=== PATIENT | male | born 1930 ===

== ENCOUNTER 2017-11-25 13:00 | Inpatient (IN) | payer MEDICARE, MEDICAID ==
[2017-11-25] MEDS ORDERED: cefTRIAXone 1 gm 1 GM/100 ML BAG IVPB STA (13:34)
[2017-11-25 13:35] VITALS: BMI 23.7
[2017-11-25] MEDS ORDERED: Azithromycin 500MG/NS 250ml 500 MG/250 ML BAG IVPB STA (13:35)
--- NOTE | 2017-11-25 13:37 | ED PDOC ---
Arrival/HPI - General Chief Complaint: Shortness Of Breath Time Seen by Provider: 11/25/17 13:14 Historian: Patient, Long-Term, EMS - Critical Care Narrative Critical Care (Text): 11/25/17 16:36 11/25/17 16:36 - History of Present Illness Narrative History of Present Illness (Text): 11/25/17 13:36 pt p/w ~ 4 DAYS onset of gradually worsening sob/coughing, + intermittent productive sputumn (non-bloody); + chills/? sweats, no fever, + chest tightness , no palpitations, no abd pain, no n/v, no appetite, no numbness/tingling, no urinary/bowel changes, no fall/trauma/travel; ? sick contact; pt was noted by nursing staff to have decr oxygenation sating as low as ~ 82%, requiring oxygen supplementations; pt also has been provided more frequent nebs, started on abx without improvement; [facility] had wanted to transfer pt to ED for further eval/admission ~ 4 days ago but pt had refused; currently pt is in agreement for admission; pt denied other complaints; pt is here for further eval. 11/25/17 15:16 11/25/17 16:04 Time/Duration: < week Symptom Onset: Gradual Symptom Course: Worsening Quality: Tightness Severity Level: 6 Activities at Onset: Rest Context: Home Past Medical History - Provider Review Nursing Documentation Reviewed: Yes - Travel History Have you recently traveled outside [place] w/in the past 3 mons?: No - Past History Past History: No Previous - Cardiac Hx Cardiac Disorders: Yes (CAD) Hx Hypertension: Yes Hx Peripheral Vascular Disease: Yes - Pulmonary Hx Respiratory Disorders: Yes Hx Asthma: Yes Hx Chronic Obstructive Pulmonary Disease (COPD): Yes - Neurological Hx Neurological Disorder: Yes Hx Dementia: Yes - HEENT Hx HEENT Disorder: Yes Hx Cataracts: Yes - Renal Hx Renal Disorder: Yes Hx Renal Failure: Yes - Endocrine/Metabolic Hx Endocrine Disorders: Yes Hx Diabetes Mellitus Type 2: Yes - Hematological/Oncological Hx Blood Disorders: No - Integumentary Hx Dermatological Disorder: No - Musculoskeletal/Rheumatological Hx Falls: Yes - Gastrointestinal Hx Gastrointestinal Disorders: No - Genitourinary/Gynecological Hx Genitourinary Disorders: Yes Hx Prostate Problems: Yes - Psychiatric Hx Psychophysiologic Disorder: No Hx Substance Use: No - Surgical History Hx Cataract Extraction: Yes (Bilateral IOL) Hx Orthopedic Surgery: Yes (Left AKA) Other/Comment: CYSTOSCOPY/ STENT INSERTION - Anesthesia Hx Anesthesia: Yes Hx Anesthesia Reactions: No Hx Malignant Hyperthermia: No Family/Social History - Physician Review Nursing Documentation Reviewed: Yes Family/Social History: Unknown Family HX Smoking Status: Former Smoker Hx Alcohol Use: No Hx Substance Use: No Allergies/Home Meds Allergies/Adverse Reactions: Allergies No Known Allergies Allergy (Verified 11/25/17 16:48) Home Medications: Home Meds Medication Instructions Recorded Confirmed Acetaminophen 650 mg PO Q4 PRN 07/01/17 11/25/17 Aspirin [Resaca Aspirin] 81 mg PO DAILY 07/01/17 11/25/17 Cetirizine HCl [Zyrtec Allergy] 10 mg PO QPM 07/01/17 11/25/17 Cholecalciferol (Vitamin D3) 50,000 unit PO QWK 07/01/17 11/25/17 [Vitamin D3] Enalapril Maleate [Vasotec] 10 mg PO BID 07/01/17 11/25/17 Furosemide 40 mg PO DAILY 07/01/17 11/25/17 Insulin Human NPH [Humalin N] 10 units SC ACD 07/01/17 11/25/17 Insulin Human NPH [Humalin N] 20 units SC ACB 07/01/17 11/25/17 Insulin Human Regular [Novolin R] 0 unit SC ACHS PRN 07/01/17 11/25/17 Lactulose 10 gm PO HS PRN 07/01/17 11/25/17 Lamotrigine 25 mg PO BID 07/01/17 11/25/17 Memantine [Namenda] 5 mg PO BID 07/01/17 11/25/17 Montelukast [Singulair] 10 mg PO QPM 07/01/17 11/25/17 Fluticasone Nasal [Flonase] 1 spr NS DAILY 08/12/17 11/25/17 Fluticasone/Salmeterol 500/50 1 puff IH BID 08/12/17 11/25/17 [Advair Diskus 500/50] Ipratropium 0.02% [Atrovent] 1 appl IH Q4 08/12/17 11/25/17 Tamsulosin [Flomax] 0.4 mg PO DAILY 08/12/17 11/25/17 Eyelid Cleanser Comb No.7 [Ocusoft 1 each TP ONCE 11/25/17 11/25/17 Lid Scrub] amLODIPine [Norvasc] 10 mg PO DAILY 11/25/17 11/25/17 Review of Systems - Review of Systems Constitutional: Fatigue, Other (chills/weakness) Eyes: Normal ENT: Normal Respiratory: SOB, Cough, Sputum, Wheezing Cardiovascular: Chest Pain. absent: Palpitations, Edema Gastrointestinal: Appetite Changes. absent: Abdominal Pain Genitourinary Male: Normal Skin: Normal Neurological: Normal Endocrine: Normal Hemo/Lymphatic: Normal Psychiatric: Normal Physical Exam Vital Signs Reviewed: Yes Vital Signs Temp Pulse Resp BP Pulse Ox 11/25/17 16:35 77 17 115/69 97 11/25/17 15:32 84 16 127/51 L 96 11/25/17 15:30 127/51 L 11/25/17 13:55 17 97 11/25/17 13:17 97.9 F 81 17 135/53 L 95 Temperature: Afebrile Blood Pressure: Normal Pulse: Regular Respiratory Rate: Normal Appearance: Positive for: Well-Appearing, Non-Toxic, Other (uncomfortable, mild distress due to resp; alert/awake, GCS = 15, oriented x 2 (not to date/time), cooperative) Pain Distress: None - Systems Exam Head: Present: Atraumatic, Normocephalic, Other (mild bitemporal wasting) Pupils: Present: PERRL, Other (visual field intact b/l, no photophobia, sclera anicteric) Extroacular Muscles: Present: EOMI Conjunctiva: Present: Normal Ears: Present: Normal Mouth: Present: Dry, Other (mild dry oral mucosa, no drooling/stridor, no exudate/lesions, uvula/tongue are midline) Pharnyx: Present: Normal, Other (uvula/tongue are midline) Nose (External): Present: Atraumatic Neck: Present: Normal Range of Motion, Trachea Midline. No: MIDLINE TENDERNESS Respiratory/Chest: Present: Other (coarse breath sounds noted with right lower base rhonchi, + crackles; faint wheezing bibasiliar, mild tachypenia, no accessory muscle use noted). No: Respiratory Distress, Accessory Muscle Use Cardiovascular: Present: Regular Rate and Rhythm, Normal S1, S2. No: Murmurs Abdomen: Present: Normal Bowel Sounds, Other (well nourished male, no focal tenderness, no dill's sign, no mcburney's point tenderness, no masses/rebound/ guarding/rigidity). No: Tenderness, Distention, Peritoneal Signs Back: Present: Normal Inspection Upper Extremity: Present: Normal Inspection, NORMAL PULSES, Neurovascularly Intact, Capillary Refill < 2s. No: Cyanosis, Edema Lower Extremity: Present: Other (+ left BKA; no pitting edema/swelling noted right lower ext; neurovasc intact b/l, strength 5-/5 b/l). No: Edema Neurological: Present: GCS=15, CN II-XII Intact, Speech Normal Skin: Present: Warm, Dry, Normal Color, Other (slightly pale, cap refill < 1sec) . No: Rashes Psychiatric: Present: Alert, Normal Insight, Normal Concentration Medical Decision Making ED Course and Treatment: 11/25/17 15:02 Impression: weakness, sob/decr pulse ox, decr appetite i have consider all the differential diagnosis regarding pt's chief medical complaints/clinical findings, including but are not limited to: r/o pna, r/o CHF , r/o acs, r/o electrolyte changes/abnormalities; anemia A/P: sob/weakness, coughing, decr pulse ox - labs - iv - xray - abx? - acs eval - observe - supportive care 11/25/17 15:10 pt is doing well/comfortable currently pt is made aware of his medical results agrees with admission Dr Thomas, pt's pcp, contacted and made aware, agrees with admission/ED mgt/txt ; would like consultation placed for Dr MO and Dr Gibson to see/evaluate patient in the morning 11/25/17 16:30 11/25/17 16:39 pt's vital signs are stable pt is currently comfortable Re-evaluation Time: 15:55 Reassessment Condition: Improved - Critical Care Critical Care Minutes: 45 minutes Critical Care Time: Excluding Proc Time Narrative Critical Care (Text): 11/25/17 15:12 critical care time: 45min, excluding procedure time, excluding time teaching residents/students/mid-level providers; including initial eval/diagnosis, diagnostic interpretation, re-eval, consultations, final disposition - Lab Interpretations Lab Results: 11/25/17 13:40 11/25/17 13:40 Lab Results 11/25/17 13:40: Sodium 144, Chloride 106, Potassium 4.4, Carbon Dioxide 28, Anion Gap 15, BUN 58 H, Creatinine 5.0 H, Est GFR ( Amer) 13, Est GFR ( Non-Af Amer) 11, Random Glucose 98, Calcium 9.1, Total Bilirubin 0.4, AST 30, ALT 36, Alkaline Phosphatase 147 H, Lactate Dehydrogenase 408, Total Creatine Kinase 99, Troponin I 0.02, NT-Pro-B Natriuret Pep 4890 H, Total Protein 7.0, Albumin 3.7, Globulin 3.3, Albumin/Globulin Ratio 1.1 11/25/17 13:40: pO2 26 L, VBG pH 7.33, VBG pCO2 55.0, VBG HCO3 29.0 H, VBG Total CO2 30.7 H, VBG O2 Sat (Calc) 53.5, VBG Base Excess 1.9, VBG Potassium 4.3 , Sodium 142.0, Chloride 108.0 H, Glucose 98, Lactate 0.9, FiO2 21.0, Venous Blood Potassium 4.3 11/25/17 13:40: WBC 6.7, RBC 3.15 L, Hgb 8.2 L, Hct 27.7 L, MCV 87.9, MCH 26.0, MCHC 29.6 L, RDW 15.8 H, Plt Count 163, MPV 10.4, Gran % 74.9 H, Lymph % (Auto) 18.4 L, Izard % (Auto) 4.2, Eos % (Auto) 2.4, Baso % (Auto) 0.1, Gran # 5.05, Lymph # 1.2, Izard # 0.3, Eos # 0.2, Baso # 0.01 low H/H, elevated BUN/creat; elevated BNP I have reviewed the lab results: Yes (low h/h; elevated CREAT; BNP) Interpretation: Abnormal lab values - RAD Interpretation Radiology Orders: 11/25/17 13:32 CHEST PORTABLE [RAD] Stat FINDINGS: LUNGS: Pulmonary vascular congestion, pulmonary edema. PLEURA: No significant pleural effusion identified, no pneumothorax apparent. CARDIOVASCULAR: Cardiomegaly, CHF. OSSEOUS STRUCTURES: No significant abnormalities. VISUALIZED UPPER ABDOMEN: Normal. OTHER FINDINGS: None. IMPRESSION: Congestive heart failure/ cardiogenic pulmonary edema. Freight Flagman: ED Physician, Radiologist - EKG Interpretation EKG Interpretation (Text): 11/25/17 15:12 NSR at 75 bpm, LAD, no ectopy, non-specific st-t changes, diffuse low voltage, ABNL EKG; no old ekg to compare with 11/25/17 16:37 Interpreted by ED Physician: Yes Type: 12 lead EKG Comparison: No previous EKG avail. - Medication Orders Current Medication Orders: Discontinued Medications Albuterol/Ipratropium (Duoneb 3 Mg/0.5 Mg (3 Ml) Ud) 3 ml IH Q15M FANNY Stop: 11/25/17 14:16 Last Admin: 11/25/17 14:52 Dose: 3 ml Furosemide (Lasix) 40 mg IVP STAT STA Stop: 11/25/17 14:55 Last Admin: 11/25/17 15:30 Dose: 40 mg MAR Blood Pressure Document 11/25/17 15:30 [facility] (Rec: 11/25/17 15:31 [facility] [id number]) Blood Pressure Blood Pressure (100/60-150/90) 127/51 IVP Administration Document 11/25/17 15:30 [facility] (Rec: 11/25/17 15:31 [facility] [id number]) Charges for Administration # of IVP Administrations 1 Ceftriaxone Sodium (Rocephin 1 Gram Ivpb) 1 gm in 100 mls @ 200 mls/hr IVPB STAT STA PRN Reason: Protocol Stop: 11/25/17 14:03 Last Admin: 11/25/17 14:25 Dose: 200 mls/hr eMAR Start Stop Document 11/25/17 14:25 [facility] (Rec: 11/25/17 14:25 [facility] [id number]) Intravenous Solution Start Date 11/25/17 Start Time 14:25 End Date 11/25/17 End time 15:00 Total Infusion Time 35 Azithromycin (Zithromax 500mg In Ns) 500 mg in 250 mls @ 167 mls/hr IVPB STAT STA PRN Reason: Protocol Stop: 11/25/17 15:04 Last Admin: 11/25/17 15:08 Dose: 167 mls/hr eMAR Start Stop Document 11/25/17 15:08 [facility] (Rec: 11/25/17 15:08 [facility] [id number]) Intravenous Solution Start Date 11/25/17 Start Time 15:08 End Date 11/25/17 End time 16:40 Total Infusion Time 92 Disposition/Present on Arrival - Present on Arrival Any Indicators Present on Arrival: No History of DVT/PE: No History of Uncontrolled Diabetes: Yes Urinary Catheter: Yes History of Decub. Ulcer: No History Surgical Site Infection Following: None - Disposition Have Diagnosis and Disposition been Completed?: Yes Diagnosis: Dyspnea, unspecified, Acute on chronic diastolic CHF (congestive heart failure) , Pneumonia, Acute on chronic renal failure, Anemia Disposition: HOSPITALIZED Disposition Time: 15:30 Patient Plan: Admission, Telemetry Patient Problems: Current Active Problems Problem Status Onset Acute on chronic diastolic CHF (congestive heart failure) Acute Acute on chronic renal failure Acute Anemia Acute Dyspnea, unspecified Acute Pneumonia Acute Condition: FAIR
[2017-11-25] MEDS: Albuterol-Ipratrop 3 mg / 0.5 (3 ml) UD IH SCH ×3 (14:02→14:52)
[2017-11-25 14:11] LABS: VENOUS BLOOD GAS BASE EXCESS 1.9 mmol/L (0.0-2.0); VENOUS BLOOD GAS PO2 26 mm/Hg (30-55); VENOUS BLOOD PH 7.33 (7.32-7.43)
[2017-11-25 14:13] LABS: BASO # 0.01 K/mm3 (0.0-2.0); BASO % 0.1 % (0.0-3.0); EOS # 0.2 (0.0-0.7); EOS % 2.4 % (1.5-5.0); GRAN # 5.05 (1.4-6.5); GRAN % 74.9 % (50.0-68.0); HEMOGLOBIN 8.2 g/dL (14.0-18.0); LYMPH # 1.2 (1.2-3.4); LYMPH % 18.4 % (22.0-35.0); MEAN CELL VOLUME 87.9 fl (80.0-105.0); MEAN CORPUSCULAR HGB CONC 29.6 g/dl (31.0-37.0); MEAN PLATELET VOLUME 10.4 fl (7.0-11.0); MONO # 0.3 (0.1-0.6); MONO % 4.2 % (1.0-6.0); RBC 3.15 10^6/uL (3.5-6.1); RED CELL DISTRIBUTION WIDTH 15.8 % (11.5-14.5); WHITE BLOOD COUNT 6.7 10^3/ul (4.5-11.0)
[2017-11-25 14:22] LABS: ALB/GLOB RATIO 1.1 (1.1-1.8); ALBUMIN 3.7 g/dL (3.0-4.8); CALCIUM 9.1 mg/dL (8.4-10.5)
[2017-11-25 14:31] LABS: TROPONIN I 0.02 ng/mL
--- NOTE | 2017-11-25 15:58 | RAD ---
HISTORY: Shortness of breath. Portable study 14:19. COMPARISON: No prior. FINDINGS: LUNGS: Pulmonary vascular congestion, pulmonary edema. PLEURA: No significant pleural effusion identified, no pneumothorax apparent. CARDIOVASCULAR: Cardiomegaly, CHF. OSSEOUS STRUCTURES: No significant abnormalities. VISUALIZED UPPER ABDOMEN: Normal. OTHER FINDINGS: None. IMPRESSION: Congestive heart failure/ cardiogenic pulmonary edema.
--- NOTE | 2017-11-25 16:57 | CP.PCM.CON ---
History of Present Illness - History of Present Illness History of Present Illness: Infectious Disease Consultation: November 25, 2017 87 yo male with heavy sputum production in [facility] facility. The patient had desaturations at the facility. Reported as low as 82%. He recently completed course of Levaquin for antibiotic therapy. The patient is unable to give much history on his own. As per snf records, desaturation to 86%. Heavy thick brown secretions for the last 3 days or so. No reported fevers. No leukocytosis. PMHx: HTN, CAD, COPD, Dementia, Asthma, PVD, Cataracts, DM, Renal Failure, CHF PSHx: Left AKA Allergies: NKDA Social Hx: retirement resident No tobacco, EtOH, or illicit drug use to my knowledge Active Medications Ceftaroline Fosamil 300 mg/ (Sodium Chloride) 50 mls @ 50 mls/hr IVPB Q12H FANNY PRN Reason: Protocol Family Hx: Unable to Obtain ROS: Unable to Obtain Past Patient History - Past Medical History & Family History Past Medical History?: Yes - Past Social History Smoking Status: Former Smoker - CARDIAC Hx Cardiac Disorders: Yes (CAD) Hx Hypertension: Yes Hx Peripheral Vascular Disease: Yes - PULMONARY Hx Respiratory Disorders: Yes Hx Asthma: Yes Hx Chronic Obstructive Pulmonary Disease (COPD): Yes - NEUROLOGICAL Hx Neurological Disorder: Yes Hx Dementia: Yes - HEENT Hx HEENT Problems: Yes Hx Cataracts: Yes - RENAL Hx Chronic Kidney Disease: Yes Hx Renal Failure: Yes - ENDOCRINE/METABOLIC Hx Endocrine Disorders: Yes Hx Diabetes Mellitus Type 2: Yes - HEMATOLOGICAL/ONCOLOGICAL Hx Blood Disorders: No - INTEGUMENTARY Hx Dermatological Problems: No - MUSCULOSKELETAL/RHEUMATOLOGICAL Hx Falls: Yes - GASTROINTESTINAL Hx Gastrointestinal Disorders: No - GENITOURINARY/GYNECOLOGICAL Hx Genitourinary Disorders: Yes Hx Prostate Problems: Yes - PSYCHIATRIC Hx Psychophysiologic Disorder: No Hx Substance Use: No - SURGICAL HISTORY Hx Cataract Extraction: Yes (Bilateral IOL) Hx Orthopedic Surgery: Yes (Left AKA) Other/Comment: CYSTOSCOPY/ STENT INSERTION - ANESTHESIA Hx Anesthesia: Yes Hx Anesthesia Reactions: No Hx Malignant Hyperthermia: No Meds Allergies/Adverse Reactions: Allergies Allergy/AdvReac Type Severity Reaction Status Date / Time No Known Allergies Allergy Verified 11/25/17 16:48 Physical Exam - Constitutional Appears: Non-toxic, No Acute Distress, Chronically Ill - Head Exam Head Exam: ATRAUMATIC, NORMOCEPHALIC - Eye Exam Eye Exam: EOMI, PERRL Pupil Exam: NORMAL ACCOMODATION, PERRL - ENT Exam ENT Exam: Mucous Membranes Moist, Normal External Ear Exam, TM's Normal Bilaterally - Neck Exam Neck exam: Positive for: Full Rom, Normal Inspection - Respiratory Exam Respiratory Exam: Decreased Breath Sounds, NORMAL BREATHING PATTERN. absent: Rales, Rhonchi, Wheezes Additional comments: crackles at bases bilaterally. - Cardiovascular Exam Cardiovascular Exam: REGULAR RHYTHM, RRR, +S1, +S2 - GI/Abdominal Exam GI & Abdominal Exam: Normal Bowel Sounds, Soft. absent: Distended, Tenderness - Extremities Exam Extremities exam: Positive for: full ROM, normal inspection - Neurological Exam Neurological exam: Alert, CN II-XII Intact Additional comments: AAO x 2. Not orientated to time. - Psychiatric Exam Psychiatric exam: Normal Affect, Normal Mood - Skin Skin Exam: Intact, Normal Color Results - Vital Signs Recent Vital Signs: Last Vital Signs Temp 97.9 F 11/25/17 13:17 Pulse 77 11/25/17 16:35 Resp 17 11/25/17 16:35 BP 115/69 11/25/17 16:35 Pulse Ox 97 11/25/17 16:35 - Labs Result Diagrams: 11/25/17 13:40 11/25/17 13:40 Assessment & Plan - Assessment and Plan (Free Text) Assessment: 87 yo male with SOB and oxygen desaturation to 86% at [facility] [place]. The patient had excess sputum production that was thicker than normal. Started Teflaro for antibiotic treatment. The patient completed Levaquin less than a week ago. The patient does not have fevers or leukocytosis. Sputum culture. Supportive care. Patient with renal insufficiency if not renal failure. Creatinine has been above 3 for several months now. I do not see any type of HD access on the patient. No decubiti of the sacrum on examination. Thank you for allowing me to participate in the care of the patient, we will follow with you.
[2017-11-25] MEDS ORDERED: Pneumococcal 23-Valent Vaccine IM ONE (18:37)
[2017-11-25] MEDS ORDERED: Influenza Vaccine 60 mcg/0.5 mL SYR (4YR UP) IM ONE (18:37)
[2017-11-25] MEDS ORDERED: Fluticasone-Salmeterol 500-50mcg Diskus IH SCH (19:00)
[2017-11-25] MEDS: Ipratropium 0.02% Inhal Soln (0.5 mg/2.5 ml) UD IH SCH (20:04)
[2017-11-25] MEDS: Arformoterol 15 mcg/2 ml Inh Sol IH SCH (20:05)
[2017-11-25] MEDS: Budesonide 0.5 mg/2 ml Inhal Susp UD IH SCH (20:06)
[2017-11-25] MEDS: MethylPREDNISolone 40 mg Vial IVP SCH (22:37)
--- NOTE | 2017-11-25 23:14 | CON ---
DATE: 11/25/2017 REFERRING PHYSICIAN: Dr. Thomas REASON FOR CONSULT: Cough, shortness of breath, hypoxemia. HISTORY OF PRESENT ILLNESS: This is an 87-year-old gentleman with past medical history significant for chronic obstructive lung disease, hypertension, coronary artery disease, peripheral vascular disease, history of left AKA, diabetes, who is a halfway resident. From the last few days, been having cough and shortness of breath. He was treated with Levaquin which failed, brought into Emergency Room, admitted for further workup, seen by Infectious Disease, antibiotics have been started. He does not offer much history himself. ALLERGIES: NONE KNOWN. PAST MEDICAL HISTORY: As per history of present illness. SOCIAL HISTORY: There is no active smoking or alcohol abuse reported at present time. MEDICATIONS: Ceftaroline 300 mg daily. Home medications are Flomax 0.4 mg daily, Namenda 5 mg twice a day, vitamin D3 50,000 units weekly. Singulair 10 mg daily, albuterol and Atrovent nebulizer, insulin coverage, Flonase one spray each nostril daily, Tylenol p.r.n., lamotrigine 25 mg twice a day, Lasix 20 mg daily, enalapril 10 mg twice a day, cetirizine 10 mg daily, amlodipine 10 mg daily, getting Advair 500/50 one puff twice a day. REVIEW OF SYSTEMS: He does not offer much complaints but according to record been having rhinitis, cough, shortness of breath, hypoxemia, pulse ox drop down to mid 80s. No hemoptysis. No hematemesis. No hematuria. No diarrhea. No leg swelling reported. PHYSICAL EXAMINATION GENERAL: Lying in the bed with mild cough and shortness of breath. VITAL SIGNS: Temperature is 98, heart rate is 81, respiratory rate is 20, blood pressure is 115/69, pulse ox is 97% on nasal cannula. HEENT: Moist mucous membranes. Crowded airway. Mallampati score is 4. NECK: Supple. No JVD. LUNGS: Have scattered rhonchi and wheezing. HEART: S1 and S2. ABDOMEN: Soft and nontender. No organomegaly. EXTREMITIES: Right leg, no edema. Left AKA stump is healed well. NEUROLOGIC: Awake, alert. Does not follow much commands. LABORATORY DATA: Shows hemoglobin 8.2, hematocrit 27.7, WBC 6.7, platelets 163. ABG done which shows pH 7.33, pCO2 of 55, pO2 of 26. Sodium 144, potassium 4.4, chloride 106, bicarbonate 28, BUN 58, creatinine 5.0, glucose 98, calcium 9.1, total bilirubin 0.4, AST 30, ALT 36, alkaline phosphatase 147, LDH 408, proBNP is 4890, albumin 3.7. Chest x-ray done today shows congestive heart failure, cardiogenic pulmonary edema. IMPRESSION AND PLAN: Chronic obstructive lung disease with renal failure, rule out viral syndrome, history of coronary artery disease, hypertension, peripheral vascular disease, history of left above knee amputation. We will add IV and inhaled bronchodilator. Keep head at 45 degrees. Sleep apnea precaution. We will get echocardiogram to assess RV and LV function. Antibiotics as per Infectious Disease. Sleep apnea precaution. May place on BiPAP 09/06 with 30% oxygen while sleeping for now. Followup labs in the morning. We will follow with you. Nathalie Gibson MD
[2017-11-26 01:59] LABS: URINE BILIRUBIN NEGATIVE (NEGATIVE); URINE BLOOD NEGATIVE (NEGATIVE); URINE GLUCOSE (UA) NEGATIVE (NEGATIVE); URINE LEUKOCYTE ESTERASE NEGATIVE Leu/uL (NEGATIVE); URINE NITRATE NEGATIVE (NEGATIVE); URINE PROTEIN TRACE mg/dL (<30 mg/dL); URINE UROBILINOGEN 0.2 E.U./dL (<1 E.U./dL)
--- NOTE | 2017-11-26 02:06 | HP ---
CHIEF COMPLAINT: Shortness of breath. HISTORY OF PRESENT ILLNESS: Mr. Sukhdev Grey is an 87-year-old male with past medical history of multiple medical problems, resident of [facility], was having four days ago shortness of breath, coughing intermittent periodic sputum production and nonbloody, plus chills and sweats. The patient was treated by nurse practitioner Veena with Mucinex, antibiotics inhaler treatment. The patient was offered hospitalization, but he refused. Now today, I received a call from the [facility], but because the patient started chest pain also, then we transferred the patient to [facility] Emergency Room. According to the patient, he is having chest pain and shortness of breath, but no palpitation. No abdominal pain. No nausea or vomiting. No appetite change. No numbness or tingling sensation. In the [facility], oxygenation was as low as 82% requiring oxygen supplementation and more frequent nebulizers were provided in the [facility] without improvement. We admitted the patient. Discussion done with PAST MEDICAL HISTORY: Coronary artery disease, hypertension, asthma, chronic obstructive pulmonary disease, dementia, renal failure, diabetes mellitus, history of fall, amputation of the leg, benign prostatic hypertrophy, history of nephrolithiasis, hydronephrosis, got a ureteral stent by Dr. Rubén King, got surgery bilaterally, left above the knee amputation, cystoscopy by Dr. King. FAMILY HISTORY: Father and mother noncontributory. HABITS: No smoking, no drugs, no ethanol. Former smoker. ALLERGIES: THE PATIENT IS NOT ALLERGIC TO ANY MEDICATIONS. HOME MEDICATIONS: Acetaminophen, aspirin, Zyrtec, vitamin D, enalapril, furosemide, insulin, lactulose, Namenda, Singulair, Flomax, atorvastatin. REVIEW OF SYSTEMS: The patient was seen and examined and looking sick having shortness of breath, coughing sputum and wheezing. Chest tightness. No fever, no chills. No hematuria or hematochezia. PHYSICAL EXAMINATION: VITAL SIGNS: Temperature 97.9, pulse 81, respiratory rate 17, blood pressure 130/63, and pulse oximetry of 95%. HEENT: Head is normocephalic and atraumatic. Eyes: PERRLA. Extraocular muscles are intact. Conjunctivae clear. Nose patent. Mucous membranes moist. NECK: Supple. No carotid bruit, JVD or thyromegaly. CHEST: Bilaterally symmetrical. HEART: S1 and S2 positive. LUNGS: Coarse breathing sounds noted with right lower basilar rhonchi plus crackles are faint, wheezing bilaterally. Mild tachypneic. ABDOMEN: Soft. Bowel sounds present. No organomegaly. EXTREMITIES: No edema. No cyanosis. NEUROLOGIC: The patient is awake and alert. Moving all four extremities. No focal deficits. LABORATORY DATA: White blood cells 6.7, hemoglobin 8.2, hematocrit 27.7, platelets 153,000, sodium 144, potassium 4.4, BUN 15, creatinine 5.0. ASSESSMENT AND PLAN: Mr. Sukhdev Grey is an 87-year-old male, my private patient, resident of [facility] has anemia, renal insufficiency, pulmonary edema, pulmonary vascular congestion, congestive heart failure, cardiogenic pulmonary edema, dyspnea, pneumonia, history of peripheral vascular disease, noncompliant, coronary artery disease, dementia, history of nephrolithiasis, benign prostatic hypertrophy. We will consult with Heel Sorter, Infectious Disease. Gastrointestinal and deep venous thrombosis prophylaxis. Repeat labs. We will follow up. Senia Thomas MD [place]
[2017-11-26 02:15] LABS: URINE APPEARANCE CLEAR (CLEAR); URINE COLOR YELLOW (YELLOW); URINE EPITHELIAL CELLS 0 - 2 /hpf (0-5); URINE RBC 0 - 2 /hpf (0-2); URINE WBC 0 - 2 /hpf (0-6)
[2017-11-26] MEDS: Budesonide 0.5 mg/2 ml Inhal Susp UD IH SCH ×3 (08:55→19:37)
[2017-11-26] MEDS: Ipratropium 0.02% Inhal Soln (0.5 mg/2.5 ml) UD IH SCH ×6 (08:55→23:55)
[2017-11-26] MEDS: Arformoterol 15 mcg/2 ml Inh Sol IH SCH ×3 (08:55→19:36)
[2017-11-26] MEDS: Insulin Human NPH 1 UNITS/0.01 ML SC SCH ×2 (09:08→18:04)
[2017-11-26] MEDS: MethylPREDNISolone 40 mg Vial IVP SCH ×2 (10:25→22:28)
[2017-11-26] MEDS: Fluticasone Nasal 50 mcg/Spray NS SCH (10:26)
--- NOTE | 2017-11-26 10:53 | CP.PCM.PN ---
Subjective - Date & Time of Evaluation Date of Evaluation: 11/26/17 Time of Evaluation: 10:30 - Subjective Subjective: Infectious Disease Follow Up: November 26, 2017 87 yo male with heavy sputum production in [facility] at [facility] facility. The patient had desaturations at the facility. Reported as low as 82%. He recently completed course of Levaquin for antibiotic therapy. The patient is unable to give much history on his own. As per [facility] records, desaturation to 86%. Heavy thick brown secretions for the last 3 days or so. No reported fevers. No leukocytosis. Patient incontinent of urine. On BiPAP. Remains afebrile here. Objective - Vital Signs/Intake and Output Vital Signs (last 24 hours): Temp Pulse Resp BP Pulse Ox 97.9 F 90 18 146/55 L 93 L 11/26/17 06:00 11/26/17 10:24 11/26/17 06:00 11/26/17 10:25 11/26/17 06:00 Intake and Output: 11/26/17 11/26/17 06:59 18:59 Intake Total 200 Balance 200 - Medications Medications: Current Medications Acetaminophen (Tylenol 325mg Tab) 650 mg PO Q4 PRN PRN Reason: Pain Amlodipine Besylate (Norvasc) 10 mg PO DAILY [facility] Last Admin: 11/26/17 10:25 Dose: 10 mg Arformoterol Tartrate (Brovana) 15 mcg IH [id number] [facility] Last Admin: 11/26/17 08:59 Dose: 15 mcg Aspirin (Ecotrin) 81 mg PO DAILY [facility] Last Admin: 11/26/17 10:24 Dose: 81 mg Budesonide (Pulmicort Respules) 1 mg IH [id number] [facility] Last Admin: 11/26/17 09:02 Dose: 1 mg Ergocalciferol (Drisdol 50,000 Intl Units Cap) 1 cap PO Mo@1000 [facility] Fluticasone Propionate (Flonase) 1 actuation NS DAILY [facility] Last Admin: 11/26/17 10:26 Dose: 1 spray Furosemide (Lasix) 40 mg PO DAILY [facility] Last Admin: 11/26/17 10:25 Dose: 40 mg Ceftaroline Fosamil 300 mg/ (Sodium Chloride) 50 mls @ 50 mls/hr IVPB Q12H [facility] PRN Reason: Protocol Last Admin: 11/26/17 05:39 Dose: 50 mls/hr Insulin Human NPH (Humulin N) 10 units SC ACD [facility] Insulin Human NPH (Humulin N) 20 units SC ACB [facility] Last Admin: 11/26/17 09:08 Dose: 20 units Ipratropium [place] (Atrovent) 2.5 mg IH [id number] [facility] Last Admin: 11/26/17 09:01 Dose: 2.5 mg Lamotrigine (Lamictal) 25 mg PO BID [facility] PRN Reason: Protocol Last Admin: 11/26/17 10:25 Dose: 25 mg Lisinopril (Zestril) 10 mg PO BID [facility] Last Admin: 11/26/17 10:24 Dose: 10 mg Loratadine (Claritin) 10 mg PO QPM [facility] Memantine (Namenda) 5 mg PO BID [facility] Last Admin: 11/26/17 10:25 Dose: 5 mg Methylprednisolone (Solu-Medrol) 40 mg IVP Q12 [facility] Last Admin: 11/26/17 10:25 Dose: 40 mg Montelukast Sodium (Singulair) 10 mg PO QPM [facility] Tamsulosin HCl (Flomax) 0.4 mg PO DAILY [facility] Last Admin: 11/26/17 10:24 Dose: 0.4 mg - Constitutional Appears: Non-toxic, No Acute Distress, Chronically Ill - Head Exam Head Exam: ATRAUMATIC, NORMOCEPHALIC - Eye Exam Eye Exam: EOMI, PERRL Pupil Exam: NORMAL ACCOMODATION, PERRL - ENT Exam ENT Exam: Mucous Membranes Moist, Normal External Ear Exam, TM's Normal Bilaterally - Neck Exam Neck Exam: Full ROM, Normal Inspection - Respiratory Exam Respiratory Exam: Decreased Breath Sounds, NORMAL BREATHING PATTERN. absent: Rales, Rhonchi, Wheezes Additional comments: crackles at bases bilaterally - Cardiovascular Exam Cardiovascular Exam: REGULAR RHYTHM, RRR, +S1, +S2 - GI/Abdominal Exam GI & Abdominal Exam: Soft, Normal Bowel Sounds. absent: Distended, Tenderness - Extremities Exam Extremities Exam: Full ROM, Normal Inspection - Neurological Exam Neurological Exam: Alert, Awake, CN II-XII Intact Additional comments: AAO x 2. Not orientated to time - Psychiatric Exam Psychiatric exam: Normal Affect, Normal Mood - Skin Skin Exam: Intact, Normal Color Assessment and Plan - Assessment and Plan (Free Text) Assessment: 87 yo male with SOB and oxygen desaturation to 86% at [facility]. The patient had excess sputum production that was thicker than normal. Started Teflaro for antibiotic treatment. The patient completed Levaquin less than a week ago. The patient does not have fevers or leukocytosis. Sputum culture. Supportive care. Patient with renal insufficiency if not renal failure. Creatinine has been above 3 for several months now. I do not see any type of HD access on the patient. The patient has no signs of being of hemodialysis and he is incontinent. Unclear volume of urine produced. No decubiti of the sacrum on examination. Cultures pending. Thank you for allowing me to participate in the care of the patient, we will follow with you.
[2017-11-26] MEDS: Insulin Lispro (humaLOG) MEDIUM Coverage SC SCH ×3 (11:29→22:22)
--- NOTE | 2017-11-26 17:20 | CARD ---
APPROVED REPORT EXAM: Two-dimensional and M-mode echocardiogram with Doppler and color Doppler. INDICATION Congestive Heart Failure 2D DIMENSIONS Left Atrium (2D)3.4 (1.6-4.0cm)IVSd1.2 (0.7-1.1cm) LVDd4.5 (3.9-5.9cm)PWd1.2 (0.7-1.1cm) LVDs3.0 (2.5-4.0cm)FS (%) 32.3 % LVEF (%)60.7 (>50%) M-Mode DIMENSIONS Aortic Root2.40 (2.2-3.7cm)Aortic Cusp Exc.1.20 (1.5-2.0cm) Aortic Valve AoV Peak Mqnajvuj655.0cm/Halie Peak GR.6mmHg Mitral Valve MV E Kmfgxnhh894.0cm/sMV A Uehdwtcr356.0cm/sE/A ratio0.9 TDI E/Lateral E'0.0E/Medial E'0.0 Tricuspid Valve TR Peak Ikktolom193nd/sRAP [id number] Peak Gr.34mmHg [id number] LEFT VENTRICLE The left ventricle is normal size. There is borderline concentric left ventricular hypertrophy. The left ventricular function is normal. The left ventricular ejection fraction is within the normal range. There is normal LV segmental wall motion. Transmitral Doppler flow pattern is Grade I-abnormal relaxation pattern. RIGHT VENTRICLE The right ventricle is normal size. There is normal right ventricular wall thickness. The right ventricular systolic function is normal. ATRIA The left atrium size is normal. The right atrium is borderline dilated. AORTIC VALVE The aortic valve is not well visualized. No aortic regurgitation is present. There is no aortic valvular stenosis. MITRAL VALVE The mitral valve is mildly thickened. There is no mitral valve regurgitation noted. There is no mitral valve stenosis. TRICUSPID VALVE There is trace tricuspid regurgitation. There is mild pulmonary hypertension. GREAT VESSELS The aortic root is normal in size. The IVC is normal in size and collapses >50% with inspiration. PERICARDIAL EFFUSION There is a trace loculated anterior pericardial effusion. <Conclusion> The left ventricle is normal size. There is borderline concentric left ventricular hypertrophy. The left ventricular function is normal. The left ventricular ejection fraction is within the normal range. There is normal LV segmental wall motion. Transmitral Doppler flow pattern is Grade I-abnormal relaxation pattern. There is mild pulmonary hypertension.
--- NOTE | 2017-11-26 17:29 | CARD ---
APPROVED REPORT EKG Measurement Heart [id number] <Conclusion> Normal sinus rhythm Left axis deviation Abnormal ECG
--- NOTE | 2017-11-26 21:43 | CP.PCM.PN ---
Subjective - Date & Time of Evaluation Date of Evaluation: 11/26/17 Time of Evaluation: 09:55 - Subjective Subjective: 87yr male w/ history of CAD, HTN, Asthma, COPD, Dementia, Renal failure , CHF, DM II, history of fall, L AKA, BPH, Nephrolithiasis w/ stents by Dr. King, hydronephrosis, peripheral vascular disease, & pulmonary edema. He is seen w/ his nasal cannula O2 applied to face. He states that he feels very scared in the hospital and was relaxed to see a familiar face. Denies any headaches, SOB, N/V, fevers, constipation, diarrhea, urinary changes or distress. Objective - Vital Signs/Intake and Output Vital Signs (last 24 hours): Temp Pulse Resp BP Pulse Ox 97.5 F L 81 20 135/53 L 93 L 11/26/17 18:00 11/26/17 18:00 11/26/17 18:00 11/26/17 18:00 11/26/17 06:00 - Medications Medications: Current Medications Acetaminophen (Tylenol 325mg Tab) 650 mg PO Q4 PRN PRN Reason: Pain Amlodipine Besylate (Norvasc) 10 mg PO DAILY [facility] Last Admin: 11/26/17 10:25 Dose: 10 mg Arformoterol Tartrate (Brovana) 15 mcg IH [id number] [facility] Last Admin: 11/26/17 19:36 Dose: 15 mcg Aspirin (Ecotrin) 81 mg PO DAILY [facility] Last Admin: 11/26/17 10:24 Dose: 81 mg Budesonide (Pulmicort Respules) 1 mg IH [id number] [facility] Last Admin: 11/26/17 19:37 Dose: 1 mg Ergocalciferol (Drisdol 50,000 Intl Units Cap) 1 cap PO Mo@1000 [facility] Fluticasone Propionate (Flonase) 1 actuation NS DAILY [facility] Last Admin: 11/26/17 10:26 Dose: 1 spray Furosemide (Lasix) 40 mg PO DAILY [facility] Last Admin: 11/26/17 10:25 Dose: 40 mg Ceftaroline Fosamil 300 mg/ (Sodium Chloride) 50 mls @ 50 mls/hr IVPB Q12H [facility] PRN Reason: Protocol Last Admin: 11/26/17 18:00 Dose: 50 mls/hr Insulin Human Lispro (Humalog Med) 0 units SC ACHS [facility] PRN Reason: Protocol Last Admin: 11/26/17 18:04 Dose: 10 units Insulin Human NPH (Humulin N) 10 units SC ACD [facility] Last Admin: 11/26/17 18:04 Dose: 10 units Insulin Human NPH (Humulin N) 20 units SC ACB [facility] Last Admin: 11/26/17 09:08 Dose: 20 units Ipratropium [place] (Atrovent) 2.5 mg IH [id number] [facility] Last Admin: 11/26/17 19:38 Dose: 2.5 mg Lamotrigine (Lamictal) 25 mg PO BID [facility] PRN Reason: Protocol Last Admin: 11/26/17 17:53 Dose: 25 mg Lisinopril (Zestril) 10 mg PO BID [facility] Last Admin: 11/26/17 17:54 Dose: 10 mg Loratadine (Claritin) 10 mg PO QPM [facility] Last Admin: 11/26/17 17:54 Dose: 10 mg Memantine (Namenda) 5 mg PO BID [facility] Last Admin: 11/26/17 17:55 Dose: 5 mg Methylprednisolone (Solu-Medrol) 20 mg IVP Q12 [facility] Montelukast Sodium (Singulair) 10 mg PO QPM [facility] Last Admin: 11/26/17 17:57 Dose: 10 mg Tamsulosin HCl (Flomax) 0.4 mg PO DAILY [facility] Last Admin: 11/26/17 10:24 Dose: 0.4 mg - Labs Labs: 11/26/17 17:55 - Constitutional Appears: No Acute Distress - Head Exam Head Exam: ATRAUMATIC, NORMAL INSPECTION, NORMOCEPHALIC - Eye Exam Eye Exam: EOMI, Normal appearance, PERRL - ENT Exam ENT Exam: Mucous Membranes Moist, Normal Exam - Neck Exam Neck Exam: Full ROM, Normal Inspection. absent: Lymphadenopathy - Respiratory Exam Respiratory Exam: Decreased Breath Sounds, Clear to Ausculation Bilateral, NORMAL BREATHING PATTERN - Cardiovascular Exam Cardiovascular Exam: REGULAR RHYTHM, +S1, +S2. absent: Murmur - GI/Abdominal Exam GI & Abdominal Exam: Soft, Normal Bowel Sounds. absent: Tenderness - Extremities Exam Additional comments: L AKA - Back Exam Back Exam: NORMAL INSPECTION - Neurological Exam Neurological Exam: Alert, Awake, CN II-XII Intact, Normal Gait, Oriented x3 - Psychiatric Exam Psychiatric exam: Normal Affect, Normal Mood - Skin Skin Exam: Dry, Intact, Normal Color, Warm Assessment and Plan (1) Pneumonia Status: Acute (2) Dyspnea, unspecified Status: Acute (3) Acute on chronic diastolic CHF (congestive heart failure) Status: Acute (4) Hypoxemia Status: Acute (5) Pulmonary edema Status: Acute (6) Anemia Status: Chronic (7) Chronic renal insufficiency Status: Chronic - Assessment and Plan (Free Text) Plan: IV ABX per ID after failing Levaquin. PT/OT on board. Bipap. Consults: Pulmonary - = IV broncho dilator, HOB 45 degrees, Sleep apnea precautions, ECHO ordered, ordered BiPAP, IVABX per ID I.D. - Dr. Zaldivar = Prescribed Teflaro, Cultures pending Reviewed: CXR = CHF/cardiogenic pulmonary edema ECHO = LVEF 60.7%, mild pulmonary HTN ECG = ABNORMAL NSR, L axis deviation
--- NOTE | 2017-11-26 22:27 | PN ---
DATE: 11/26/2017 REFERRING PHYSICIAN: SUBJECTIVE: He is lying in the bed, head at 45 degrees, feels much better than yesterday. Not much cough. No sputum protection. No hemoptysis, no emesis. No hematuria. No diarrhea reported. OBJECTIVE: GENERAL: In no acute distress. VITAL SIGNS: Temperature is 98, heart rate is 87, respiratory rate is 20, blood pressure is 135/53, and pulse oximetry 95% on nasal cannula. HEENT: Moist mucous membranes. Crowded airway. Mallampati score is IV. NECK: Supple. No JVD. LUNGS: Has a fair airflow with few rhonchi. HEART: S1 and S2. ABDOMEN: Soft and nontender. No organomegaly. EXTREMITIES: There is no edema of the right leg, but there is healed left AKA. NEUROLOGICALLY: Awake and alert. Does follows simple command. MEDICATIONS: He is on Atrovent inhaler q.4 hours, Brovana inhaler q.12 hours, Ceftaroline 50 mg q.12 hours, Dilantin 10 mg daily, vitamin D 50,000 units weekly, Ecotrin 81 mg daily, Flomax 0.4 mg daily, Flonase one spray each nostril daily, insulin coverage, Lamictal 25 mg twice a day, Lasix 20 mg daily, Namenda 5 mg twice a day, Norvasc 10 mg daily, Pulmicort inhaler twice a day, Singulair 10 mg daily, Solu-Medrol 40 mg p.o. q.12 hours, Tylenol p.r.n., Zestril 10 mg twice a day, LABORATORY DATA: Shows blood sugar at 384. Had echocardiogram done today which shows right ventricular systolic pressure is 44, left ventricle is normal size, borderline concentric left ventricular hypertrophy, mild pulmonary hypertension. IMPRESSION: Chronic obstructive lung disease, renal failure, rule out viral syndrome, coronary artery disease, history of peripheral vascular disease, hypertension, history of left knee amputation. Pulmonary point of view, he is doing better. We will decrease Solu-Medrol. Continue bronchodilator, antibiotic. Followup electrolyte. Thank you and we will follow with you. Nathalie Gibson MD
[2017-11-27 00:27] LABS: MEAN CELL VOLUME 87.9 fl (80.0-105.0); MEAN CORPUSCULAR HEMOGLOBIN 26.2 pg (25.0-35.0); MEAN CORPUSCULAR HGB CONC 29.9 g/dl (31.0-37.0); MEAN PLATELET VOLUME 9.7 fl (7.0-11.0); RBC 3.05 10^6/uL (3.5-6.1); RED CELL DISTRIBUTION WIDTH 15.6 % (11.5-14.5); WHITE BLOOD COUNT 7.2 10^3/ul (4.5-11.0)
[2017-11-27] MEDS: Ipratropium 0.02% Inhal Soln (0.5 mg/2.5 ml) UD IH SCH ×5 (05:10→19:53)
[2017-11-27 06:40] LABS: HEMOGLOBIN 8.1 g/dL (14.0-18.0); MEAN CELL VOLUME 87.5 fl (80.0-105.0); MEAN CORPUSCULAR HGB CONC 29.7 g/dl (31.0-37.0); RBC 3.12 10^6/uL (3.5-6.1); RED CELL DISTRIBUTION WIDTH 15.7 % (11.5-14.5); WHITE BLOOD COUNT 9.1 10^3/ul (4.5-11.0)
[2017-11-27] MEDS: Arformoterol 15 mcg/2 ml Inh Sol IH SCH ×2 (07:42→19:53)
[2017-11-27] MEDS: Budesonide 0.5 mg/2 ml Inhal Susp UD IH SCH ×2 (07:46→19:52)
[2017-11-27 07:53] LABS: ALB/GLOB RATIO 1.1 (1.1-1.8); ALBUMIN 3.6 g/dL (3.0-4.8)
[2017-11-27] MEDS: Fluticasone Nasal 50 mcg/Spray NS SCH (09:49)
[2017-11-27] MEDS: MethylPREDNISolone 40 mg Vial IVP SCH ×2 (09:50→21:52)
[2017-11-27] MEDS: Insulin Lispro (humaLOG) MEDIUM Coverage SC SCH ×4 (09:51→22:03)
[2017-11-27] MEDS: Insulin Human NPH 1 UNITS/0.01 ML SC SCH ×2 (09:52→17:17)
--- NOTE | 2017-11-27 15:07 | CP.PCM.PN ---
Subjective - Date & Time of Evaluation Date of Evaluation: 11/27/17 Time of Evaluation: 14:00 - Subjective Subjective: Infectious Disease Follow Up: November 27, 2017 87 yo male with heavy sputum production in [facility] at [facility] facility. The patient had desaturations at the facility. Reported as low as 82%. He recently completed course of Levaquin for antibiotic therapy. The patient is unable to give much history on his own. As per senior care records, desaturation to 86%. Heavy thick brown secretions for the last 3 days or so. No reported fevers. No leukocytosis. Patient incontinent of urine. On BiPAP. Remains afebrile here. Breathing has improved. No leukocytosis during hospitalization so far. Objective - Vital Signs/Intake and Output Vital Signs (last 24 hours): Temp Pulse Resp BP Pulse Ox 97.2 F L 76 19 138/86 93 L 11/27/17 12:00 11/27/17 12:00 11/27/17 12:00 11/27/17 12:00 11/26/17 06:00 Intake and Output: 11/27/17 11/27/17 06:59 18:59 Intake Total 100 240 Balance 100 240 - Medications Medications: Current Medications Acetaminophen (Tylenol 325mg Tab) 650 mg PO Q4 PRN PRN Reason: Pain Acetylcysteine (Acetylcysteine 20%) 4 ml IH [id number] [facility] Amlodipine Besylate (Norvasc) 10 mg PO DAILY [facility] Last Admin: 11/27/17 09:50 Dose: 10 mg Arformoterol Tartrate (Brovana) 15 mcg IH [id number] [facility] Last Admin: 11/27/17 07:42 Dose: 15 mcg Aspirin (Ecotrin) 81 mg PO DAILY [facility] Last Admin: 11/27/17 09:51 Dose: 81 mg Budesonide (Pulmicort Respules) 1 mg IH [id number] [facility] Last Admin: 11/27/17 07:46 Dose: 1 mg Ergocalciferol (Drisdol 50,000 Intl Units Cap) 1 cap PO Mo@1000 [facility] Fluticasone Propionate (Flonase) 1 actuation NS DAILY [facility] Last Admin: 11/27/17 09:49 Dose: 1 spray Furosemide (Lasix) 40 mg PO DAILY [facility] Last Admin: 11/27/17 09:50 Dose: 40 mg Ceftaroline Fosamil 300 mg/ (Sodium Chloride) 50 mls @ 50 mls/hr IVPB Q12H [facility] PRN Reason: Protocol Last Admin: 11/27/17 06:44 Dose: 50 mls/hr Insulin Human Lispro (Humalog Med) 0 units SC ACHS [facility] PRN Reason: Protocol Last Admin: 11/27/17 09:51 Dose: 5 units Insulin Human NPH (Humulin N) 10 units SC ACD [facility] Last Admin: 11/26/17 18:04 Dose: 10 units Insulin Human NPH (Humulin N) 20 units SC ACB [facility] Last Admin: 11/27/17 09:52 Dose: 20 units Ipratropium [place] (Atrovent) 2.5 mg IH [id number] [facility] Last Admin: 11/27/17 14:35 Dose: 2.5 mg Lamotrigine (Lamictal) 25 mg PO BID [facility] PRN Reason: Protocol Last Admin: 11/27/17 09:50 Dose: 25 mg Lisinopril (Zestril) 10 mg PO BID [facility] Last Admin: 11/27/17 09:51 Dose: 10 mg Loratadine (Claritin) 10 mg PO QPM [facility] Last Admin: 11/26/17 17:54 Dose: 10 mg Memantine (Namenda) 5 mg PO BID [facility] Last Admin: 11/27/17 09:50 Dose: 5 mg Methylprednisolone (Solu-Medrol) 20 mg IVP Q12 [facility] Last Admin: 11/27/17 09:50 Dose: 20 mg Montelukast Sodium (Singulair) 10 mg PO QPM [facility] Last Admin: 11/26/17 17:57 Dose: 10 mg Tamsulosin HCl (Flomax) 0.4 mg PO DAILY [facility] Last Admin: 11/27/17 09:50 Dose: 0.4 mg - Labs Labs: 11/27/17 06:00 11/27/17 06:00 - Constitutional Appears: Non-toxic, No Acute Distress, Chronically Ill - Head Exam Head Exam: ATRAUMATIC, NORMOCEPHALIC - Eye Exam Eye Exam: EOMI, PERRL Pupil Exam: NORMAL ACCOMODATION, PERRL - ENT Exam ENT Exam: Mucous Membranes Moist, Normal External Ear Exam, TM's Normal Bilaterally - Neck Exam Neck Exam: Full ROM, Normal Inspection - Respiratory Exam Respiratory Exam: Clear to Ausculation Bilateral, NORMAL BREATHING PATTERN. absent: Rales, Rhonchi, Wheezes - Cardiovascular Exam Cardiovascular Exam: REGULAR RHYTHM, RRR, +S1, +S2 - GI/Abdominal Exam GI & Abdominal Exam: Soft, Normal Bowel Sounds. absent: Distended, Tenderness - Extremities Exam Extremities Exam: Full ROM, Normal Inspection - Neurological Exam Neurological Exam: Alert, Awake, CN II-XII Intact Additional comments: AAO x 2. Not orientated to time. - Psychiatric Exam Psychiatric exam: Normal Affect, Normal Mood - Skin Skin Exam: Intact, Normal Color Assessment and Plan - Assessment and Plan (Free Text) Assessment: 87 yo male with SOB and oxygen desaturation to 86% at [facility]. The patient had excess sputum production that was thicker than normal. Started Teflaro for antibiotic treatment. The patient completed Levaquin less than a week ago. The patient does not have fevers or leukocytosis. Sputum culture. Supportive care. Patient with renal insufficiency if not renal failure. Creatinine has been above 3 for several months now. I do not see any type of HD access on the patient. The patient has no signs of being of hemodialysis and he is incontinent. Unclear volume of urine produced. No decubiti of the sacrum on examination. No cultures available for evaluation. Thank you for allowing me to participate in the care of the patient, we will follow with you.
--- NOTE | 2017-11-27 17:55 | PN ---
DATE: 11/27/2017 PULMONARY PROGRESS NOTE REFERRING PHYSICIAN: Dr. Thomas. SUBJECTIVE: He is lying in the bed. Complaining about cough and thick sputum. No nausea. No vomiting. No abdominal pain. No dysuria. No leg swelling. OBJECTIVE: GENERAL: In no acute distress. VITAL SIGNS: Temperature is 98, heart rate is 76, respiratory rate is 20, blood pressure is 138/86, and pulse ox on BiPAP was 93%. HEENT: Moist mucous membrane. Crowded airway. Mallampati score IV. NECK: Supple. No JVD. LUNGS: Has scattered rhonchi. HEART: S1 and S2. ABDOMEN: Soft and nontender. No organomegaly. EXTREMITIES: There is no edema. Left AKA, but stump site looks okay. NEUROLOGIC: Awake, alert, follows simple commands. MEDICATIONS: He is on Atrovent inhaler q.4 hours, Brovana inhaler q.12 hours, Ceftaroline 300 mg q.12 hours, Claritin 10 mg daily, vitamin D 50,000 units weekly, Ecotrin 81 mg daily, Flomax 0.4 mg daily, Flonase one spray each nostril daily, insulin coverage, Lamictal 25 mg twice a day, Lasix 20 mg daily, Namenda 5 mg twice a day, Norvasc 10 mg daily, Pulmicort inhaler twice a day, Singulair 10 mg daily, Solu-Medrol 20 mg p.o. q.12 hours, Tylenol p.r.n., Zestril 10 mg twice a day. LABORATORY DATA: Shows hemoglobin 8.1, hematocrit 27.3, WBC 9.1, platelets 183. Sodium 140, potassium 4.9, chloride 105, bicarbonate 25, BUN 78, creatinine 5.7, glucose 255, calcium 9.0, AST is 32, ALT is 32, alkaline phosphatase is 131, albumin is 3.6. IMPRESSION AND PLAN: Chronic obstructive lung disease, renal failure, has a viral syndrome, coronary artery disease, peripheral vascular disease, hypertension, history of left above-knee amputation. Pulmonary point of view, doing okay. Continue IV inhaled bronchodilator. Add Mucomyst twice a day. Followup BUN and creatinine. Avoid nephrotoxin drugs. Thank you and we will follow with you. Nathalie Gibson MD
--- NOTE | 2017-11-27 19:32 | PN ---
DATE: SUBJECTIVE: The patient is seen and examined on the bedside, looking comfortable, complaining about cough, but getting better. Sputum is getting thick. No chest pain. No nausea, vomiting, or diarrhea. No hematuria or hematochezia. No swelling of the legs. No dysuria. PHYSICAL EXAMINATION: VITAL SIGNS: Temperature 98, heart rate 76, respiratory rate 20, blood pressure 130/80, and pulse oximetry on BiPAP 93%. HEENT: Head is normocephalic and atraumatic. Eyes: PERRLA. Extraocular muscles intact. Conjunctivae clear. Nose patent. Mucous membranes moist. NECK: Supple. No carotid bruit, JVD or thyromegaly. CHEST: Bilaterally symmetrical. HEART: S1 and S2 positive. LUNGS: Has scattered rhonchi. ABDOMEN: Soft and nontender. No organomegaly. EXTREMITIES: No edema. No cyanosis. Left AKA, but stump looks healthy. NEUROLOGIC: The patient is awake and alert. Moving all four extremities. No focal deficits. MEDICATIONS: Atrovent inhaler, Brovana, ceftaroline, Claritin, vitamin D, Ecotrin, Flomax, Flonase, insulin, Lamictal, Lasix, Namenda, Norvasc, Pulmicort, Singulair, Solu-Medrol, Tylenol, and Zestril. LABORATORY DATA: Hemoglobin 8.1, hematocrit 27.3, white blood cell 9.1, and platelets 183. Sodium 140, potassium 4.9, BUN 17, and creatinine 5.7. AST 32 and ALT 32. ASSESSMENT AND PLAN: Mr. Sukhdev Grey is an 87-year-old male with chronic obstructive lung disease, has exacerbation of chronic obstructive lung disease, renal failure, not getting hemodialysis, viral syndrome, coronary artery disease, peripheral vascular disease, status post amputation of left leg [id number] amputation, hypertension, insulin-dependent diabetes mellitus, history of hydronephrosis, nephrolithiasis, and ureteral stent put by Dr. King. We will continue inhaled bronchodilators. Dr. Gibson added Mucomyst twice a day. Followup BUN and creatinine. Avoid nephrotoxic drugs. Repeat labs. We will followup. Senia Thomas MD
[2017-11-27] MEDS: Acetylcysteine 20% Inhal Soln (4ml) IH SCH (19:53)
[2017-11-28] MEDS: Ipratropium 0.02% Inhal Soln (0.5 mg/2.5 ml) UD IH SCH ×5 (05:42→15:57)
[2017-11-28 06:05] VITALS: O2SAT 94
[2017-11-28] MEDS: Arformoterol 15 mcg/2 ml Inh Sol IH SCH (07:32)
[2017-11-28] MEDS: Acetylcysteine 20% Inhal Soln (4ml) IH SCH ×2 (07:32→13:01)
[2017-11-28] MEDS: Budesonide 0.5 mg/2 ml Inhal Susp UD IH SCH (07:32)
[2017-11-28] MEDS: Insulin Human NPH 1 UNITS/0.01 ML SC SCH (08:29)
[2017-11-28] MEDS: Insulin Lispro (humaLOG) MEDIUM Coverage SC SCH ×2 (08:30→12:23)
[2017-11-28] MEDS: MethylPREDNISolone 40 mg Vial IVP SCH (09:46)
[2017-11-28] MEDS: Fluticasone Nasal 50 mcg/Spray NS SCH (09:47)
[2017-11-28 12:43] VITALS: BP 143/63; RESP 18; TEMP 98.5
--- NOTE | 2017-11-28 12:54 | RAD ---
HISTORY: reeval chf COMPARISON: No prior. FINDINGS: LUNGS: There is significant improvement in the bilateral perihilar infiltrates PLEURA: No significant pleural effusion identified, no pneumothorax apparent. CARDIOVASCULAR: Normal. OSSEOUS STRUCTURES: No significant abnormalities. VISUALIZED UPPER ABDOMEN: Normal. OTHER FINDINGS: None. IMPRESSION: Improved CHF
[2017-11-28 15:52] VITALS: PULSE 77
--- NOTE | 2017-11-28 17:19 | CP.PCM.PN ---
Subjective - Date & Time of Evaluation Date of Evaluation: 11/28/17 Time of Evaluation: 16:00 - Subjective Subjective: Infectious Disease Follow Up: November 28, 2017 87 yo male with heavy sputum production in [facility] at [facility] facility. The patient had desaturations at the facility. Reported as low as 82%. He recently completed course of Levaquin for antibiotic therapy. The patient is unable to give much history on his own. As per snf records, desaturation to 86%. Heavy thick brown secretions for the last 3 days or so. No reported fevers. No leukocytosis. Patient incontinent of urine. On BiPAP. Remains afebrile here. Breathing has improved. No leukocytosis during hospitalization so far. Patient states that he is more comfortable. Objective - Vital Signs/Intake and Output Vital Signs (last 24 hours): Temp Pulse Resp BP Pulse Ox 98.5 F 77 18 143/63 94 L 11/28/17 12:00 11/28/17 14:00 11/28/17 12:00 11/28/17 12:00 11/28/17 06:00 Intake and Output: 11/28/17 11/28/17 06:59 18:59 Intake Total 530 Output Total 100 Balance 430 - Medications Medications: Current Medications Acetaminophen (Tylenol 325mg Tab) 650 mg PO Q4 PRN PRN Reason: Pain Acetylcysteine (Acetylcysteine 20%) 4 ml IH [id number] [facility] Last Admin: 11/28/17 13:01 Dose: Not Given Amlodipine Besylate (Norvasc) 10 mg PO DAILY [facility] Last Admin: 11/28/17 09:43 Dose: 10 mg Arformoterol Tartrate (Brovana) 15 mcg IH [id number] [facility] Last Admin: 11/28/17 07:32 Dose: 15 mcg Aspirin (Ecotrin) 81 mg PO DAILY [facility] Last Admin: 11/28/17 09:43 Dose: 81 mg Budesonide (Pulmicort Respules) 1 mg IH [id number] [facility] Last Admin: 11/28/17 07:32 Dose: 1 mg Cephalexin Monohydrate (Keflex) 250 mg PO DAILY [facility] PRN Reason: Protocol Ergocalciferol (Drisdol 50,000 Intl Units Cap) 1 cap PO Mo@1000 [facility] Fluticasone Propionate (Flonase) 1 actuation NS DAILY [facility] Last Admin: 11/28/17 09:47 Dose: 1 spray Furosemide (Lasix) 40 mg PO DAILY [facility] Last Admin: 11/28/17 09:46 Dose: 40 mg Insulin Human Lispro (Humalog Med) 0 units SC ACHS [facility] PRN Reason: Protocol Last Admin: 11/28/17 12:23 Dose: 7 units Insulin Human NPH (Humulin N) 10 units SC ACD [facility] Last Admin: 11/27/17 17:17 Dose: 10 units Insulin Human NPH (Humulin N) 20 units SC ACB [facility] Last Admin: 11/28/17 08:29 Dose: 20 units Ipratropium [place] (Atrovent) 2.5 mg IH [id number] [facility] Last Admin: 11/28/17 15:57 Dose: 0.5 mg Lamotrigine (Lamictal) 25 mg PO BID [facility] PRN Reason: Protocol Last Admin: 11/28/17 09:45 Dose: 25 mg Lisinopril (Zestril) 10 mg PO BID [facility] Last Admin: 11/28/17 09:44 Dose: 10 mg Loratadine (Claritin) 10 mg PO QPM [facility] Last Admin: 11/27/17 17:17 Dose: 10 mg Memantine (Namenda) 5 mg PO BID [facility] Last Admin: 11/28/17 09:44 Dose: 5 mg Montelukast Sodium (Singulair) 10 mg PO QPM [facility] Last Admin: 11/27/17 17:17 Dose: 10 mg Prednisone (Prednisone Tab) 0 mg PO DAILY [facility] PRN Reason: Taper Stop: 12/07/17 09:59 Tamsulosin HCl (Flomax) 0.4 mg PO DAILY [facility] Last Admin: 11/28/17 09:42 Dose: 0.4 mg - Labs Labs: 11/27/17 06:00 11/27/17 06:00 - Constitutional Appears: Non-toxic, No Acute Distress, Chronically Ill - Head Exam Head Exam: ATRAUMATIC, NORMOCEPHALIC - Eye Exam Eye Exam: EOMI, PERRL Pupil Exam: NORMAL ACCOMODATION, PERRL - ENT Exam ENT Exam: Mucous Membranes Moist, Normal External Ear Exam, TM's Normal Bilaterally - Neck Exam Neck Exam: Full ROM, Normal Inspection - Respiratory Exam Respiratory Exam: Decreased Breath Sounds, NORMAL BREATHING PATTERN. absent: Rales, Rhonchi, Wheezes - Cardiovascular Exam Cardiovascular Exam: REGULAR RHYTHM, RRR, +S1, +S2 - GI/Abdominal Exam GI & Abdominal Exam: Soft, Normal Bowel Sounds. absent: Distended, Tenderness - Extremities Exam Extremities Exam: Full ROM, Normal Inspection - Neurological Exam Neurological Exam: Alert, Awake, CN II-XII Intact, Oriented x3 - Psychiatric Exam Psychiatric exam: Normal Affect, Normal Mood - Skin Skin Exam: Intact, Normal Color Assessment and Plan - Assessment and Plan (Free Text) Assessment: 87 yo male with SOB and oxygen desaturation to 86% at [facility]. The patient had excess sputum production that was thicker than normal. Started Teflaro for antibiotic treatment. The patient completed Levaquin less than a week ago. The patient does not have fevers or leukocytosis. Sputum culture. Supportive care. Patient with renal insufficiency if not renal failure. Creatinine has been above 3 for several months now. I do not see any type of HD access on the patient. The patient has no signs of being on hemodialysis and he is incontinent. Unclear volume of urine produced. No decubiti of the sacrum on examination. No cultures available for evaluation. When cleared for discharge, can consider use of Keflex 500mg BID for 7-10 more days of treatment. Thank you for allowing me to participate in the care of the patient, we will follow with you.
--- NOTE | 2017-11-29 18:39 | DS ---
CHIEF COMPLAINT: Shortness of breath. HISTORY OF PRESENT ILLNESS: Mr. Que Santizo is an 87-year-old male with past medical history of multiple medical problems, and renal insufficiency, on hemodialysis, resident of [facility], has COPD and asthma, had mild upper respiratory tract infection, treatment was given in [facility], but failed as outpatient. Then, we called the patient in [facility]. Chest x-ray done, seen by Dr. Zaldivar, Infectious Disease and Dr. Gibson, childcare center director. The patient improved, changed antibiotics from IV to p.o., sent back to [facility] with Ceftin 500 mg p.o. b.i.d. for 7 to 10 days and Medrol Dosepak. PAST MEDICAL HISTORY: Coronary artery disease, hypertension, asthma, chronic obstructive lung disease, dementia,, renal failure, diabetes mellitus, history of fall, amputation of the leg, BPH, nephrolithiasis, and hydronephrosis. FAMILY HISTORY: Father and mother, noncontributory. HABITS: No smoking. No drug. No ethanol. ALLERGIES: THE PATIENT IS NOT ALLERGIC TO ANY MEDICATION. HOME MEDICATIONS: Reviewed by me. REVIEW OF SYSTEMS: The patient is seen and examined at the bedside, looking comfortable. No nausea, vomiting, or diarrhea. No hematuria or hematochezia. No fever and no chills. No headache and no dizziness. PHYSICAL EXAMINATION: VITAL SIGNS: Temperature 98.5, pulse 77, blood pressure 143/63, respiratory rate 18. HEENT: Head is normocephalic and atraumatic. Eyes: PERRLA. Extraocular movements are intact. Conjunctivae clear. Nose patent. NECK: Supple. No carotid bruit, no JVD or thyromegaly. CHEST: Bilaterally symmetrical. HEART: S1 and S2 positive. LUNGS: Clear to auscultation. ABDOMEN: Soft. Bowel sounds present. No organomegaly. EXTREMITIES: No edema. No cyanosis. NEUROLOGIC: The patient is awake and alert. Moving all 4 extremities. No focal deficits. LABORATORY DATA: White blood cell 9.1, hemoglobin 8.1, hematocrit 27.3, platelets 183,000. Glucose 339 and 300. Sodium 140, potassium 4.9, BUN 78, creatinine 5.7, alkaline phosphatase 131, and protein trace. ASSESSMENT AND PLAN: Mr. Que Santizo is an 87-year-old male with anemia, renal insufficiency, proteinuria, history of upper respiratory tract infection, and failed outpatient treatment. The patient is incontinent of urine, on BiPAP. The patient was given Levaquin in [facility] 1 week ago. The patient had pneumonia, got IV antibiotics in the hospital, now discharged home with Keflex 500 mg p.o. b.i.d. for 7 to 10 days for the completion of treatment and given Medrol Dosepak also. Seen by Infectious Disease and childcare center director. He has chronic obstructive lung disease, viral syndrome, coronary artery disease, severe peripheral vascular disease, and hypertension. Mucomyst was given in the hospital, tried to avoid nephrotoxic medications and we will continue treatment in rehab. Senia Thomas MD
[2017-12-02] MEDS ORDERED: Ergocalciferol 50,000 Intl Units Cap PO SCH (10:00)
== END 2017-11-28 18:18 | DRG 291 ==
LOC: ED 13:00 → ERH 15:05 → 2RSO 16:50
PROVIDERS: ADMIT Internal Medicine; ATTEND Internal Medicine
DX: I13.0 Hypertensive heart and chronic kidney disease with heart failure and stage 1 through stage 4 chronic kidney disease, or unspecified chronic kidney disease (principal); I50.33 Acute on chronic diastolic (congestive) heart failure; J18.9 Pneumonia, unspecified organism; N17.9 Acute kidney failure, unspecified; J44.0 Chronic obstructive pulmonary disease with (acute) lower respiratory infection; J44.1 Chronic obstructive pulmonary disease with (acute) exacerbation; B34.9 Viral infection, unspecified; E11.22 Type 2 diabetes mellitus with diabetic chronic kidney disease; E11.51 Type 2 diabetes mellitus with diabetic peripheral angiopathy without gangrene; D64.9 Anemia, unspecified; F03.90 Unspecified dementia, unspecified severity, without behavioral disturbance, psychotic disturbance, mood disturbance, and anxiety; I25.10 Atherosclerotic heart disease of native coronary artery without angina pectoris; N18.9 Chronic kidney disease, unspecified; N40.0 Benign prostatic hyperplasia without lower urinary tract symptoms; R09.02 Hypoxemia; R32 Unspecified urinary incontinence; Z79.4 Long term (current) use of insulin; Z79.82 Long term (current) use of aspirin; Z79.899 Other long term (current) drug therapy; Z87.442 Personal history of urinary calculi; Z87.891 Personal history of nicotine dependence; Z89.612 Acquired absence of left leg above knee; Z91.19 Patient's noncompliance with other medical treatment and regimen; Z99.2 Dependence on renal dialysis; H26.9 Unspecified cataract; R40.2412 Glasgow coma scale score 13-15, at arrival to emergency department; I27.20 Pulmonary hypertension, unspecified

== ENCOUNTER 2017-12-07 13:46 | Inpatient (IN) | payer MEDICARE, MEDICAID ==
[2017-12-07] MEDS ORDERED: Dextrose 50% SYRINGE Inj (50 ml) ONE (14:09)
[2017-12-07] MEDS ORDERED: Dextrose 50% SYRINGE Inj (50 ml) IVP STA (14:16)
--- NOTE | 2017-12-07 14:18 | ED PDOC ---
Arrival/HPI - General Chief Complaint: Shortness Of Breath Time Seen by Provider: 12/07/17 13:49 Historian: Detention, EMS EM Caveat: Dementia - History of Present Illness Narrative History of Present Illness (Text): 12/07/17 14:18 A 87 year old male, whose past medical history includes cataract, diabetes, dementia, hyperlipidemia, hypertension, CAD, PVD, asthma, and chronic kidney disease, presents to the emergency department via EMS from longterm for intermittent shortness of breath, which began earlier this morning. The patient' s full HPI & ROS is limited due to dementia and mental status. The patient was recently seen and diagnosed with pneumonia and placed on Keflex. Time/Duration: 4-6 hours Symptom Onset: Sudden Symptom Course: Intermittent Severity Level: Mild Activities at Onset: Rest Context: Other (longterm ) Past Medical History - Provider Review Nursing Documentation Reviewed: Yes - Past History Past History: No Previous - Infectious Disease Hx of Infectious Diseases: None - Cardiac Hx Cardiac Disorders: Yes (CAD) Hx Congestive Heart Failure: Yes Hx Hypertension: Yes Hx Peripheral Vascular Disease: Yes - Pulmonary Hx Respiratory Disorders: Yes (H/O SMOKING CIGARETTES) Hx Asthma: Yes Hx Chronic Obstructive Pulmonary Disease (COPD): Yes - Neurological Hx Neurological Disorder: Yes Hx Dementia: Yes - HEENT Hx HEENT Disorder: Yes Hx Cataracts: Yes - Renal Hx Renal Disorder: Yes Hx Renal Failure: Yes - Endocrine/Metabolic Hx Endocrine Disorders: Yes Hx Diabetes Mellitus Type 2: Yes - Hematological/Oncological Hx Blood Disorders: No - Integumentary Hx Dermatological Disorder: Yes Other/Comment: 11-25-17 L BKA - Musculoskeletal/Rheumatological Hx Musculoskeletal Disorders: Yes (L AKA) Hx Falls: Yes - Gastrointestinal Hx Gastrointestinal Disorders: No - Genitourinary/Gynecological Hx Genitourinary Disorders: Yes Hx Incontinence: Yes Hx Prostate Problems: Yes - Psychiatric Hx Psychophysiologic Disorder: No Hx Substance Use: No - Surgical History Hx Orthopedic Surgery: Yes (Left AKA) Other/Comment: CYSTOSCOPY/ STENT INSERTION - Anesthesia Hx Anesthesia: Yes Hx Anesthesia Reactions: No Hx Malignant Hyperthermia: No Family/Social History - Physician Review Nursing Documentation Reviewed: Yes Family/Social History: No Known Family HX Smoking Status: Former Smoker Hx Alcohol Use: No Hx Substance Use: No Allergies/Home Meds Allergies/Adverse Reactions: Allergies No Known Allergies Allergy (Verified 12/07/17 13:59) Home Medications: Home Meds Medication Instructions Recorded Confirmed Acetaminophen 650 mg PO Q4 PRN 07/01/17 12/07/17 Aspirin [[place] Aspirin] 81 mg PO DAILY 07/01/17 12/07/17 Enalapril Maleate [Vasotec] 20 mg PO BID 07/01/17 12/07/17 Furosemide 40 mg PO DAILY 07/01/17 12/07/17 Insulin Human NPH [Humulin N] 10 units SC ACD 07/01/17 12/07/17 Insulin Human NPH [Humulin N] 20 units SC ACB 07/01/17 12/07/17 Insulin Human Regular [Novolin R] 0 unit SC ACHS PRN 07/01/17 12/07/17 Lactulose 10 gm PO HS PRN 07/01/17 12/07/17 Lamotrigine 25 mg PO BID 07/01/17 12/07/17 Memantine [Namenda] 5 mg PO BID 07/01/17 12/07/17 Montelukast [Singulair] 10 mg PO QPM 07/01/17 12/07/17 Fluticasone Nasal [Flonase] 1 spr NS DAILY 08/12/17 12/07/17 Fluticasone/Salmeterol 500/50 1 puff IH BID 08/12/17 12/07/17 [Advair Diskus 500/50] Ipratropium 0.02% [Atrovent] 1 appl IH Q4 08/12/17 12/07/17 Tamsulosin [Flomax] 0.4 mg PO DAILY 08/12/17 12/07/17 Eyelid Cleanser Comb No.7 [Ocusoft 1 each TP ONCE 11/25/17 12/07/17 Lid Scrub] amLODIPine [Norvasc] 10 mg PO DAILY 11/25/17 12/07/17 Review of Systems - Review of Systems Systems not reviewed;Unavailable: Dementia Physical Exam - Physical Exam Narrative Physical Exam (Text): 12/07/17 14:20 Constitutional: No acute distress. Head: Normocephalic. Atraumatic. Eyes: PERRL. ENT: Moist mucous membranes. Neck: Supple. Cardiovascular: Regular rate. Chest: No tenderness. Respiratory: shortness of breath is improved by breathing mask. Actively coughing. Diffuse rhonchi. GI: Soft. Nontender. Nondistended. Back: No CVA tenderness. Musculoskeletal: Left AKA. No tenderness or swelling of extremities. Skin: No rash. Neurologic: Alert & Oriented x 2, no focal deficit. Vital Signs Temp Pulse Resp BP Pulse Ox 12/07/17 16:04 142/57 L 12/07/17 15:45 90 18 146/48 L 100 12/07/17 13:53 94 L 12/07/17 13:51 98 F 94 H 19 135/70 88 L Finger Stick Blood Glucose: 37 Medical Decision Making ED Course and Treatment: 12/07/17 14:23 Impression: A 87 year old male with shortness of breath. Differential Diagnosis included but are not limited to: Plan: -- EKG -- Chest X-ray -- Labs -- Dextrose 50% -- Urinalysis -- Reassess and disposition Progress Notes: EKG NSR 90 bpm, no ST elevations. Troponin positive, likely NSTEMI, will trend, ASA administered. CXR shows vascular congestion. Elevated proBNP. - Lab Interpretations Lab Results: 12/07/17 14:00 12/07/17 14:00 Lab Results 12/07/17 15:10: POC Glucose (mg/dL) 100 12/07/17 14:35: Urine Color Yellow, Urine Appearance Sl cloudy, Urine pH 6.0, Ur Specific Patterson 1.015, Urine Protein 30 H, Urine Glucose (UA) Negative, Urine Ketones Negative, Urine Blood Small H, Urine Nitrate Negative, Urine Bilirubin Negative, Urine Urobilinogen 0.2, Ur Leukocyte Esterase Negative, Urine RBC 0 - 2, Urine WBC 0 - 2, Ur Epithelial Cells 0 - 2, Urine Bacteria Small, Hyaline Casts 0 - 2 12/07/17 14:25: Influenza Typ A,B (EIA) Negative for flu a/b 12/07/17 14:07: POC Glucose (mg/dL) 37 L* 12/07/17 14:00: Sodium 144, Potassium 5.4 H, Chloride 106, Carbon Dioxide 27, Anion Gap 18, BUN 76 H, Creatinine 5.1 H, Est GFR ( Amer) 13, Est GFR ( Non-Af Amer) 11, Random Glucose 36 L* D, Calcium 8.9, Total Bilirubin 0.4, AST 32, ALT 42, Alkaline Phosphatase 99, Troponin I 0.13 H* D, NT-Pro-B Natriuret Pep 6650 H, Total Protein 6.7, Albumin 3.5, Globulin 3.2, Albumin/Globulin Ratio 1.1 12/07/17 14:00: PT 11.8, INR 1.03, APTT 31.4 12/07/17 14:00: WBC 8.0, RBC 3.22 L, Hgb 8.5 L, Hct 28.6 L, MCV 88.8, MCH 26.4, MCHC 29.7 L, RDW 16.7 H, Plt Count 130, MPV 10.6, Gran % 76.9 H, Lymph % (Auto) 15.6 L, Hubbard % (Auto) 6.4 H, Eos % (Auto) 1.1 L, Baso % (Auto) 0.0, Gran # 6.15 , Lymph # 1.3, Hubbard # 0.5, Eos # 0.1, Baso # 0.00 - RAD Interpretation Radiology Orders: 12/07/17 14:14 CHEST PORTABLE [RAD] Stat - Medication Orders Current Medication Orders: Discontinued Medications Aspirin (Aspirin) 325 mg PO STAT STA Stop: 12/07/17 15:18 Last Admin: 12/07/17 16:04 Dose: 325 mg Dextrose (Dextrose 50% Inj) 50 ml IVP STAT STA Stop: 12/07/17 14:17 Last Admin: 12/07/17 14:22 Dose: Furosemide (Lasix) 40 mg IVP STAT STA Stop: 12/07/17 15:17 Last Admin: 12/07/17 16:04 Dose: 40 mg MAR Blood Pressure Document 12/07/17 16:04 SF (Rec: 12/07/17 16:05 [id number]) Blood Pressure Blood Pressure (100/60-150/90) 142/57 IVP Administration Document 12/07/17 16:04 SF (Rec: 12/07/17 16:05 [id number]) Charges for Administration # of IVP Administrations 1 - Scribe Statement The provider has reviewed the documentation as recorded by the Jhonatan Abraham Provider Scribe Attestation: All medical record entries made by the Scribe were at my direction and personally dictated by me. I have reviewed the chart and agree that the record accurately reflects my personal performance of the history, physical exam, medical decision making, and the department course for this patient. I have also personally directed, reviewed, and agree with the discharge instructions and disposition. Disposition/Present on Arrival - Present on Arrival Any Indicators Present on Arrival: No History of DVT/PE: No History of Uncontrolled Diabetes: No Urinary Catheter: No History of Decub. Ulcer: No History Surgical Site Infection Following: None - Disposition Have Diagnosis and Disposition been Completed?: Yes Diagnosis: CHF exacerbation, NSTEMI (non-ST elevated myocardial infarction) Disposition: HOSPITALIZED Disposition Time: 15:18 Patient Plan: Admission, Telemetry Condition: GUARDED Discharge Instructions (ExitCare): Heart Failure (ED) Referrals: PCP,NO [Primary Care Provider] - Follow up with primary Forms: [employer] (Turkish)
[2017-12-07 14:34] LABS: EOS # 0.1 (0.0-0.7); EOS % 1.1 % (1.5-5.0); GRAN # 6.15 (1.4-6.5); GRAN % 76.9 % (50.0-68.0); HEMOGLOBIN 8.5 g/dL (14.0-18.0); LYMPH # 1.3 (1.2-3.4); LYMPH % 15.6 % (22.0-35.0); MEAN CELL VOLUME 88.8 fl (80.0-105.0); MEAN CORPUSCULAR HEMOGLOBIN 26.4 pg (25.0-35.0); MEAN CORPUSCULAR HGB CONC 29.7 g/dl (31.0-37.0); MEAN PLATELET VOLUME 10.6 fl (7.0-11.0); MONO # 0.5 (0.1-0.6); MONO % 6.4 % (1.0-6.0); RBC 3.22 10^6/uL (3.5-6.1); RED CELL DISTRIBUTION WIDTH 16.7 % (11.5-14.5)
[2017-12-07 14:59] LABS: URINE APPEARANCE SL CLOUDY (CLEAR); URINE BILIRUBIN NEGATIVE (NEGATIVE); URINE BLOOD SMALL (NEGATIVE); URINE GLUCOSE (UA) NEGATIVE (NEGATIVE); URINE LEUKOCYTE ESTERASE NEGATIVE Leu/uL (NEGATIVE); URINE NITRATE NEGATIVE (NEGATIVE); URINE PROTEIN 30 mg/dL (<30 mg/dL); URINE UROBILINOGEN 0.2 E.U./dL (<1 E.U./dL)
[2017-12-07 14:59] LABS: INR 1.03 (0.93-1.08); PARTIAL THROMBOPLASTIN TIME 31.4 Seconds (25.1-36.5); PROTHROMBIN TIME 11.8 SECONDS (9.4-12.5)
[2017-12-07 15:00] LABS: URINE COLOR YELLOW (YELLOW)
[2017-12-07 15:11] LABS: URINE BACTERIA SMALL (NEG); URINE EPITHELIAL CELLS 0 - 2 /hpf (0-5); URINE HYALINE CAST 0 - 2 /hpf; URINE RBC 0 - 2 /hpf (0-2); URINE WBC 0 - 2 /hpf (0-6)
[2017-12-07 15:14] LABS: ALB/GLOB RATIO 1.1 (1.1-1.8); ALBUMIN 3.5 g/dL (3.0-4.8); CALCIUM 8.9 mg/dL (8.4-10.5); TROPONIN I 0.13 ng/mL
[2017-12-07] MEDS ORDERED: Fluticasone-Salmeterol 500-50mcg Diskus IH SCH (18:00)
[2017-12-07] MEDS ORDERED: Non Formulary Medication (Enalapril Maleate [Vasotec] 20 MG) PO SCH (18:00)
[2017-12-07] MEDS ORDERED: [UNRECOGNIZED DRUG - OTHER] TP SCH (18:00)
[2017-12-07] MEDS ORDERED: Sod Polystyrene Sulf 15 gm/60 ml Susp PO ONE (19:28)
[2017-12-07] MEDS: Fluticasone Nasal 50 mcg/Spray NS SCH (19:52)
[2017-12-07] MEDS ORDERED: Albuterol-Ipratrop 3 mg / 0.5 (3 ml) UD IH SCH (20:00)
[2017-12-07] MEDS ORDERED: Budesonide 0.5 mg/2 ml Inhal Susp UD IH SCH (20:00)
[2017-12-07] MEDS ORDERED: Arformoterol 15 mcg/2 ml Inh Sol IH SCH (20:00)
[2017-12-07] MEDS: Ipratropium 0.02% Inhal Soln (0.5 mg/2.5 ml) UD IH SCH (20:49)
[2017-12-07 21:04] VITALS: BMI 27.4
[2017-12-07] MEDS ORDERED: Pneumococcal 23-Valent Vaccine IM ONE (21:04)
[2017-12-07] MEDS ORDERED: Influenza Vaccine 60 mcg/0.5 mL SYR (4YR UP) IM ONE (21:04)
[2017-12-07] MEDS: Insulin Reg-LOW-Coverage SC SCH (21:49)
[2017-12-07] MEDS: MethylPREDNISolone 40 mg Vial IVP SCH (21:50)
[2017-12-07 23:06] LABS: TROPONIN I 0.12 ng/mL
[2017-12-08] MEDS: Ipratropium 0.02% Inhal Soln (0.5 mg/2.5 ml) UD IH SCH ×5 (01:00→16:27)
--- NOTE | 2017-12-08 02:33 | HP ---
CHIEF COMPLAINT: Shortness of breath. HISTORY OF PRESENT ILLNESS: Mr. Sukhdev Grey is an 87-year-old male with past medical history of CAD, diabetes mellitus, dementia, hypercholesterolemia, hypertension, coronary artery disease, PVD, asthma, chronic kidney disease, came to the Emergency Room from [facility] for intermittent shortness of breath, even he was getting oxygen there, he was getting DuoNeb, began earlier this morning, the patient has advanced dementia. He was not able to give complete history and physical and review of system,but I know this patient from [facility]. The patient was recently discharged from [facility] for pneumonia and was taking Keflex, but the patient is very noncompliant. He will take medications only when he want to take. He has history of renal insufficiency also. PAST MEDICAL HISTORY: Coronary artery disease, congestive heart failure, hypertension, peripheral vascular disease, history of amputation of the leg, history of heavy smoking cigarette, asthma, COPD, history of cataract surgery, renal failure, diabetes mellitus type 2, insulin requiring, noncompliant, left AKA, urinary incontinence. FAMILY HISTORY: Father and mother noncontributory. HABITS: History of smoking, but no smoking, no drug and no ethanol now. ALLERGIES: THE PATIENT IS NOT ALLERGIC WITH ANY MEDICATIONS. HOME MEDICATIONS: Aspirin, enalapril, furosemide, insulin, lactulose, Levemir, Namenda, Singulair, Flonase, Advair, Atrovent, Flomax, amlodipine. REVIEW OF SYSTEMS: The patient seen and examined at the bedside, having shortness of breath, coughing. No fever. No chills. No headache. No dizziness. The patient is very poor historian. He is not able to give me complete review of systems. PHYSICAL EXAMINATION VITAL SIGNS: Temperature 98, pulse 94, respiratory rate 19, blood pressure 135/70, pulse oximetry 88. HEENT: Head is normocephalic and atraumatic. Eyes; PERRLA. Extraocular muscles are intact. Conjunctivae clear. Nose patent. Mucous membranes moist. NECK: Supple. No carotid bruit. No JVD or thyromegaly. CHEST: Bilaterally symmetrical. HEART: S1 and S2 positive. LUNGS: Clear to auscultation. ABDOMEN: Soft. Bowel sounds present. No organomegaly. EXTREMITIES: No edema. No cyanosis. NEUROLOGICAL: The patient is awake and alert. Moving all four extremities. No focal deficits. LABORATORY DATA: White blood cells 8.0, hemoglobin 8.5, hematocrit 28.6, and platelets 130. Sodium 145, potassium 5.4, BUN 76, creatinine 5.1, and glucose 36. ASSESSMENT AND PLAN: Mr. Sukhdev Grey is an 87-year-old male with anemia, hyperkalemia, renal insufficiency, hypoglycemia; came with shortness of breath, troponin is elevated. We will do 3 times troponin. Admitted for exacerbation of congestive heart failure, non ST elevation myocardial infarction, exacerbation of chronic obstructive pulmonary disease, insulin-dependent diabetes mellitus and not controlled, hypercholesterolemia, renal insufficiency, coronary artery disease, peripheral vascular disease, history of dementia, cataract surgery, renal failure, left below-knee amputation, history of multiple falls, urinary incontinence, history of nephrolithiasis status post stent in the ureter. The patient was hospitalized recently in [facility] for exacerbation of chronic obstructive pulmonary disease, back to home with Keflex and now came back with shortness of breath and not feeling well. Senia Thomas MD
[2017-12-08 06:31] LABS: HEMOGLOBIN 8.1 g/dL (14.0-18.0); MEAN CELL VOLUME 90.9 fl (80.0-105.0); MEAN CORPUSCULAR HEMOGLOBIN 26.4 pg (25.0-35.0); MEAN PLATELET VOLUME 11.3 fl (7.0-11.0); RBC 3.07 10^6/uL (3.5-6.1); RED CELL DISTRIBUTION WIDTH 16.7 % (11.5-14.5)
[2017-12-08 06:42] LABS: IRON 24 ug/dL (45-180)
[2017-12-08 06:53] LABS: TOTAL IRON BINDING CAPACITY 294 ug/dL (261-462)
[2017-12-08 06:58] LABS: TROPONIN I 0.11 ng/mL
[2017-12-08 07:07] LABS: CALCIUM 8.7 mg/dL (8.4-10.5)
[2017-12-08 07:35] LABS: % IRON SATURATION 8 % (20-55)
--- NOTE | 2017-12-08 07:41 | RAD ---
HISTORY: dyspnea COMPARISON: No prior. FINDINGS: LUNGS: Diffuse bilateral fibrotic changes. PLEURA: No significant pleural effusion identified, no pneumothorax apparent. CARDIOVASCULAR: Normal. OSSEOUS STRUCTURES: No significant abnormalities. VISUALIZED UPPER ABDOMEN: Normal. OTHER FINDINGS: None. IMPRESSION: Diffuse bilateral fibrotic change.
[2017-12-08] MEDS: Insulin Reg-LOW-Coverage SC SCH ×4 (08:11→21:38)
[2017-12-08] MEDS: Fluticasone Nasal 50 mcg/Spray NS SCH (10:00)
[2017-12-08] MEDS ORDERED: Azithromycin 500 MG in Sodium Chloride 0.9% 250 ML IVPB SCH (10:00)
[2017-12-08] MEDS ORDERED: Sod Polystyrene Sulf 15 gm/60 ml Susp PO ONE (10:36)
[2017-12-08] MEDS: Nitroglycerin 2% Ointment Foilpak UD TOP SCH ×3 (11:00→21:47)
[2017-12-08] MEDS: Azithromycin 500MG/NS 250ml 500 MG/250 ML BAG IVPB SCH (11:06)
[2017-12-08] MEDS: MethylPREDNISolone 40 mg Vial IVP SCH ×2 (11:08→21:41)
[2017-12-08 11:57] LABS: FOLATE 12.6 ng/mL
--- NOTE | 2017-12-08 12:14 | CARD ---
APPROVED REPORT EKG Measurement Heart [id number] <Conclusion> Normal sinus rhythm Left axis deviation Inferior infarct, age undetermined Abnormal ECG
[2017-12-08] MEDS: Albuterol-Ipratrop 3 mg / 0.5 (3 ml) UD IH SCH ×2 (16:27→19:52)
[2017-12-08] MEDS ORDERED: Sod Polystyrene Sulf 15 gm/60 ml Susp PO STA (17:44)
--- NOTE | 2017-12-08 19:48 | PN ---
DATE: SUBJECTIVE: The patient is an 87-year-old male. The patient is seen and examined at bedside, looking comfortable, sleepy, arousable, and moving all 4 extremities. No focal deficit. No fever. No chills. No nausea, vomiting, or diarrhea. No hematuria or hematochezia. No headache or dizziness. PHYSICAL EXAMINATION: VITAL SIGNS: Temperature 97.9, pulse 79, blood pressure 120/47, and respiratory rate 16. HEENT: Head; normocephalic and atraumatic. Eyes; PERRLA. Extraocular muscles intact. Conjunctivae clear. Nose patent. Mucous membrane moist. NECK: Supple. No carotid bruit, JVD, or thyromegaly. CHEST: Bilaterally symmetrical. HEART: S1 and S2 positive. LUNGS: wheezing b/l ABDOMEN: Soft. Bowel sounds positive. No organomegaly. EXTREMITIES: No edema. No cyanosis. NEUROLOGIC: The patient is sleepy, moving all 4 extremities. No focal deficit. MEDICATIONS: Hydralazine, albuterol, Ecotrin, Flomax, Flonase, insulin, Lamictal, Lipitor, Lasix, Tylenol, Solu-Medrol, Singulair, and Zithromax. LABORATORY DATA: White blood cell 6.0, hemoglobin 8.1, hematocrit 27.9, and platelets 144. Sodium 142, potassium 5.8, BUN 70, creatinine 5.6, glucose noted , Iron 24. ASSESSMENT AND PLAN: Mr. Sukhdev Grey is an 87-year-old male with anemia, hyperkalemia, renal insufficiency, hyperglycemia, proteinuria, hematuria, has a history of coronary artery disease, congestive heart failure, hypertension, peripheral vascular disease, history of amputation of the leg, history of heavy smoking, chronic obstructive pulmonary disease, asthma, cataract surgery, diabetes mellitus type 2, history of renal failure, noncompliance, left above-knee amputation, history of urinary incontinence, history of hydronephrosis, readmitted the patient, and started antibiotic. Nephrology consult called with Dr. Dee Minor, she is the patient's financial planning assistant in [facility]. Continue hydralazine, aspirin, Flomax, dose of polystyrene sulfonate Kayexalate given, continue Lipitor for hypercholesterolemia, tapering dose of steroid, antibiotics, and we will followup. Senia Thomas MD [facility] # [id number] [place]
--- NOTE | 2017-12-08 22:24 | CON ---
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 BRIEF CLINICAL HISTORY: This is an 87[facility], history of coronary artery disease, diabetes, dementia, hyperlipidemia, hypertension, peripheral vascular disease, asthma, chronic kidney disease, creatinine 5.1, transferred from a [facility] because the patient with complaint of shortness of breath intermittently. Troponin found to be 0.13 with a creatinine of 5.6. The patient denies any chest pain. Denies any palpitation. PAST MEDICAL HISTORY: Significant for coronary artery disease, congestive heart failure, hypertension, peripheral arterial disease, history of amputation of the leg, history of heavy smoking in the past, history of asthma, and history of diabetes. PAST SURGICAL HISTORY: Significant for left AKA and history of cataract surgery. SOCIAL HISTORY: Ex-heavy smoker. No history of substance abuse. ALLERGIES: THE PATIENT IS ALLERGIC TO NO MEDICATION. CURRENT MEDICATIONS: At [facility], the patient is taking aspirin, enalapril, Lasix, insulin, lactulose, , Namenda, Singulair, Flonase, Advair, Atrovent, Flomax, and amlodipine. REVIEW OF SYSTEMS: As per HPI. PHYSICAL EXAMINATION: As follows; VITAL SIGNS: Temperature afebrile, heart rate 73, blood pressure 135/57. HEENT: PERRLA. Extraocular muscles intact. NECK: Supple. No carotid bruit or thyromegaly. CHEST: Clear to auscultation. HEART: S1 and S2 regular. ABDOMEN: Soft. EXTREMITIES: Clubbing and cyanosis negative. Left above-knee amputation. LABORATORY DATA: EKG shows normal sinus, left axis deviation, poor RR progression, cannot rule out previous AZ or inferior wall AZ of undetermined age. Blood workup as follows: WBC is 6.1, hemoglobin 8.9, hematocrit 27.9, and platelet count 144. Chemistry shows sodium 142, potassium 5.8, chloride 104, carbon dioxide of 26, anion gap of 19, BUN of 78, and creatinine of 5.6. TSH 1.05, and troponin 0.13, 0.12, 0.11. IMPRESSION: Positive troponin; increase of creatinine 5.1, creatinine clearance 11 mL, significant unknown, may be the starr of a coronary artery disease, but not sure the patient has a true non-ST elevation myocardial infarction or not; hyperkalemia; end-stage, stage IV chronic kidney disease; altered mental status; dementia advanced; diabetes; hypertension; hyperlipidemia; peripheral arterial disease; coronary artery disease, detail unknown. RECOMMENDATIONS: Given these findings, the patient's mental status asymptomatic, no EKG changes, we will treat the patient medically with Lovenox low dose as 30 mg q. 24, avoid nephrotoxic medication, put on nitrate and beta hannah, and Kayexalate. We will try to avoid GIFTY inhibitors because of the worsening renal insufficiency. We will follow with you and because of the hyperkalemia, we will discontinue hydralazine. We will follow with you. We will also get lipid profile, TSH, and we will do echo to assess left ventricular function. We will discontinue lisinopril because in the phase of hyperkalemia as well as acute kidney injury until the patient start dialysis or hyperkalemia resolve, then we can restart again GIFTY inhibitor. We will put nitrate 1-inch paste, beta-hannah, aspirin, and atorvastatin. We will get lipid profile, further recommendation during the hospital course and finally we will follow with you. We will avoid nephrotoxic medication. As mentioned above, because of the patient giving the fact of the patient's critical condition, asymptomatology, no acute ST-T changes and the patient's mentation, we will treat medically. We will get echo also to assess left ventricular function and will put hydralazine p.r.n. and depending upon the requirement, we will add on more hydralazine if needed. Needs anemia workup also. We will send iron study, TIBC, folate. Thank you Dr. Thomas, for providing me the opportunity in taking care of Mr. Grey. Nathalie Menezes MD
--- NOTE | 2017-12-09 01:24 | CON ---
DATE: 12/08/2017 PULMONARY CONSULTATION REFERRING PHYSICIAN: Senia Thomas MD REASON FOR CONSULTATION: Shortness of breath and cough. HISTORY OF PRESENT ILLNESS: This is an 87-year-old gentleman with past medical history significant coronary artery disease, heart failure, hypertension and peripheral vascular disease, history of left AKA, chronic obstructive lung disease, renal failure, diabetes, brought in with cough and shortness of breath, not very compliant with the medication. No hemoptysis, hematemesis or hematuria. No diarrhea reported. PAST MEDICAL HISTORY: As per history present illness. ALLERGIES: NONE KNOWN. SOCIAL HISTORY: Positive history of smoking. No history of alcohol use. FAMILY HISTORY: No significant cardiopulmonary disease reported. MEDICATIONS: He is on hydralazine 10 mg four times a day p.r.n., DuoNeb q. 6 hours, Ecotrin 81 mg daily, Flomax 0.4 mg daily Flonase one spray each daily, insulin coverage, lamotrigine 25 mg twice a day, Lasix 40 mg IV twice a day, Lipitor 10 mg daily, metoprolol tartrate 25 mg twice a day, Namenda 5 mg twice a day, Nitro-Bid 2% ointment q. 6 hours, Norvasc 10 mg daily, Pepcid 40 mg daily, Pulmicort inhaled twice a day, Singulair 10 mg daily, Solu-Medrol 40 mg q. 12 hours, Tylenol p.r.n., Zithromax 500 mg daily. REVIEW OF SYSTEMS: No headache, no rhinitis. Has cough, shortness of breath. No chest pain. No nausea. No vomiting. No diarrhea. No leg pain or leg swelling. PHYSICAL EXAMINATION GENERAL: Lying in the bed. VITAL SIGNS: Temperature is 98, heart rate 70, respiratory is 18, blood pressure 128/47, pulse of 97% on 4 L nasal cannula. HEENT: Moist mucous membrane. Crowded airway. Mallampati score is IV. NECK: Supple. No JVD. LUNGS: Has few crackles, scattered rhonchi. HEART: S1 and S2. ABDOMEN: Soft, nontender. No organomegaly. EXTREMITIES: There is no edema. Has a left AKA. NEUROLOGICAL: Sleep, arousable. Follow simple commands. LABORATORY DATA: Shows hemoglobin 8.1, hematocrit 27.9, WBC 6.0, platelet is 144. INR 1.03. PTT is 31. Sodium 142, potassium 5.8, chloride 104, for bicarbonate 26, BUN 78, creatinine 5.6, glucose 301, calcium 8.7, iron 24. Troponin 0.11. TSH 1.05. Influenza A and B is negative. Chest x-ray shows diffuse bilateral fibrotic changes and infiltrate. IMPRESSION AND PLAN: Chronic obstructive lung disease, renal failure, coronary artery disease, peripheral vascular disease, hypertension, history of left above-knee amputation. agree with Dr. Thomas with the present management. Continue p.o. and inhaled bronchodilator. Keep head at 45 degrees. This may be component of sleep apnea syndrome. Will try BiPAP 09/07 with 30% oxygen while sleeping. Followup BUN, creatinine. We will order proBNP and procalcitonin for the morning. Thank you and we will follow with you. Nathalie Gibson MD
[2017-12-09] MEDS: Albuterol-Ipratrop 3 mg / 0.5 (3 ml) UD IH SCH ×3 (02:22→13:36)
[2017-12-09] MEDS: Nitroglycerin 2% Ointment Foilpak UD TOP SCH ×4 (05:24→21:49)
[2017-12-09 06:23] LABS: MEAN CELL VOLUME 88.1 fl (80.0-105.0); MEAN CORPUSCULAR HEMOGLOBIN 26.3 pg (25.0-35.0); MEAN CORPUSCULAR HGB CONC 29.8 g/dl (31.0-37.0); MEAN PLATELET VOLUME 11.2 fl (7.0-11.0); RBC 2.93 10^6/uL (3.5-6.1); RED CELL DISTRIBUTION WIDTH 16.2 % (11.5-14.5); WHITE BLOOD COUNT 8.4 10^3/ul (4.5-11.0)
[2017-12-09 06:42] LABS: HEMOGLOBIN 7.7 g/dL (14.0-18.0)
[2017-12-09 07:15] LABS: ALB/GLOB RATIO 1.1 (1.1-1.8); ALBUMIN 3.2 g/dL (3.0-4.8); CALCIUM 7.8 mg/dL (8.4-10.5)
--- NOTE | 2017-12-09 07:46 | CON ---
DATE: 12/08/2017 NEPHROLOGY CONSULTATION HISTORY OF PRESENT ILLNESS: This 87-year-old male was examined at his bedside on the cardiac unit. His case was reviewed with his nurse, Lois Bautista, registered nurse. The patient was admitted to the service of Dr. Senia Thomas. He is a long-term resident at the [facility]. There, he is followed for multiple medical problems including chronic renal failure, stage IV to V; history of atherosclerotic heart disease; insulin-dependent diabetes mellitus; dementia; hyperlipidemia; chronic hypertension; peripheral vascular disease, status post left gbalb-rox-ikry amputation; asthma; chronic obstructive pulmonary disease; anemia of chronic disease and the patient is admitted with shortness of breath in the setting of recently diagnosed pneumonia for which he was receiving oral antibiotics and pulmonary toiletry at the local senior care. Apparently, the patient was again experiencing worsening shortness of breath despite receiving antibiotics, nasal O2 and dual nebulizers and was returned to [facility] for further evaluation of the above. I am asked to evaluate this patient because of laboratories showing potassium of 5.8, BUN of 78, creatinine of 5.6 and an estimated GFR of 10 mL per minute. The patient is lying in his bed. He remains in a normal sinus rhythm on the security monitor. REVIEW OF SYSTEMS: CONSTITUTIONAL: There have been no reports of fever or chills. HEENT: Head review, no reports of stroke or seizure. Eye review, no report of change in visual acuity. Ears: No hearing loss. Throat: No swallowing difficulty. NECK: No stiffness. CARDIAC: He was admitted with elevated troponin in the setting of chronic renal failure and no overt chest pain. PULMONARY: No hemoptysis. Recent history of pneumonia. GASTROINTESTINAL: No hematemesis. No melena. GENITOURINARY: Chronic renal failure. VASCULAR: Peripheral vascular disease and left [id number]-[id number] amputation. ENDOCRINE: Hyperlipidemia and insulin-dependent diabetes mellitus. NEUROLOGIC: No recent stroke or seizure. FAMILY HISTORY: Noncontributory. SOCIAL HISTORY: He is a former smoker, currently no smoking, no drinking, no IV drug misuse or abuse. OUTPATIENT MEDICATIONS: Included Ecotrin, Keflex, Vasotec, Advair Diskus, Flonase, Lasix, insulin, lactulose, Flomax, Singulair, Namenda, Norvasc. PHYSICAL EXAMINATION: GENERAL: Patient is in a normal sinus rhythm on the security monitor. He is alert, but unable to offer much historical data. VITAL SIGNS: Temperature 97.9, respirations 16, pulse 70, blood pressure 128/47. Pulse ox 97% on 2 liters nasal O2. HEENT: Head: Normocephalic, atraumatic. Eyes: No icterus. Ears: Clear. Throat: Noninjected. NECK: Supple. HEART: Regular S1, S2. LUNGS: With rhonchi and wheezing bilaterally. No audible rales. ABDOMEN: Soft, nontender. No palpable organomegaly. No rebound, no guarding. No tenderness. EXTREMITIES: Left isrbh-ejo-pxuj amputation, right leg, no edema. SKIN: Without rash. NEUROLOGICAL: Grossly intact. PSYCHOLOGICAL: Alert, but confused. VASCULAR: Legs warm to touch. LABORATORY DATA: Sodium 142, K 5.8, chloride 104, bicarb 26, BUN 78, creatinine 5.6, random blood sugar 155. Iron 24, TIBC 294, percent saturation 8, CPK normal at 137. Troponin 0.11. TSH normal at 1.05. White count 6000, hemoglobin 8.1, hematocrit 27.9, platelets 144,000. PT/INR 1.03, PTT 31.4. Urinalysis showed small bacteria. Influenza A, B serology is negative. Chest x-ray reviewed, no obvious infiltrate. EKG shows normal sinus rhythm with nonspecific ST-T wave changes. IMPRESSION: An 87-year-old male with chronic renal failure, stage V and comorbidities of iron-deficiency anemia, anemia of chronic disease, atherosclerotic heart disease, chronic hypertension, history of recent bronchial pneumonia, chronic obstructive pulmonary disease, clinical congestive heart failure, history of peptic ulcer disease, gastroesophageal reflux disease, prostate hypertrophy, hyperlipidemia, organic brain syndrome, degenerative arthritis and history of agitation syndrome and noncompliance with medications as an outpatient. PLAN: The plan at present as discussed with nursing will to be maintain this patient on the cardiac unit. He is scheduled to have a dose of Kayexalate. He will have a comprehensive metabolic panel, hemoglobin A1c and CBC repeated in the a.m. as well as a BNP level. Urine culture has been received and is pending. A procalcitonin level has been ordered as well. He continues on hydralazine 10 mg p.o. q.i.d., Ecotrin 81 mg p.o. daily, dual nebulizer therapy q.6 hours, Flomax 0.4 mg p.o. daily, Flonase to his nostrils daily, insulin coverage a.c. meals and at bedtime, Lamictal 25 mg p.o. b.i.d., Lasix 40 mg IV q.12, Lipitor 10 mg p.o. at dinner time, Lopressor 25 mg b.i.d., Namenda 5 mg p.o. b.i.d., nitroglycerin ointment 1 inch to his chest wall q.6 hours, Norvasc 10 mg p.o. daily, Pepcid 40 mg p.o. at bedtime, Pulmicort inhalational therapy q.12 hours, Singulair 10 mg p.o. q. day, Solu-Medrol 40 mg IV q.12 and Zithromax 500 mg IV daily. He is scheduled for BiPAP at bedtime. A repeat 2-D echocardiogram has been ordered. It should be noted that echocardiogram completed on 11/27/2017, was reviewed and showed normal left ventricular ejection fraction and wall motion. He will continue on a heart-healthy renal diabetic diet. He remains scheduled for physical therapy for range of motion and based on his clinical progress and discussion with Cardiology PMD and Pulmonary, patient may be nearing timing for the initiation of hemodialysis. I will order a renal ultrasound for completeness sake to ensure that none of his azotemia is on the basis of obstructive uropathy. All of the above was discussed with his nurse at the bedside. Dee Minor MD C[facility]SEA
[2017-12-09] MEDS: Insulin Reg-LOW-Coverage SC SCH ×4 (08:05→21:51)
[2017-12-09] MEDS: Azithromycin 500MG/NS 250ml 500 MG/250 ML BAG IVPB SCH (09:17)
[2017-12-09] MEDS: MethylPREDNISolone 40 mg Vial IVP SCH ×2 (09:26→21:48)
--- NOTE | 2017-12-09 12:40 | CP.PCM.PN ---
<Veena Castillo - Last Filed: 12/09/17 22:09> Subjective - Date & Time of Evaluation Date of Evaluation: 12/09/17 Time of Evaluation: 12:00 - Subjective Subjective: 87 yr male from [facility] w/ history of CAD, DM, Dementia, hypercholesteromia, GERD, HTN, PVD, asthma, CKD stage V, CHF, aka of L leg, COPD, urinary incontience and nephrolithiasis s/p stent in ureter. Pt was noncomplaint w/ keflex PO for pneumonia treatment and was only taking medications when he wanted to take them. Today, he is complaining that no one is listening to him and he appears irritable. He is a poor historian. Objective - Vital Signs/Intake and Output Vital Signs (last 24 hours): Temp Pulse Resp BP Pulse Ox 98.3 F 72 18 111/51 L 99 12/09/17 12:00 12/09/17 12:00 12/09/17 12:00 12/09/17 12:00 12/09/17 06:00 Intake and Output: 12/09/17 12/09/17 06:59 18:59 Intake Total 240 Output Total 0 Balance 240 - Medications Medications: Current Medications Acetaminophen (Tylenol 325mg Tab) 650 mg PO Q4 PRN PRN Reason: MILD PAIN Last Admin: 12/07/17 19:55 Dose: 650 mg Albuterol/Ipratropium (Duoneb 3 Mg/0.5 Mg (3 Ml) Ud) 3 ml IH [id number] [facility] Last Admin: 12/09/17 08:10 Dose: 3 ml Amlodipine Besylate (Norvasc) 10 mg PO DAILY [facility] Last Admin: 12/09/17 09:29 Dose: 10 mg Aspirin (Ecotrin) 81 mg PO DAILY [facility] Last Admin: 12/09/17 09:29 Dose: 81 mg Atorvastatin Calcium (Lipitor) 10 mg PO DIN [facility] Last Admin: 12/08/17 18:15 Dose: 10 mg Azithromycin (Zithromax) 500 mg PO DAILY [facility] Budesonide (Pulmicort Respules) 1 mg IH [id number] [facility] Famotidine (Pepcid) 40 mg PO HS [facility] Last Admin: 12/08/17 21:40 Dose: 40 mg Fluticasone Propionate (Flonase) 1 actuation NS DAILY [facility] Last Admin: 12/08/17 10:00 Dose: Not Given Furosemide (Lasix) 40 mg IVP Q12 [facility] Last Admin: 12/09/17 09:27 Dose: 40 mg Hydralazine HCl (Apresoline) 10 mg PO QID PRN PRN Reason: for sbp>160 Iron Sucrose 200 mg/ Sodium (Chloride) 110 mls @ 110 mls/hr IVPB DAILY [facility] Stop: 12/13/17 10:01 Insulin Human Regular (Humulin R Low) 0 units SC ACHS [facility] PRN Reason: Protocol Last Admin: 12/09/17 12:02 Dose: 4 units Lamotrigine (Lamictal) 25 mg PO BID [facility] PRN Reason: Protocol Last Admin: 12/09/17 09:28 Dose: 25 mg Memantine (Namenda) 5 mg PO BID [facility] Last Admin: 12/09/17 09:29 Dose: 5 mg Methylprednisolone (Solu-Medrol) 40 mg IVP Q12 [facility] Last Admin: 12/09/17 09:26 Dose: 40 mg Metoprolol Tartrate (Lopressor) 25 mg PO BID [facility] Last Admin: 12/09/17 09:30 Dose: 25 mg Montelukast Sodium (Singulair) 10 mg PO QPM [facility] Last Admin: 12/08/17 18:17 Dose: 10 mg Nitroglycerin (Nitro-Bid 2% Oint) 1 ea TOP Q6H [facility] Last Admin: 12/09/17 11:05 Dose: 1 ea Tamsulosin HCl (Flomax) 0.4 mg PO DAILY [facility] Last Admin: 12/09/17 09:29 Dose: 0.4 mg - Labs Labs: 12/09/17 05:30 12/09/17 05:30 PT 11.8 SECONDS (9.4-12.5) 12/07/17 14:00 INR 1.03 (0.93-1.08) 12/07/17 14:00 APTT 31.4 Seconds (25.1-36.5) 12/07/17 14:00 - Constitutional Appears: Chronically Ill - Head Exam Head Exam: ATRAUMATIC, NORMAL INSPECTION, NORMOCEPHALIC - Eye Exam Eye Exam: EOMI, Normal appearance, PERRL - ENT Exam ENT Exam: Mucous Membranes Moist, Normal Exam - Neck Exam Neck Exam: Full ROM, Normal Inspection. absent: Lymphadenopathy - Respiratory Exam Respiratory Exam: Decreased Breath Sounds, Rhonchi, NORMAL BREATHING PATTERN - Cardiovascular Exam Cardiovascular Exam: REGULAR RHYTHM, +S1, +S2. absent: Murmur - GI/Abdominal Exam GI & Abdominal Exam: Soft, Normal Bowel Sounds. absent: Tenderness - Extremities Exam Additional comments: L leg aka. - Back Exam Back Exam: NORMAL INSPECTION - Neurological Exam Neurological Exam: Alert, Awake, CN II-XII Intact, Normal Gait, Oriented x3 - Psychiatric Exam Psychiatric exam: Normal Affect, Normal Mood - Skin Skin Exam: Dry, Intact, Normal Color, Warm Assessment and Plan (1) Azotemia Status: Acute (2) CHF exacerbation Status: Acute (3) NSTEMI (non-ST elevated myocardial infarction) Status: Acute (4) Dyspnea, unspecified Status: Acute (5) Hematuria Status: Acute (6) Hypoxemia Status: Acute (7) Anemia Status: Chronic (8) Chronic renal insufficiency Status: Chronic - Assessment and Plan (Free Text) Plan: Labs ordered: CMP & CBC. Azithromycin PO, IV lasix, IV solumedryl, IV sucrose. PT on board. Consult: Nephrology - Dr. Minor = pt may need initiation of hemodialysis, renal us ordered [employer] Worker - Dr. Gibson = bronchodilator, HOB 45, sleep apnea will try bipap , labs proBNP and procalcitonin [facility] - Dr. Menezes = labs: lipid, TSH, anemia workup. echo. D/c lisinopril. medical treatment: nitrates, BB, asa, lipitor, prn hydralazine. Reviewed: Renal US = WNL CXR = Diffuse bialteral fibrotic change ECG = ABNORMAL, NSR, L axis deviaion, inferior infarct <Senia Thomas - Last Filed: 12/10/17 14:56> Objective - Vital Signs/Intake and Output Vital Signs (last 24 hours): Temp Pulse Resp BP Pulse Ox 98.8 F 65 18 131/70 96 12/10/17 12:00 12/10/17 12:00 12/10/17 12:00 12/10/17 12:00 12/10/17 05:48 Intake and Output: 12/10/17 12/10/17 06:59 18:59 Intake Total 240 Output Total 0 Balance 240 - Medications Medications: Current Medications Acetaminophen (Tylenol 325mg Tab) 650 mg PO Q4 PRN PRN Reason: MILD PAIN Last Admin: 12/07/17 19:55 Dose: 650 mg Albuterol/Ipratropium (Duoneb 3 Mg/0.5 Mg (3 Ml) Ud) 3 ml IH [id number] [facility] Last Admin: 12/10/17 11:06 Dose: 3 ml Amlodipine Besylate (Norvasc) 10 mg PO DAILY [facility] Last Admin: 12/10/17 10:58 Dose: 10 mg Aspirin (Ecotrin) 81 mg PO DAILY [facility] Last Admin: 12/10/17 10:51 Dose: 81 mg Atorvastatin Calcium (Lipitor) 10 mg PO DIN [facility] Last Admin: 12/09/17 17:21 Dose: 10 mg Azithromycin (Zithromax) 500 mg PO DAILY [facility] Last Admin: 12/10/17 10:51 Dose: 500 mg Budesonide (Pulmicort Respules) 1 mg IH [id number] [facility] Last Admin: 12/10/17 11:06 Dose: 1 mg Famotidine (Pepcid) 40 mg PO HS [facility] Last Admin: 12/09/17 21:48 Dose: 40 mg Fluticasone Propionate (Flonase) 1 actuation NS DAILY [facility] Last Admin: 12/10/17 10:55 Dose: 1 actuation Furosemide (Lasix) 40 mg IV Q8H [facility] Last Admin: 12/10/17 10:59 Dose: 40 mg Hydralazine HCl (Apresoline) 10 mg PO QID PRN PRN Reason: for sbp>160 Iron Sucrose 200 mg/ Sodium (Chloride) 110 mls @ 110 mls/hr IVPB DAILY [facility] Stop: 12/13/17 10:01 Last Admin: 12/10/17 10:59 Dose: 110 mls/hr Insulin Human Regular (Humulin R Low) 0 units SC ACHS [facility] PRN Reason: Protocol Last Admin: 12/10/17 12:26 Dose: 4 units Lamotrigine (Lamictal) 25 mg PO BID [facility] PRN Reason: Protocol Last Admin: 12/10/17 10:51 Dose: 25 mg Memantine (Namenda) 5 mg PO BID [facility] Last Admin: 12/10/17 10:51 Dose: 5 mg Methylprednisolone (Solu-Medrol) 20 mg IVP Q12 [facility] Last Admin: 12/10/17 10:50 Dose: 20 mg Metoprolol Tartrate (Lopressor) 25 mg PO BID [facility] Last Admin: 12/10/17 10:57 Dose: 25 mg Montelukast Sodium (Singulair) 10 mg PO QPM [facility] Last Admin: 12/09/17 17:24 Dose: 10 mg Nitroglycerin (Nitro-Bid 2% Oint) 1 ea TOP Q6H [facility] Last Admin: 12/10/17 11:02 Dose: 1 ea Tamsulosin HCl (Flomax) 0.4 mg PO DAILY [facility] Last Admin: 12/10/17 10:51 Dose: 0.4 mg - Labs Labs: 12/10/17 05:30 12/10/17 05:30 PT 11.8 SECONDS (9.4-12.5) 12/07/17 14:00 INR 1.03 (0.93-1.08) 12/07/17 14:00 APTT 31.4 Seconds (25.1-36.5) 12/07/17 14:00 Assessment and Plan - Assessment and Plan (Free Text) Plan: 87 yr male from [facility] w/ history of CAD, DM, Dementia, hypercholesterolemia, GERD, HTN, PVD, asthma, CKD stage V, CHF, aka of L leg, COPD, urinary incontience and nephrolithiasis s/p stent in ureter. Pt was noncomplaint w/ keflex PO for pneumonia treatment and was only taking medications when he wanted to take them. Today, he is complaining that no one is listening to him and he appears irritable. He is a poor historian. pt is seen and examined at bed side , agreed all above , meds .labs and chart noted . had anemia , getting fe infusion , nephrology is on the case , will .f/ u
[2017-12-09] MEDS: Fluticasone Nasal 50 mcg/Spray NS SCH (12:48)
--- NOTE | 2017-12-09 14:05 | US ---
PROCEDURE: Ultrasound of the Kidneys HISTORY: azotemia COMPARISON: None available. TECHNIQUE: Sonogram of the kidneys. FINDINGS: RIGHT KIDNEY: Measures: 3.8 x 9.2 cm. Normal in size, contour and echogenicity. No stone, solid mass lesion or hydronephrosis visualized. LEFT KIDNEY: Measures: 5.8 x 8.3 cm. Normal in size, contour and echogenicity. No stone, solid mass lesion or hydronephrosis visualized. OTHER FINDINGS: Gallstones identified IMPRESSION: Unremarkable renal sonogram.
--- NOTE | 2017-12-09 21:33 | PN ---
DATE: 12/09/2017 REASON FOR CONSULTATION AND FOLLOWUP: Shortness of breath. SUBJECTIVE: The patient denies any chest pain, shortness of breath, or any palpitation. OBJECTIVE: GENERAL: Not in apparent distress. VITAL SIGNS: As follows; temperature is afebrile, heart rate is 72, and blood pressure is 111/51. HEENT: PERRLA, intact. NECK: Supple. No carotid bruits or thyromegaly. CHEST: Clear to auscultation. HEART: S1 and S2 regular. ABDOMEN: Soft. EXTREMITIES: Clubbing and cyanosis negative. LABORATORY DATA: Blood workup as follows: WBC 8.5, hemoglobin 7.3, hematocrit 25.8, and platelet count of 145. Chemistry shows sodium 139, potassium 4.0, chloride 102, carbon dioxide of 27, anion gap of 17, BUN 85, and creatinine of 4.9. BNP elevated. Troponin 0.13. IMPRESSION: Acute kidney injury, chronic renal insufficiency, creatinine clearance test is 13, stage IV to V chronic kidney disease, positive troponin bump which is most likely secondary to abnormal renal function, also BNP elevated secondary to renal insufficiency, severe anemia. Probably, this positive troponin is secondary to demand-supply mismatch rather than primarily plaque rupture or acute coronary syndrome rather than demand and supply as well as underlying renal insufficiency as a bump of troponin. History of pelvic inflammatory disease, history of hypertension, hyperlipidemia, dementia, and diabetes. RECOMMENDATIONS: Avoid nephrotoxic medication. Continue hydralazine p.r.n. Continue beta-hannah. We will put nitrate. We will put amlodipine. Medical treatment. Hold GIFTY inhibitors because of renal insufficiency. Echo was ordered, but it was canceled because of echo was done 2 weeks ago. Most recent echo dated 11/26/2017 shows ventricle functions normal, read by Dr. Riley dated 11/26/2017. No segmental wall motion abnormality. Grade I diastolic dysfunction, RV systolic pressure of 44. No mitral regurgitation noted. Trace tricuspid regurgitation noted. Most likely symptoms are secondary to renal failure. May consider GI workup and renal evaluation. We will discontinue telemetry. No further cardiac workup is planned at this time. Thank you Dr. Thomas for providing me the opportunity in taking care of the patient, Que Santizo. Nathalie Menezes MD cc: Senia Thomas MD
--- NOTE | 2017-12-09 22:54 | PN ---
DATE: 12/09/2017 SUBJECTIVE: This 87-year-old male was examined on the cardiac shearer. He was alert and chronically confused, but denying any fever, chills, chest pain, or shortness of breath. He remains in a normal sinus rhythm on the monitoring tech. Nursing staff reports no hemetemesis or melena. OBJECTIVE: VITAL SIGNS: Temperature is 98.4, respirations 20, pulse 72, blood pressure 134/50 with a pulse ox of 99%. Urine output was not recorded for today. HEENT: Head: Normocephalic, atraumatic. Eyes: No icterus. Ears: Clear. Throat: Noninjected. NECK: Supple. HEART: Regular. S1, S2. LUNGS: With occasional rhonchi and wheezing. Decreased breath sounds at the bases. ABDOMEN: Soft. EXTREMITIES: Status post left [id number] amputation, right leg shows no edema. SKIN: Without rash. NEUROLOGICAL: Unchanged. PSYCHOLOGICAL: Confused. VASCULAR: Legs warm to touch. LABORATORY DATA: White count 8400, hemoglobin 7.7, hematocrit 25.8, platelets 145,000. PT/INR 1.03, PTT 31.4. Sodium 139, K 4.3, chloride 102, bicarb 24, BUN 85, creatinine 4.9. Estimated GFR 11 mL per minute. Random blood sugar 273. All liver function testing was normal including bilirubin 0.2, AST 25, ALT 34, alk phos 80. BNP remains elevated at 5810. Urinalysis showed small bacteria. Influenza A and B serologies were negative. Chest Xray was reviewed and shows fibrotic lung changes. ASSESSMENT: An 87-year-old male with chronic renal failure stage V, anemia of iron deficiency, anemia of chronic disease, comorbidities of bronchial pneumonia, exacerbation of chronic obstructive pulmonary disease, peptic ulcer disease, chronic hypertension, stable atherosclerotic heart disease, organic brain syndrome with agitation, hyperlipidemia, history of seizure syndrome, peripheral vascular disease - status post left [id number] amputation, and insulin-dependent diabetes mellitus. PLAN: The plan at present is to continue the patient stay on the cardiac shearer. He has a procalcitonin level ordered which remains pending and the patient is being treated with hydralazine 10 mg p.o. four times a day, dual nebulizer therapy q.6h., Ecotrin 81 mg daily, Flomax 0.4 mg p.o. daily, insulin coverage a.c. meals and at bedtime, Venofer 200 mg IV x1 dose and then daily, Lamictal 25 mg p.o. b.i.d., Lasix 40 mg IV q. 12, Lipitor 10 mg p.o. daily, Lopressor 25 mg p.o. b.i.d., Namenda 5 mg p.o. b.i.d., nitroglycerin ointment 1 inch to chest wall q.6h., Norvasc 10 mg p.o. daily, Pepcid 40 mg p.o. at bedtime, Brovana inhalational therapy q.12h., Singulair 10 mg p.o. daily, Solu-Medrol 40 mg IV q.12, and Zithromax 500 mg p.o. daily. As discussed with nursing, he will be scheduled for a renal ultrasound to rule out obstructive hydronephrosis and he continues on BiPAP and a heart-healthy renal diabetic diet. He is ordered to have physical therapy for reconditioning and gait training. Based on his clinical progress, additional workup and medication adjustments will be made. He might benefit from blood cell transfusion given his advanced anemia. His BNP remains elevated, consistent with bronchial pneumonia and congestive heart failure in the setting of fibrotic lung disease, and the patient may be nearing the initiation of hemodialysis which will be discussed with Dr. Thomas based on clinical progress and results of repeat renal ultrasound. All of the above was discussed in detail with staff nurses and nurse practitioner. All questions were answered. Dee Minor MD CHELSEA
--- NOTE | 2017-12-09 23:04 | PN ---
DATE: 12/09/2017 REFERRING PHYSICIAN: Dr. Thomas. SUBJECTIVE: The patient is lying in the bed, seen by me early this morning, was on BiPAP, feels better, much more awake and alert. Decreased cough. No nausea, no diarrhea, leg swelling. OBJECTIVE: GENERAL: In no acute distress. VITAL SIGNS: Temperature is 98, heart rate is 72, respiratory rate is 18, blood pressure 111/51, pulse ox 99% on BiPAP. HEENT: Moist mucous membranes. Crowded airway. NECK: Supple. No JVD. LUNGS: Has scattered rhonchi. HEART: S1, S2. ABDOMEN: Soft, nontender. No organomegaly. EXTREMITIES: There is no edema of the right leg, left extremity looks okay. NEUROLOGIC: Awake, alert and follows simple command. MEDICATIONS: He is on hydralazine 10 mg q.i.d. p.r.n., DuoNeb q. 6 hours, Ecotrin 81 mg daily, Flomax 0.4 mg daily, Flonase 1 spray daily, insulin coverage, iron sucrose 200 mg daily, lamotrigine 25 mg twice a day, Lasix 40 mg twice a day, Lipitor 10 mg daily, metoprolol tartrate 25 mg twice a day, Namenda 5 mg twice a day, Norvasc 10 mg daily, Pepcid 40 mg at bedtime, Pulmicort inhaled twice a day, Singulair 10 mg daily, Solu-Medrol 40 mg q. 12h., Tylenol p.r.n., Zithromax 500 mg daily. LABORATORY DATA: Shows hemoglobin 7.7, hematocrit 25.8, WBC 8.4, platelet is 145. Sodium 139, potassium 4.3, chloride 102, bicarbonate 24, BUN 85, creatinine 4.9, glucose is 273, calcium 7.8. AST 25, ALT 34, alk phos is 80. Albumin is 3.2. ProBNP 5910. Microbiology: Urine culture, there is no growth. Had a renal ultrasound done today, which shows unremarkable renal sonography. IMPRESSION AND PLAN: Chronic obstructive lung disease, renal failure, coronary artery disease, peripheral vascular disease, hypertension, history of left above knee amputation, component of heart failure. Pulmonary point of view, doing okay. We will decrease Solu-Medrol, continue BiPAP while sleeping. There is component of sleep apnea syndrome. Continue antibiotics. Gastric prophylaxis, deep venous thrombosis prophylaxis, out of bed to chair as possible. We will follow with you. Nathalie Gibson MD
[2017-12-10] MEDS: Albuterol-Ipratrop 3 mg / 0.5 (3 ml) UD IH SCH ×4 (01:50→19:29)
[2017-12-10] MEDS: Nitroglycerin 2% Ointment Foilpak UD TOP SCH ×4 (04:26→21:57)
[2017-12-10 06:12] LABS: GRAN # 10.19 (1.4-6.5); GRAN % 96.5 % (50.0-68.0); LYMPH # 0.3 (1.2-3.4); LYMPH % 2.6 % (22.0-35.0); MEAN CELL VOLUME 87.5 fl (80.0-105.0); MEAN CORPUSCULAR HEMOGLOBIN 26.6 pg (25.0-35.0); MEAN CORPUSCULAR HGB CONC 30.4 g/dl (31.0-37.0); MEAN PLATELET VOLUME 11.2 fl (7.0-11.0); MONO # 0.1 (0.1-0.6); MONO % 0.9 % (1.0-6.0); PLATELET COUNT 138 10^3/uL (120.0-450.0); RBC 2.89 10^6/uL (3.5-6.1); RED CELL DISTRIBUTION WIDTH 15.9 % (11.5-14.5); WHITE BLOOD COUNT 10.6 10^3/ul (4.5-11.0)
[2017-12-10 06:32] LABS: HEMOGLOBIN 7.7 g/dL (14.0-18.0)
[2017-12-10 06:49] LABS: ALB/GLOB RATIO 1.3 (1.1-1.8); ALBUMIN 3.3 g/dL (3.0-4.8)
[2017-12-10 08:42] LABS: BAND 1 % (0-2); LYMPHOCYTE 2 % (22.0-35.0); NEUTROPHIL 97 % (50.0-70.0)
[2017-12-10 08:45] LABS: PLATELET ESTIMATE NORMAL (NORMAL)
[2017-12-10] MEDS: Insulin Reg-LOW-Coverage SC SCH ×4 (08:50→21:31)
[2017-12-10] MEDS: MethylPREDNISolone 40 mg Vial IVP SCH ×2 (10:50→21:08)
[2017-12-10] MEDS: Fluticasone Nasal 50 mcg/Spray NS SCH (10:55)
[2017-12-10] MEDS: Budesonide 0.5 mg/2 ml Inhal Susp UD IH SCH ×2 (11:06→19:29)
--- NOTE | 2017-12-10 11:21 | CP.PCM.PN ---
Subjective - Date & Time of Evaluation Date of Evaluation: 12/10/17 Time of Evaluation: 11:18 - Subjective Subjective: code status blood transfusion blood products consent consent for hemodialysis Objective - Vital Signs/Intake and Output Vital Signs (last 24 hours): Temp Pulse Resp BP Pulse Ox 97.9 F 85 20 151/68 H 96 12/10/17 05:48 12/10/17 10:57 12/10/17 05:48 12/10/17 10:59 12/10/17 05:48 Intake and Output: 12/10/17 12/10/17 06:59 18:59 Intake Total 240 Output Total 0 Balance 240 - Medications Medications: Current Medications Acetaminophen (Tylenol 325mg Tab) 650 mg PO Q4 PRN PRN Reason: MILD PAIN Last Admin: 12/07/17 19:55 Dose: 650 mg Albuterol/Ipratropium (Duoneb 3 Mg/0.5 Mg (3 Ml) Ud) 3 ml IH [id number] [facility] Last Admin: 12/10/17 11:06 Dose: 3 ml Amlodipine Besylate (Norvasc) 10 mg PO DAILY [facility] Last Admin: 12/10/17 10:58 Dose: 10 mg Aspirin (Ecotrin) 81 mg PO DAILY [facility] Last Admin: 12/10/17 10:51 Dose: 81 mg Atorvastatin Calcium (Lipitor) 10 mg PO DIN [facility] Last Admin: 12/09/17 17:21 Dose: 10 mg Azithromycin (Zithromax) 500 mg PO DAILY [facility] Last Admin: 12/10/17 10:51 Dose: 500 mg Budesonide (Pulmicort Respules) 1 mg IH [id number] [facility] Last Admin: 12/10/17 11:06 Dose: 1 mg Famotidine (Pepcid) 40 mg PO HS [facility] Last Admin: 12/09/17 21:48 Dose: 40 mg Fluticasone Propionate (Flonase) 1 actuation NS DAILY [facility] Last Admin: 12/10/17 10:55 Dose: 1 actuation Furosemide (Lasix) 40 mg IV Q8H [facility] Last Admin: 12/10/17 10:59 Dose: 40 mg Hydralazine HCl (Apresoline) 10 mg PO QID PRN PRN Reason: for sbp>160 Iron Sucrose 200 mg/ Sodium (Chloride) 110 mls @ 110 mls/hr IVPB DAILY [facility] Stop: 12/13/17 10:01 Last Admin: 12/10/17 10:59 Dose: 110 mls/hr Insulin Human Regular (Humulin R Low) 0 units SC ACHS [facility] PRN Reason: Protocol Last Admin: 12/10/17 08:50 Dose: 3 units Lamotrigine (Lamictal) 25 mg PO BID [facility] PRN Reason: Protocol Last Admin: 12/10/17 10:51 Dose: 25 mg Memantine (Namenda) 5 mg PO BID [facility] Last Admin: 12/10/17 10:51 Dose: 5 mg Methylprednisolone (Solu-Medrol) 20 mg IVP Q12 [facility] Last Admin: 12/10/17 10:50 Dose: 20 mg Metoprolol Tartrate (Lopressor) 25 mg PO BID [facility] Last Admin: 12/10/17 10:57 Dose: 25 mg Montelukast Sodium (Singulair) 10 mg PO QPM [facility] Last Admin: 12/09/17 17:24 Dose: 10 mg Nitroglycerin (Nitro-Bid 2% Oint) 1 ea TOP Q6H [facility] Last Admin: 12/10/17 11:02 Dose: 1 ea Tamsulosin HCl (Flomax) 0.4 mg PO DAILY [facility] Last Admin: 12/10/17 10:51 Dose: 0.4 mg - Labs Labs: 12/10/17 05:30 12/10/17 05:30 PT 11.8 SECONDS (9.4-12.5) 12/07/17 14:00 INR 1.03 (0.93-1.08) 12/07/17 14:00 APTT 31.4 Seconds (25.1-36.5) 12/07/17 14:00 - Constitutional Appears: Chronically Ill - Head Exam Head Exam: ATRAUMATIC - Eye Exam Eye Exam: EOMI, PERRL Pupil Exam: NORMAL ACCOMODATION - Neck Exam Neck Exam: Full ROM - Respiratory Exam Respiratory Exam: Decreased Breath Sounds, Rhonchi, Wheezes - Cardiovascular Exam Cardiovascular Exam: +S1, +S2 - GI/Abdominal Exam GI & Abdominal Exam: Soft, Normal Bowel Sounds - Extremities Exam Extremities Exam: Full ROM, Normal Capillary Refill - Neurological Exam Neurological Exam: Awake, CN II-XII Intact Neuro motor strength exam: Left Upper Extremity: 5, Right Upper Extremity: 5, Right Lower Extremity: 5 Additional comments: left AKA - Psychiatric Exam Additional comments: confused at baseline Assessment and Plan - Assessment and Plan (Free Text) Assessment: full code status as per TIMMY blood transfusion/blood product consent hemodialysis consent Plan: full code status as per Elizabeth Orta transfuse 1UPRBC's as per Elizabeth Orta Gregory catheter placement and hemodialysis consented as per Elizabeth rOta
--- NOTE | 2017-12-10 12:31 | PN ---
DATE: REASON FOR CONSULTATION: Shortness of breath. SUBJECTIVE: The patient denies any chest pain, shortness of breath or any palpitations. OBJECTIVE GENERAL: Not in apparent distress, lying flat in the bed. VITAL SIGNS: Temperature afebrile, heart rate is 70, blood pressure is 127/51. HEENT: PERRLA. Extraocular muscles are intact. NECK: Supple. No carotid bruit or thyromegaly. CHEST: Clear to auscultation. HEART: S1 and S2 regular. ABDOMEN: Soft. EXTREMITIES: Clubbing and cyanosis negative. LABORATORY DATA: EKG showed normal sinus, no acute ST-T changes noted. Blood workup as follows: WBC 10.6, hemoglobin 7.3, hematocrit 25.3, platelet count 138. Chemistry shows sodium 140, potassium 4.2, chloride 100, carbon dioxide 28, anion gap of 18, BUN 94, and creatinine 5. IMPRESSION: Anemia, chronic renal insufficiency, stage IV to V chronic kidney disease, chronic obstructive pulmonary disease. On admission, there was a little bump in the troponin, most likely secondary to elevated renal function and severe anemia, probably this most bump in troponin is secondary to demand and supply mismatch rather than plaque, rupture or acute coronary syndrome. I doubt it is acute coronary artery syndrome. History of hypertension, history of hyperlipidemia, dementia, history of peripheral arterial disease status post left above knee amputation. The patient's last echo dated 11/26/2017, that shows a normal left ventricular function, read by Dr. Riley. No segmental wall motion abnormality, grade I diastolic dysfunction, right ventricular systolic pressure of 44, no mitral regurgitation, trace tricuspid regurgitation. Most likely the symptoms are secondary to renal insufficiency and severe anemia. Consider anemia workup and renal workup. Discontinue telemetry. Aggressive medical treatment. Avoid GIFTY inhibitors, avoid nephrotoxic medication. Started on hydralazine p.r.n. Continue low-dose beta hannah as blood pressure is tolerated and p.r.n. Hydralazine. No further cardiac workup is planned. The patient needs a GI workup and renal followup. As mentioned, this little bump in the troponin is most likely secondary to demand mismatch supply as well as elevated BUN, creatinine, and stage IV to V chronic kidney disease, maximum troponin was 0.13, increase of creatinine 5.1, significant unknown with a creatinine clearance 10 mL. No complaint of chest pain. No EKG changes. Thank you Dr. Thomas for providing me the opportunity in taking care of the patient, Que Santizo. Nathalie Menezes MD
--- NOTE | 2017-12-10 14:06 | PN ---
DATE: 12/10/2017 SUBJECTIVE: This 87-year-old male was examined at his bedside. He is on the cardiac unit in the [facility]. He was short of breath and not wearing nasal O2. After the re-application of nasal O2, he has felt slightly better, but still remains mildly short of breath. The patient was admitted with exacerbation of chronic obstructive pulmonary disease as well as bronchial pneumonia, congestive heart failure, and end-stage renal failure. He is on IV Lasix, and reports shows a urine output of 720 mL yesterday with a positive fluid balance of 240 mL. Of note, he has had 240 mL of urine output thus far today. The patient denies fever, chills, chest pain. PHYSICAL EXAMINATION: VITALS: Earlier today, temperature 97.9, pulse 120, respirations 20, blood pressure 132/61, pulse ox 96% at nasal O2. His receptionist doctor's office shows normal sinus rhythm. HEENT: Head, normocephalic and atraumatic. Eyes, no icterus. Ears, clear. Throat, noninjected. NECK: Supple. HEART: S1, S2. LUNGS: With decreased breath sounds at both bases. ABDOMEN: Soft. EXTREMITIES: Left [id number] amputation. Right lower extremity, no edema. SKIN: Without rash. NEUROLOGICAL: Chronic confusion, but alert. NEURO: Able to move all 4 extremities. LABORATORY DATA: White count 10,600, hemoglobin 7.7, hematocrit 25.3, platelets 138,000. PT/INR 1.03, PTT 31.4. Sodium 140, K 4.1, chloride 100, bicarb 26, BUN 94, creatinine 5.0. Estimated GFR 11 mL per minute. Blood sugar 287. AST 28, ALT 30, alk phos 77. Urinalysis showed small bacteria. Influenza A, B serology is negative. Renal ultrasound was reviewed. It showed no evidence of hydronephrosis. No mass, no stones. Admission EKG was reviewed. It showed a sinus rhythm with nonspecific ST-T wave changes and leftward axis deviation, and chest x-ray was reviewed. It showed fibrotic lung changes. No significant pleural effusion or pneumothorax on admission. IMPRESSION: An 87-year-old male with multiple medical problems including acute on chronic renal failure, now with azotemia and acute on chronic systolic congestive heart failure in the setting of renal failure with recent bronchial pneumonia, chronic hypertension, peripheral vascular disease, iron-deficiency anemia, anemia of chronic disease, hyperlipidemia, organic brain syndrome, peptic ulcer disease with gastroesophageal reflux disease, and history of obstructive sleep apnea. PLAN: Plan as discussed with the patient, nursing, nurse practitioner, will be to continue cardiac monitoring, antiembolism stockings, heart-healthy and renal-diabetic diet, and BiPAP. He will continue on Zithromax 500 mg p.o. daily, Solu-Medrol 20 mg IV q.12, Pulmicort inhalational therapy, Singulair, Pepcid, Norvasc, nitroglycerin to chest wall, Namenda, metoprolol tartrate, Lipitor, IV Lasix has been increased to 40 mg IV q.8. Continue on his Lamictal 25 mg p.o. b.i.d. He is receiving 3 doses of IV Venofer, insulin coverage, Flomax, Ecotrin, and hydralazine. He will be scheduled for a comprehensive metabolic panel for the a.m., CBC, and strict Is and Os as discussed with nursing, given the patient's elevated creatinine, clinical CHF, and fibrotic lung disease. He may be nearing the clinical decision for institution of hemodialysis. This will be discussed based on his clinical progress and response to treatment today. All of the above was reviewed in detail with the patient and nursing. Dee Minor MD MTDD
[2017-12-10] MEDS ORDERED: Lidocaine 2% Inj (20ml) ONE (14:52)
[2017-12-10] MEDS ORDERED: HEPARIN SODIUM/NS 2,000 ML IV ONE (14:53)
[2017-12-10] MEDS ORDERED: Midazolam 2 MG/2 ML VIAL ONE ×2 (14:53→15:40)
[2017-12-10] MEDS ORDERED: Acetaminophen 650mg/20.3ml solution UD ONE (17:44)
--- NOTE | 2017-12-10 19:12 | VASCULAR ---
PROCEDURE: Ultrasound and fluoroscopic tunneled right IJ dialysis catheter. CLINICAL HISTORY: ESRD PHYSICIAN(S): Gaurang Monet M.D. TECHNIQUE: The relative risks and indications for the procedure were explained to the patient's family and informed written consent obtained. The patient was placed supine on the arteriography table and the right neck/chest was prepped and draped in the usual sterile fashion. 1% Xylocaine was used to anesthetize the skin and soft tissues at the puncture site. Conscious sedation and monitoring were provided throughout the procedure by a nurse. Under direct ultrasound guidance, the rightinternal jugular vein was punctured with a micropuncture set. A 0.035 Glidewire was advanced into the IVC. Sequential dilatation was performed with subsequent placement of a 28cm nextgen catheter with its tip in the right atrium. A retrograde tunnel below the right clavicle was performed. The catheter was trimmed and the hub attached. Both ports aspirate and inject easily. The catheter was secured and a dressing applied. The patient tolerated the procedure well. IMPRESSION: 1. Ultrasound and fluoroscopically placed right IJ tunneled dialysis catheter.
--- NOTE | 2017-12-11 00:30 | PN ---
DATE: 12/10/2017 PULMONARY PROGRESS NOTE REFERRING PHYSICIAN: Dr. Thomas. SUBJECTIVE: The patient is lying in the bed, just came back from dialysis. He has a new catheter placed in. Night was unremarkable. Tolerated the BiPAP okay. Mild short of breath with exertion. No nausea. No vomiting. No diarrhea. No leg pain or leg swelling. OBJECTIVE: GENERAL: In no acute distress. VITAL SIGNS: Temperature is 98, heart rate is 67, respiratory rate is 20, blood pressure 126/49, pulse ox 95% on 3 liter nasal cannula. HEENT: Moist mucous membrane. Crowded airway. NECK: Supple. No JVD. LUNGS: Has a fair airflow with rhonchi. HEART: S1 and S2. ABDOMEN: Soft, nontender. No organomegaly. EXTREMITIES: Right leg, there is no edema. Left has a history of AKA. NEUROLOGIC: Awake, alert and follow simple commands. MEDICATIONS: He is on hydralazine 10 mg q.i.d. p.r.n., DuoNeb q. 6 hours, Ecotrin 81 mg daily, Flomax 0.4 mg daily, Flonase 1 spray daily, IV ____ iron 200 mg daily, Lamictal 25 mg twice a day, Lasix 40 mg IV q. 8 hours, Lipitor 10 mg daily, metoprolol tartrate 25 mg twice a day, Namenda 5 mg twice a day, Norvasc 10 mg daily, Pepcid 40 mg daily, Pulmicort inhaled twice a day, Singulair 10 mg daily, Solu-Medrol 20 mg q. 12 hours, Tylenol p.r.n., Zithromax 500 mg daily, Zofran p.r.n. basis. LABORATORY DATA: Shows hemoglobin 7.7, hematocrit 25.3, WBC 10.6, platelet is 138. Sodium 140, potassium 4.1, chloride 100, bicarbonate 26, BUN 94, creatinine 5.0, glucose 359, calcium 8.0. AST 28, ALT 30, alk phos is 77. Albumin is 3.3. IMPRESSION AND PLAN: Chronic obstructive lung disease; renal failure, status post dialysis, catheter placement; coronary artery disease; peripheral vascular disease; hypertension; history of above the knee amputation; fluid overload. Pulmonary point of view, keep head elevated at 45 degrees, bronchodilator. Gastric prophylaxis, deep venous thrombosis prophylaxis. Being followed by Nephrology. Thank you and we will follow with you. Nathalie Gibson MD
[2017-12-11] MEDS: Albuterol-Ipratrop 3 mg / 0.5 (3 ml) UD IH SCH ×4 (01:29→21:00)
--- NOTE | 2017-12-11 01:37 | PN ---
DATE: 12/10/2017 SUBJECTIVE: The patient is an 87-year-old male. The patient was seen and examined at the bedside late evening. Looking comfortable. Having Port-A-Cath placed on the right side of the upper chest. No fever. No chills. No swelling of the legs. No hematuria. No hematochezia. The patient is a poor historian. When he is not getting oxygen with nasal cannula, he is feeling short of breath. Seen by the airplane cabin attendant and regional project manager. Discussion done with nurse practitioner, Salima. PHYSICAL EXAMINATION: VITAL SIGNS: Temperature 97.9, pulse 120, respiratory rate 20, blood pressure 130/50, pulse oximetry 96% at 2 L nasal cannula. HEENT: Head, normocephalic, atraumatic. Eyes: PERRLA. Extraocular muscles intact. Conjunctivae clear. Nose patent. Mucous membranes moist. NECK: Supple. No carotid bruit, JVD, or thyromegaly. CHEST: Bilaterally symmetrical. Right of the upper chest has temporary port access. HEART: S1 and S2 positive. LUNGS: With decreased breath sounds at bases bilaterally. ABDOMEN: Soft. Bowel sounds positive. No organomegaly. EXTREMITIES: Left [id number]-eko-ktcp amputation. Right lower extremity, no edema. NEUROLOGIC: The patient is confused, but alert. Moving all 3 extremities. Following simple commands. LABORATORY DATA: White blood cell 10,600, hemoglobin 7.7, hematocrit 25.3, platelets 138,000. Sodium 140, potassium 4.1, BUN 94. AST 30. MEDICATIONS: Hydralazine, albuterol, Ecotrin, Flomax, Flonase, insulin, Lamictal, Lasix, Lipitor, Lopressor, Namenda, Norvasc, Pulmicort, Solu-Medrol, Zithromax, Zofran. ASSESSMENT AND PLAN: The patient is an 87-year-old male with anemia, renal insufficiency, diabetes mellitus uncontrolled, hypocalcemia, proteuria, hematuria, change in exacerbation of chronic obstructive pulmonary disease, multiple medical problems, has acute on chronic insufficiency, now obvious azotemia, and acute on chronic systolic congestive heart failure in the setting of renal failure with recent bronchial pneumonia, chronic hypertension, peripheral vascular disease, iron deficiency, hypercholesterolemia, organic brain syndrome, peptic ulcer disease, gastroesophageal reflux disease, history of obstructive sleep apnea syndrome. Discussion done with Salima, nurse practitioner. Reviewed Dr. Dee Minor's notes. We will continue on Zithromax, Solu-Medrol tapering doses, Pulmicort, Pepcid, Norvasc. He may be nearing the clinical decision of institution of hemodialysis as per nephrologists. We will continue present treatment. We will repeat labs. We will follow. Senia Thomas MD
[2017-12-11 06:29] LABS: HEMOGLOBIN 8.5 g/dL (14.0-18.0); MEAN CELL VOLUME 87.9 fl (80.0-105.0); MEAN CORPUSCULAR HGB CONC 30.7 g/dl (31.0-37.0); MEAN PLATELET VOLUME 11.8 fl (7.0-11.0); RBC 3.15 10^6/uL (3.5-6.1); RED CELL DISTRIBUTION WIDTH 15.8 % (11.5-14.5); WHITE BLOOD COUNT 10.2 10^3/ul (4.5-11.0)
[2017-12-11] MEDS: Insulin Reg-LOW-Coverage SC SCH ×4 (08:23→21:24)
[2017-12-11] MEDS: Budesonide 0.5 mg/2 ml Inhal Susp UD IH SCH ×2 (08:40→21:00)
[2017-12-11] MEDS: MethylPREDNISolone 40 mg Vial IVP SCH (09:43)
[2017-12-11] MEDS: Fluticasone Nasal 50 mcg/Spray NS SCH (09:57)
[2017-12-11] MEDS ORDERED: Iron Sucrose 100 mg/5 ml Inj IVP ONE (11:35)
[2017-12-11] MEDS ORDERED: Darbepoetin Alfa 100 mcg/ml Inj IVP ONE (11:35)
[2017-12-11] MEDS ORDERED: Iron Sucrose 100 mg/5 ml Inj ONE (11:53)
--- NOTE | 2017-12-11 12:22 | CP.PCM.PN ---
<Veena Castillo - Last Filed: 12/11/17 22:01> Subjective - Date & Time of Evaluation Date of Evaluation: 12/11/17 Time of Evaluation: 12:00 - Subjective Subjective: 87 [facility] w/ history of CAD, DM, Dementia, hypercholesteromia, GERD, HTN, PVD, asthma, CKD stage V, CHF, aka of L leg, COPD, urinary incontience and nephrolithiasis s/p stent in ureter. Today , patient is in hemodialysis with bilateral wrist restraints. He is very confused and lethargic. Unable to give history at this time. Objective - Vital Signs/Intake and Output Vital Signs (last 24 hours): Temp Pulse Resp BP Pulse Ox 98.3 F 80 20 137/60 95 12/11/17 05:41 12/11/17 09:45 12/11/17 05:41 12/11/17 09:45 12/11/17 05:41 Intake and Output: 12/11/17 12/11/17 06:59 18:59 Intake Total 870 Balance 870 - Medications Medications: Current Medications Acetaminophen (Tylenol 325mg Tab) 650 mg PO Q4 PRN PRN Reason: MILD PAIN Last Admin: 12/07/17 19:55 Dose: 650 mg Albuterol/Ipratropium (Duoneb 3 Mg/0.5 Mg (3 Ml) Ud) 3 ml IH [id number] [facility] Last Admin: 12/11/17 08:40 Dose: 3 ml Amlodipine Besylate (Norvasc) 10 mg PO DAILY [facility] Last Admin: 12/11/17 09:44 Dose: Not Given Aspirin (Ecotrin) 81 mg PO DAILY [facility] Last Admin: 12/11/17 09:46 Dose: 81 mg Atorvastatin Calcium (Lipitor) 10 mg PO DIN [facility] Last Admin: 12/10/17 18:34 Dose: 10 mg Azithromycin (Zithromax) 500 mg PO DAILY [facility] Last Admin: 12/11/17 09:58 Dose: 500 mg Budesonide (Pulmicort Respules) 1 mg IH [id number] [facility] Last Admin: 12/11/17 08:40 Dose: 1 mg Calcium Acetate (Phoslo) 667 mg PO WM [facility] Famotidine (Pepcid) 40 mg PO HS [facility] Last Admin: 12/10/17 21:07 Dose: 40 mg Fluticasone Propionate (Flonase) 1 actuation NS DAILY [facility] Last Admin: 12/11/17 09:57 Dose: 1 actuation Folic Acid (Folic Acid) 1 mg PO DAILY [facility] Furosemide (Lasix) 40 mg IV Q8H [facility] Last Admin: 12/11/17 09:45 Dose: 40 mg Hydralazine HCl (Apresoline) 10 mg PO QID PRN PRN Reason: for sbp>160 Iron Sucrose 200 mg/ Sodium (Chloride) 110 mls @ 110 mls/hr IVPB DAILY [facility] Stop: 12/13/17 10:01 Last Admin: 12/11/17 09:58 Dose: 110 mls/hr Insulin Human Regular (Humulin R Low) 0 units SC ACHS [facility] PRN Reason: Protocol Last Admin: 12/11/17 08:23 Dose: 5 units Lamotrigine (Lamictal) 25 mg PO BID [facility] PRN Reason: Protocol Last Admin: 12/11/17 09:57 Dose: 25 mg Memantine (Namenda) 5 mg PO BID [facility] Last Admin: 12/11/17 09:57 Dose: 5 mg Methylprednisolone (Solu-Medrol) 20 mg IVP DAILY [facility] Last Admin: 12/11/17 09:43 Dose: 20 mg Metoprolol Tartrate (Lopressor) 25 mg PO BID [facility] Last Admin: 12/11/17 09:45 Dose: Not Given Montelukast Sodium (Singulair) 10 mg PO QPM [facility] Last Admin: 12/10/17 18:39 Dose: 10 mg Multivitamins (Thera Tab) 1 tab PO 0800 [facility] Ondansetron HCl (Zofran Inj) 4 mg IVP Q6H PRN PRN Reason: Nausea/Vomiting Tamsulosin HCl (Flomax) 0.4 mg PO DAILY [facility] Last Admin: 12/11/17 09:56 Dose: 0.4 mg - Labs Labs: 12/11/17 06:00 12/11/17 06:00 PT 11.8 SECONDS (9.4-12.5) 12/07/17 14:00 INR 1.03 (0.93-1.08) 12/07/17 14:00 APTT 31.4 Seconds (25.1-36.5) 12/07/17 14:00 - Constitutional Appears: Chronically Ill - Head Exam Head Exam: ATRAUMATIC, NORMAL INSPECTION, NORMOCEPHALIC - Eye Exam Eye Exam: Normal appearance - ENT Exam ENT Exam: Mucous Membranes Dry - Neck Exam Neck Exam: Lymphadenopathy, Normal Inspection - Respiratory Exam Respiratory Exam: Decreased Breath Sounds, NORMAL BREATHING PATTERN - Cardiovascular Exam Cardiovascular Exam: +S1, +S2 - GI/Abdominal Exam GI & Abdominal Exam: Soft, Normal Bowel Sounds. absent: Tenderness - Extremities Exam Additional comments: L aka - Neurological Exam Neurological Exam: Altered - Psychiatric Exam Psychiatric exam: Depressed, Flat Affect - Skin Skin Exam: Dry, Intact, Normal Color, Warm Assessment and Plan (1) ESRD (end stage renal disease) on dialysis Status: Acute (2) Anemia in ESRD (end-stage renal disease) Status: Acute (3) Azotemia Status: Acute (4) CHF exacerbation Status: Acute (5) NSTEMI (non-ST elevated myocardial infarction) Status: Acute (6) Dyspnea, unspecified Status: Acute (7) Hematuria Status: Acute (8) Chronic renal insufficiency Status: Chronic (9) Hypocalcemia Status: Acute (10) Hyperphosphatemia Status: Acute - Assessment and Plan (Free Text) Plan: Labs ordered: CMP & CBC. Azithromycin PO, IV lasix, IV solumedryl. PT on board. full code status, transfusion 1 unit PRBC, [place] catheter placement and hemodialysis as per Elizabeth Orta Consult: Nephrology - Dr. Minor = aranesp, venofer, phoslo, 1 unit PRBC in hemodialysis Measurement And Sensing Technician - Dr. Gibson = bronchodilator, HOB 45, sleep apnea, bipap Director Of Instructional Technology - Dr. Menezes = resume lisinopril? medical treatment: BB, asa, lipitor , prn hydralazine. Reviewed: Renal US = WNL CXR = Diffuse bialteral fibrotic change ECG = ABNORMAL, NSR, L axis deviaion, inferior infarct <Senia Thomas - Last Filed: 12/12/17 08:07> Objective - Vital Signs/Intake and Output Vital Signs (last 24 hours): Temp Pulse Resp BP Pulse Ox 98.8 F 80 18 164/66 H 97 12/12/17 05:49 12/12/17 05:49 12/12/17 05:49 12/12/17 05:49 12/12/17 05:49 Intake and Output: 12/12/17 12/12/17 06:59 18:59 Intake Total 660 Balance 660 - Medications Medications: Current Medications Acetaminophen (Tylenol 325mg Tab) 650 mg PO Q4 PRN PRN Reason: MILD PAIN Last Admin: 12/07/17 19:55 Dose: 650 mg Albuterol/Ipratropium (Duoneb 3 Mg/0.5 Mg (3 Ml) Ud) 3 ml IH [id number] [facility] Last Admin: 12/12/17 01:29 Dose: 3 ml Amlodipine Besylate (Norvasc) 10 mg PO DAILY [facility] Last Admin: 12/11/17 09:44 Dose: Not Given Aspirin (Ecotrin) 81 mg PO DAILY [facility] Last Admin: 12/11/17 09:46 Dose: 81 mg Atorvastatin Calcium (Lipitor) 10 mg PO DIN [facility] Last Admin: 12/11/17 17:34 Dose: 10 mg Azithromycin (Zithromax) 500 mg PO DAILY [facility] Last Admin: 12/11/17 09:58 Dose: 500 mg Budesonide (Pulmicort Respules) 1 mg IH [id number] [facility] Last Admin: 12/11/17 21:00 Dose: 1 mg Calcium Acetate (Phoslo) 667 mg PO WM [facility] Last Admin: 12/11/17 17:35 Dose: 667 mg Famotidine (Pepcid) 40 mg PO HS [facility] Last Admin: 12/11/17 21:25 Dose: 40 mg Fluticasone Propionate (Flonase) 1 actuation NS DAILY [facility] Last Admin: 12/11/17 09:57 Dose: 1 actuation Folic Acid (Folic Acid) 1 mg PO DAILY [facility] Furosemide (Lasix) 40 mg IV Q8H [facility] Last Admin: 12/12/17 01:51 Dose: 40 mg Hydralazine HCl (Apresoline) 10 mg PO QID PRN PRN Reason: for sbp>160 Iron Sucrose 200 mg/ Sodium (Chloride) 110 mls @ 110 mls/hr IVPB DAILY [facility] Stop: 12/13/17 10:01 Last Admin: 12/11/17 09:58 Dose: 110 mls/hr Insulin Human Regular (Humulin R Low) 0 units SC ACHS [facility] PRN Reason: Protocol Last Admin: 12/11/17 21:24 Dose: 2 units Lamotrigine (Lamictal) 25 mg PO BID [facility] PRN Reason: Protocol Last Admin: 12/11/17 17:34 Dose: 25 mg Memantine (Namenda) 5 mg PO BID [facility] Last Admin: 12/11/17 17:34 Dose: 5 mg Methylprednisolone (Solu-Medrol) 20 mg IVP DAILY [facility] Last Admin: 12/11/17 09:43 Dose: 20 mg Metoprolol Tartrate (Lopressor) 25 mg PO BID [facility] Last Admin: 12/11/17 17:34 Dose: 25 mg Montelukast Sodium (Singulair) 10 mg PO QPM [facility] Last Admin: 12/11/17 17:35 Dose: 10 mg Multivitamins (Thera Tab) 1 tab PO 0800 [facility] Ondansetron HCl (Zofran Inj) 4 mg IVP Q6H PRN PRN Reason: Nausea/Vomiting Tamsulosin HCl (Flomax) 0.4 mg PO DAILY [facility] Last Admin: 12/11/17 09:56 Dose: 0.4 mg - Labs Labs: 12/11/17 06:00 12/11/17 06:00 PT 11.8 SECONDS (9.4-12.5) 12/07/17 14:00 INR 1.03 (0.93-1.08) 12/07/17 14:00 APTT 31.4 Seconds (25.1-36.5) 12/07/17 14:00 Assessment and Plan - Assessment and Plan (Free Text) Plan: 56 yr female w/ history of DM II (non-insulin dependent), morbidly obese, sleep apnea, depression, insomnia, hyperlipidemia, neuropathic pain, GERD , & 18 bilateral breast surgeries for recurrent abscess. Pt took PO antibiotics for the past 2 days with minimal improvement. She is complaining of pain and erythema over the L breast. Pt reports wheezing and shortness of breath. Pt denies fevers, chills, n/v, diarrhea, constipation, urinary frequency, or chest pain. pt is seen and examined at bed side in dialysis . agreed all above . looking lethargic . no new complaints , need good controll of bp . will f/u with labs
--- NOTE | 2017-12-11 13:37 | PN ---
DATE: 12/11/2017 REASON FOR CONSULTATION AND FOLLOWUP: Shortness of breath. SUBJECTIVE: The patient denies any chest pain, shortness of breath or any palpitations. Status post dialysis catheter placed in the right side of the chest. OBJECTIVE/PHYSICAL EXAMINATION: As follows: GENERAL: Not in apparent distress. Lying flat in the bed. Now the patient moved to A 241, bed 1. VITAL SIGNS: Temperature is afebrile, heart rate is 81, and blood pressure is 137/60. HEENT: PERRLA. Extraocular muscles are intact. NECK: Supple. No carotid bruit or thyromegaly. CHEST: Clear to auscultation. HEART: S1 and S2 regular. ABDOMEN: Soft. EXTREMITIES: Clubbing and cyanosis negative. LABORATORY DATA: Blood workup as follows; WBC of 10.8, hemoglobin of 8.5, hematocrit of 27.7, and platelet count of 125. Chemistry shows sodium of 140, potassium of 4.9, chloride of 100, carbon dioxide of 29, anion gap of 20, BUN of 109, and creatinine of 5.5. IMPRESSION: Stage IV-V chronic kidney disease, status post dialysis catheter placed for possible dialysis today, acute on chronic renal insufficiency, chronic obstructive pulmonary disease, little bump in troponin admission most likely secondary to renal insufficiency and complained of the chest pain. The patient had echocardiogram on 11/26/2017 that shows normal left ventricular function. No segmental wall motion abnormality, and right ventricular systolic pressure of 44. RECOMMENDATIONS: Continue aggressive medical treatment, avoid nephrotoxic medication. Once the dialysis started, we can resume back on GIFTY inhibitors. For now continue hydralazine p.r.n., continue baby aspirin, continue atorvastatin, and continue beta-hannah. No further episode of chest pain, we will discontinue nitrate to prevent hypotension. Thank you Dr. Thomas for providing me the opportunity in taking care of the patient, [place]. Nathalie Menezes MD
--- NOTE | 2017-12-11 16:08 | PN ---
DATE: 12/11/2017 SUBJECTIVE: This 87-year-old male was in the renal dialysis unit. He is dialyzing on an F160. Sodium 140, 3 K bicarb bath. Blood flow rates are 400 mL per minute; this is being accomplished via a tunneled right Tessio Oakman catheter. PHYSICAL EXAMINATION VITAL SIGNS: Blood pressure is 137/58, pulse is 77, respirations 16, temperature afebrile. HEART: Regular, S1, S2. LUNGS: Decreased breath sounds with occasional rales. PLAN: The patient will dialyze for 2 hours today. I am aiming for 2 kg off as tolerated. Dee Minor MD MTDD
--- NOTE | 2017-12-11 16:18 | PN ---
DATE: 12/11/2017 SUBJECTIVE: This 87-year-old male was in the renal dialysis unit. He is on F160, 140 sodium, 3 K bicarb bath. Today's labs show white count 10,200, hemoglobin 8.5, hematocrit 27.7, platelets 125,000. Sodium 140, K 4.9, chloride 100, bicarb 28, BUN 109, creatinine 5.5, calcium level 8.0, phosphorus level 6.8. As discussed with nurse, Lizette Márquez, registered nurse for hemodialysis, the patient will receive Aranesp 100 mcg IV weekly, first dose now. He also will complete 7 additional doses of Venofer 100 mg IV at dialysis. He will be scheduled for repeat dialysis in the a.m. He will have 1 unit of packed red blood cells transfused during dialysis. Dry weight will be established on treatment and PhosLo will be started for hyperphosphatemia. Dee Minor MD MTDD
[2017-12-11 17:15] LABS: HEPATITIS B SURFACE AG NEGATIVE (NEGATIVE)
[2017-12-11 17:16] LABS: HEPATITIS B SURFACE AG NEGATIVE (NEGATIVE)
[2017-12-11 17:18] LABS: HEPATITIS B SURFACE AG NEGATIVE (NEGATIVE)
[2017-12-11 17:20] LABS: HEPATITIS B CORE AB Negative (NEGATIVE)
[2017-12-11 17:22] LABS: HEPATITIS A IGM NEGATIVE (NEGATIVE); HEPATITIS B CORE AB Negative (NEGATIVE)
[2017-12-11 17:23] LABS: HEPATITIS B CORE AB Negative (NEGATIVE)
[2017-12-11 17:32] LABS: HEPATITIS C ANTIBODY Negative (NEGATIVE)
[2017-12-11 17:33] LABS: HEPATITIS C ANTIBODY Negative (NEGATIVE)
[2017-12-11 17:35] LABS: HEPATITIS C ANTIBODY Negative (NEGATIVE)
--- NOTE | 2017-12-11 23:38 | PN ---
DATE: 12/11/2017 PULMONARY PROGRESS NOTE REFERRING PHYSICIAN: Dr. Thomas SUBJECTIVE: He just came back from dialysis, very tired and sleepy, arousable. No headache. No rhinitis. No nausea. No vomiting. No diarrhea. No leg pain or leg swelling. OBJECTIVE GENERAL: In no acute distress. VITAL SIGNS: Temperature is 98, heart rate 83, respiratory rate is 18, blood pressure is 160/64, pulse ox is 95% room air. HEENT: Dry mucous membrane. NECK: Supple. No JVD. LUNGS: Has few scattered rhonchi. HEART: S1, S2. ABDOMEN: Soft, nontender. No organomegaly. EXTREMITIES: Right leg, no edema. Left AKA area looks okay. NEUROLOGICAL: Sleepy, arousable, follows simple command. MEDICATIONS: He is on hydralazine 10 mg q.i.d. p.r.n., DuoNeb q. 6 hours, Ecotrin 81 mg daily, Flomax 0.4 mg daily Flonase one spray each nostril daily, folic acid 1 mg daily, insulin coverage, iron sucrose IV daily, Lamictal 25 twice a day, Lasix 40 mg q 8 hours, Lipitor 10 mg daily, metoprolol tartrate 25 mg twice a day, Namenda 5 mg daily, Norvasc 10 mg daily Pepcid 40 mg daily, PhosLo with meals, Pulmicort inhaled twice a day, Singulair 10 mg daily, Solu-Medrol 20 mg daily, multivitamins daily, Tylenol p.r.n., Zithromax 500 mg daily, Zofran p.r.n. basis. LABORATORY DATA: Shows hemoglobin 8.5, hematocrit 27.7, WBC 10.2, platelet is 125. Sodium 140, potassium 4.9, chloride 100, bicarbonate 28, BUN 109, creatinine 5.5, glucose 216, calcium 8.0, phosphorus 6.8. IMPRESSION AND PLAN: Chronic obstructive lung disease, renal failure, first time had dialysis, coronary artery disease, peripheral vascular disease, hypertension, history of left above knee amputation, keep head elevated at 45 degrees, IV and inhaled bronchodilator, aspiration precaution, and current CPAP use. Gastric prophylaxis, DVT prophylaxis. Fall precaution. Continue therapy. Thank you and we will follow with you. Nathalie Gibson MD [facility] # [id number]
[2017-12-12 00:08] VITALS: O2SAT 97
[2017-12-12] MEDS: Albuterol-Ipratrop 3 mg / 0.5 (3 ml) UD IH SCH ×4 (01:29→20:16)
[2017-12-12] MEDS ORDERED: Multivitamin Therapeutic Tab PO SCH (08:00)
[2017-12-12] MEDS: Budesonide 0.5 mg/2 ml Inhal Susp UD IH SCH ×2 (08:18→20:16)
[2017-12-12] MEDS: Insulin Reg-LOW-Coverage SC SCH ×4 (08:26→21:33)
[2017-12-12] MEDS: Nitroglycerin 2% Ointment Foilpak UD TOP SCH (08:27)
[2017-12-12] MEDS: Fluticasone Nasal 50 mcg/Spray NS SCH (10:39)
[2017-12-12] MEDS: MethylPREDNISolone 40 mg Vial IVP SCH (10:41)
[2017-12-12 15:19] VITALS: RESP 20
[2017-12-12 16:26] VITALS: PULSE 66; TEMP 97.7
[2017-12-12 18:28] VITALS: BP 120/60
--- NOTE | 2017-12-12 20:37 | PN ---
DATE: 12/12/2017 DIALYSIS PROGRESS NOTE SUBJECTIVE: This 87-year-old male was in the renal dialysis unit at the [facility] dialyzing on a F160, 140 sodium, 3 K bicarb bath. PHYSICAL EXAMINATION: VITAL SIGNS: Blood pressure was 167/83 with a pulse of 78, respirations 18, temperature afebrile. HEART: Regular. S1, S2. LUNGS: With rhonchi and basilar rales. EXTREMITIES: No edema. Blood flow rate 250 mL/min. The patient will be dialyzing for 2 hours. Hemoglobin 8.5, hematocrit 27.7. I will be transfusing 1 unit of packed red blood cells on this run today on this 3 K bicarb bath as discussed with dialysis nurse, Allie Peña, Registered Nurse. Dee Minor MD MTD[facility]
--- NOTE | 2017-12-12 20:40 | PN ---
DATE: 12/12/2017 DIALYSIS PROGRESS NOTE This 87-year-old male was in the renal dialysis unit on a F160, 140 sodium, 3 K bicarb bath. His blood flow rates were 300 mL/min with a blood pressure of 124/64 and pulse of 67. The patient was dialyzed for 2 hours, received 1 unit of packed red cells on 3 K bath and approximately 3.5 kg of fluid was removed. The patient will be scheduled for next hemodialysis on Saturday. Additional orders will be adjusted based on clinical progress and laboratories. Dee Minor MD MTDD
--- NOTE | 2017-12-12 21:55 | PN ---
DATE: 12/12/2017 REASON FOR CONSULTATION AND FOLLOWUP: Shortness of breath. SUBJECTIVE: The patient denies any chest pain, shortness of breath, or any palpitations. Two-point [place] restraint. PHYSICAL EXAMINATION: GENERAL: Not in apparent distress. VITAL SIGNS: Temperature afebrile, heart rate , and blood pressure 136/61. HEENT: PERRLA. Extraocular muscles intact. NECK: Supple. No carotid bruits or thyromegaly. CHEST: Clear to auscultation. HEART: S1 and S2 regular. ABDOMEN: Soft. EXTREMITIES: Clubbing and cyanosis negative. LABORATORY DATA: Blood workup as follows; WBC 10.8, hemoglobin 8.5, hematocrit 27.7, and platelet count 125. Chemistry shows sodium 140, potassium 4.9, chloride of 100, carbon dioxide of 28, anion gap of 17, BUN of 109, and creatinine 5.5. IMPRESSION: Altered mental status; acute renal failure and chronic renal insufficiency stage V chronic kidney disease, status post dialysis catheter placed, possible dialysis yesterday. The patient continues two-point [place] restraint, chronic renal insufficiency, chronic obstructive pulmonary disease, little bump in troponin most likely secondary to renal insufficiency on admission. Echocardiography on 11/26/2017 shows left ventricular size is normal. No segmental wall motion abnormality and right ventricular systolic pressure is 44. Denies any chest pain, shortness of breath, or any palpitations. RECOMMENDATIONS: Continue aggressive medical treatment now. We will start GIFTY inhibitors and we will discontinue Cardizem, the patient is already started and we will discontinue and monitor blood pressure. Now, the patient is in the dialysis. The patient was at home on enalapril, so we will start 10 mg and monitor the blood pressure. The blood pressure is stable, since enalapril is nonformulary, we will start lisinopril 10 mg and monitor blood pressure. Further recommendations depending on hospital course. We will discontinue Norvasc and put 10 mg of enalapril. Continue metoprolol. We will follow with you. Thank you Dr. Thomas for providing us the opportunity in taking care of the patient, Sukhdev Grey. Nathalie Menezes MD
--- NOTE | 2017-12-12 23:31 | PN ---
DATE: 12/12/2017 PULMONARY PROGRESS NOTE REFERRING PHYSICIAN: Dr. Thomas. SUBJECTIVE: The patient is lying in the bed, head at 45 degrees. He just finished off his dinner, wants his insulin. Tolerated BiPAP okay. [facility]. Mild cough. No nausea. No vomiting. No diarrhea. No leg pain or leg swelling. OBJECTIVE GENERAL: In no acute distress. VITAL SIGNS: Temperature is 98, heart rate 66, respiratory rate is 20, blood pressure is 120/60, pulse ox is 97% on 4 liter nasal cannula. HEENT: Moist mucous membrane. Crowded airway. NECK: Supple. No JVD. LUNGS: Have a few scattered rhonchi. HEART: S1, S2. ABDOMEN: Soft, nontender. No organomegaly. EXTREMITIES: No edema on the right leg. NEUROLOGICAL: Awake, alert, follows simple commands. MEDICATIONS: He is on hydralazine 10 mg q.i.d. p.r.n., DuoNeb q. 6 hours, Ecotrin 81 mg daily, Flomax 0.4 mg daily, Flonase one spray each nostril daily, folic acid 1 mg daily, insulin coverage, iron sucrose 200 mg daily, lamotrigine 25 mg twice a day, Lasix 40 mg q. 8 hour, Lipitor 10 mg daily, metoprolol tartrate 25 mg twice a day, memantine 5 mg twice a day, Pepcid 40 mg daily, Pulmicort inhaled twice a day, Singulair 10 mg daily, Solu-Medrol 20 mg daily, multivitamins daily, Tylenol p.r.n., Zestril 10 mg, Zithromax 500 mg daily, Zofran p.r.n. basis. LABORATORY DATA: Reviewed. Blood sugar today was 289. IMPRESSION AND PLAN: Chronic obstructive lung disease, renal failure, presently on dialysis, coronary artery disease, peripheral vascular disease, hypertension, history of above knee amputation on the left lower extremity. From pulmonary point of view, doing okay. I spoke to the nursing staff. Encouraged BiPAP use, keep head at 45 degrees, bronchodilator. Gastric prophylaxis. Fall precaution. Nephrology followup. Thank you and we will follow with you. Nathalie Gibson MD [facility] # [id number]
== END 2017-12-12 21:43 | DRG 291 ==
LOC: ED 13:46 → ERH 16:42 → 2RSO 17:38 → 2A 12-11 07:40
PROVIDERS: ADMIT Internal Medicine; ATTEND Internal Medicine
PROC: 3E0F7GC Introduction of Other Therapeutic Substance into Respiratory Tract, Via Natural or Artificial Opening (ICD-10-PCS; 2017-12-07)
PROC: 5A09457 Assistance with Respiratory Ventilation, 24-96 Consecutive Hours, Continuous Positive Airway Pressure (ICD-10-PCS; 2017-12-09)
PROC: 02H633Z Insertion of Infusion Device into Right Atrium, Percutaneous Approach (ICD-10-PCS; principal; 2017-12-10)
PROC: 30233N1 Transfusion of Nonautologous Red Blood Cells into Peripheral Vein, Percutaneous Approach (ICD-10-PCS; 2017-12-10)
PROC: 5A1D70Z Performance of Urinary Filtration, Intermittent, Less than 6 Hours Per Day (ICD-10-PCS; 2017-12-11)
PROC: 5A1D70Z Performance of Urinary Filtration, Intermittent, Less than 6 Hours Per Day (ICD-10-PCS; 2017-12-12)
DX: I13.2 Hypertensive heart and chronic kidney disease with heart failure and with stage 5 chronic kidney disease, or end stage renal disease (principal); N18.6 End stage renal disease; N17.9 Acute kidney failure, unspecified; J18.0 Bronchopneumonia, unspecified organism; E11.22 Type 2 diabetes mellitus with diabetic chronic kidney disease; E11.51 Type 2 diabetes mellitus with diabetic peripheral angiopathy without gangrene; I50.23 Acute on chronic systolic (congestive) heart failure; J44.1 Chronic obstructive pulmonary disease with (acute) exacerbation; J44.0 Chronic obstructive pulmonary disease with (acute) lower respiratory infection; E78.00 Pure hypercholesterolemia, unspecified; I25.10 Atherosclerotic heart disease of native coronary artery without angina pectoris; E87.5 Hyperkalemia; E11.649 Type 2 diabetes mellitus with hypoglycemia without coma; F03.90 Unspecified dementia, unspecified severity, without behavioral disturbance, psychotic disturbance, mood disturbance, and anxiety; E78.5 Hyperlipidemia, unspecified; N40.0 Benign prostatic hyperplasia without lower urinary tract symptoms; K21.9 Gastro-esophageal reflux disease without esophagitis; R09.02 Hypoxemia; D50.9 Iron deficiency anemia, unspecified; G47.33 Obstructive sleep apnea (adult) (pediatric); E83.51 Hypocalcemia; D63.1 Anemia in chronic kidney disease; E83.39 Other disorders of phosphorus metabolism; Z79.4 Long term (current) use of insulin; Z91.19 Patient's noncompliance with other medical treatment and regimen; Z91.14 Patient's other noncompliance with medication regimen; Z78.1 Physical restraint status; Z87.11 Personal history of peptic ulcer disease; Z89.612 Acquired absence of left leg above knee; Z87.891 Personal history of nicotine dependence

== ENCOUNTER 2018-01-01 15:37 | Observation (INO) | payer MEDICARE, MEDICAID ==
[2018-01-01 18:45] LABS: BASO # 0.02 K/mm3 (0.0-2.0); BASO % 0.3 % (0.0-3.0); EOS # 0.2 (0.0-0.7); EOS % 2.7 % (1.5-5.0); GRAN # 4.9 (1.4-6.5); GRAN % 74.9 % (50.0-68.0); HEMOGLOBIN 12.3 g/dL (14.0-18.0); LYMPH # 1.1 (1.2-3.4); LYMPH % 16.9 % (22.0-35.0); MEAN CELL VOLUME 91.2 fl (80.0-105.0); MEAN CORPUSCULAR HEMOGLOBIN 28.5 pg (25.0-35.0); MEAN CORPUSCULAR HGB CONC 31.2 g/dl (31.0-37.0); MEAN PLATELET VOLUME 9.8 fl (7.0-11.0); MONO # 0.3 (0.1-0.6); MONO % 5.2 % (1.0-6.0); RBC 4.32 10^6/uL (3.5-6.1); RED CELL DISTRIBUTION WIDTH 16.1 % (11.5-14.5); WHITE BLOOD COUNT 6.6 10^3/ul (4.5-11.0)
[2018-01-01 18:57] LABS: INR 0.93 (0.93-1.08); PARTIAL THROMBOPLASTIN TIME 36.9 Seconds (25.1-36.5); PROTHROMBIN TIME 10.6 SECONDS (9.4-12.5)
[2018-01-01 19:07] LABS: ALB/GLOB RATIO 1.3 (1.1-1.8); CALCIUM 10.1 mg/dL (8.4-10.5); MAGNESIUM 2.1 mg/dL (1.7-2.2)
[2018-01-01 19:08] LABS: TROPONIN I 0.03 ng/mL
[2018-01-01 20:14] LABS: VENOUS BLOOD GAS BASE EXCESS 0.5 mmol/L (0.0-2.0); VENOUS BLOOD GAS PO2 107 mm/Hg (30-55); VENOUS BLOOD PH 7.29 (7.32-7.43)
--- NOTE | 2018-01-01 20:48 | ED PDOC ---
Arrival/HPI - General Chief Complaint: Altered Mental Status Time Seen by Provider: 01/01/18 16:39 Historian: Patient - History of Present Illness Narrative History of Present Illness (Text): 87 y/o male w/ pmhx of dementia, HTN, esrd/hd, htn, hld, among other comorbidities presents sent from [facility] for evalaution of noncompliance on his medication and increased confusion. Pt. himself aox 1 denies any other corporeal pain/nor symptoms of infective foci, and denies refusing his medication. 01/01/18 20:45 01/01/18 20:53 Symptom Onset: Sudden, Gradual Symptom Course: Unchanged Quality: Aching Past Medical History - Provider Review Nursing Documentation Reviewed: Yes - Travel History Have you recently traveled outside [place] w/in the past 3 mons?: No - Past History Past History: No Previous - Infectious Disease Hx of Infectious Diseases: None - Cardiac Hx Cardiac Disorders: Yes (CAD) Hx Hypertension: Yes Hx Peripheral Vascular Disease: Yes - Pulmonary Hx Respiratory Disorders: Yes (H/O SMOKING CIGARETTES) Other/Comment: continuous O2 - Neurological Hx Neurological Disorder: Yes Hx Dementia: Yes - HEENT Hx HEENT Disorder: Yes Hx Cataracts: Yes - Renal Hx Renal Disorder: Yes Hx Renal Failure: Yes - Endocrine/Metabolic Hx Endocrine Disorders: Yes Hx Diabetes Mellitus Type 2: Yes - Hematological/Oncological Hx Blood Disorders: No - Integumentary Hx Dermatological Disorder: Yes - Musculoskeletal/Rheumatological Hx Musculoskeletal Disorders: Yes (L AKA) - Gastrointestinal Hx Gastrointestinal Disorders: No - Genitourinary/Gynecological Hx Genitourinary Disorders: Yes Hx Prostate Problems: Yes - Psychiatric Hx Psychophysiologic Disorder: No Hx Substance Use: No (UNKNOWN) - Surgical History Other/Comment: Perma cath in R chest wall. L leg BKA - Anesthesia Hx Anesthesia: Yes Family/Social History - Physician Review Nursing Documentation Reviewed: Yes Family/Social History: No Known Family HX Smoking Status: Former Smoker Hx Alcohol Use: No (UNKNOWN) Hx Substance Use: No (UNKNOWN) Allergies/Home Meds Allergies/Adverse Reactions: Allergies No Known Allergies Allergy (Verified 01/01/18 16:59) Home Medications: Home Meds Medication Instructions Recorded Confirmed Acetaminophen 650 mg PO Q4 PRN 07/01/17 12/07/17 Aspirin [Fountain Aspirin] 81 mg PO DAILY 07/01/17 12/07/17 Enalapril Maleate [Vasotec] 20 mg PO BID 07/01/17 12/07/17 Insulin Human NPH [Humulin N] 10 units SC ACD 07/01/17 12/07/17 Insulin Human NPH [Humulin N] 20 units SC ACB 07/01/17 12/07/17 Lactulose 10 gm PO HS PRN 07/01/17 12/07/17 Lamotrigine 25 mg PO BID 07/01/17 12/07/17 Memantine [Namenda] 5 mg PO BID 07/01/17 12/07/17 Montelukast [Singulair] 10 mg PO QPM 07/01/17 12/07/17 Fluticasone Nasal [Flonase] 1 spr NS DAILY 08/12/17 12/07/17 Fluticasone/Salmeterol 500/50 1 puff IH BID 08/12/17 12/07/17 [Advair Diskus 500/50] Tamsulosin [Flomax] 0.4 mg PO DAILY 08/12/17 12/07/17 Eyelid Cleanser Comb No.7 [Ocusoft 1 each TP ONCE 11/25/17 12/07/17 Lid Scrub] amLODIPine [Norvasc] 10 mg PO DAILY 11/25/17 12/07/17 Review of Systems - Physician Review All systems were reviewed & negative as marked: Yes - Review of Systems Systems not reviewed;Unavailable: Altered Mental Status Constitutional: Normal Eyes: Normal ENT: Normal Respiratory: Normal Cardiovascular: Normal Gastrointestinal: Normal Genitourinary Male: Normal Musculoskeletal: Normal Skin: Normal Neurological: Dizziness Endocrine: Normal Hemo/Lymphatic: Normal Psychiatric: Normal Physical Exam Vital Signs Reviewed: Yes Vital Signs Temp Pulse Resp BP Pulse Ox 01/01/18 16:55 98.1 F 82 18 171/59 H 100 Temperature: Afebrile Blood Pressure: Normal Pulse: Regular Respiratory Rate: Normal Appearance: Positive for: Well-Appearing, Non-Toxic, Comfortable Pain Distress: None Finger Stick Blood Glucose: 114 - Systems Exam Head: Present: Atraumatic, Normocephalic Pupils: Present: PERRL Extroacular Muscles: Present: EOMI Conjunctiva: Present: Normal Mouth: Present: Moist Mucous Membranes Neck: Present: Normal Range of Motion Respiratory/Chest: Present: Clear to Auscultation, Good Air Exchange, Other (r sided subclavian shiley ). No: Respiratory Distress, Accessory Muscle Use Cardiovascular: Present: Regular Rate and Rhythm, Normal S1, S2. No: Murmurs Abdomen: Present: Normal Bowel Sounds. No: Tenderness, Distention, Peritoneal Signs Back: Present: Normal Inspection Upper Extremity: Present: Normal Inspection. No: Cyanosis, Edema Lower Extremity: Present: Normal Inspection. No: Edema Neurological: Present: GCS=15, CN II-XII Intact, Speech Normal, Motor Func Grossly Intact, Normal Sensory Function, Normal Cerebellar Funct, Norm Deep Tendon Reflexes, Gait Normal Skin: Present: Warm, Dry, Normal Color. No: Rashes Psychiatric: Present: Alert, Normal Insight, Normal Concentration, Normal Affect , Normal Mood Medical Decision Making ED Course and Treatment: 87 y/o male w/ pmhx of unm psychiatric centerrd on HD through rt sided subclavian shiley tuee/thur/ sat presents for evaluation of increasd confusion and medical noncompliance 01/01/18 20:49 - Lab Interpretations Lab Results: 01/01/18 18:25 01/01/18 18:25 Lab Results 01/01/18 19:50: pO2 107 H, VBG pH 7.29 L, VBG pCO2 59.0, VBG HCO3 28.4 H, VBG Total CO2 30.2 H, VBG O2 Sat (Calc) 99.1 H, VBG Base Excess 0.5, VBG Potassium 4.6, Glucose 123 H, Lactate 0.7, FiO2 21.0, Sodium 136.0, Chloride 106.0, Venous Blood Potassium 4.6 01/01/18 18:25: Sodium 141, Potassium 4.6, Chloride 102, Carbon Dioxide 29, Anion Gap 15, BUN 62 H, Creatinine 4.5 H, Est GFR ( Amer) 15, Est GFR ( Non-Af Amer) 12, Random Glucose 105, Calcium 10.1, Phosphorus 2.9, Magnesium 2.1 , Total Bilirubin 0.3, AST 42, ALT 32, Alkaline Phosphatase 183 H D, Troponin I 0.03 D, NT-Pro-B Natriuret Pep 1430 H, Total Protein 7.2, Albumin 4.0, Globulin 3.2, Albumin/Globulin Ratio 1.3 01/01/18 18:25: PT 10.6, INR 0.93, APTT 36.9 H 01/01/18 18:25: WBC 6.6 D, RBC 4.32, Hgb 12.3 L D, Hct 39.4 L, MCV 91.2 D, MCH 28.5, MCHC 31.2, RDW 16.1 H, Plt Count 150, MPV 9.8, Gran % 74.9 H, Lymph % (Auto) 16.9 L, [place] % (Auto) 5.2, Eos % (Auto) 2.7, Baso % (Auto) 0.3, Gran # 4.90, Lymph # (Auto) 1.1 L, [place] # (Auto) 0.3, Eos # (Auto) 0.2, Baso # (Auto) 0.02, ESR Pending 01/01/18 16:48: POC Glucose (mg/dL) 114 H - RAD Interpretation Radiology Orders: 01/01/18 16:40 CHEST PORTABLE [RAD] Stat 01/01/18 16:41 HEAD W/O CONTRAST [CT] Stat Disposition/Present on Arrival - Present on Arrival Any Indicators Present on Arrival: No History of DVT/PE: No History of Uncontrolled Diabetes: No Urinary Catheter: No History of Decub. Ulcer: No History Surgical Site Infection Following: None - Disposition Referrals: Senia Thomas MD [Primary Care Provider] - Follow up with primary Forms: RotaBan (Hebrew)
--- NOTE | 2018-01-01 21:21 | CT ---
EXAM: CT Head Without Intravenous Contrast CLINICAL HISTORY: 87 years old, male; Signs and symptoms; Altered mental status/memory loss; Additional info: AMS TECHNIQUE: Axial computed tomography images of the head/brain without intravenous contrast. All CT scans at this facility use one or more dose reduction techniques, viz.: automated exposure control; ma/kV adjustment per patient size (including targeted exams where dose is matched to indication; i.e. head); or iterative reconstruction technique. Coronal and sagittal reformatted images were created and reviewed. COMPARISON: No relevant prior studies available. FINDINGS: Brain: Moderate atrophy. No intracranial hemorrhage. No mass. Extensive decreased attenuation within periventricular/subcortical white matter. No definite edema. Ventricles: No hydrocephalus. Bones/joints: No acute fracture. Soft tissues: Unremarkable. Vasculature: Atherosclerotic disease of intracranial arteries. Sinuses: Scattered minimal mucosal thickening. LEFT sphenoid retention cyst. Mastoid air cells: Minimal fluid within mastoids. Orbits: Unremarkable as visualized. IMPRESSION: 1. Nonspecific white matter changes. Acute infarction may be CT occult within first 24 hours. If a focal deficit persists, consider followup CT or MRI for further evaluation. 2. Incidental/non-acute findings are described above.
--- NOTE | 2018-01-01 22:31 | ED PDOC ---
Physical Exam Vital Signs Temp Pulse Resp BP Pulse Ox 01/02/18 00:00 80 18 153/69 H 100 01/01/18 21:07 85 18 162/71 H 100 01/01/18 16:55 98.1 F 82 18 171/59 H 100 Finger Stick Blood Glucose: 114 Medical Decision Making ED Course and Treatment: 01/01/18 19:00 Case endorsed to me by Dr. Hurtado, pending CT/XR, re-assessment, and disposition. 01/01/18 21:20 CT Head shows: Brain: Moderate atrophy. No intracranial hemorrhage. No mass. Extensive decreased attenuation within periventricular subcortical white matter. No definite edema. Ventricles: No hydrocephalus. Bones/joints: No acute fracture. Soft tissues: Unremarkable. Vasculature: Atherosclerotic disease of intracranial arteries. Sinuses: Scattered minimal mucosal thickening. LEFT sphenoid retention cyst. Mastoid air cells: Minimal fluid within mastoids. Orbits: Unremarkable as visualized. IMPRESSION: 1. Nonspecific white matter changes. Acute infarction may be CT occult within first 24 hours. If a focal deficit persists, consider followup CT or MRI for further evaluation. 2. Incidental/non-acute findings are described above. Case discussed with Dr. Thomas, who is aware and agrees with plan. Accepts pt in to her service. - Lab Interpretations Lab Results: 01/01/18 18:25 01/01/18 18:25 Lab Results 01/01/18 19:50: pO2 107 H, VBG pH 7.29 L, VBG pCO2 59.0, VBG HCO3 28.4 H, VBG Total CO2 30.2 H, VBG O2 Sat (Calc) 99.1 H, VBG Base Excess 0.5, VBG Potassium 4.6, Glucose 123 H, Lactate 0.7, FiO2 21.0, Sodium 136.0, Chloride 106.0, Venous Blood Potassium 4.6 01/01/18 18:25: Sodium 141, Potassium 4.6, Chloride 102, Carbon Dioxide 29, Anion Gap 15, BUN 62 H, Creatinine 4.5 H, Est GFR ( Amer) 15, Est GFR ( Non-Af Amer) 12, Random Glucose 105, Calcium 10.1, Phosphorus 2.9, Magnesium 2.1 , Total Bilirubin 0.3, AST 42, ALT 32, Alkaline Phosphatase 183 H D, Troponin I 0.03 D, NT-Pro-B Natriuret Pep 1430 H, Total Protein 7.2, Albumin 4.0, Globulin 3.2, Albumin/Globulin Ratio 1.3 01/01/18 18:25: PT 10.6, INR 0.93, APTT 36.9 H 01/01/18 18:25: WBC 6.6 D, RBC 4.32, Hgb 12.3 L D, Hct 39.4 L, MCV 91.2 D, MCH 28.5, MCHC 31.2, RDW 16.1 H, Plt Count 150, MPV 9.8, Gran % 74.9 H, Lymph % (Auto) 16.9 L, [place] % (Auto) 5.2, Eos % (Auto) 2.7, Baso % (Auto) 0.3, Gran # 4.90, Lymph # (Auto) 1.1 L, [place] # (Auto) 0.3, Eos # (Auto) 0.2, Baso # (Auto) 0.02, ESR 59 H 01/01/18 16:48: POC Glucose (mg/dL) 114 H - RAD Interpretation Radiology Orders: 01/01/18 16:40 CHEST PORTABLE [RAD] Stat 01/01/18 16:41 HEAD W/O CONTRAST [CT] 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 Ulcer: No History Surgical Site Infection Following: None - Disposition Have Diagnosis and Disposition been Completed?: Yes Diagnosis: Altered mental status Disposition: HOSPITALIZED Disposition Time: 22:00 Condition: FAIR
[2018-01-02 02:09] VITALS: BMI 29.0
[2018-01-02 08:25] LABS: BASO # 0.02 K/mm3 (0.0-2.0); BASO % 0.3 % (0.0-3.0); EOS # 0.2 (0.0-0.7); EOS % 3.1 % (1.5-5.0); GRAN # 3.99 (1.4-6.5); GRAN % 65.8 % (50.0-68.0); HEMOGLOBIN 11.1 g/dL (14.0-18.0); LYMPH # 1.5 (1.2-3.4); LYMPH % 24.9 % (22.0-35.0); MEAN CELL VOLUME 90.2 fl (80.0-105.0); MEAN CORPUSCULAR HEMOGLOBIN 27.8 pg (25.0-35.0); MEAN CORPUSCULAR HGB CONC 30.8 g/dl (31.0-37.0); MEAN PLATELET VOLUME 9.8 fl (7.0-11.0); MONO # 0.4 (0.1-0.6); MONO % 5.9 % (1.0-6.0); RBC 3.99 10^6/uL (3.5-6.1); RED CELL DISTRIBUTION WIDTH 16.2 % (11.5-14.5); WHITE BLOOD COUNT 6.1 10^3/ul (4.5-11.0)
--- NOTE | 2018-01-02 08:32 | RAD ---
HISTORY: Sepsis Patient COMPARISON: 12/07/2017 FINDINGS: LUNGS: Minimal subsegmental atelectasis at the right lung base. No acute infiltrate. PLEURA: No significant pleural effusion identified, no pneumothorax apparent. CARDIOVASCULAR: Normal heart size. No congestive change. Right tunneled central venous dialysis catheter. OSSEOUS STRUCTURES: No significant abnormalities. VISUALIZED UPPER ABDOMEN: Normal. OTHER FINDINGS: None. IMPRESSION: No active disease.
[2018-01-02 09:00] LABS: ALB/GLOB RATIO 1.3 (1.1-1.8); ALBUMIN 3.4 g/dL (3.0-4.8); CALCIUM 9.7 mg/dL (8.4-10.5)
[2018-01-02] MEDS: Albuterol-Ipratrop 3 mg / 0.5 (3 ml) UD IH SCH ×2 (13:43→19:48)
--- NOTE | 2018-01-02 13:43 | CP.PCM.CON ---
<Stephanie Chang - Last Filed: 01/02/18 17:18> History of Present Illness - History of Present Illness History of Present Illness: PGY-[address] Villalobos Neurology Consult: Altered mental status Mr Sukhdev Grey, 87 M was sent from [facility] for evalaution of noncompliance on his medication and increased confusion. During interview, translated by VONDA Flanagan, pt states that he was at work yesterday, fell asleep, and was sent to this hotel. Pt does know who the [place] President is but does not know where he is or the date/time. He denied any acute discomfort. He was recently admitted for Dyspnea, discharged on 12/14/17 (2 weeks ago). He had a temporary access for hemodialysis and received blood tranfusion (2u pRBC) and IV Fe for anemia. Denies any pain. In the ED, BP 171/59. POx 100 RA Hb 12.3 (baseline 10) HCt 39. LFT normal. Alk phos 183. BNP 1430. EKG: NSR 81. Left axis deviation. Inferior infarct. CT head: Nonspecific white matter changes. Moderate atrophy. Extensive decreased attenuation within periventricular subcortical white matter. Atherosclerotic disease of intracranial arteries. PMH Advanced dementia CAD, PVD, CHF HTN/HLD Asthma, COPD, heavy smoker Diabetes - insulin dependent ESRD on HD, new Urinary incontinence Anemia s/p transfusion Medication non-compliance PSH Amputation of leg, L AKA Cataract surgery Tunnel cath placement, 12/11/17 FH Noncontributory SH Former heavy smoker No ETOH/Drug All NKDA Med Memantine 5 bid ASA 81, Lipitor 10 Metoprolol 25 bid, Amlodipine 10, enalapril 20 BID Insulin Lamotrigine 25 BID Flomax Duoneeb, Advair, flonase, Budesonide Folic acid Phoslo Review of Systems - Review of Systems All systems: reviewed and no additional remarkable complaints except Review of Systems: as in HPI Past Patient History - Infectious Disease Hx of Infectious Diseases: None - Past Medical History & Family History Past Medical History?: Yes - Past Social History Smoking Status: Former Smoker - CARDIAC Hx Cardiac Disorders: Yes (CAD, chf) Hx Hypertension: Yes Hx Peripheral Vascular Disease: Yes - PULMONARY Hx Respiratory Disorders: Yes (H/O SMOKING CIGARETTES) Hx Asthma: Yes Hx Chronic Obstructive Pulmonary Disease (COPD): Yes - NEUROLOGICAL Hx Neurological Disorder: Yes Hx Alzheimer's Disease: Yes Hx Dementia: Yes - HEENT Hx HEENT Problems: Yes Hx Cataracts: Yes - RENAL Hx Chronic Kidney Disease: Yes Hx Renal Failure: Yes (dialysis tu//sat) - ENDOCRINE/METABOLIC Hx Endocrine Disorders: Yes Hx Diabetes Mellitus Type 2: Yes - HEMATOLOGICAL/ONCOLOGICAL Hx Blood Disorders: No - INTEGUMENTARY Hx Dermatological Problems: No - MUSCULOSKELETAL/RHEUMATOLOGICAL Hx Musculoskeletal Disorders: Yes Hx Falls: Yes - GASTROINTESTINAL Hx Gastrointestinal Disorders: No - GENITOURINARY/GYNECOLOGICAL Hx Genitourinary Disorders: Yes Hx Incontinence: Yes Hx Prostate Problems: Yes - PSYCHIATRIC Hx Psychophysiologic Disorder: No - SURGICAL HISTORY Hx Surgeries: Yes Hx Orthopedic Surgery: Yes (left AKA) Other/Comment: Perma cath in R chest wall. L leg AKA - ANESTHESIA Hx Anesthesia: Yes Meds Allergies/Adverse Reactions: Allergies Allergy/AdvReac Type Severity Reaction Status Date / Time No Known Allergies Allergy Verified 01/01/18 16:59 - Medications Medications: Current Medications Albuterol/Ipratropium (Duoneb 3 Mg/0.5 Mg (3 Ml) Ud) 3 ml IH [id number] FANNY Amlodipine Besylate (Norvasc) 10 mg PO DAILY [facility] Arformoterol Tartrate (Brovana) 15 mcg IH [id number] [facility] Aspirin (Aspirin Chewable) 81 mg PO DAILY [facility] Atorvastatin Calcium (Lipitor) 10 mg PO DIN [facility] Budesonide (Pulmicort Respules) 1 mg IH [id number] [facility] Calcium Acetate (Phoslo) 667 mg PO WM [facility] Fluticasone Propionate (Flonase) 1 actuation NS DAILY [facility] Folic Acid (Folic Acid) 1 mg PO DAILY [facility] Insulin Human NPH (Humulin N) 20 units SC ACB [facility] Insulin Human NPH (Humulin N) 10 units SC ACD [facility] Lisinopril (Zestril) 20 mg PO DAILY [facility] Memantine (Namenda) 5 mg PO BID [facility] Metoprolol Tartrate (Lopressor) 25 mg PO BID [facility] Multivitamins/Vitamin C (Multi-Delyn Liquid) 15 ml PO 0800 [facility] Pantoprazole Sodium (Protonix Ec Tab) 40 mg PO 0600 [facility] Tamsulosin HCl (Flomax) 0.4 mg PO DAILY [facility]AN[facility] Physical Exam - Constitutional Appears: No Acute Distress - Head Exam Head Exam: ATRAUMATIC, NORMAL INSPECTION, NORMOCEPHALIC - Eye Exam Eye Exam: EOMI, Normal appearance, PERRL. absent: Scleral icterus Pupil Exam: NORMAL ACCOMODATION - ENT Exam ENT Exam: Mucous Membranes Moist - Neck Exam Additional comments: supple - Respiratory Exam Respiratory Exam: Clear to Auscultation Bilateral, NORMAL BREATHING PATTERN. absent: Rales, Rhonchi, Wheezes - Cardiovascular Exam Cardiovascular Exam: REGULAR RHYTHM, +S1, +S2 - GI/Abdominal Exam GI & Abdominal Exam: Normal Bowel Sounds, Soft. absent: Distended, Guarding, Rigid, Tenderness - Extremities Exam Extremities exam: Negative for: calf tenderness Additional comments: L AKA - Back Exam Back exam: absent: CVA tenderness (L), CVA tenderness (R), paraspinal tenderness - Neurological Exam Neurological exam: Alert, CN II-XII Intact, Reflexes Normal Additional comments: Speech: Vietnamese-cannot assess. Deepened nasal labial fold in R recall: 0/3 motor: 4/5 upper extremities b/l. 3/5 R leg sensory: intact [id number] coordination: intact. No tremor DTR: 12/05 - Psychiatric Exam Psychiatric exam: Flat Affect - Skin Skin Exam: Dry, Warm Results - Vital Signs Recent Vital Signs: Last Vital Signs Temp 98.3 F 01/02/18 09:28 Pulse 90 01/02/18 10:00 Resp 18 01/02/18 09:28 BP 149/75 01/02/18 09:28 Pulse Ox 98 01/02/18 09:28 - Labs Result Diagrams: 01/02/18 07:00 01/02/18 07:00 Labs: Laboratory Results - last 24 hr 01/02/18 01/02/18 01/02/18 06:43 07:00 07:00 WBC 6.1 RBC 3.99 Hgb 11.1 L Hct 36.0 L MCV 90.2 MCH 27.8 MCHC 30.8 L RDW 16.2 H Plt Count 142 MPV 9.8 Gran % 65.8 Lymph % (Auto) 24.9 [place] % (Auto) 5.9 Eos % (Auto) 3.1 Baso % (Auto) 0.3 Gran # 3.99 Lymph # (Auto) 1.5 [place] # (Auto) 0.4 Eos # (Auto) 0.2 Baso # (Auto) 0.02 Sodium 141 Potassium 4.3 Chloride 105 Carbon Dioxide 27 Anion Gap 13 BUN 54 H Creatinine 4.2 H Est GFR ( Amer) 16 Est GFR (Non-Af Amer) 14 POC Glucose (mg/dL) 86 Random Glucose 74 Calcium 9.7 Total Bilirubin 0.3 AST 31 ALT 34 Alkaline Phosphatase 165 H Total Protein 6.1 Albumin 3.4 Globulin 2.7 Albumin/Globulin Ratio 1.3 01/02/18 11:24 WBC RBC Hgb Hct MCV MCH MCHC RDW Plt Count MPV Gran % Lymph % (Auto) [place] % (Auto) Eos % (Auto) Baso % (Auto) Gran # Lymph # (Auto) [place] # (Auto) Eos # (Auto) Baso # (Auto) Sodium Potassium Chloride Carbon Dioxide Anion Gap BUN Creatinine Est GFR ( Amer) Est GFR (Non-Af Amer) POC Glucose (mg/dL) 84 Random Glucose Calcium Total Bilirubin AST ALT Alkaline Phosphatase Total Protein Albumin Globulin Albumin/Globulin Ratio Assessment & Plan - Assessment and Plan (Free Text) Plan: Neurology Consult: Altered mental status Mr Sukhdev Grey, 87 M was sent from [facility] for evalaution of noncompliance on his medication and increased confusion. Currently pt is AAOx1. POx 100 RA. Hb 12.3 (baseline 10) HCt 39. LFT normal. Alk phos 183. BNP 1430. EKG: NSR 81. Left axis deviation with Inferior infarct. CT head: Nonspecific white matter changes. Moderate atrophy. Extensive decreased attenuation within periventricular subcortical white matter. Atherosclerotic disease of intracranial arteries. Altered mental status likely due to severe cognitive impairment superimposed advanced dementia and delirium - thiamine 100 bid for neuronal activation - avoid sedative medicine - delirium precaution: frequent day time reorientation, day time activity; avoid night time interruption - Avoid sudden drop in blood pressure and hypertension - maintain SBP 120-130 - Monitor electrolytes and correct accordingly s/r/d/w Dr. Villalobos <Michael Villalobos - Last Filed: 01/03/18 10:17> Meds - Medications Medications: Current Medications Albuterol/Ipratropium (Duoneb 3 Mg/0.5 Mg (3 Ml) Ud) 3 ml IH [id number] [facility] Last Admin: 01/03/18 07:37 Dose: 3 ml Amlodipine Besylate (Norvasc) 10 mg PO DAILY [facility] Last Admin: 01/02/18 15:18 Dose: 10 mg Arformoterol Tartrate (Brovana) 15 mcg IH [id number] [facility] Last Admin: 01/03/18 07:37 Dose: 15 mcg Aspirin (Aspirin Chewable) 81 mg PO DAILY [facility] Last Admin: 01/02/18 15:16 Dose: 81 mg Atorvastatin Calcium (Lipitor) 10 mg PO DIN [facility] Last Admin: 01/02/18 17:16 Dose: 10 mg Budesonide (Pulmicort Respules) 1 mg IH [id number] [facility] Last Admin: 01/03/18 07:37 Dose: 1 mg Calcium Acetate (Phoslo) 667 mg PO WM [facility] Last Admin: 01/02/18 17:17 Dose: 667 mg Fluticasone Propionate (Flonase) 1 actuation NS DAILY [facility] Folic Acid (Folic Acid) 1 mg PO DAILY [facility] Last Admin: 01/02/18 15:17 Dose: 1 mg Insulin Human NPH (Humulin N) 20 units SC ACB [facility] Last Admin: 01/03/18 08:23 Dose: Not Given Insulin Human NPH (Humulin N) 10 units SC ACD [facility] Last Admin: 01/02/18 17:15 Dose: Not Given Lisinopril (Zestril) 20 mg PO DAILY [facility] Last Admin: 01/02/18 15:19 Dose: 20 mg Memantine (Namenda) 5 mg PO BID [facility] Last Admin: 01/02/18 17:17 Dose: 5 mg Metoprolol Tartrate (Lopressor) 25 mg PO BID [facility] Last Admin: 01/02/18 17:16 Dose: 25 mg Multivitamins/Vitamin C (Multi-Delyn Liquid) 15 ml PO 0800 [facility] Pantoprazole Sodium (Protonix Ec Tab) 40 mg PO 0600 [facility] Last Admin: 01/03/18 05:47 Dose: Not Given Tamsulosin HCl (Flomax) 0.4 mg PO DAILY [facility] Last Admin: 01/02/18 15:17 Dose: 0.4 mg Thiamine HCl (Vitamin B1 Tab) 100 mg PO BID [facility] Results - Vital Signs Recent Vital Signs: Last Vital Signs Temp 97.8 F 01/03/18 08:22 Pulse 66 01/03/18 08:22 Resp 18 01/03/18 08:22 BP 154/57 H 01/03/18 08:22 Pulse Ox 97 01/03/18 08:22 - Labs Result Diagrams: 01/02/18 07:00 01/02/18 07:00 Labs: Laboratory Results - last 24 hr 01/02/18 01/02/18 01/02/18 11:24 16:07 21:23 POC Glucose (mg/dL) 84 92 141 H 01/03/18 07:54 POC Glucose (mg/dL) 77 Attending/Attestation - Attestation I have personally seen and examined this patient.: Yes I have fully participated in the care of the patient.: Yes I have reviewed all pertinent clinical information: Yes
--- NOTE | 2018-01-02 16:15 | CARD ---
APPROVED REPORT EKG Measurement Heart [id number] <Conclusion> Normal sinus rhythm Left axis deviation Inferior infarct, age undetermined Abnormal ECG
[2018-01-02] MEDS ORDERED: Insulin Human NPH 1 UNITS/0.01 ML SC SCH (16:30)
[2018-01-02] MEDS: Arformoterol 15 mcg/2 ml Inh Sol IH SCH (19:47)
[2018-01-02] MEDS: Budesonide 0.5 mg/2 ml Inhal Susp UD IH SCH (19:48)
--- NOTE | 2018-01-02 21:00 | CP.PCM.PN ---
Subjective - Date & Time of Evaluation Date of Evaluation: 01/02/18 Time of Evaluation: 21:00 - Subjective Subjective: S:Patient is calmer now. Earlier when nurse called and told that patient was agitated , at that time I had ordered ativan 0.5 mg IV . No complaints now. Medical record was reviewed. O: Last Vital Signs 3 Temp 98 F 01/02/18 16:00 Pulse 68 01/02/18 18:00 Resp 20 01/02/18 16:00 BP 125/66 01/02/18 17:16 Pulse Ox 96 01/02/18 16:00 Stable. Not in distress. LUNGS:Normal breathing pattern. A:Agitation. P:Ativan 0.5 mg IV was given. Objective - Vital Signs/Intake and Output Vital Signs (last 24 hours): Temp Pulse Resp BP Pulse Ox 98 F 68 20 125/66 96 01/02/18 16:00 01/02/18 18:00 01/02/18 16:00 01/02/18 17:16 01/02/18 16:00 Intake and Output: 01/02/18 01/03/18 18:59 06:59 Intake Total 240 Balance 240 - Medications Medications: Current Medications Albuterol/Ipratropium (Duoneb 3 Mg/0.5 Mg (3 Ml) Ud) 3 ml IH [id number] [facility] Last Admin: 01/02/18 19:48 Dose: 3 ml Amlodipine Besylate (Norvasc) 10 mg PO DAILY [facility] Last Admin: 01/02/18 15:18 Dose: 10 mg Arformoterol Tartrate (Brovana) 15 mcg IH [id number] [facility] Last Admin: 01/02/18 19:47 Dose: 15 mcg Aspirin (Aspirin Chewable) 81 mg PO DAILY [facility] Last Admin: 01/02/18 15:16 Dose: 81 mg Atorvastatin Calcium (Lipitor) 10 mg PO DIN [facility] Last Admin: 01/02/18 17:16 Dose: 10 mg Budesonide (Pulmicort Respules) 1 mg IH [id number] [facility] Last Admin: 01/02/18 19:48 Dose: 1 mg Calcium Acetate (Phoslo) 667 mg PO WM [facility] Last Admin: 01/02/18 17:17 Dose: 667 mg Fluticasone Propionate (Flonase) 1 actuation NS DAILY [facility] Folic Acid (Folic Acid) 1 mg PO DAILY [facility] Last Admin: 01/02/18 15:17 Dose: 1 mg Insulin Human NPH (Humulin N) 20 units SC ACB [facility] Insulin Human NPH (Humulin N) 10 units SC ACD [facility] Last Admin: 01/02/18 17:15 Dose: Not Given Lisinopril (Zestril) 20 mg PO DAILY [facility] Last Admin: 01/02/18 15:19 Dose: 20 mg Memantine (Namenda) 5 mg PO BID [facility] Last Admin: 01/02/18 17:17 Dose: 5 mg Metoprolol Tartrate (Lopressor) 25 mg PO BID [facility] Last Admin: 01/02/18 17:16 Dose: 25 mg Multivitamins/Vitamin C (Multi-Delyn Liquid) 15 ml PO 0800 [facility] Pantoprazole Sodium (Protonix Ec Tab) 40 mg PO 0600 [facility] Tamsulosin HCl (Flomax) 0.4 mg PO DAILY [facility] Last Admin: 01/02/18 15:17 Dose: 0.4 mg Thiamine HCl (Vitamin B1 Tab) 100 mg PO BID [facility] - Labs Labs: 01/02/18 07:00 01/02/18 07:00 PT 10.6 SECONDS (9.4-12.5) 01/01/18 18:25 INR 0.93 (0.93-1.08) 01/01/18 18:25 APTT 36.9 Seconds (25.1-36.5) H 01/01/18 18:25
--- NOTE | 2018-01-03 01:42 | PN ---
DATE: 01/02/2018 DIALYSIS PROGRESS NOTE SUBJECTIVE: This 87-year-old male was in the [facility] Renal unit, dialyzing on a F160 140-sodium, 3K-bicarb bath. Blood pressure 111/54, pulse 93. The patient's dialysis will be increased to 3 hours and 20 minutes today on 3K bath, aiming for 2 kg of fluid removal. Of note, potassium is 4.3, BUN 54, creatinine 4.2, hemoglobin 11.1, and hematocrit 36.0. The above was reviewed with dialysis nurse, Allie Peña, registered nurse. Dee Minor MD MTDD
[2018-01-03] MEDS: Albuterol-Ipratrop 3 mg / 0.5 (3 ml) UD IH SCH ×3 (02:00→14:00)
--- NOTE | 2018-01-03 03:18 | CON ---
DATE: 01/02/2018 NEPHROLOGY CONSULTATION SUMMARY: This 87-year-old male who dialyzes at the [facility] Renal Dialysis Unit on Tuesdays, , and Saturdays, was admitted to the [facility] with acute confusional state in the setting of outpatient medication noncompliance and agitation syndrome. The patient resides at the [facility]. He is under the primary care of Dr. Senia Thomas. She reports that the patient was more confused and refusing to take medications including insulins and was brought to [facility] for further evaluation of the above. When I interviewed the patient in the presence of his nurse, Masha Ramirez, the patient was calm, but disoriented to person, place, and time. PAST MEDICAL HISTORY: The patient has significant past medical history of chronic renal failure, end stage, on hemodialysis three times weekly; organic brain syndrome with dementia; history of agitation syndrome; atherosclerotic heart disease; peripheral vascular disease; he is status post a left lbosp-dro-aeqs amputation; he has chronic stable congestive heart failure; chronic hypertension; hyperlipidemia; asthma; chronic obstructive pulmonary disease; insulin-dependent diabetes mellitus; history of anemia of chronic disease; and recent pneumonia. He is also status post cataract surgery and a right tunneled Tesio catheter placement in 12/2017 for chronic dialysis treatment. SOCIAL HISTORY: He is a nondrinker, non IV drug misuser, former cigarette smoker. ALLERGIES: DENIES ANY ALLERGIES TO MEDICATION. MEDICATIONS: Outpatient medications did include Namenda, ASA, metoprolol, Norvasc, enalapril, insulin, lamotrigine, Flomax, Duo nebulizers, Advair, Flonase, folic acid, and PhosLo. FAMILY HISTORY: Noncontributory. REVIEW OF SYSTEMS: CONSTITUTIONAL: No reports of fever or chills. HEAD: No report of head trauma or seizure. EYE: History of cataract surgery repair. EAR: No hearing loss. THROAT: No swallowing difficulty. NECK: No stiffness. CARDIAC: As per HPI. PULMONARY: No hemoptysis. GASTROINTESTINAL: No hematemesis. No diarrhea. GENITOURINARY: End-stage renal disease, hemodialysis dependent. VASCULAR: He has a history of a left iirjs-cxz-vmes amputation. ENDOCRINE: He has insulin-dependent diabetes mellitus and hyperlipidemia. SKIN: No rashes. NEUROLOGICAL: No knowledge of stroke. PHYSICAL EXAMINATION: VITAL SIGNS: Temperature 98.3, respirations 18, pulse 80, and blood pressure 149/75. Pulse ox 98%. HEENT: Head: Normocephalic, atraumatic. Eyes: No icterus. Ears: Clear. Throat: Noninjected. NECK: Supple. HEART: Was regular S1, S2. LUNGS: No wheezing. ABDOMEN: Soft. EXTREMITIES: No edema. He has a left ojqiq-lcz-xdky amputation. VASCULAR: Legs warm to touch. PSYCHOLOGICAL: Alert but confused. NEUROLOGICAL: Able to move all four extremities. SKIN: Without rash. LABORATORY DATA: White count 6100, hemoglobin 11.1, hematocrit 36.0, platelets 142,000. PT/INR 0.93. Sodium 141, K 4.3, chloride 105, bicarb 27, BUN 54, creatinine 4.2, random blood sugar 86. Bilirubin 0.3, AST 31, ALT 34, and alk phos 165. BNP 1430. Head CT was reviewed. It showed moderate atrophy of brain. No hydrocephalous. No acute fractures, atherosclerosis of intracranial arteries. No evidence of acute stroke. Chest x-ray was reviewed. It showed right lung base, minimal atelectasis, no acute infiltrates, no effusions, no pneumothorax, normal heart size. EKG was reviewed. It showed a normal sinus rhythm with nonspecific ST-T wave changes. IMPRESSION: An 87-year-old male with metabolic encephalopathy, organic brain syndrome, history of agitation, chronic Alzheimer's dementia with end-stage renal disease, hemodialysis dependent, and comorbidities of asthma, chronic obstructive pulmonary disease, history of insulin-dependent diabetes mellitus, hyperlipidemia, stable atherosclerotic heart disease, stable congestive heart failure, chronic hypertension, peripheral vascular disease, degenerative arthritis, peptic ulcer disease with gastroesophageal reflux disease. PLAN: My plans are to ready this patient for dialysis today. His prescription for treatment will be reviewed with charge nurse, Allie Peña, registered nurse. The patient will continue on his maintenance medications as outlined and the patient is awaiting Neurology evaluation with Dr. Villalobos. Once the patient is stabilized, he will return to his shelter care at the [facility] under the direction of Dr. Thomas, while receiving dialysis treatments at [facility] on Tuesdays, , and Saturdays. All of the above was reviewed in detail with the patient, nursing, and CHRISTI Prieto. All questions were answered. Dee Minor MD MTDTahmina
[2018-01-03] MEDS ORDERED: Pantoprazole 40 mg EC Tab PO SCH (06:00)
[2018-01-03] MEDS ORDERED: Insulin Human NPH 1 UNITS/0.01 ML SC SCH (07:30)
[2018-01-03] MEDS: Budesonide 0.5 mg/2 ml Inhal Susp UD IH SCH (07:37)
[2018-01-03] MEDS: Arformoterol 15 mcg/2 ml Inh Sol IH SCH (07:37)
[2018-01-03] MEDS ORDERED: Multi Vitamins 15 mL UD Oral Solution PO SCH (08:00)
--- NOTE | 2018-01-03 08:03 | PN ---
DATE: 01/02/2018 DIALYSIS PROGRESS NOTE SUBJECTIVE: This 87-year-old male was in the [facility] Renal Dialysis Unit, dialyzing on a F160, 140 sodium, 3-K bicarb bath. PHYSICAL EXAMINATION: VITAL SIGNS: Blood pressure was 173/80, pulse was 76, respirations 16, temperature afebrile. HEART: Regular, S1, S2. LUNGS: Clear. Blood flow rate 400 mL per minute. I am aiming for 2 kg of fluid removal today. This was discussed in detail with dialysis nurse, Allie Peña, registered nurse. Dee Minor MD MTDD
[2018-01-03 08:23] VITALS: BP 154/57; PULSE 66; RESP 18; TEMP 97.8; O2SAT 97
--- NOTE | 2018-01-03 09:24 | HP ---
CHIEF COMPLAINT: Altered mental status, noncompliant. HISTORY OF PRESENT ILLNESS: Mr. Sukhdev Grey is an 87-year-old my private patient in [facility], has a history of multiple medical problems, renal insufficiency on hemodialysis, insulin-depended diabetes mellitus, advanced dementia. Day before yesterday, he refused to go for dialysis, and today he pulled out his catheter and was completely confused, refusing all medications. No nausea, vomiting or diarrhea. No hematuria or hematochezia. No swelling of the legs. No chest pain, no palpitation. Actually the patient is not giving any complaints, but is completely confused. PAST MEDICAL HISTORY: Advanced dementia, coronary artery disease, peripheral vascular disease, congestive heart failure, hypertension, hypercholesterolemia, asthma, COPD, history of heavy smoking, insulin-depended diabetes mellitus, end-stage renal disease on hemodialysis, newly onset anemia, asking blood transfusion. Senia Thomas MD
--- NOTE | 2018-01-03 09:39 | HP ---
ADDENDUM: PAST SURGICAL HISTORY: Amputation of leg, left AKA; cataract surgery and tunneled catheter replacement, 12/11/2017. FAMILY HISTORY: Father and mother noncontributory. HABITS: Former heavy smoker, now no smoking; no drugs, no ethanol. ALLERGIES: THE PATIENT IS NOT ALLERGIC WITH ANY MEDICATIONS. HOME MEDICATIONS: Namenda, aspirin, metoprolol, insulin, Flomax, Duoneb, Advair, folic acid, PhosLo. REVIEW OF SYSTEMS: The patient seen and examined on the bedside in his room, completely confused. Otherwise, awake and alert. Even he does not know where is he. No nausea, vomiting or diarrhea. No hematuria or hematochezia. No headache. No dizziness. The patient is not able to give review of systems. PHYSICAL EXAMINATION: VITAL SIGNS: Temperature 98, pulse 58, blood pressure 125/62, respiratory rate 20. HEENT: Head is normocephalic and atraumatic. Eyes, PERRLA. Extraocular movements are intact. Conjunctivae clear. Nose patent. Mucous membrane moist. NECK: Supple. No carotid bruit, JVD or thyromegaly. CHEST: Bilaterally symmetrical. HEART: S1 and S2 positive. LUNGS: Clear to auscultation. ABDOMEN: Soft. Bowel sounds positive. No organomegaly. EXTREMITIES: No edema. No cyanosis. NEUROLOGIC: The patient is awake and alert, but totally confused. LABORATORY DATA: White blood cells 6.1, hemoglobin 11.1, hematocrit 36.0, platelets . INR 0.93. Sodium 141, potassium 4.3, BUN 54, creatinine 4.2, glucose 141. Alkaline phosphatase 165. ASSESSMENT AND PLAN: Mr. Sukhdev Grey is a 87-year-old male with anemia; renal insufficiency, dialysis dependant, but refused dialysis last time; came with altered mental status, was very anxious .one dose of Ativan. Neurology consult called because of the patient's mental status. CAT scan of the head done, this is reviewed by me. The patient is very noncompliant. Altered mental status looks like due to severe cognitive impairment superimposed with advanced dementia and delirium. Appreciated Dr. Villalobos's input. Nephrology consult called with Dr. Dee Minor. The patient has history of insulin dependant diabetes mellitus, has coronary artery disease, peripheral vascular disease, history of heavy smoking, gastric surgery. Left AKA. History of BPH. History of nephrolithiasis. Discussion done with Dr. Dee Minor. Meanwhile, GI and deep vein thrombosis prophylaxis. Repeat labs. All old medications ordered and the patient urged to be complaint. For dementia, restarted Namenda. We will follow up. Senia Thomas MD MTDD
[2018-01-03] MEDS ORDERED: Fluticasone Nasal 50 mcg/Spray NS SCH (10:00)
--- NOTE | 2018-01-03 11:16 | CP.PCM.PN ---
<Stephanie Chang - Last Filed: 01/03/18 11:13> Subjective - Date & Time of Evaluation Date of Evaluation: 01/03/18 Time of Evaluation: 09:00 - Subjective Subjective: Neurology PGY-[address] Villalobos Per [employer] AGENT for Dr. Thomas, pt is back to baseline mentation status. Denied acute discomfort. Sleeping during the day, easily awakened Objective - Vital Signs/Intake and Output Vital Signs (last 24 hours): Temp Pulse Resp BP Pulse Ox 97.8 F 66 18 154/57 H 97 01/03/18 08:22 01/03/18 10:41 01/03/18 08:22 01/03/18 10:41 01/03/18 08:22 Intake and Output: 01/03/18 01/03/18 06:59 18:59 Intake Total 100 Balance 100 - Medications Medications: Current Medications Albuterol/Ipratropium (Duoneb 3 Mg/0.5 Mg (3 Ml) Ud) 3 ml IH [id number] [facility] Last Admin: 01/03/18 07:37 Dose: 3 ml Amlodipine Besylate (Norvasc) 10 mg PO DAILY [facility] Last Admin: 01/03/18 10:40 Dose: 10 mg Arformoterol Tartrate (Brovana) 15 mcg IH [id number] [facility] Last Admin: 01/03/18 07:37 Dose: 15 mcg Aspirin (Aspirin Chewable) 81 mg PO DAILY [facility] Last Admin: 01/03/18 10:40 Dose: 81 mg Atorvastatin Calcium (Lipitor) 10 mg PO DIN [facility] Last Admin: 01/02/18 17:16 Dose: 10 mg Budesonide (Pulmicort Respules) 1 mg IH [id number] [facility] Last Admin: 01/03/18 07:37 Dose: 1 mg Calcium Acetate (Phoslo) 667 mg PO WM [facility] Last Admin: 01/03/18 10:41 Dose: 667 mg Fluticasone Propionate (Flonase) 1 actuation NS DAILY [facility] Last Admin: 01/03/18 10:41 Dose: 1 spray Folic Acid (Folic Acid) 1 mg PO DAILY [facility] Last Admin: 01/03/18 10:41 Dose: 1 mg Insulin Human NPH (Humulin N) 20 units SC ACB [facility] Last Admin: 01/03/18 08:23 Dose: Not Given Insulin Human NPH (Humulin N) 10 units SC ACD [facility] Last Admin: 01/02/18 17:15 Dose: Not Given Lisinopril (Zestril) 20 mg PO DAILY [facility] Last Admin: 01/03/18 10:41 Dose: 20 mg Memantine (Namenda) 5 mg PO BID [facility] Last Admin: 01/03/18 10:40 Dose: 5 mg Metoprolol Tartrate (Lopressor) 25 mg PO BID [facility] Last Admin: 01/03/18 10:41 Dose: 25 mg Multivitamins/Vitamin C (Multi-Delyn Liquid) 15 ml PO 0800 [facility] Last Admin: 01/03/18 10:41 Dose: 15 ml Pantoprazole Sodium (Protonix Ec Tab) 40 mg PO 0600 [facility] Last Admin: 01/03/18 05:47 Dose: Not Given Tamsulosin HCl (Flomax) 0.4 mg PO DAILY [facility] Last Admin: 01/03/18 10:41 Dose: 0.4 mg Thiamine HCl (Vitamin B1 Tab) 100 mg PO BID [facility] Last Admin: 01/03/18 10:40 Dose: 100 mg - Labs Labs: 01/02/18 07:00 01/02/18 07:00 PT 10.6 SECONDS (9.4-12.5) 01/01/18 18:25 INR 0.93 (0.93-1.08) 01/01/18 18:25 APTT 36.9 Seconds (25.1-36.5) H 01/01/18 18:25 - Constitutional Appears: No Acute Distress - Head Exam Head Exam: ATRAUMATIC, NORMAL INSPECTION, NORMOCEPHALIC - Eye Exam Eye Exam: EOMI, Normal appearance, PERRL. absent: Scleral icterus - ENT Exam ENT Exam: Mucous Membranes Moist - Respiratory Exam Respiratory Exam: Clear to Ausculation Bilateral, NORMAL BREATHING PATTERN - Cardiovascular Exam Cardiovascular Exam: REGULAR RHYTHM, +S1, +S2. absent: Murmur - GI/Abdominal Exam GI & Abdominal Exam: Soft, Normal Bowel Sounds. absent: Tenderness - Extremities Exam Extremities Exam: absent: Calf Tenderness, Pedal Edema - Neurological Exam Neurological Exam: Awake Additional comments: Speech: Portuguese-cannot assess. Deepened nasal labial fold in R recall: 0/3 motor: 4/5 upper extremities b/l. 3/5 R leg sensory: intact [id number] coordination: intact. No tremor DTR: 12/05 - Psychiatric Exam Psychiatric exam: Normal Affect, Normal Mood - Skin Skin Exam: Dry, Warm Assessment and Plan - Assessment and Plan (Free Text) Plan: Neurology Consult: Altered mental status Mr Sukhdev Grey, 87 M was sent from [facility] for evalaution of noncompliance on his medication and increased confusion. Currently pt is AAOx1. POx 100 RA. Hb 12.3 (baseline 10) HCt 39. LFT normal. Alk phos 183. BNP 1430. EKG: NSR 81. Left axis deviation with Inferior infarct. CT head: Nonspecific white matter changes. Moderate atrophy. Extensive decreased attenuation within periventricular subcortical white matter. Atherosclerotic disease of intracranial arteries. Altered mental status likely due to severe cognitive impairment superimposed advanced dementia and delirium Back to baseline mentation - thiamine 100 bid for neuronal activation - avoid sedative medicine - delirium precaution: frequent day time reorientation, day time activity; avoid night time interruption - Avoid sudden drop in blood pressure and hypertension - maintain SBP 120-130 - Monitor electrolytes and correct accordingly s/r/d/w Dr. Villalobos <Michael Villalobos - Last Filed: 01/03/18 13:04> Objective - Vital Signs/Intake and Output Vital Signs (last 24 hours): Temp Pulse Resp BP Pulse Ox 97.8 F 66 18 154/57 H 97 01/03/18 08:22 01/03/18 10:41 01/03/18 08:22 01/03/18 10:41 01/03/18 08:22 Intake and Output: 01/03/18 01/03/18 06:59 18:59 Intake Total 100 Balance 100 - Medications Medications: Current Medications Albuterol/Ipratropium (Duoneb 3 Mg/0.5 Mg (3 Ml) Ud) 3 ml IH [id number] [facility] Last Admin: 01/03/18 07:37 Dose: 3 ml Amlodipine Besylate (Norvasc) 10 mg PO DAILY [facility] Last Admin: 01/03/18 10:40 Dose: 10 mg Arformoterol Tartrate (Brovana) 15 mcg IH [id number] [facility] Last Admin: 01/03/18 07:37 Dose: 15 mcg Aspirin (Aspirin Chewable) 81 mg PO DAILY [facility] Last Admin: 01/03/18 10:40 Dose: 81 mg Atorvastatin Calcium (Lipitor) 10 mg PO DIN [facility] Last Admin: 01/02/18 17:16 Dose: 10 mg Budesonide (Pulmicort Respules) 1 mg IH [id number] [facility] Last Admin: 01/03/18 07:37 Dose: 1 mg Calcium Acetate (Phoslo) 667 mg PO WM [facility] Last Admin: 01/03/18 12:34 Dose: 667 mg Fluticasone Propionate (Flonase) 1 actuation NS DAILY [facility] Last Admin: 01/03/18 10:41 Dose: 1 spray Folic Acid (Folic Acid) 1 mg PO DAILY [facility] Last Admin: 01/03/18 10:41 Dose: 1 mg Insulin Human NPH (Humulin N) 20 units SC ACB [facility] Last Admin: 01/03/18 08:23 Dose: Not Given Insulin Human NPH (Humulin N) 10 units SC ACD [facility] Last Admin: 01/02/18 17:15 Dose: Not Given Lisinopril (Zestril) 20 mg PO DAILY [facility] Last Admin: 01/03/18 10:41 Dose: 20 mg Memantine (Namenda) 5 mg PO BID [facility] Last Admin: 01/03/18 10:40 Dose: 5 mg Metoprolol Tartrate (Lopressor) 25 mg PO BID [facility] Last Admin: 01/03/18 10:41 Dose: 25 mg Multivitamins/Vitamin C (Multi-Delyn Liquid) 15 ml PO 0800 [facility] Last Admin: 01/03/18 10:41 Dose: 15 ml Pantoprazole Sodium (Protonix Ec Tab) 40 mg PO 0600 [facility] Last Admin: 01/03/18 05:47 Dose: Not Given Tamsulosin HCl (Flomax) 0.4 mg PO DAILY [facility] Last Admin: 01/03/18 10:41 Dose: 0.4 mg Thiamine HCl (Vitamin B1 Tab) 100 mg PO BID [facility] Last Admin: 01/03/18 10:40 Dose: 100 mg - Labs Labs: 01/02/18 07:00 01/02/18 07:00 PT 10.6 SECONDS (9.4-12.5) 01/01/18 18:25 INR 0.93 (0.93-1.08) 01/01/18 18:25 APTT 36.9 Seconds (25.1-36.5) H 01/31/18 18:25 Attending/Attestation - Attestation I have personally seen and examined this patient.: Yes I have fully participated in the care of the patient.: Yes I have reviewed all pertinent clinical information, including history, physical exam and plan: Yes
--- NOTE | 2018-01-03 12:15 | CP.PCM.DIS ---
<AnnaVeenaolga Jamison - Last Filed: 01/03/18 12:12> Provider - Provider Date of Admission: 01/01/18 23:11 Attending physician: Senia Thomas MD Primary care physician: Senia Thomas MD Consults: Nephro - Dr. Minor Neuro - Dr. Villalobos Time Spent in preparation of Discharge (in minutes): 35 Diagnosis - Discharge Diagnosis (1) Cognitive impairment Status: Acute (2) Advanced dementia Status: Acute (3) Delirium Status: Acute Hospital Course - Lab Results Lab Results: Most Recent Lab Values WBC 6.1 10^3/ul (4.5-11.0) 01/02/18 07:00 RBC 3.99 10^6/uL (3.5-6.1) 01/02/18 07:00 Hgb 11.1 g/dL (14.0-18.0) L 01/02/18 07:00 Hct 36.0 % (42.0-52.0) L 01/02/18 07:00 MCV 90.2 fl (80.0-105.0) 01/02/18 07:00 MCH 27.8 pg (25.0-35.0) 01/02/18 07:00 MCHC 30.8 g/dl (31.0-37.0) L 01/02/18 07:00 RDW 16.2 % (11.5-14.5) H 01/02/18 07:00 Plt Count 142 10^3/uL (120.0-450.0) 01/02/18 07:00 MPV 9.8 fl (7.0-11.0) 01/02/18 07:00 Gran % 65.8 % (50.0-68.0) 01/02/18 07:00 Lymph % (Auto) 24.9 % (22.0-35.0) 01/02/18 07:00 [place] % (Auto) 5.9 % (1.0-6.0) 01/02/18 07:00 Eos % (Auto) 3.1 % (1.5-5.0) 01/02/18 07:00 Baso % (Auto) 0.3 % (0.0-3.0) 01/02/18 07:00 Gran # 3.99 (1.4-6.5) 01/02/18 07:00 Lymph # (Auto) 1.5 (1.2-3.4) 01/02/18 07:00 [place] # (Auto) 0.4 (0.1-0.6) 01/02/18 07:00 Eos # (Auto) 0.2 (0.0-0.7) 01/02/18 07:00 Baso # (Auto) 0.02 K/mm3 (0.0-2.0) 01/02/18 07:00 ESR 59 mm/hr (0.00-15.0) H 01/01/18 18:25 PT 10.6 SECONDS (9.4-12.5) 01/01/18 18:25 INR 0.93 (0.93-1.08) 01/01/18 18:25 APTT 36.9 Seconds (25.1-36.5) H 01/01/18 18:25 pO2 107 mm/Hg (30-55) H 01/01/18 19:50 VBG pH 7.29 (7.32-7.43) L 01/01/18 19:50 VBG pCO2 59.0 (40-60) 01/01/18 19:50 VBG HCO3 28.4 mmol/l (21-28) H 01/01/18 19:50 VBG Total CO2 30.2 mmol.L (22-28) H 01/01/18 19:50 VBG O2 Sat (Calc) 99.1 % (40-65) H 01/01/18 19:50 VBG Base Excess 0.5 mmol/L (0.0-2.0) 01/01/18 19:50 VBG Potassium 4.6 mmol/L (3.6-5.2) 01/01/18 19:50 Sodium 136.0 mmol/L (132-148) 01/01/18 19:50 Chloride 106.0 mmol/L (98-107) 01/01/18 19:50 Glucose 123 mg/dl (75-110) H 01/01/18 19:50 Lactate 0.7 mmol/L (0.7-2.1) 01/01/18 19:50 FiO2 21.0 % 01/01/18 19:50 Sodium 141 mmol/L (132-148) 01/02/18 07:00 Potassium 4.3 mmol/L (3.6-5.0) 01/02/18 07:00 Chloride 105 mmol/L (98-107) 01/02/18 07:00 Carbon Dioxide 27 mmol/L (21-33) 01/02/18 07:00 Anion Gap 13 (10-20) 01/02/18 07:00 BUN 54 mg/dL (7-21) H 01/02/18 07:00 Creatinine 4.2 mg/dl (0.8-1.5) H 01/02/18 07:00 Est GFR ( Amer) 16 01/02/18 07:00 Est GFR (Non-Af Amer) 14 01/02/18 07:00 POC Glucose (mg/dL) 144 mg/dL (65-110) H 01/03/18 11:25 Random Glucose 74 mg/dL (70-110) 01/02/18 07:00 Calcium 9.7 mg/dL (8.4-10.5) 01/02/18 07:00 Phosphorus 2.9 mg/dL (2.5-4.5) 01/01/18 18:25 Magnesium 2.1 mg/dL (1.7-2.2) 01/01/18 18:25 Total Bilirubin 0.3 mg/dL (0.2-1.3) 01/02/18 07:00 AST 31 U/L (17-59) 01/02/18 07:00 ALT 34 U/L (7-56) 01/02/18 07:00 Alkaline Phosphatase 165 U/L (38-126) H 01/02/18 07:00 Troponin I 0.03 ng/mL D 01/01/18 18:25 NT-Pro-B Natriuret Pep 1430 pg/mL (0-450) H 01/01/18 18:25 Total Protein 6.1 g/dL (5.8-8.3) 01/02/18 07:00 Albumin 3.4 g/dL (3.0-4.8) 01/02/18 07:00 Globulin 2.7 gm/dL 01/02/18 07:00 Albumin/Globulin Ratio 1.3 (1.1-1.8) 01/02/18 07:00 Venous Blood Potassium 4.6 mmol/L (3.6-5.2) 01/01/18 19:50 - Hospital Course Hospital Course: 87 yr male resident of [facility] w/ history of ESRD (dialysis TTS), dementia, agitation, atherosclerotic disease, PVD, L leg aka, CHF, HTN, hyperlipidemia, asthma, anemia of chronic disease, & DM insulin dependent. Pt sent to [facility] for refusing medications and altered mental status. Recommended to follow hemodialysis schedule as prescribed. Neuro recommended addition of thiamine PO, delirium precautions, and to maintain SBP (120 - 130). Patient will return to [facility]. Reviewed: CXR = WNL, minimal subsegmental atelectasis at R lung base, R tunnneled central venous dialysis catheter CT head = nonspecific white matter changes, L sphenoid retension cyst ECG = ABNORMAL, NSR, L axis deviation, inferior infarct, age undetermined - Date & Time of H&P Date of H&P: 01/03/18 Time of H&P: 09:30 Discharge Exam - Head Exam Head Exam: ATRAUMATIC, NORMAL INSPECTION, NORMOCEPHALIC - Eye Exam Eye Exam: EOMI, Normal appearance, PERRL Pupil Exam: NORMAL ACCOMODATION, PERRL - ENT Exam ENT Exam: Mucous Membranes Dry - Neck Exam Neck exam: Full Rom - Respiratory Exam Respiratory Exam: Clear to PA & Lateral, NORMAL BREATHING PATTERN - Cardiovascular Exam Cardiovascular Exam: +S1, +S2 - GI/Abdominal Exam GI & Abdominal Exam: Normal Bowel Sounds - Extremities Exam Additional comments: L aka - Neurological Exam Neurological exam: Alert, Altered - Psychiatric Exam Psychiatric exam: Normal Affect, Normal Mood - Skin Skin Exam: Dry, Intact, Normal Color, Warm Discharge Plan - Follow Up Plan Condition: FAIR Disposition: NURSING FACILITY MEDICAID CERT Instructions: Heart Failure (DC), Heart Failure (GEN), Pacemaker (DC), Pacemaker (GEN), Pulmonary Edema (DC), Pulmonary Edema (GEN), Renal Failure Diet (DC), Ascites (DC), Ascites (GEN), Altered Mental Status (GEN) Additional Instructions: FOLLOW SUB ACUTE REHAB INSTRUCTIONS AND TREATMENT Referrals: Senia Thomas MD [Primary Care Provider] - <Senia Thomas - Last Filed: 01/03/18 23:18> Provider - Provider Date of Admission: 01/01/18 23:11 Attending physician: Senia Thomas MD Primary care physician: Senia Thomas MD Hospital Course - Lab Results Lab Results: Micro Results 01/03/18 10:35 Stool C. difficile Antigen & Toxin A,B (M - Final Most Recent Lab Values WBC 6.1 10^3/ul (4.5-11.0) 01/02/18 07:00 RBC 3.99 10^6/uL (3.5-6.1) 01/02/18 07:00 Hgb 11.1 g/dL (14.0-18.0) L 01/02/18 07:00 Hct 36.0 % (42.0-52.0) L 01/02/18 07:00 MCV 90.2 fl (80.0-105.0) 01/02/18 07:00 MCH 27.8 pg (25.0-35.0) 01/02/18 07:00 MCHC 30.8 g/dl (31.0-37.0) L 01/02/18 07:00 RDW 16.2 % (11.5-14.5) H 01/02/18 07:00 Plt Count 142 10^3/uL (120.0-450.0) 01/02/18 07:00 MPV 9.8 fl (7.0-11.0) 01/02/18 07:00 Gran % 65.8 % (50.0-68.0) 01/02/18 07:00 Lymph % (Auto) 24.9 % (22.0-35.0) 01/02/18 07:00 [place] % (Auto) 5.9 % (1.0-6.0) 01/02/18 07:00 Eos % (Auto) 3.1 % (1.5-5.0) 01/02/18 07:00 Baso % (Auto) 0.3 % (0.0-3.0) 01/02/18 07:00 Gran # 3.99 (1.4-6.5) 01/02/18 07:00 Lymph # (Auto) 1.5 (1.2-3.4) 01/02/18 07:00 [place] # (Auto) 0.4 (0.1-0.6) 01/02/18 07:00 Eos # (Auto) 0.2 (0.0-0.7) 01/02/18 07:00 Baso # (Auto) 0.02 K/mm3 (0.0-2.0) 01/02/18 07:00 ESR 59 mm/hr (0.00-15.0) H 01/01/18 18:25 PT 10.6 SECONDS (9.4-12.5) 01/01/18 18:25 INR 0.93 (0.93-1.08) 01/01/18 18:25 APTT 36.9 Seconds (25.1-36.5) H 01/01/18 18:25 pO2 107 mm/Hg (30-55) H 01/01/18 19:50 VBG pH 7.29 (7.32-7.43) L 01/01/18 19:50 VBG pCO2 59.0 (40-60) 01/01/18 19:50 VBG HCO3 28.4 mmol/l (21-28) H 01/01/18 19:50 VBG Total CO2 30.2 mmol.L (22-28) H 01/01/18 19:50 VBG O2 Sat (Calc) 99.1 % (40-65) H 01/01/18 19:50 VBG Base Excess 0.5 mmol/L (0.0-2.0) 01/01/18 19:50 VBG Potassium 4.6 mmol/L (3.6-5.2) 01/01/18 19:50 Sodium 136.0 mmol/L (132-148) 01/01/18 19:50 Chloride 106.0 mmol/L (98-107) 01/01/18 19:50 Glucose 123 mg/dl (75-110) H 01/01/18 19:50 Lactate 0.7 mmol/L (0.7-2.1) 01/01/18 19:50 FiO2 21.0 % 01/01/18 19:50 Sodium 141 mmol/L (132-148) 01/02/18 07:00 Potassium 4.3 mmol/L (3.6-5.0) 01/02/18 07:00 Chloride 105 mmol/L (98-107) 01/02/18 07:00 Carbon Dioxide 27 mmol/L (21-33) 01/02/18 07:00 Anion Gap 13 (10-20) 01/02/18 07:00 BUN 54 mg/dL (7-21) H 01/02/18 07:00 Creatinine 4.2 mg/dl (0.8-1.5) H 01/02/18 07:00 Est GFR ( Amer) 16 01/02/18 07:00 Est GFR (Non-Af Amer) 14 01/02/18 07:00 POC Glucose (mg/dL) 144 mg/dL (65-110) H 01/03/18 11:25 Random Glucose 74 mg/dL (70-110) 01/02/18 07:00 Calcium 9.7 mg/dL (8.4-10.5) 01/02/18 07:00 Phosphorus 2.9 mg/dL (2.5-4.5) 01/01/18 18:25 Magnesium 2.1 mg/dL (1.7-2.2) 01/01/18 18:25 Total Bilirubin 0.3 mg/dL (0.2-1.3) 01/02/18 07:00 AST 31 U/L (17-59) 01/02/18 07:00 ALT 34 U/L (7-56) 01/02/18 07:00 Alkaline Phosphatase 165 U/L (38-126) H 01/02/18 07:00 Troponin I 0.03 ng/mL D 01/01/18 18:25 NT-Pro-B Natriuret Pep 1430 pg/mL (0-450) H 01/01/18 18:25 Total Protein 6.1 g/dL (5.8-8.3) 01/02/18 07:00 Albumin 3.4 g/dL (3.0-4.8) 01/02/18 07:00 Globulin 2.7 gm/dL 01/02/18 07:00 Albumin/Globulin Ratio 1.3 (1.1-1.8) 01/02/18 07:00 Venous Blood Potassium 4.6 mmol/L (3.6-5.2) 01/01/18 19:50 - Hospital Course Hospital Course: pt is seen and examined at bed side , agreed all above , cont. same treatment , will f/u
--- NOTE | 2018-01-06 08:23 | PN ---
DATE: 01/03/2018 SUBJECTIVE: This 87-year-old male remains hospitalized on the cardiac unit. He denied any fever, chills, chest pain or shortness of breath and remains chronically confused, but is cooperating with diet, medication administration by nursing staff. There have been no reports of seizure, fever or cardiac arrhythmia and he remains in a normal sinus rhythm on the athletic monitor. PHYSICAL EXAMINATION: VITAL SIGNS: His temperature is 97.8, respirations 18, pulse 66, blood pressure 154/57, pulse ox 97% room air. HEENT: Head is normocephalic, atraumatic. Eyes: No icterus. Ears: Clear. Throat: Noninjected. NECK: Supple. HEART: Regular S1, S2. LUNGS: Clear. ABDOMEN: Soft. EXTREMITIES: No edema. SKIN: Without rash. NEUROLOGICAL: He is able to move all 4 extremities. VASCULAR: He has a left [id number] amputation, chronic. PSYCHOLOGICAL: Chronic Alzheimer's dementia. LABORATORY DATA: White count 6100, hemoglobin 11.1, hematocrit 36.0, platelets 142,000. PT/INR 0.93. Sodium 141, K 4.3, chloride 105, bicarb 27, BUN 54, creatinine 4.2, random blood sugar is 144. Bilirubin 0.3, AST 31, ALT 34 and alk phos 165. IMPRESSION: An 87-year-old male with chronic Alzheimer's dementia, history of agitation, history of anxiety neurosis and comorbidities of end-stage renal disease, hemodialysis dependent, asthma, chronic obstructive pulmonary disease, anemia of chronic disease, degenerative arthritis, insulin-dependent diabetes mellitus, hyperlipidemia, stable atherosclerotic heart disease, chronic hypertension, hyperphosphatemia and history of noncompliance with diet and medication in his past. PLAN: The plan as discussed with the patient, nursing, nurse practitioner, case management and Dr. Thomas, the primary care physician will be to return this patient to the [facility] for his nursing home care. Maintaining the patient on medications including Zestril, thiamine, Pulmicort inhalational therapy, Protonix, PhosLo, Norvasc and Namenda, multivitamin, Lopressor, Lipitor, insulins, folic acid, Flonase, Flomax, dual nebulizer, Brovana, Ativan and aspirin. He is scheduled for follow-up dialysis Saturday at the [facility] renal dialysis unit. I reviewed his microbiology reports and stool for C. Diff antigen and toxin were negative as well as blood cultures x2 showed no growth. The patient will continue to be monitored closely as an outpatient and overall prognosis though poor remains stable at present. Greater than 35 minutes was spent in the care, management, review of x-rays, labs, medication and discussion of discharge planning with case management today, dialysis nursing and shelter. All questions were answered. Dee Minor MD CHELSEA
== END 2018-01-03 18:49 ==
LOC: ED 15:37 → ERH 23:11 → 3RNO 01-02 00:45
PROVIDERS: ADMIT Internal Medicine; ATTEND Internal Medicine
DX: F05 Delirium due to known physiological condition (principal); F02.80 Dementia in other diseases classified elsewhere, unspecified severity, without behavioral disturbance, psychotic disturbance, mood disturbance, and anxiety; D63.8 Anemia in other chronic diseases classified elsewhere; E11.22 Type 2 diabetes mellitus with diabetic chronic kidney disease; E11.51 Type 2 diabetes mellitus with diabetic peripheral angiopathy without gangrene; E78.00 Pure hypercholesterolemia, unspecified; E78.5 Hyperlipidemia, unspecified; F41.1 Generalized anxiety disorder; G30.9 Alzheimer's disease, unspecified; G93.41 Metabolic encephalopathy; I13.2 Hypertensive heart and chronic kidney disease with heart failure and with stage 5 chronic kidney disease, or end stage renal disease; I25.10 Atherosclerotic heart disease of native coronary artery without angina pectoris; I50.9 Heart failure, unspecified; J44.9 Chronic obstructive pulmonary disease, unspecified; K21.9 Gastro-esophageal reflux disease without esophagitis; N18.6 End stage renal disease; N40.0 Benign prostatic hyperplasia without lower urinary tract symptoms; Z79.4 Long term (current) use of insulin; Z79.82 Long term (current) use of aspirin; Z79.899 Other long term (current) drug therapy; Z87.01 Personal history of pneumonia (recurrent); Z87.11 Personal history of peptic ulcer disease; Z87.442 Personal history of urinary calculi; Z87.891 Personal history of nicotine dependence; Z89.512 Acquired absence of left leg below knee; Z89.612 Acquired absence of left leg above knee; Z91.11 Patient's noncompliance with dietary regimen; Z91.14 Patient's other noncompliance with medication regimen; Z91.15 Patient's noncompliance with renal dialysis; Z91.19 Patient's noncompliance with other medical treatment and regimen; Z99.2 Dependence on renal dialysis; R32 Unspecified urinary incontinence
CPT/HCPCS: 36415; 70450; 71045; 80053; 82803; 82948; 83735; 83880; 84100; 84484; 85025; 85610; 85651; 85730; 87040; 87324; 93005; 94640; 99285; G0378; J2060

== ENCOUNTER 2018-03-04 17:51 | Observation (INO) | payer MEDICARE, MEDICAID ==
[2018-03-04] MEDS ORDERED: Sodium Chloride 0.9% 250 ML IV STA (18:04)
--- NOTE | 2018-03-04 18:08 | ED PDOC ---
Arrival/HPI - General Chief Complaint: Shortness Of Breath Time Seen by Provider: 03/04/18 17:55 Historian: EMS, Other (Dr Bello) EM Caveat: Altered Mental Status, Dementia, Other (confusion) - History of Present Illness Narrative History of Present Illness (Text): 03/04/18 18:05 Pt p/w + low bp while at dialysis today/this afternoon, just prior to ED arrival ; pt only went thru ~ 2hours of dialysis prior to ED arrival; BP was as low as 60s over palp; pt is noted to be confused; + active SOB is noted; pt was noted to be sob prior to dialysis; per Dr Bello, pt had missed 3 dialysis episodes as well; pt is unable to provide a reason why he missed dialysis; pt states + sob, no chest pain, no abd pain, no appetite, no vomiting, ? nausea, no fall/trauma/ sick contact, no travel; NO fever/chills/sweats noted pt is here for further eval pt's without other complaints ESRD: T/THR/Sat PCP: Dr Soto/Cayla nephrology: Dr Bello Time/Duration: Prior to Arrival Symptom Onset: Sudden Symptom Course: Improving Severity Level: Severe Activities at Onset: Rest Context: Other (at dialysis unit) Past Medical History - Provider Review Nursing Documentation Reviewed: Yes - Travel History Have you recently traveled outside [place] w/in the past 3 mons?: No - Past History Past History: No Previous - Infectious Disease Hx of Infectious Diseases: None - Tetanus Immunization Tetanus Immunization: Unknown - Cardiac Hx Cardiac Disorders: Yes (CAD) Hx Hypertension: Yes Hx Peripheral Vascular Disease: Yes - Pulmonary Hx Respiratory Disorders: Yes (H/O SMOKING CIGARETTES) Other/Comment: continuous O2 - Neurological Hx Neurological Disorder: Yes Hx Dementia: Yes - HEENT Hx HEENT Disorder: Yes Hx Cataracts: Yes - Renal Hx Renal Disorder: Yes Hx Renal Failure: Yes - Endocrine/Metabolic Hx Endocrine Disorders: Yes Hx Diabetes Mellitus Type 2: Yes - Hematological/Oncological Hx Blood Disorders: No - Integumentary Hx Dermatological Disorder: Yes - Musculoskeletal/Rheumatological Hx Musculoskeletal Disorders: Yes (L AKA) - Gastrointestinal Hx Gastrointestinal Disorders: No - Genitourinary/Gynecological Hx Genitourinary Disorders: Yes Hx Prostate Problems: Yes - Psychiatric Hx Psychophysiologic Disorder: No Hx Substance Use: No (UNKNOWN) - Surgical History Hx Orthopedic Surgery: Yes (Left AKA) - Anesthesia Hx Anesthesia: Yes Family/Social History - Physician Review Nursing Documentation Reviewed: Yes Family/Social History: No Known Family HX Smoking Status: Former Smoker Hx Alcohol Use: No (UNKNOWN) Hx Substance Use: No (UNKNOWN) Hx Substance Use Treatment: No Allergies/Home Meds Allergies/Adverse Reactions: Allergies No Known Allergies Allergy (Verified 01/01/18 16:59) Home Medications: Home Meds Medication Instructions Recorded Confirmed Enalapril Maleate [Vasotec] 20 mg PO BID 07/01/17 03/04/18 Insulin Human NPH [Humulin N] 10 units SC ACD 07/01/17 03/04/18 Insulin Human NPH [Humulin N] 20 units SC ACB 07/01/17 03/04/18 Lamotrigine 25 mg PO BID 07/01/17 03/04/18 Fluticasone/Salmeterol 500/50 1 puff IH BID 08/12/17 03/04/18 [Advair Diskus 500/50] amLODIPine [Norvasc] 10 mg PO DAILY 11/25/17 03/04/18 M-Vit,Tx,Iron,Mins/Calc/Folic 1 tab PO DAILY 03/04/18 03/04/18 [Thera-M Caplet] Review of Systems - Review of Systems Constitutional: Fatigue Eyes: Normal ENT: Normal Respiratory: SOB Cardiovascular: Normal Gastrointestinal: Normal Genitourinary Male: Normal Musculoskeletal: Normal Skin: Normal Neurological: Other (confusion) Endocrine: Normal Hemo/Lymphatic: Normal Psychiatric: Normal Physical Exam Vital Signs Reviewed: Yes Vital Signs Temp Pulse Resp BP Pulse Ox 03/04/18 19:15 112 H 24 146/72 99 03/04/18 18:33 159/88 H 03/04/18 18:00 20 03/04/18 17:51 98.1 F 104 H 22 160/86 H 100 Temperature: Afebrile Blood Pressure: Hypertensive Pulse: Tachycardic Respiratory Rate: Normal Appearance: Positive for: Uncomfortable, Other (alert/awake, resting in bed, oriented x 1 (not to place/time/date); + resp distress noted, uncomfortable, cooperative) Pain Distress: None Mental Status: Positive for: Confused - Systems Exam Head: Present: Atraumatic, Normocephalic, Other (mild bi-temporal wasting) Pupils: Present: PERRL, Other (no nystagmus) Extroacular Muscles: Present: EOMI Conjunctiva: Present: Normal Ears: Present: Normal Mouth: Present: Dry, Other (fair dentitions, no drooling/stridor, no exudate/ lesions, uvula/tongue are midline, no dsyphonia) Pharnyx: Present: Normal Nose (External): Present: Atraumatic Nose (Internal): Present: Normal Inspection Neck: Present: Normal Range of Motion, Trachea Midline, Other (no nuchal rigidity, no meningeal signs, no midline tenderness, slight JVD noted b/l). No : Meningeal Signs, MIDLINE TENDERNESS Respiratory/Chest: Present: Respiratory Distress (mild), Other (+ rales mildly b /l lung cortez, no asymmetric lung sounds noted; + basiliar wheezing noted, no rhonchi; + tachypenia). No: Clear to Auscultation Cardiovascular: Present: Normal S1, S2, Tachycardic. No: Murmurs Abdomen: Present: Normal Bowel Sounds, Other (well nourished male, no focal tenderness, no dill's sign, no mcburney's point tenderness, no masses/rebound/ guarding/rigidity) Back: Present: Normal Inspection. No: CVA Tenderness, Midline Tenderness Upper Extremity: Present: Normal Inspection, Normal ROM, NORMAL PULSES, Neurovascularly Intact. No: Deformity Lower Extremity: Present: Other (+ left AKA; no gross lower ext edema noted, no norris's sign, strength 5/5 right lower ext) Neurological: Present: GCS=15 Skin: Present: Warm, Dry, Other (cap refill ~ 1sec, no ulcerations, no petechiae , mild pallor noted, no rashes noted). No: Normal Color Psychiatric: Present: Alert Medical Decision Making ED Course and Treatment: 03/04/18 18:00 Impression: acute sob/low bp during dialysis; pt with SOB prior to dialysis i have consider all the differential diagnosis regarding pt's chief medical complaints/clinical findings, including but are not limited to: SOB, ESRD on dialysis, low bp A/P: low bp, esrd on dialysis, sob - labs - iv - xray - ct - treatment - observe - supportive care 03/04/18 18:17 i attempt to reach pt's next of Kin, jude Grey without any success, will continue to try 03/04/18 19:[address] Thomas, made aware, would like to admit patient, will see patient in the morning, to consult Dr Minor; likely another dialysis tomorrow Re-evaluation Time: 19:41 Reassessment Condition: Improving,but remains with symptoms - Critical Care Critical Care Minutes: 30 minutes Critical Care Time: Excluding Proc Time Narrative Critical Care (Text): 03/04/18 19:43 critical care time: 30min, excluding procedure time, excluding time teaching residents/students/mid-level providers; including initial eval/diagnosis, diagnostic interpretation, re-eval, consultations, final disposition - Lab Interpretations Lab Results: 03/04/18 18:50 03/04/18 18:50 Lab Results 03/04/18 18:50: TSH 3rd Generation 2.94 03/04/18 18:50: Ammonia < 9 L 03/04/18 18:50: Sodium 142, Potassium 4.8, Chloride 102, Carbon Dioxide 29, Anion Gap 16, BUN 67 H, Creatinine 3.4 H, Est GFR ( Amer) 21, Est GFR ( Non-Af Amer) 17, Random Glucose 140 H, Calcium 10.3, Phosphorus 3.3, Magnesium 2.0, Total Bilirubin 0.5, AST 30, ALT 28, Alkaline Phosphatase 182 H, Lactate Dehydrogenase 593, Total Creatine Kinase 116, Troponin I 0.05 D, Total Protein 8.1, Albumin 4.5, Globulin 3.6, Albumin/Globulin Ratio 1.2 03/04/18 18:50: PT 11.5, INR 1.01, APTT 36.9 H 03/04/18 18:50: WBC 13.0 H D, RBC 4.83, Hgb 14.2 D, Hct 43.1, MCV 89.2, MCH 29.4, MCHC 32.9, RDW 16.4 H, Plt Count 147, MPV 11.0, Gran % 82.4 H, Lymph % ( Auto) 9.7 L, [place] % (Auto) 7.1 H, Eos % (Auto) 0.6 L, Baso % (Auto) 0.2, Gran # 10.70 H, Lymph # (Auto) 1.3, [place] # (Auto) 0.9 H, Eos # (Auto) 0.1, Baso # (Auto ) 0.02 I have reviewed the lab results: Yes Interpretation: Abnormal lab values (abnl BUN/creat (chronic)) - RAD Interpretation Narrative RAD Interpretations (Text): Report Date : 03/04/2018 18:49:48 Procedure: Chest xray Dictator : Nirmal Armenta MD IMPRESSION: No active disease. No significant interval change compared to the prior examination(s). Report Date : 03/04/2018 20:04:00 EXAM: CT Head Without Intravenous Contrast Dictator : Sylvain Gomez MD IMPRESSION: 1. No definite intracranial hemorrhage. 2. Nonspecific white matter changes. 3. Incidental/non-acute findings are described above. Radiology Orders: 03/04/18 18:02 CHEST PORTABLE [RAD] Stat 03/04/18 18:09 HEAD W/O CONTRAST [CT] Stat Insurance Counsel: ED Physician, Radiologist - EKG Interpretation EKG Interpretation (Text): 03/04/18 18:11 Sinus tach at 105 bpm, LAD, no ectopy, poor baseline, qs in leads II/III/F, inverted T in leads L, non-specific st-t changes, ABNL EKG; unchanged compare with old ekg 12/2017 Interpreted by ED Physician: Yes Type: 12 lead EKG Comparison: Similar to previous EKG - Medication Orders Current Medication Orders: Discontinued Medications Albuterol/Ipratropium (Duoneb 3 Mg/0.5 Mg (3 Ml) Ud) 3 ml IH Q15M FANNY Stop: 03/04/18 18:46 Last Admin: 03/04/18 18:36 Dose: 3 ml Furosemide (Lasix) 20 mg IVP STAT STA Stop: 03/04/18 18:04 Last Admin: 03/04/18 18:33 Dose: 20 mg MAR Blood Pressure Document 03/04/18 18:33 FABIAN (Rec: 03/04/18 18:35 FABIAN HINOJOSA) Blood Pressure Blood Pressure (100/60-150/90) 159/88 IVP Administration Document 03/04/18 18:33 FABIAN (Rec: 03/04/18 18:35 FABIAN MULLER-PC) Charges for Administration # of IVP Administrations 1 Pneumococcal Polyvalent Vaccine (Pneumovax 23 Vaccine) 0.5 ml IM .ONCE ONE Stop: 03/04/18 21:41 Disposition/Present on Arrival - Present on Arrival Any Indicators Present on Arrival: No History of DVT/PE: No History of Uncontrolled Diabetes: No Urinary Catheter: No History of Decub. Ulcer: No History Surgical Site Infection Following: None - Disposition Have Diagnosis and Disposition been Completed?: Yes Diagnosis: Acute on chronic systolic CHF (congestive heart failure), Dyspnea, unspecified , ESRD (end stage renal disease) on dialysis, Transient hypotension Disposition: HOSPITALIZED Disposition Time: 19:43 Patient Plan: Admission Patient Problems: Current Active Problems Problem Status Onset Dyspnea, unspecified Acute ESRD (end stage renal disease) on dialysis Acute Acute on chronic systolic CHF (congestive heart failure) Acute Condition: STABLE
[2018-03-04] MEDS: Albuterol-Ipratrop 3 mg / 0.5 (3 ml) UD IH SCH ×3 (18:15→18:36)
--- NOTE | 2018-03-04 18:51 | RAD ---
HISTORY: SOB after dialysis, became low bp COMPARISON: 01/01/2018 FINDINGS: LUNGS: No active pulmonary disease. PLEURA: No significant pleural effusion identified, no pneumothorax apparent. CARDIOVASCULAR: No radiographic findings to suggest acute or significant cardiovascular disease. Venous access catheter in stable, satisfactory position. OSSEOUS STRUCTURES: No significant abnormalities. VISUALIZED UPPER ABDOMEN: Normal. OTHER FINDINGS: None. IMPRESSION: No active disease. No significant interval change compared to the prior examination(s).
[2018-03-04 18:55] LABS: BASO # 0.02 K/mm3 (0.0-2.0); BASO % 0.2 % (0.0-3.0); EOS # 0.1 (0.0-0.7); EOS % 0.6 % (1.5-5.0); GRAN # 10.7 (1.4-6.5); GRAN % 82.4 % (50.0-68.0); HEMOGLOBIN 14.2 g/dL (14.0-18.0); LYMPH # 1.3 (1.2-3.4); LYMPH % 9.7 % (22.0-35.0); MEAN CELL VOLUME 89.2 fl (80.0-105.0); MEAN CORPUSCULAR HEMOGLOBIN 29.4 pg (25.0-35.0); MEAN CORPUSCULAR HGB CONC 32.9 g/dl (31.0-37.0); MONO # 0.9 (0.1-0.6); MONO % 7.1 % (1.0-6.0); RBC 4.83 10^6/uL (3.5-6.1); RED CELL DISTRIBUTION WIDTH 16.4 % (11.5-14.5)
[2018-03-04 19:07] LABS: ALB/GLOB RATIO 1.2 (1.1-1.8); ALBUMIN 4.5 g/dL (3.0-4.8); CALCIUM 10.3 mg/dL (8.4-10.5)
[2018-03-04 19:08] LABS: PROTHROMBIN TIME 11.5 SECONDS (9.4-12.5)
[2018-03-04 19:09] LABS: INR 1.01 (0.93-1.08); PARTIAL THROMBOPLASTIN TIME 36.9 Seconds (25.1-36.5)
--- NOTE | 2018-03-04 19:10 | CARD ---
APPROVED REPORT EKG Measurement Heart [id number] <Conclusion> Sinus tachycardia Left axis deviation Inferior infarct, age undetermined Abnormal ECG
[2018-03-04 19:18] LABS: TROPONIN I 0.05 ng/mL
--- NOTE | 2018-03-04 20:04 | CT ---
EXAM: CT Head Without Intravenous Contrast CLINICAL HISTORY: 87 years old, male; Injury or trauma; Fall; Initial encounter; Blunt trauma (contusions or hematomas); Consciousness not specified; Additional info: Fell off chair, posterior scalp swelling, no loc TECHNIQUE: Axial computed tomography images of the head/brain without intravenous contrast. All CT scans at this facility use one or more dose reduction techniques, viz.: automated exposure control; ma/kV adjustment per patient size (including targeted exams where dose is matched to indication; i.e. head); or iterative reconstruction technique. Coronal and sagittal reformatted images were created and reviewed. COMPARISON: CT - HEAD W/O CONTRAST 2018-01-01 20:18 FINDINGS: Limitations: Motion artifact - mild to moderate. Brain: Moderate atrophy. No definite intracranial hemorrhage. No mass. Extensive decreased attenuation within periventricular/subcortical white matter. No definite edema. Ventricles: No hydrocephalus. Bones/joints: No definite fracture. Soft tissues: Unremarkable. Vasculature: Atherosclerotic disease of intracranial arteries. Sinuses: Mild focal mucosal thickening+/- fluid of LEFT sphenoid sinus. Scattered minimal mucosal thickening of remaining sinuses. Mastoid air cells: No mastoid effusion. Orbits: Unremarkable as visualized. IMPRESSION: 1. No definite intracranial hemorrhage. 2. Nonspecific white matter changes. 3. Incidental/non-acute findings are described above.
[2018-03-04] MEDS ORDERED: Pneumococcal 23-Valent Vaccine IM ONE (21:40)
[2018-03-05 06:55] LABS: BLOOD UREA NITROGEN 79 mg/dL (7-21); CALCIUM 9.7 mg/dL (8.4-10.5); GFR AFRICAN-AMERICAN 14; GFR NON-AFRICAN AMERICAN 11; HDL CHOLESTEROL 50 mg/dL (29-60); IRON 34 ug/dL (45-180)
[2018-03-05 07:01] LABS: HEMOGLOBIN 12.9 g/dL (14.0-18.0); MEAN CELL VOLUME 89.3 fl (80.0-105.0); MEAN CORPUSCULAR HEMOGLOBIN 28.7 pg (25.0-35.0); MEAN CORPUSCULAR HGB CONC 32.1 g/dl (31.0-37.0); MEAN PLATELET VOLUME 10.6 fl (7.0-11.0); RBC 4.5 10^6/uL (3.5-6.1); RED CELL DISTRIBUTION WIDTH 16.9 % (11.5-14.5); WHITE BLOOD COUNT 8.3 10^3/ul (4.5-11.0)
[2018-03-05 07:03] LABS: % IRON SATURATION 13 % (20-55); TOTAL IRON BINDING CAPACITY 257 ug/dL (261-462)
[2018-03-05 07:09] LABS: LDL CHOLESTEROL < 30 mg/dL (0-129)
[2018-03-05] MEDS ORDERED: Insulin Human NPH 1 UNITS/0.01 ML SC SCH ×2 (07:30→16:30)
[2018-03-05] MEDS ORDERED: Budesonide 0.5 mg/2 ml Inhal Susp UD IH SCH (08:00)
[2018-03-05] MEDS ORDERED: Arformoterol 15 mcg/2 ml Inh Sol IH SCH (08:00)
[2018-03-05] MEDS: Insulin Reg-LOW-Coverage SC SCH ×3 (08:06→17:29)
[2018-03-05] MEDS ORDERED: Fluticasone Nasal 50 mcg/Spray NS SCH (10:00)
[2018-03-05] MEDS ORDERED: Fluticasone-Salmeterol 500-50mcg Diskus IH SCH (10:00)
[2018-03-05 12:56] LABS: FOLATE > 20.0 ng/mL
--- NOTE | 2018-03-05 13:02 | PN ---
DATE: 03/05/2018 SUBJECTIVE: This 87-year-old male was examined on the [facility] and this case was reviewed in detail with himself and his nurse, Sirisha Leblanc and nurse practitioner, Ni Fernandez. The patient was admitted with hypotension and tachycardia while on dialysis yesterday and thus far today, remains in a normal sinus rhythm on the director of cardiac rehabilitation and he denies any fever, chills, chest pain or shortness of breath. PHYSICAL EXAMINATION VITAL SIGNS: At present, temperature is 98.1, respirations 20, pulse 84 and blood pressure 128/53. Pulse ox is 93% on room air. HEENT: Head normocephalic, atraumatic. Eyes, no icterus. Ears, clear. Throat, noninjected. NECK: Supple. HEART: S1, S2. LUNGS: Clear. ABDOMEN: Soft. EXTREMITIES: Left zwjue-lpw-yffw amputation, right lower extremity without edema, no cyanosis. SKIN: Without rash. NEUROLOGICAL: Unchanged. PSYCHOLOGICAL: Chronic dementia. VASCULAR: Legs, warm to touch. SKIN: Without rash. DATA: White count 8300, hemoglobin 12.9, hematocrit 40.2, platelets 187,000. Sodium 145, potassium 5.2, chloride 105, bicarbonate 29, BUN 79, creatinine 4.9, random blood sugar 125. Calcium 9.7. Iron 34, TIBC 257, percent saturation 13%. Cholesterol 113, triglycerides 88, LDL less than 30, HDL 50. TSH normal at 3.21. Chest x-ray was reviewed, no active infiltrate, no pleural effusion, no pneumothorax. EKG showed a sinus tachycardia with nonspecific ST-T wave changes, but no acute changes and his head CT was reviewed and showed no evidence of acute infarct or intracranial hemorrhage. IMPRESSION: This is an 87-year-old male admitted with tachycardia and a history of zttxu-py-[id number] systolic congestive heart failure, atherosclerotic heart disease, chronic obstructive pulmonary disease, benign prostate hypertrophy, chronic renal failure, hemodialysis dependent, anemia of chronic disease, iron-deficiency anemia, insulin-dependent diabetes mellitus, organic brain syndrome, peripheral vascular disease with left oefru-qdt-qyvu amputation and seizure syndrome. PLAN: As discussed with nursing, will be to continue renal diabetic diet, fluid restriction of 1000 mL daily while continuing Pulmicort inhalational therapy every 12 hours, Lamictal 25 mg p.o. b.i.d., Regular low-dose insulin protocol a.c. meals and at bedtime, folic acid 1 mg daily, Flomax 0.4 mg p.o. daily, Brovana inhalational therapy every 12 hours, and Ecotrin 81 mg p.o. daily. The patient will have a repeat basic metabolic panel in the morning. His folic acid, B12, hemoglobin A1c and lipid panel remains pending from this morning. He is scheduled for hemodialysis in the a.m. and should have an endoscopy and colonoscopy arranged by his primary care physician, Dr. Thomas as an outpatient when medically stable. I have discussed his dialysis prescription for the morning with nurse, Lizette Coulter, registered nurse from dialysis in detail. Based on his clinical progress, additional workup or testing will be entertained. It should be noted that the patient has been seen in consultation by Dr. Menezes from Cardiology who at present has no further workup ordered for him at this time. All of the above was discussed in detail with the patient and Dialysis Nursing. All questions were answered. Dee Minor MD [facility]
--- NOTE | 2018-03-05 15:05 | CP.PCM.HP ---
<Veena Castillo - Last Filed: 03/05/18 15:02> History of Present Illness - History of Present Illness History of Present Illness: Chief Complaint: hypotension, bradycardia, advanced dementia 87 yr male resident of [facility] w/ history of ESRD (dialysis T-Th-S), dementia, agitation, atherosclerotic disease, PVD, L leg aka, CHF, HTN, hyperlipidemia, asthma, anemia of chronic disease, & DM insulin dependent. Patient was recommended to follow hemodialysis schedule as prescribed but he decided to refuse despite being educated about risks while in Custodial. Pt sent to [facility] [place] from Hemodialysis for SOB, hypotension, bradycardia , and altered mental status. No distress noted. Pt has O2 via nasal cannula applied. Pt is a poor historian. Present on Admission - Present on Admission Any Indicators Present on Admission: Yes History of DVT/PE: No History of Uncontrolled Diabetes: No Urinary Catheter: No Decubitus Ulcer Present: No Review of Systems - Review of Systems Systems not reviewed;Unavailable: Acuity of Condition - Constitutional Constitutional: As Per HPI - EENT Eyes: As Per HPI Ears: As Per HPI Nose/Mouth/Throat: As Per HPI - Cardiovascular Cardiovascular: As Per HPI - Respiratory Respiratory: As Per HPI - Gastrointestinal Gastrointestinal: As Per HPI - Genitourinary Genitourinary: As Per HPI - Reproductive: Male Reproductive:Male: As Per HPI - Musculoskeletal Musculoskeletal: As Per HPI - Integumentary Integumentary: As Per HPI - Neurological Neurological: As Per HPI - Psychiatric Psychiatric: As Per HPI - Endocrine Endocrine: As Per HPI - Hematologic/Lymphatic Hematologic: As Per HPI Past Patient History - Infectious Disease Hx of Infectious Diseases: None - Tetanus Immunizations Tetanus Immunization: Unknown - Past Medical History & Family History Past Medical History?: Yes - Past Social History Smoking Status: Former Smoker - CARDIAC Hx Cardiac Disorders: Yes (CAD) Hx Hypertension: Yes Hx Peripheral Vascular Disease: Yes - PULMONARY Hx Respiratory Disorders: Yes (H/O SMOKING CIGARETTES) Other/Comment: continuous O2 - NEUROLOGICAL Hx Neurological Disorder: Yes Hx Dementia: Yes - HEENT Hx HEENT Problems: Yes Hx Cataracts: Yes - RENAL Hx Chronic Kidney Disease: Yes Hx Renal Failure: Yes - ENDOCRINE/METABOLIC Hx Endocrine Disorders: Yes Hx Diabetes Mellitus Type 2: Yes - HEMATOLOGICAL/ONCOLOGICAL Hx Blood Disorders: No - INTEGUMENTARY Hx Dermatological Problems: Yes - MUSCULOSKELETAL/RHEUMATOLOGICAL Hx Musculoskeletal Disorders: Yes (L AKA) - GASTROINTESTINAL Hx Gastrointestinal Disorders: No - GENITOURINARY/GYNECOLOGICAL Hx Genitourinary Disorders: Yes Hx Prostate Problems: Yes - PSYCHIATRIC Hx Psychophysiologic Disorder: No Hx Substance Use: No (UNKNOWN) - SURGICAL HISTORY Hx Orthopedic Surgery: Yes (Left AKA) - ANESTHESIA Hx Anesthesia: Yes Meds Allergies/Adverse Reactions: Allergies Allergy/AdvReac Type Severity Reaction Status Date / Time No Known Allergies Allergy Verified 01/01/18 16:59 Physical Exam - Constitutional Appears: No Acute Distress, Chronically Ill - Head Exam Head Exam: ATRAUMATIC, NORMAL INSPECTION, NORMOCEPHALIC - Eye Exam Eye Exam: EOMI, Normal appearance, PERRL Pupil Exam: NORMAL ACCOMODATION, PERRL - ENT Exam ENT Exam: Mucous Membranes Moist, Normal Exam - Neck Exam Neck exam: Positive for: Normal Inspection - Respiratory Exam Respiratory Exam: Clear to Auscultation Bilateral, NORMAL BREATHING PATTERN Additional comments: nasal cannula O2 in place - Cardiovascular Exam Cardiovascular Exam: +S1, +S2 Additional comments: RIJ permacatheter C/D/I - GI/Abdominal Exam GI & Abdominal Exam: Normal Bowel Sounds - Extremities Exam Additional comments: L AKA - Back Exam Back exam: NORMAL INSPECTION - Neurological Exam Neurological exam: Alert, Altered - Psychiatric Exam Psychiatric exam: Normal Affect, Normal Mood - Skin Skin Exam: Dry, Intact, Normal Color, Warm Results - Vital Signs Recent Vital Signs: Last Vital Signs Temp 98.1 F 03/05/18 08:11 Pulse 84 03/05/18 08:11 Resp 20 03/05/18 08:11 BP 128/53 L 03/05/18 08:11 Pulse Ox 93 L 03/05/18 08:11 - Labs Result Diagrams: 03/05/18 06:00 03/05/18 06:00 Labs: Laboratory Results - last 24 hr 03/04/18 03/05/18 03/05/18 21:36 06:00 06:00 WBC RBC Hgb Hct MCV MCH MCHC RDW Plt Count MPV Sodium 145 Potassium 5.2 H Chloride 105 Carbon Dioxide 29 Anion Gap 16 BUN 79 H Creatinine 4.9 H Est GFR ( Amer) 14 Est GFR (Non-Af Amer) 11 POC Glucose (mg/dL) 131 H Random Glucose 100 Hemoglobin A1c Calcium 9.7 Iron 34 L TIBC 257 L % Saturation 13 L Triglycerides 88 Cholesterol 113 L LDL Cholesterol Direct < 30 HDL Cholesterol 50 Vitamin B12 684 Folate > 20.0 TSH 3rd Generation 03/05/18 03/05/18 03/05/18 06:00 06:00 06:00 WBC 8.3 D RBC 4.50 Hgb 12.9 L Hct 40.2 L MCV 89.3 MCH 28.7 MCHC 32.1 RDW 16.9 H Plt Count 187 MPV 10.6 Sodium Potassium Chloride Carbon Dioxide Anion Gap BUN Creatinine Est GFR ( Amer) Est GFR (Non-Af Amer) POC Glucose (mg/dL) Random Glucose Hemoglobin A1c 5.7 Calcium Iron TIBC % Saturation Triglycerides Cholesterol LDL Cholesterol Direct HDL Cholesterol Vitamin B12 Folate TSH 3rd Generation 3.21 03/05/18 03/05/18 07:44 11:11 WBC RBC Hgb Hct MCV MCH MCHC RDW Plt Count MPV Sodium Potassium Chloride Carbon Dioxide Anion Gap BUN Creatinine Est GFR ( Amer) Est GFR (Non-Af Amer) POC Glucose (mg/dL) 93 125 H Random Glucose Hemoglobin A1c Calcium Iron TIBC % Saturation Triglycerides Cholesterol LDL Cholesterol Direct HDL Cholesterol Vitamin B12 Folate TSH 3rd Generation Assessment & Plan (1) Acute on chronic systolic CHF (congestive heart failure) Status: Acute (2) Dyspnea, unspecified Status: Acute (3) ESRD (end stage renal disease) on dialysis Status: Acute (4) Transient hypotension Status: Acute (5) Advanced dementia Status: Acute (6) Sinusitis chronic, sphenoidal Status: Acute - Assessment and Plan (Free Text) Plan: PO augmentin & azithromycin for 3 weeks for empiric therapy. Labs ordered. Urine culture: pending. Delirium precautions. Maintain SBP (120 - 130). Patient will return to [facility]. VTE/GI prophlyaxis. PT onboard. Pain management: tylenol Consults: Nephro - Dr. Minor Neuro - Dr. Villalobos Cardio - Dr. Menezes Reviewed: CT head = WNL, nonspecific white matter changes, mild focal mucosal thickening, fluid of L sphenoid sinus CXR = WNL, venous access catheter stable ECG = ABNORMAL, ST, L axis deviation, inferior infarct, age undetermined - Date & Time Date: 03/05/18 Time: 11:30 <Senia Thomas - Last Filed: 03/05/18 22:58> Results - Vital Signs Recent Vital Signs: Last Vital Signs Temp 98.4 F 03/05/18 16:00 Pulse 88 03/05/18 16:00 Resp 24 03/05/18 16:00 BP 122/54 L 03/05/18 16:00 Pulse Ox 97 03/05/18 16:00 - Labs Result Diagrams: 03/05/18 06:00 03/05/18 06:00 Labs: Laboratory Results - last 24 hr 03/05/18 03/05/18 03/05/18 06:00 06:00 06:00 WBC RBC Hgb Hct MCV MCH MCHC RDW Plt Count MPV Sodium 145 Potassium 5.2 H Chloride 105 Carbon Dioxide 29 Anion Gap 16 BUN 79 H Creatinine 4.9 H Est GFR ( Amer) 14 Est GFR (Non-Af Amer) 11 POC Glucose (mg/dL) Random Glucose 100 Hemoglobin A1c 5.7 Calcium 9.7 Iron 34 L TIBC 257 L % Saturation 13 L Triglycerides 88 Cholesterol 113 L LDL Cholesterol Direct < 30 HDL Cholesterol 50 Vitamin B12 684 Folate > 20.0 TSH 3rd Generation 03/05/18 03/05/18 03/05/18 06:00 06:00 07:44 WBC 8.3 D RBC 4.50 Hgb 12.9 L Hct 40.2 L MCV 89.3 MCH 28.7 MCHC 32.1 RDW 16.9 H Plt Count 187 MPV 10.6 Sodium Potassium Chloride Carbon Dioxide Anion Gap BUN Creatinine Est GFR ( Amer) Est GFR (Non-Af Amer) POC Glucose (mg/dL) 93 Random Glucose Hemoglobin A1c Calcium Iron TIBC % Saturation Triglycerides Cholesterol LDL Cholesterol Direct HDL Cholesterol Vitamin B12 Folate TSH 3rd Generation 3.21 03/05/18 03/05/18 11:11 16:10 WBC RBC Hgb Hct MCV MCH MCHC RDW Plt Count MPV Sodium Potassium Chloride Carbon Dioxide Anion Gap BUN Creatinine Est GFR ( Amer) Est GFR (Non-Af Amer) POC Glucose (mg/dL) 125 H 263 H Random Glucose Hemoglobin A1c Calcium Iron TIBC % Saturation Triglycerides Cholesterol LDL Cholesterol Direct HDL Cholesterol Vitamin B12 Folate TSH 3rd Generation Assessment & Plan - Assessment and Plan (Free Text) Plan: 87 yr male resident of [facility] w/ history of ESRD (dialysis T-Th-S), dementia, agitation, atherosclerotic disease, PVD, L leg aka, CHF, HTN, hyperlipidemia, asthma, anemia of chronic disease, & DM insulin dependent. Patient was recommended to follow hemodialysis schedule as prescribed but he decided to refuse despite being educated about risks while in Custodial. Pt sent to [facility] [place] from Hemodialysis for SOB, hypotension, bradycardia , and altered mental status. No distress noted. Pt has O2 via nasal cannula applied. Pt is a poor historian.pt is seen and examined at bed side , looking comfortable , agreed all above , chart , meds and labs noted , dc back to [place] , will fu
--- NOTE | 2018-03-05 16:23 | CON ---
DATE: 03/04/2018 NEPHROLOGY CONSULTATION HISTORY OF PRESENT ILLNESS: This 87-year-old male was examined in the [facility] ER and his case was discussed in detail with the emergency room physician, Dr. Bryan Daniels. The patient was at the [facility] Renal Dialysis Unit earlier this afternoon having missed three dialysis treatments in a row secondary to noncompliance. I was called by the dialysis nursing staff. The patient, mid treatment, became acutely short of breath, hypotensive, and dialysis fluid removal was terminated at that point in time. He was noted to have at the beginning of his treatment a blood pressure of 130/66 with a pulse of 96. Mid treatment, blood pressure dropped to 63/49 with a pulse of 140 which appeared to be consistent with sinus tachycardia. He had his dialysis treatment terminated because of persistent shortness of breath and tachycardia. Post dialysis blood pressure was 135/78 with a pulse of 138. The patient in the emergency room on the desk monitor appears to be in a sinus tachycardia. He is being evaluated for the above. PAST MEDICAL HISTORY: Significant for end-stage renal disease, hemodialysis dependent. He is a [facility] resident at [facility] where he has resided for several years. He also has a history of chronic obstructive pulmonary disease, insulin-dependent diabetes mellitus, chronic hypertension, peptic ulcer disease, GERD, organic brain syndrome, seizure syndrome, chronic hypertension, hyperlipidemia, anemia of chronic disease, peripheral vascular disease, agitation syndrome, and history of left fsueb-ovf-ffnf amputation. MEDICATIONS: His outpatient medications had included multivitamin, Flomax, folic acid, Advair inhaler 500/50, Humulin N and Humulin R insulin, Flonase, Pepcid, Namenda, Lamictal, Vasotec, PhosLo, Norvasc, Lipitor, and Ecotrin. ALLERGIES: THE PATIENT HAS NO KNOWN ALLERGY TO MEDICATIONS. SOCIAL HISTORY: He is a current nondrinker, nonsmoker. He is noncompliant with attendance at hemodialysis and missed three dialysis treatments in the previous week. FAMILY HISTORY: Noncontributory. REVIEW OF SYSTEMS: CONSTITUTIONAL: There were no reports of fever or chills. HEAD: No reports of recent seizure or head trauma. EYE: No change in visual acuity, history of cataracts. EAR: No hearing loss. THROAT: No swallowing difficulty. NECK: No stiffness. CARDIAC: He has stable atherosclerotic heart disease and history of chronic systolic congestive heart failure. No recent chest pain. Now in sinus tachycardia. PULMONARY: Chronic obstructive pulmonary disease. No hemoptysis. GI: No hematemesis. No melena. : He has history of prostate hypertrophy and chronic renal failure, hemodialysis dependent. ENDOCRINE: Hyperlipidemia and insulin-dependent diabetes mellitus. VASCULAR: He is status post left mpfvr-dqp-qwsz amputation. PSYCHOLOGICAL: Chronic agitation syndrome and Alzheimer dementia. SKIN: No rash. No ulcerations. PHYSICAL EXAMINATION: In the [facility] ER; VITAL SIGNS: Showed temperature 98.1, respirations 22, pulse 104, blood pressure 160/86, pulse ox 100% on nasal O2. GENERAL: The patient was short of breath using abdominal wall accessory muscles to assist in breathing. HEENT: Head: Normocephalic, atraumatic. Eyes: No icterus. Ears: Clear. Throat: Noninjected. NECK: Supple. HEART: Rapid S1, S2. LUNGS: Occasional rhonchi. ABDOMEN: Obese. No palpable organomegaly. No rebound, no guarding. EXTREMITIES: Trace edema of right lower extremity. Left eumkh-lgq-tuwv amputation. VASCULAR: Legs warm to touch. PSYCHOLOGICAL: Chronically agitated. NEUROLOGIC: No acute findings. SKIN: No rash. LABORATORY DATA: Sodium 142, K 4.8, chloride 102, bicarb 29. BUN 67, creatinine 3.4. Random blood sugar 140. Phosphorous 3.3. Magnesium 2. Bilirubin 0.5, AST 30, ALT 28, alkaline phosphatase 182. Ammonia level less than 9. CPK 116, troponin 0.05. TSH 2.94 normal. Cholesterol 113, triglycerides 88, LDL less than 30, HDL 50. White count 13,000, hemoglobin 14.2, hematocrit 43.1, and platelets 147,000. PT/INR 1.01, PTT 36.9. Chest x-ray was reviewed. It showed no acute pathology. No active infiltrate, no pneumothorax, no pleural effusion, no obvious congestive heart failure. EKG showed sinus tachycardia with nonspecific ST-T wave changes. Unchanged from previous EKG. Head CT was reviewed. It showed no active stroke, no intracranial hemorrhage and nonspecific white matter changes. IMPRESSION: An 87-year-old male with history of noncompliance with attendance at hemodialysis in the past week, who at hemodialysis today became hypotensive, tachycardic, and had treatment terminated and the patient sent to ER for further evaluation of the above. The plan will be to admit this patient to the cardiac unit where he will have a consultation with Cardiology regarding atherosclerotic heart disease and intolerance of dialysis regime as well as plans for further hemodialysis to be provided. His normal schedule is Saturday, , and Saturday. He will also be given his maintenance medications including Ecotrin, Brovana inhalational therapy, Flomax, folic acid, insulins, Lamictal, Lipitor, and Pulmicort inhalational therapy. He is ordered to have a heart-healthy renal diabetic diet. He will have a repeat basic metabolic panel in the a.m. and serial labs including lipids, hemoglobin A1c, folic acid, and B12. Additional workup will be entertained based on his clinical results and clinical progress. All of the above was discussed in detail with Dr. Daniels from the emergency room. Thank you for this consultation. We will follow with you. Dee Minor MD MTD[place]
[2018-03-05 17:10] VITALS: BP 122/54; PULSE 88; RESP 24; TEMP 98.4; O2SAT 97
--- NOTE | 2018-03-05 21:22 | CON ---
DATE: REASON FOR CONSULTATION: Shortness of breath; decompensated congestive heart failure, acute on chronic secondary to missed dialysis. BRIEF CLINICAL HISTORY: This is an 87-year-old male with a past medical history significant for congestive heart failure, coronary artery disease, peripheral arterial disease, history of amputation of the leg, AKA, history of heavy smoking in the past, history of dialysis started, but the patient did not go for dialysis for 3 to 4, admitted yesterday with a complaint of shortness of breath. Denies any chest pain, denies any palpitation. PAST MEDICAL HISTORY: Significant for coronary artery disease, congestive heart failure, hypertension, peripheral arterial disease, history of amputation of leg, history of heavy tobacco abuse. SOCIAL HISTORY: Ex-heavy tobacco abuse. No history of substance abuse. PAST SURGICAL HISTORY: Significant for AKA, history of dialysis catheter. ALLERGIES: NO KNOWN DRUG ALLERGY. CURRENT MEDICATIONS: The patient supposed to take multivitamin, Flomax, folic acid, insulin, Pepcid, Namenda, enalapril, amlodipine, atorvastatin, aspirin. REVIEW OF SYSTEMS: As per HPI. PREVIOUS CARDIAC WORKUP: The patient had an echocardiography done on 11/26/2017 that showed normal LV function, ejection fraction within normal limit, diastolic dysfunction, mild pulmonary and no mitral regurgitation noted. Trace tricuspid regurgitation dated 11/26/2017. EKG showed sinus tachycardia, left axis deviation, heart rate 102. PHYSICAL EXAMINATION VITAL SIGNS: Temperature afebrile, heart rate 84, blood pressure 120/53. HEENT: PERRLA. Extraocular muscles intact. NECK: Supple. No carotid bruit or thyromegaly. CHEST: Clear to auscultation. HEART: S1, S2, regular. ABDOMEN: Soft. EXTREMITIES: Clubbing and cyanosis negative. LABORATORY DATA: Blood workup as follows: WBC , hemoglobin 12.9, hematocrit 40.2, platelet count 187. Chemistry showed sodium 145, potassium 5.2, chloride 105, carbon dioxide 29, anion gap of 16, BUN 79, creatinine 4.9. IMPRESSION: Acute decompensated congestive heart failure; fluid overload secondary to missed dialysis; history of coronary artery disease; congestive heart failure; history of end-stage renal disease, on dialysis; diabetes; hypertension; hyperlipidemia; peripheral arterial disease; status post left above-knee amputation; history of cataract surgery; history of asthma. RECOMMENDATIONS: Aggressive dialysis. The patient missed the dialysis 3 times during the last week. Resume medication. Last echo the patient had on 11/26/2017 shows normal LV function, trace tricuspid regurgitation, mild mitral regurgitation, mild pulmonary hypertension. Lipid profile, TSH, hemoglobin A1c, close monitor. We will follow with you. Continue baby aspirin, continue Lipitor. We will get the lipid profile, TSH, hemoglobin A1c. His total cholesterol is 113, LDL less than 30. We will hold atorvastatin. Thank you, Dr. Thomas, for providing us the opportunity in taking care of the patient, Sukhdev Grey. Nathalie Menezes MD
[2018-03-06] MEDS ORDERED: Amoxicillin-Clav 500-125 mg Tab PO SCH (10:00)
== END 2018-03-05 19:01 ==
LOC: ED 17:51 → ERH 19:31 → INTOOBSV 19:31 → ERH 20:01 → 3RNO 21:03
PROVIDERS: ADMIT Internal Medicine; ATTEND Internal Medicine
DX: I13.2 Hypertensive heart and chronic kidney disease with heart failure and with stage 5 chronic kidney disease, or end stage renal disease (principal); I50.23 Acute on chronic systolic (congestive) heart failure; N18.6 End stage renal disease; E11.22 Type 2 diabetes mellitus with diabetic chronic kidney disease; D63.8 Anemia in other chronic diseases classified elsewhere; J44.9 Chronic obstructive pulmonary disease, unspecified; Z99.2 Dependence on renal dialysis; I25.10 Atherosclerotic heart disease of native coronary artery without angina pectoris; E78.5 Hyperlipidemia, unspecified; R00.1 Bradycardia, unspecified; E11.51 Type 2 diabetes mellitus with diabetic peripheral angiopathy without gangrene; N40.0 Benign prostatic hyperplasia without lower urinary tract symptoms; Z79.4 Long term (current) use of insulin; F03.90 Unspecified dementia, unspecified severity, without behavioral disturbance, psychotic disturbance, mood disturbance, and anxiety; K21.9 Gastro-esophageal reflux disease without esophagitis; I95.9 Hypotension, unspecified; J32.3 Chronic sphenoidal sinusitis; Z89.612 Acquired absence of left leg above knee; Z91.19 Patient's noncompliance with other medical treatment and regimen; Z91.15 Patient's noncompliance with renal dialysis
CPT/HCPCS: 36415; 70450; 71045; 80048; 80053; 80061; 82140; 82550; 82607; 82746; 82948; 83036; 83540; 83550; 83615; 83735; 84100; 84443; 84484; 85025; 85027; 85610; 85730; 93005; 94640; 96374; 99285; G0378; J1940

== ENCOUNTER 2018-07-17 12:38 | Inpatient (IN) | payer MEDICARE, MEDICAID ==
[2018-07-17] MEDS ORDERED: Albuterol-Ipratrop 3 mg / 0.5 (3 ml) UD IH STA (13:10)
[2018-07-17] MEDS ORDERED: Nitroglycerin 2% Ointment Foilpak UD TOP STA (13:11)
--- NOTE | 2018-07-17 13:14 | RAD ---
Date of service: 07/17/2018 HISTORY: shortness of breathe COMPARISON: 03/04/2018 FINDINGS: LUNGS: No active pulmonary disease. PLEURA: No significant pleural effusion identified, no pneumothorax apparent. CARDIOVASCULAR: Normal. OSSEOUS STRUCTURES: No significant abnormalities. VISUALIZED UPPER ABDOMEN: Normal. OTHER FINDINGS: Right-sided dialysis catheter IMPRESSION: No active disease.
--- NOTE | 2018-07-17 13:32 | ED PDOC ---
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 Holden Pt is an 88 year old male with PMHx CHF, ESRD on HD, dementia, COPD, DM who presents to ED with acute SOB. Patient history very difficult to obtain due to history of dementia. Patient was transferred to [facility] from [facility] in [place] for shortness of breath/abnormal breathing pattern according to [place] [facility] records. Per records, patient had missed two dialysis treatments due to refusal and did not go today because he was found to be acutely short of breath and so was transferred to [facility] ED. It is unclear whether the patient's current mental state represents his baseline status or if patient is acutely altered. 07/17/18 15:26 Dr[address] Holden spoke with Dr. Thomas over the phone, verbally confirming that this is patient's baseline mental status (Emiliano Morris) Past Medical History - Provider Review Nursing Documentation Reviewed: Yes - Past History Past History: No Previous - Infectious Disease Hx of Infectious Diseases: None - Tetanus Immunization Tetanus Immunization: Unknown - Cardiac Hx Cardiac Disorders: Yes (CAD) Hx Hypertension: Yes Hx Peripheral Vascular Disease: Yes - Pulmonary Hx Respiratory Disorders: Yes (H/O SMOKING CIGARETTES) Other/Comment: continuous O2 - Neurological Hx Neurological Disorder: Yes Hx Dementia: Yes - HEENT Hx HEENT Disorder: Yes Hx Cataracts: Yes - Renal Hx Renal Disorder: Yes Hx Renal Failure: Yes - Endocrine/Metabolic Hx Endocrine Disorders: Yes Hx Diabetes Mellitus Type 2: Yes - Hematological/Oncological Hx Blood Disorders: No - Integumentary Hx Dermatological Disorder: Yes - Musculoskeletal/Rheumatological Hx Musculoskeletal Disorders: Yes (Zack LORENZ) - Gastrointestinal Hx Gastrointestinal Disorders: No - Genitourinary/Gynecological Hx Genitourinary Disorders: Yes Hx Prostate Problems: Yes - Psychiatric Hx Psychophysiologic Disorder: No Hx Substance Use: No (UNKNOWN) - Surgical History Hx Orthopedic Surgery: Yes (Left AKA) - Anesthesia Hx Anesthesia: Yes <Emiliano Morris - Last Filed: 07/17/18 15:19> Family/Social History - Physician Review Nursing Documentation Reviewed: Yes Family/Social History: Unknown Family HX Smoking Status: Former Smoker Hx Alcohol Use: No (UNKNOWN) Hx Substance Use: No (UNKNOWN) Hx Substance Use Treatment: No <Emiliano Morris - Last Filed: 07/17/18 15:19> Allergies/Home Meds <Emiliano Morris - Last Filed: 07/17/18 15:19> <Petr Holden - Last Filed: 07/17/18 15:54> Allergies/Adverse Reactions: Allergies No Known Allergies Allergy (Verified 07/17/18 15:04) Home Medications: Home Meds Medication Instructions Recorded Confirmed Enalapril Maleate [Vasotec] 20 mg PO BID 07/01/17 07/17/18 Insulin Human NPH [Humulin N] 10 units SC ACD 07/01/17 07/17/18 Insulin Human NPH [Humulin N] 20 units SC ACB 07/01/17 07/17/18 Lamotrigine 25 mg PO BID 07/01/17 07/17/18 Fluticasone/Salmeterol 500/50 1 puff IH BID 08/12/17 07/17/18 [Advair Diskus 500/50] amLODIPine [Norvasc] 10 mg PO DAILY 11/25/17 07/17/18 M-Vit,Tx,Iron,Mins/Calc/Folic 1 tab PO DAILY 03/04/18 07/17/18 [Thera-M Caplet] Review of Systems - Physician Review All systems were reviewed & negative as marked: Yes - Review of Systems Systems not reviewed;Unavailable: Altered Mental Status Respiratory: SOB, Cough Cardiovascular: Chest Pain (+Chest pain when patient coughs) <Emiliano Morris - Last Filed: 07/17/18 15:19> Physical Exam Vital Signs Reviewed: Yes Temperature: Afebrile Blood Pressure: Hypertensive (185/84) Respiratory Rate: Normal Appearance: Positive for: Ill-Appearing Pain Distress: None Mental Status: Positive for: Confused, other (Oriented only to self) - Systems Exam Head: Present: Atraumatic, Normocephalic Pupils: Present: PERRL Extroacular Muscles: Present: EOMI Conjunctiva: Present: Normal. No: Injected, Icteric Mouth: Present: Moist Mucous Membranes, Normal Lips, Normal Tounge Pharnyx: Present: Normal. No: ERYTHEMA, EXUDATE Nose (External): Present: Atraumatic. No: Abrasion Neck: Present: Normal Range of Motion. No: JVD Respiratory/Chest: Present: Respiratory Distress, Accessory Muscle Use (+ diaphragmatic breathing), Wheezes, Rales (Rales/crackles mid-way up bases of lungs b/l), Tachypneic, Other (+HD port present on R chest wall). No: Retracting Cardiovascular: Present: Regular Rate and Rhythm, Normal S1, S2, Peripheal Pulses Present. No: Murmurs Abdomen: Present: Normal Bowel Sounds. No: Tenderness, Distention, Peritoneal Signs, Guarding Upper Extremity: Present: Normal Inspection, Normal ROM, NORMAL PULSES. No: Cyanosis, Edema, Tenderness, Swelling Lower Extremity: Present: NORMAL PULSES (+Hx PVD- dorsalis pedis palpated on R, L AKA), Other (+L AKA). No: Edema, Cyanosis, Swelling, Erythema Neurological: Present: CN II-XII Intact, Normal Sensory Function. No: GCS=15, Memory Normal Skin: Present: Warm, Dry. No: Rashes, Laceration, Abscess, Abrasion <Emiliano Morris - Last Filed: 07/17/18 15:19> Vital Signs Temp Pulse Resp BP Pulse Ox 07/17/18 15:35 92 H 20 162/88 H 96 07/17/18 14:38 92 H 20 170/88 H 98 07/17/18 13:30 98 H 07/17/18 12:46 20 3 L 07/17/18 12:37 99.2 F 98 H 20 185/84 H 98 Medical Decision Making <Emiliano Morris - Last Filed: 07/17/18 15:19> - Critical Care Critical Care Minutes: 30 minutes <Petr Holden - Last Filed: 07/17/18 15:54> ED Course and Treatment: 07/17/18 13:47 1) Acute Shortness of Breath, in patient with history CHF, ESRD on HD, COPD * Cardiac enzymes, BNP * EKG * CBC w dif, CMP, PT/PTT, VBG, UA, blood cultures * Meds: Duonebs 3mL IH stat, Nitropaste (Nitro 2% topical) stat * Started on BiPAP * Nephro consulted for pt to receive urgent dialysis * ED admit for observation * Continue to reassess clinically and monitor vitals (Emiliano Morris) 07/17/18 13:56 88 yo male, georgian speaking, presents to the ED c/o shortness of breathe. Agree with resident note except that patient is AAOx2 which is his baseline. I discuss this with Dr. Thomas. He has had dialysis before but has been refusing it at the [place] [facility]. He currently consents to dialysis which I spoke to him in detail with. CXR reviewed and noted results. EKG noted BiPAP placed at 10/5 but patient did not want it on him. He was placed on nasal canala with good oxygentation. Labs reviewed by me. Potassium mildly elevated and will be treated with dialysis. Urgent dialysis was set up by VONDA javier. I discussed this with Dr. Minor who will give ordered. I discussed this with Dr. Thomas who agrees to dialysis and then to placed on her service. She is requesting for Dr. Gibson on consult. 07/17/18 15:53 NSR at [address] elevations, nl intervals (Petr Holden) - Lab Interpretations Narrative Lab Interpretation (Text): 07/17/18 14:26 WBC 11.7 BNP 48937 BUN 137, Cr 6.7 K 5.4 (Emiliano Morris) Lab Results: 07/17/18 13:30 07/17/18 13:30 Lab Results 07/17/18 13:30: Sodium 142, Chloride 105, Potassium 5.4 H, Carbon Dioxide 23, Anion Gap 20, BUN 137 H*, Creatinine 6.7 H, Est GFR ( Amer) 10, Est GFR ( Non-Af Amer) 8, Random Glucose 153 H, Calcium 9.7, Magnesium 2.0, Total Bilirubin 0.4, AST 29, ALT 29, Alkaline Phosphatase 235 H D, Lactate Dehydrogenase 524, Total Creatine Kinase 145, Troponin I 0.02 D, NT-Pro-B Natriuret Pep 71238 H, Total Protein 7.4, Albumin 4.3, Globulin 3.1, Albumin/ Globulin Ratio 1.4 07/17/18 13:30: pO2 84 H, VBG pH 7.28 L, VBG pCO2 50.0, VBG HCO3 23.5, VBG Total CO2 25.0, VBG O2 Sat (Calc) 98.0 H, VBG Base Excess -3.7 L, VBG Potassium 5.3 H, Sodium 138.0, Chloride 106.0, Glucose 159 H, Lactate 0.8, FiO2 21.0, Venous Blood Potassium 5.3 H 07/17/18 13:30: PT 11.9, INR 1.04, APTT 31.9 07/17/18 13:30: WBC 11.7 H D, RBC 3.57, Hgb 10.6 L D, Hct 31.7 L, MCV 88.8, MCH 29.7, MCHC 33.4, RDW 14.0, Plt Count 145, MPV 9.8, Gran % 87.8 H, Lymph % (Auto ) 6.1 L, Terrell % (Auto) 5.7, Eos % (Auto) 0.3 L, Baso % (Auto) 0.1, Gran # 10.27 H, Lymph # (Auto) 0.7 L, Terrell # (Auto) 0.7 H, Eos # (Auto) 0.0, Baso # (Auto) 0.01 - RAD Interpretation Radiology Orders: 07/17/18 12:44 CHEST PORTABLE [RAD] Stat - EKG Interpretation EKG Interpretation (Text): No peaked or sinusoidal T waves/inverted P waves to suggest symptomatic hyperkalemia on EKG 07/17/18 15:21 (Emiliano Morris) - Medication Orders Current Medication Orders: Discontinued Medications Albuterol/Ipratropium (Duoneb 3 Mg/0.5 Mg (3 Ml) Ud) 3 ml IH STAT STA Stop: 07/17/18 13:11 Last Admin: 07/17/18 13:18 Dose: 3 ml Nitroglycerin (Nitro-Bid 2% Oint) 1 ea TOP STAT STA Stop: 07/17/18 13:12 Last Admin: 07/17/18 13:18 Dose: 1 ea Disposition/Present on Arrival - Present on Arrival Any Indicators Present on Arrival: No History of DVT/PE: No History of Uncontrolled Diabetes: No Urinary Catheter: No History Surgical Site Infection Following: None - Disposition Have Diagnosis and Disposition been Completed?: Yes Disposition Time: 15:29 <Emiliano Morris - Last Filed: 07/17/18 15:19> - Disposition Have Diagnosis and Disposition been Completed?: Yes Disposition Time: 13:56 Patient Plan: Admission <Petr Holden - Last Filed: 07/17/18 15:54> - Disposition Diagnosis: Shortness of breath, CHF (congestive heart failure), ESRD (end stage renal disease) Patient Problems: Current Active Problems Problem Status Onset CHF (congestive heart failure) Acute Shortness of breath Acute Condition: IMPROVED
[2018-07-17 13:46] LABS: BASO # 0.01 K/mm3 (0.0-2.0); BASO % 0.1 % (0.0-3.0); EOS % 0.3 % (1.5-5.0); GRAN # 10.27 (1.4-6.5); GRAN % 87.8 % (50.0-68.0); HEMOGLOBIN 10.6 g/dL (14.0-18.0); LYMPH # 0.7 (1.2-3.4); LYMPH % 6.1 % (22.0-35.0); MEAN CELL VOLUME 88.8 fl (80.0-105.0); MEAN CORPUSCULAR HEMOGLOBIN 29.7 pg (25.0-35.0); MEAN CORPUSCULAR HGB CONC 33.4 g/dl (31.0-37.0); MEAN PLATELET VOLUME 9.8 fl (7.0-11.0); MONO # 0.7 (0.1-0.6); MONO % 5.7 % (1.0-6.0); RBC 3.57 10^6/uL (3.5-6.1); WHITE BLOOD COUNT 11.7 10^3/ul (4.5-11.0)
[2018-07-17 13:50] LABS: VENOUS BLOOD GAS BASE EXCESS -3.7 mmol/L (0.0-2.0); VENOUS BLOOD GAS PO2 84 mm/Hg (30-55); VENOUS BLOOD PH 7.28 (7.32-7.43)
[2018-07-17 13:52] LABS: INR 1.04; PARTIAL THROMBOPLASTIN TIME 31.9 Seconds (25.1-36.5); PROTHROMBIN TIME 11.9 SECONDS (9.4-12.5)
[2018-07-17 13:53] LABS: ALB/GLOB RATIO 1.4 (1.1-1.8); ALBUMIN 4.3 g/dL (3.0-4.8); CALCIUM 9.7 mg/dL (8.4-10.5)
[2018-07-17 14:04] LABS: TROPONIN I 0.02 ng/mL
--- NOTE | 2018-07-17 17:55 | PCM.RRT ---
<Maynor Osman - Last Filed: 07/17/18 17:41> MATHEMATICS TECHNICIAN Nurse Assessment - Situation Date: 07/17/18 Time MATHEMATICS TECHNICIAN was called: 16:26 MATHEMATICS TECHNICIAN Responder Arrival Time: 16:26 MATHEMATICS TECHNICIAN Location:: [facility] Dialysis Room Number: 403 MATHEMATICS TECHNICIAN Reason for Call: Hypotension MATHEMATICS TECHNICIAN Called By: RN - IV IV Inserted during MATHEMATICS TECHNICIAN?: No IV Fluids Initiated During MATHEMATICS TECHNICIAN?: pt already has IV #20 left hand - Respiratory Oxygen Delivery Method: Nasal Cannula @L/min Oxygen Flow Rate: 3 Received Nebulizer Treatments:: No Was the Patient Ventilated with Bag/Mask 100% O2?: No Secretions Suctioned?: No Was the Patient Intubated?: No Was the Patient Placed on a Ventilator?: No - Medication Medications Administered During MATHEMATICS TECHNICIAN: Nitro paste removed - Diagnostic Test Ordered EKG: No Chest X-Ray: No CT Scan: No CPR started during MATHEMATICS TECHNICIAN?: No - Vital Signs Vital Sign: Rapid Response Vital Sign Blood Pressure 62/36 Pulse Rate 94 Respiratory Rate 16 Temperature 97.9 F Oxygen Saturation 97 - Finger Stick Blood Glucose Finger Stick Blood Glucose: 80 - Sepsis Screen Part 1 Sepsis Screen Part 1: Hypotensive - Time MATHEMATICS TECHNICIAN Ended Time MATHEMATICS TECHNICIAN Ended: 16:38 - Vital Signs at end of MATHEMATICS TECHNICIAN Vital Signs at end of MATHEMATICS TECHNICIAN: Rapid Response End Vital Sign Blood Pressure 150/77 Pulse Rate 95 Respiratory Rate 20 Temperature 98 F O2 Sat by Pulse Oximetry 98 - Recommendations Notifications: Attending Physician I.Reason for MATHEMATICS TECHNICIAN - A) Acute Change in Patient: Subjective: Patient is an 88 yo M with h/o ESRD was undergoing dialysis when MATHEMATICS TECHNICIAN was called at 16:26 due to hypotension with BP at 62/39. At the time the MATHEMATICS TECHNICIAN was called 1154 mL had been pulled with a goal of 5500 mL. At that time, dialysis was stopped and the dialysis nurse returned the amount of blood that was given and his SBP nirav to 120. On review of chart, patient was given nitro paste to reduce overload in the ED, however the patch was still on during dialysis. The nitro paste was removed. Overall, dialysis was halted for approximately 5 minutes. Goal was changed to 3500 mL and dialysis was resumed. BP recheck was 150/77. During MATHEMATICS TECHNICIAN, patient denied fatigue, dizziness, LOC, CP, SOB, fever, chills, or WIN. Of note, patient has some confusion, but on review of chart is at baseline per PMD. - Respiratory Oxygen Delivery Method: Nasal Cannula @L/min Oxygen Flow Rate: 3 - Constitutional Appears: Non-toxic - Head Head Exam: NORMAL INSPECTION - Eyes Eye Exam: EOMI, Normal appearance, PERRL - Respiratory Exam Respiratory Exam: Clear to Ausculation Bilateral. absent: Rales, Rhonchi, Wheezes - Cardiovascular Exam Cardiovascular Exam: RRR, +S1, +S2. absent: Gallop, Rubs, Murmur - GI/Abdominal Exam GI & Abdominal Exam: Soft. absent: Distended, Guarding, Tenderness, Rebound - Neurological Exam Neurological Exam: Alert, Awake - Extremities Exam Extremities Exam: Normal Inspection Plan - Assessment of Findings&Treatment Plan 88 yo M with PMH of ESRD who was undergoing dialysis became hypotensive. Plan: - Reduced dialysis goal - D/C nitro paste - Holding parameters for antihypertensives - Attending and Reservations Manager notified <Soni Sal - Last Filed: 07/18/18 07:49> MATHEMATICS TECHNICIAN Nurse Assessment - Vital Signs Vital Sign: Rapid Response Vital Sign Blood Pressure 62/36 Pulse Rate 94 Respiratory Rate 16 Temperature 97.9 F Oxygen Saturation 97 - Vital Signs at end of MATHEMATICS TECHNICIAN Vital Signs at end of MATHEMATICS TECHNICIAN: Rapid Response End Vital Sign Blood Pressure 150/77 Pulse Rate 95 Respiratory Rate 20 Temperature 98 F O2 Sat by Pulse Oximetry 98 Attending/Attestation - Attestation I have personally seen and examined this patient.: Yes I have fully participated in the care of the patient.: Yes I have reviewed all pertinent clinical information, including history, physical exam and plan: Yes Notes (Text): 07/17/18 Patient was briefly hypotensive during dialysis. Asymptomatic, afebrile, without complaint. Nitro patch was removed. BP improved to 150/77. PMD/treater helper notified. Soni Sal MD Hospitalist.
[2018-07-17] MEDS ORDERED: Fluticasone-Salmeterol 500-50mcg Diskus IH SCH (18:00)
[2018-07-17] MEDS: Arformoterol 15 mcg/2 ml Inh Sol IH SCH (19:55)
[2018-07-17] MEDS: Albuterol-Ipratrop 3 mg / 0.5 (3 ml) UD IH SCH (19:55)
[2018-07-17] MEDS ORDERED: Arformoterol 15 mcg/2 ml Inh Sol IH SCH (20:00)
[2018-07-17] MEDS ORDERED: Budesonide 0.5 mg/2 ml Inhal Susp UD IH SCH (20:00)
[2018-07-17] MEDS: Insulin Reg-LOW-Coverage SC SCH (22:30)
[2018-07-17 22:40] VITALS: BMI 10.1
--- NOTE | 2018-07-18 01:46 | HP ---
07/17/18 Copied To: Senia Thomas MD Attending MD: Senia Thomas MD CHIEF COMPLAINT: Shortness of breath. HISTORY OF PRESENT ILLNESS: Mr. Sukhdev Grey, 88-year-old male with past medical history of congestive heart failure; end-stage renal disease, on hemodialysis; dementia; COPD; diabetes mellitus; is very noncompliant, three consecutive dialysis he refused. Now, he brought to the emergency room with acute shortness of breath. The patient's history is very difficult to obtain due to history of dementia, but I had length of time discussion done with the ER physician, Dr. Humphreys and gave information that the patient is a resident of [facility] and came with shortness of breath and abnormal breathing pattern. Per record, the patient has missed a couple of dialysis treatment due to refusal and did not go today also because he was found in actually shortness of breath and so was transferred to [facility] emergency room. It is unclear whether the patient's current mental status he present with is his baseline. Actually, the patient is always confused, but today he was more confused. PAST MEDICAL HISTORY: Coronary artery disease, hypertension, peripheral vascular disease, history of smoking, dementia, cataracts, renal failure, diabetes mellitus type 2, left AKA, prostate problem. FAMILY HISTORY: Father and mother, noncontributory. HABITS: no smoking, now no smoking. No drugs. No ethanol. ALLERGIES: THE PATIENT IS NOT ALLERGIC WITH ANY MEDICATIONS. HOME MEDICATIONS: Enalapril, insulin, Advair, amlodipine. REVIEW OF SYSTEMS: The patient was seen and examined on the bedside in the emergency room, was having shortness of breath, coughing, confused. Actually, the patient refused dialysis, now is fluid overloaded. Sometimes, complaining about chest pain also when coughs. No fever. No chills. PHYSICAL EXAMINATION: VITAL SIGNS: Temperature 99.2, pulse 98, respiratory rate 20, blood pressure 185/84, pulse oximetry 98. HEENT: Head normocephalic, atraumatic. Eyes PERRLA. Extraocular muscles intact. Conjunctivae clear. Nose patent. Mucous membrane moist. NECK: Supple. No carotid bruit. No JVD or thyromegaly. CHEST: Bilaterally symmetrical. HEART: S1 and S2 positive. LUNGS: The patient in respiratory distress, using accessory muscles. Diaphragmatic wheezing, rales and crackles midway up to the bases of the lung bilaterally, tachypneic. ABDOMEN: Soft. Bowel sounds positive. No organomegaly. EXTREMITIES: No edema. No cyanosis. NEUROLOGICAL: The patient is awake and alert. Follows simple commands. LABORATORY DATA: White blood cells 11.7, hemoglobin 10.6, hematocrit 31.7, platelets 145. Sodium 142, potassium 5.4, BUN 37, creatinine 6.7, glucose 153. ASSESSMENT AND PLAN: Mr. Sukhdev Grey, 88-year-old male with leukocytosis, anemia, hyperkalemia, renal insufficiency, hyperglycemia. Came with respiratory failure, fluid overload, congestive heart failure, shortness of breath. The patient is noncompliant. Three days, he was refusing dialysis and in the emergency room, he is refusing bilevel positive airway pressure. Urged to use the bilevel positive airway pressure. Education done. The patient has history of coronary artery disease, hypertension, cataract, diabetes mellitus, benign prostatic hypertrophy, left above-knee amputation. We will continue present treatment. Hemodialysis. Consult with executive assistant, health promotion manager. Repeat labs. We will follow up. Senia Thomas MD MTDD
--- NOTE | 2018-07-18 02:39 | CON ---
Copied To: Nathalie Gibson MD Attending MD: Nathalie Gibson MD DATE: 07/17/2018 REASON FOR CONSULTATION: Chronic obstructive lung disease, may have sleep apnea syndrome, admitted with shortness of breath. HISTORY OF PRESENT ILLNESS: This is 88 years old gentleman with past medical history significant for chronic obstructive lung disease, cardiomyopathy, renal failure, dialysis dependent, Alzheimer type dementia, brought in from snf. Apparently the patient missed his dialysis and refused, and ended up with acute shortness of breath, so he came to ER and was dialyzed. Post dialysis, he is feeling okay, better. No cough. No sputum production. No hemoptysis, no hematemesis, no hematuria reported. PAST MEDICAL HISTORY: Chronic obstructive lung disease, cardiomyopathy, renal failure, dialysis dependent. Also has a coronary artery disease, peripheral vascular disease. FAMILY HISTORY: No significant cardiopulmonary disease reported. SOCIAL HISTORY: Former smoker. Denies any alcohol use. ALLERGIES: NONE KNOWN. MEDICATIONS: He is on aspirin 81 mg daily, Brovana inhaled twice a day, DuoNeb every 6 hours, Flomax 0.4 mg daily, Flonase one spray each nostril daily, folic acid 1 mg daily, insulin coverage, lamotrigine 25 mg twice a day, Lipitor 10 mg daily, Namenda 5 mg twice a day, Norvasc 10 mg daily, Pepcid 40 mg daily, PhosLo with the meals, multivitamins, Zestril 20 mg twice a day. REVIEW OF SYSTEMS: No headache, no rhinitis. No chest pain. Feels better after dialysis. No abdominal pain or dysuria. No leg pain or leg swelling. PHYSICAL EXAMINATION: GENERAL: Lying in the bed, no acute distress. VITAL SIGNS: Temperature is 98, heart rate is 94, respiratory rate is 20, blood pressure 140/75, pulse ox 97% on nasal cannula. HEENT: Moist mucous membranes. Crowded airway. Mallampati score is 4. NECK: Supple. No JVD. LUNGS: Have a few crackles, scattered rhonchi. HEART: S1 and S2. ABDOMEN: Soft, nontender. No organomegaly. EXTREMITIES: No edema. NEUROLOGIC: Awake, alert and follows simple command, but confused. LABORATORY DATA: Shows hemoglobin 10.6, hematocrit 31.7, WBC 11.7, platelet is 145. INR 1.04. PTT 32. Has a VBG done shows pH 7.28, pCO2 of 50, O2 84. Sodium 142, potassium 5.4, chloride 105, bicarbonate 23, BUN 137, creatinine 6.7, glucose 153, calcium 9.7, magnesium 2, AST 29, ALT 29, alk phos is 235. Troponin 0.02. ProBNP 1700. Albumin is 4.3. Chest x-ray shows no active disease. IMPRESSION AND PLAN: Fluid overloaded secondary to noncompliant with the dialysis, chronic obstructive lung disease, diabetes, gastroparesis and may be component of sleep apnea syndrome. He had a rapid response called while in dialysis. Agree with the present treatment. Continue bronchodilator. Keep head at [address] him on CPAP 8 centimeter, 35% oxygen while sleeping. Thank you and we will follow with you. Nathalie Gibson MD
[2018-07-18] MEDS: Albuterol-Ipratrop 3 mg / 0.5 (3 ml) UD IH SCH ×3 (02:43→19:55)
[2018-07-18 06:04] VITALS: RESP 20
[2018-07-18] MEDS: Arformoterol 15 mcg/2 ml Inh Sol IH SCH ×2 (08:25→19:55)
--- NOTE | 2018-07-18 08:26 | CARD ---
APPROVED REPORT Date of service: 07/17/2018 EKG Measurement Heart [id number] <Conclusion> Normal sinus rhythm Left axis deviation Abnormal ECG
[2018-07-18] MEDS: Insulin Reg-LOW-Coverage SC SCH ×5 (08:30→21:32)
[2018-07-18] MEDS: Insulin Human NPH 1 UNITS/0.01 ML SC SCH ×2 (08:30→18:34)
[2018-07-18] MEDS: Multivitamin With Minerals Tab PO SCH (09:45)
[2018-07-18] MEDS: Fluticasone Nasal 50 mcg/Spray NS SCH (12:00)
--- NOTE | 2018-07-18 19:10 | PN ---
Copied To: Nathalie Gibson MD Attending MD: Nathalie Gibson MD DATE: 07/18/2018 PULMONARY PROGRESS NOTE REFERRING PHYSICIAN: Senia Thomas MD SUBJECTIVE: He was seen and examined in the dialysis bed, feels better than yesterday. No headache, no rhinitis. Mild cough and shortness of breath. No chest pain. No nausea, on vomiting, no diarrhea. OBJECTIVE: GENERAL: In no acute distress. VITAL SIGNS: Temperature is 98, heart rate 90, respiratory rate 20, blood pressure 158/63. HEENT: Moist mucous membrane. Crowded airway. NECK: Supple. No JVD. LUNGS: Have a few crackles at the bases. HEART: S1 and S2. ABDOMEN: Soft, nontender. No organomegaly. EXTREMITIES: Left-sided has amputation. NEUROLOGIC: Sleepy, arousable. Follows simple command. MEDICATIONS: He is on aspirin 81 mg daily, Brovana inhaled twice a day, DuoNeb every 6 hours p.r.n., Flomax 0.4 mg daily, Flonase one spray to each nostril day, folic acid 1 mg daily, insulin coverage, Lamictal 25 mg twice a day, Lipitor 10 mg daily, Namenda 5 mg twice a day, Norvasc 10 mg daily, Pepcid 40 mg daily, PhosLo with the meals, multivitamins daily, Zestril 20 mg twice a day. LABORATORY DATA: Blood sugar is 217. IMPRESSION AND PLAN: Fluid overload secondary to noncompliance with dialysis, chronic obstructive lung disease, diabetes, gastroparesis, and may have component of sleep apnea syndrome, status post rapid response with hypotension yesterday. We will continue bronchodilator. Keep head at 45 degrees. Hypotension precaution. Encourage CPAP use at night. Avoid sedation. Thank you and we will follow with you. Nathalie Gibson MD
[2018-07-18] MEDS: MethylPREDNISolone 40 mg Vial IVP SCH (22:56)
--- NOTE | 2018-07-18 23:39 | PN ---
Copied To: Senia Thomas MD Attending MD: Senia Thomas MD DATE: 07/18/2018 SUBJECTIVE: The patient is 88-year-old male. The patient is seen at the bedside. The patient is coughing, having shortness of breath. No nausea or vomiting. Got dialysis. No headache, no dizziness. The patient is a very poor historian. PHYSICAL EXAMINATION VITAL SIGNS: Temperature 98, heart rate 90, respiratory rate 20, blood pressure 158/66. HEENT: Head normocephalic, atraumatic. Eyes PERRLA. Extraocular muscles intact. Conjunctivae clear. Nose patent. Mucous membrane moist. NECK: Supple. No carotid bruit. No JVD or thyromegaly. CHEST: Bilaterally symmetrical. HEART: S1 and S2 positive. LUNGS: Have a few crackles at the bases. 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 NEUROLOGICAL: The patient is awake and alert. Follow simple commands. Moving all four extremities. MEDICATIONS: Aspirin, Brovana, DuoNeb, Flomax, Flonase, folic acid, insulin, Lamictal, Lipitor, Namenda, Norvasc, Pepcid, PhosLo, multivitamins, Zestril. LABORATORY DATA: Blood sugar is 270. We do not have recent labs today, but I reviewed old labs. ASSESSMENT: Mr. Sukhdev Grey is an 88-year-old male, resident of [facility], very noncompliant with dialysis. He refused three conjunctive dialysis, now came fluid overload secondary to noncompliance with dialysis, chronic obstructive lung disease, diabetes mellitus, gastroparesis, sleep apnea syndrome, status post rapid response with low blood pressure during the dialysis, seen by Dr. Gibson. PLAN: Continue bronchodilators, nebulizer treatment, getting dialysis. Urged to be compliant, hypotension precaution. Encourage CPAP use at night. Avoid sedation. Repeat labs. We will follow up. Senia Thomas MD
[2018-07-19] MEDS: Albuterol-Ipratrop 3 mg / 0.5 (3 ml) UD IH SCH ×4 (01:23→20:04)
[2018-07-19] MEDS: Arformoterol 15 mcg/2 ml Inh Sol IH SCH ×2 (09:43→20:03)
[2018-07-19] MEDS: Insulin Human NPH 1 UNITS/0.01 ML SC SCH ×2 (10:36→17:24)
[2018-07-19] MEDS: Insulin Reg-LOW-Coverage SC SCH ×4 (10:37→21:35)
[2018-07-19] MEDS: MethylPREDNISolone 40 mg Vial IVP SCH ×2 (10:38→21:33)
[2018-07-19] MEDS: Multivitamin With Minerals Tab PO SCH (10:39)
--- NOTE | 2018-07-19 14:02 | PN ---
Copied To: Dee Minor MD Attending MD: Dee Minor MD DATE: 07/18/2018 SUBJECTIVE: This 88-year-old male is dialyzing with a current blood pressure of 139/57, pulse is 88, blood flow rate is 400 mL/minute. There is no issue with his blood pressure on dialysis today and based on clinical progress and labs, additional dialysis will be entertained for the a.m. as discussed with renal dialysis nursing. Dee Minor MD : 07/19/2018 12:39:58
--- NOTE | 2018-07-19 14:46 | PN ---
Copied To: Dee Minor MD Attending MD: Dee Minor MD DATE: 07/19/2018 DIALYSIS PROGRESS NOTE This 88-year-old male is dialyzing in the Renal Dialysis Unit on a F160, 140 sodium, 3 K, bicarb bath with blood pressure of 122/55, pulse of 89, and blood flow rate of 400 mL per minute. Heart is S1, S2. Lungs with basilar crackles. We are attempting to aim for 1 to 2 kg of fluid removal today. The patient is tolerating treatment via his Tesio [place] catheter. Dee Minor MD
--- NOTE | 2018-07-19 23:51 | PN ---
Copied To: Nathalie Gibson MD Attending MD: Nathalie Gibson MD DATE: 07/19/2018 PULMONARY PROGRESS NOTE REFERRING PHYSICIAN: Senia Thomas MD SUBJECTIVE: He is lying in the bed, head at 45-degrees, feels better. No headache. No rhinitis. No cough. No nausea. No vomiting. No diarrhea. No leg pain or leg swelling. PHYSICAL EXAMINATION: GENERAL: In no acute distress. VITAL SIGNS: Temperature is 98, heart rate is 84, respiratory rate is 20, blood pressure 137/61, pulse ox 100% on 3L nasal cannula. HEENT: Moist mucous membranes. Crowded airway. NECK: Supple. No JVD. LUNGS: Have a fair airflow with rhonchi. HEART: S1 and S2. ABDOMEN: Soft and nontender. No organomegaly. EXTREMITIES: There is no edema of the right leg. Left AKA. Stump looks okay. NEUROLOGICAL: Awake, alert. Follows simple command, but confused. MEDICATIONS: He is on aspirin 81 mg daily, Brovana inhaled twice a day, DuoNeb every 6 hours p.r.n., Flomax 0.4 mg daily, Flonase one spray to each nostril daily, folic acid 1 mg daily, insulin coverage, Lamictal 25 mg twice a day, Lipitor 10 mg daily, Namenda 5 mg twice a day, Norvasc 10 mg daily, Pepcid 40 mg at bedtime, Solu-Medrol 40 mg every 12 hours, multivitamins daily, Zestril 20 mg twice a day. LABORATORY DATA: Reviewed. No new lab is available. Microbiology, blood culture has been negative. IMPRESSION AND PLAN: Status post fluid overload is secondary to missing his dialysis. Chronic lung disease, diabetes, gastroparesis. Denies any complain of sleep apnea syndrome. Pulmonary point of view, doing well. Keep head at 45 degrees. . Aspiration precaution, avoid sedation, fall precautions. Thank you and we will follow with you. Nathalie Gibson MD
[2018-07-20] MEDS: Albuterol-Ipratrop 3 mg / 0.5 (3 ml) UD IH SCH ×4 (02:01→19:54)
[2018-07-20] MEDS: Arformoterol 15 mcg/2 ml Inh Sol IH SCH ×2 (07:39→19:53)
[2018-07-20 08:05] LABS: HEMOGLOBIN 10.4 g/dL (14.0-18.0); MEAN CELL VOLUME 88.7 fl (80.0-105.0); MEAN CORPUSCULAR HEMOGLOBIN 29.5 pg (25.0-35.0); MEAN CORPUSCULAR HGB CONC 33.2 g/dl (31.0-37.0); MEAN PLATELET VOLUME 10.1 fl (7.0-11.0); RBC 3.53 10^6/uL (3.5-6.1); RED CELL DISTRIBUTION WIDTH 13.6 % (11.5-14.5); WHITE BLOOD COUNT 10.9 10^3/ul (4.5-11.0)
[2018-07-20] MEDS: Insulin Reg-LOW-Coverage SC SCH ×4 (08:27→21:37)
[2018-07-20] MEDS: Insulin Human NPH 1 UNITS/0.01 ML SC SCH ×2 (08:31→17:32)
[2018-07-20] MEDS: Fluticasone Nasal 50 mcg/Spray NS SCH (09:38)
[2018-07-20] MEDS: MethylPREDNISolone 40 mg Vial IVP SCH ×2 (09:42→21:40)
[2018-07-20] MEDS: Multivitamin With Minerals Tab PO SCH (09:42)
--- NOTE | 2018-07-20 14:29 | PN ---
Copied To: Dee Minor MD Attending MD: Dee Minor MD DATE: 07/19/2018 DIALYSIS PROGRESS NOTE SUBJECTIVE: This 88-year-old male is receiving dialysis in the renal dialysis unit. This case was reviewed with renal nurse, Janene. PHYSICAL EXAMINATION: VITAL SIGNS: He is dialyzing on an F160, 140 sodium, 2K bicarb bath with blood flow rates of 400 mL per minute and a blood pressure of 142/66 and pulse of 96. HEART: Regular, S1 and S2. LUNGS: Basilar crackles. ABDOMEN: Soft. EXTREMITIES: No pedal edema. PLAN: To dialyze this patient on 3K bath for at 2-1/2 hours today in anticipation of possible discharge for a.m. Dee Minor MD
--- NOTE | 2018-07-20 14:31 | PN ---
Copied To: Dee Minor MD Attending MD: Dee Minor MD DATE: 07/19/2018 DIALYSIS PROGRESS NOTE SUBJECTIVE: This patient was seen in the renal dialysis unit where he is dialyzing on F160, 3K bicarb bath. He tolerated 1 L of fluid removal thus far with a blood pressure of 126/64 and pulse of 89. PHYSICAL EXAMINATION: HEART: S1, S2. LUNGS: Clear. Blood flow rate of 400 mL per minute. LABORATORY DATA: Hemoglobin 10.6, hematocrit 31.7. Random blood sugar 217. PLAN: The patient will dialyze for 2-1/2 hours. He is ready for discharge to rehab when deemed medically stable by his primary care physician, Dr. Thomas. Dee Minor MD [facility]
--- NOTE | 2018-07-20 15:32 | PN ---
Copied To: Dee Minor MD Attending MD: Dee Minor MD DATE: 07/20/2018 SUBJECTIVE: This patient is successfully tolerating hemodialysis which he has had scheduled 3 days in a row this week. His normal dialysis schedule is Saturday, , and Saturdays; and the patient is ready for discharge from a nephrologic standpoint. PHYSICAL EXAMINATION: VITAL SIGNS: Temperature is 97.7, respirations 20, pulse 96, and blood pressure 158/65 with pulse ox 99%. LABORATORY DATA: Shows sodium 135, K 3.6, chloride 95, bicarb 27. BUN 57, creatinine 3.6. Random blood sugar 381. White count 10,900, hemoglobin 10.4, hematocrit 31.3, and platelets 168,000. IMPRESSION: An 88-year-old male with end-stage renal disease, hemodialysis dependent, comorbidities of atherosclerotic heart disease, history of congestive heart failure, chronic obstructive pulmonary disease, benign prostate hypertrophy, anemia of chronic disease, insulin-dependent diabetes mellitus, organic brain syndrome, hyperlipidemia, hypertension, hyperphosphatemia, chronic obstructive pulmonary disease, degenerative arthritis, and peripheral vascular disease with a left [id number] amputation chronically. The patient will continue on Ecotrin, Brovana, Duo nebulizer, Flomax, Flonase, folic acid, insulin, Lamictal, Lipitor, Namenda, Norvasc, Pepcid, PhosLo, Solu-Medrol, multivitamin, and Zestril. The patient will have his next hemodialysis scheduled for Saturday and is cleared for discharge from a nephrologic standpoint. Dee Minor MD [facility]
[2018-07-20] MEDS ORDERED: MethylPREDNISolone 40 mg Vial IVP SCH (22:47)
--- NOTE | 2018-07-20 23:21 | PN ---
Copied To: Senia Thomas MD Attending MD: Senia Thomas MD DATE: 07/20/2018 SUBJECTIVE: The patient is seen and examined, looking comfortable. No fever. No chills. Still coughing with shortness of breath, but is getting better. No hematuria or hematochezia. The patient got dialysis 3 times. Scheduled 3 days in a row this week because last week he missed his Saturday, and Saturday dialysis. No headache. No dizziness. PHYSICAL EXAMINATION: VITAL SIGNS: Temperature 97.7, pulse 80, respiratory rate 20, blood pressure 158/65, pulse oximetry 99. HEENT: Head normocephalic, atraumatic. Eyes PERRLA. Extraocular muscles intact. Conjunctivae clear. Nose patent. Mucous membrane moist. NECK: Supple. No carotid bruit. No JVD or thyromegaly. CHEST: Bilaterally symmetrical. HEART: S1 and S2 positive. LUNGS: Clear to auscultation. ABDOMEN: Soft. Bowel sounds positive. No organomegaly. EXTREMITIES: No edema. No cyanosis. NEUROLOGICAL: The patient is awake and alert. Moving all 4 extremities. No focal deficits. MEDICATIONS: Aspirin, Brovana, DuoNeb, Flomax, Flonase, folic acid, insulin, Lamictal, Lipitor, Namenda, Norvasc, Pepcid, PhosLo, Solu-Medrol tapering dose, Zestril. LABORATORY DATA: White blood cells 10.9, hemoglobin 10.4, hematocrit 31.3, platelets 168. Sodium 135, potassium 3.6, BUN 57, creatinine 3.6, glucose 381. ASSESSMENT AND PLAN: Mr. 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 The patient has renal insufficiency, but is noncompliant with dialysis. He missed 3 days dialysis, now consecutively 3 days he got the dialysis, with that he got better. Chronic obstructive pulmonary disease exacerbation, getting tapering dose of steroids. Has atherosclerotic heart disease, history of congestive heart failure, benign prostatic hypertrophy, insulin-dependent diabetes mellitus, organic brain syndrome, hypercholesterolemia, hypertension, hyperphosphatemia, degenerative joint disease, peripheral vascular disease, left [id number] amputation long time ago. Plan is to continue present treatment, tapering dose of steroid, Flomax, Flonase, Lamictal, Lipitor, Namenda. GI, DVT prophylaxis. Discussion done with . We will follow up. Senia Thomas MD
[2018-07-21] MEDS: Albuterol-Ipratrop 3 mg / 0.5 (3 ml) UD IH SCH ×3 (01:45→13:21)
[2018-07-21] MEDS: Arformoterol 15 mcg/2 ml Inh Sol IH SCH (07:11)
[2018-07-21] MEDS: Insulin Human NPH 1 UNITS/0.01 ML SC SCH (08:02)
[2018-07-21] MEDS: Insulin Reg-LOW-Coverage SC SCH ×2 (08:02→11:39)
--- NOTE | 2018-07-21 08:38 | CON ---
Copied To: Dee Minor MD Attending MD: Dee Minor MD DATE: 07/18/2018 NEPHROLOGY CONSULTATION HISTORY OF PRESENT ILLNESS: This 88-year-old male was examined at his bedside and his case was reviewed with nurse, Amari Lomeli, registered nurse. This patient was admitted through the [facility] ER on the evening of 07/17. He is a hemodialysis patient who dialyzes at [facility] three times weekly. He presented with shortness of breath and had missed multiple dialysis sessions in the previous week. He was emergently dialyzed but experienced an episode of hypotension while on dialysis on the evening of admission. His treatment was terminated and he was admitted to the telemetry unit where he was stabilized, and alert and oriented. At present, he is in his bed, alert and chronically confused, and denying any fever, chills, chest pain, or shortness of breath. REVIEW OF SYSTEMS: On review of this the patient's EMR, there were no reports of head trauma or seizure. EYES: Change in visual acuity. EARS: No hearing loss. THROAT: No swallowing difficulty. NECK: No stiffness. CARDIAC: No chest pain. PULMONARY: No cough. No hemoptysis. GI: No hematemesis. No melena. : End-stage renal disease, hemodialysis dependent. No gross hematuria. VASCULAR: He is status post a left [id number] amputation in the distant past. SKIN: No ulcers. NEUROLOGIC: He does have chronic dementia. ENDOCRINOLOGIC: Hyperlipidemia and insulin-dependent diabetes mellitus. ALLERGIES: HE HAS NO KNOWN ALLERGIES TO MEDICATIONS. OUTPATIENT MEDICATIONS: Included Norvasc, thiamine, Flomax, Namenda, multivitamin, insulins, folic acid, Flonase, Pepcid, Vasotec, PhosLo, Lipitor, Ecotrin, and Brovana. FAMILY HISTORY: Noncontributory. SOCIAL HISTORY: He is a current nondrinker, nonsmoker, non IV drug misuser. PHYSICAL EXAMINATION: GENERAL: He was lying in bed, confused, and in no acute distress. VITAL SIGNS: Temperature of 97.9, respirations 20, pulse 77, and blood pressure 162/62 with pulse ox 97% on 2 L nasal O2. HEENT: Head: Normocephalic, atraumatic. Eyes: No icterus. Ears: Clear. Throat noninjected. NECK: Supple. HEART: S1, S2. No pathological rubs, murmurs, or gallops. LUNGS: Bilateral basilar rales and occasional rhonchi that cleared with coughing. ABDOMEN: Soft. EXTREMITIES: Left jassd-[id number] amputation. VASCULAR: Right leg warm to touch. PSYCHOLOGIC: Chronic confusion. NEURO: Marked deconditioning. SKIN: Without rash. LABORATORY DATA: White count 11,700, hemoglobin 10.6, hematocrit 31.7, and platelets 145,000. PT/INR 1.04, PTT 31.9. Sodium 142, K 5.4, chloride 105, bicarb 23. BUN 137, creatinine 6.7. Random blood sugar 153. Magnesium 2. Bilirubin 0.4, AST 29, ALT 29, alk phos 235. Troponin 0.02. BNP 10,700. Hepatitis Be antigen nonreactive with core antibody positive and hepatitis B surface antibody negative. IMPRESSION: An 88-year-old male admitted with systolic congestive heart failure, status post multiple missed hemodialysis treatments as an outpatient because of refusal to attend with comorbidities of chronic hypertension, stable atherosclerotic heart disease, history of systolic congestive heart failure, anemia of chronic disease, benign prostate hypertrophy, organic brain syndrome, insulin-dependent diabetes mellitus, peptic ulcer disease with gastroesophageal reflux disease, hyperphosphatemia, hyperlipidemia, chronic obstructive pulmonary disease, and peripheral vascular disease with left fghvd-[id number] amputation. PLAN: Continue hemodialysis. The patient will be dialyzed today. He will continue medication as outlined. He is ordered to have CPAP at bedtime, renal diabetic diet with insulin coverage as ordered. He will be followed by myself, Dr. Gibson from Pulmonary, Dr. Thomas, his primary care physician and pending his clinical status. Additional dialysis will be ordered in a.m. and hopefully, the patient will continue to cooperate and attend dialysis in his future. Once he is medically stabilized, he can be readied for his intermediate care return to the [facility] in [place], [place] where I will continue to follow his nephrologic issues. Thank you for this consultation. We will follow with you. Dee Minor MD [facility] # [id number] [facility]
[2018-07-21 08:42] VITALS: BP 160/50; PULSE 97; TEMP 98.1; O2SAT 95
--- NOTE | 2018-07-21 09:04 | PN ---
Copied To: Senia Thomas MD Attending MD: Senia Thomas MD DATE: 07/19/2018 SUBJECTIVE: The patient is looking comfortable. No nausea or vomiting. No headache. No dizziness. No chest pain. No palpitation, but still coughing with shortness of breath. Got dialysis. Getting Solu-Medrol. PHYSICAL EXAMINATION: VITAL SIGNS: Temperature 97.2, pulse 84, blood pressure 137/61, respiratory rate 20. HEENT: Head normocephalic, atraumatic. Eyes PERRLA. Extraocular muscles intact. Conjunctivae clear. Nose patent. Mucous membrane moist. NECK: Supple. No carotid bruit. No JVD or thyromegaly. CHEST: Bilaterally symmetrical. HEART: S1 and S2 positive. LUNGS: Positive wheezing bilaterally. ABDOMEN: Soft. Bowel sounds positive. No organomegaly. EXTREMITIES: No edema. No cyanosis. NEUROLOGICAL: The patient is awake and alert. Moving all 4 extremities. No focal deficits. MEDICATIONS: Aspirin, Brovana, DuoNeb, Flomax, Flonase, folic acid, insulin, Lamictal, Lipitor, Pepcid, PhosLo, Solu-Medrol, Zestril. LABORATORY DATA: We do not have recent labs today, but I reviewed old labs. ASSESSMENT AND PLAN: Mr. Sukhdev Grey, 88-year-old male with leukocytosis; anemia; hyperkalemia; renal insufficiency; getting dialysis 3 times a week, noncompliant; urged to be compliant; diabetes mellitus; BNP is high; congestive heart failure. Hepatitis B core antibodies are positive, surface antibodies continued to be less than 5. The patient is seen by Dr. Minor, the patient's intervention manager. Of Dr. Minor, there is no issue in blood pressure on dialysis today and based on the clinical progress and labs, additional dialysis will be for the a.m. as discussed with the renal dialysis nursing by Dr. Minor. The patient has history of chronic obstructive pulmonary disease, asthma, severe peripheral vascular disease. Came with fluid overload because he missed 3 dialysis. History of gastroparesis, sleep apnea syndrome, history of rapid response due to hypotension in the dialysis center. Continue bronchodilators, tapering dose of Solu-Medrol. We will follow up. Senia Thomas MD [facility] # [phone]
[2018-07-21] MEDS: Fluticasone Nasal 50 mcg/Spray NS SCH (09:43)
[2018-07-21] MEDS: Multivitamin With Minerals Tab PO SCH (09:46)
[2018-07-21] MEDS ORDERED: Sodium Chloride 0.9% 1,000 ML IV SCH (16:45)
--- NOTE | 2018-07-21 20:48 | PN ---
Copied To: Dee Minor MD Attending MD: Dee Minor MD DATE: 07/21/2018 SUBJECTIVE: This 88-year-old male is status post dialysis 3 days in a row for decompensated systolic congestive heart failure after his refusal to attend hemodialysis last week. PHYSICAL EXAMINATION: VITAL SIGNS: At present, his temperature is 98.1, respirations 20, pulse 97, and blood pressure 160/50 with a pulse ox 95% on room air. HEENT: Head: Normocephalic, atraumatic. Eyes: No icterus. Ears: Clear. Throat: Noninjected. NECK: Supple. HEART: S1, S2. LUNGS: Clear. ABDOMEN: Soft. EXTREMITIES: Left dqqxz-huy-fapd amputation. VASCULAR: Legs warm to touch. PSYCHOLOGIC: Chronic confusion. NEUROLOGIC: Unchanged. LABORATORY DATA: Blood cultures show no growth. White count 10,900, hemoglobin 10.4, hematocrit 31.3, platelets 168,000. Random blood sugar 329, BUN 57, creatinine 3.6, sodium 135, K 3.6. IMPRESSION: An 88-year-old male with improved clinical systolic congestive heart failure; chronic renal failure, hemodialysis dependent; chronic hypertension; stable atherosclerotic heart disease; organic brain syndrome; benign prostate hypertrophy; insulin-dependent diabetes mellitus; longstanding history of medical noncompliance with peptic ulcer disease with gastroesophageal reflux disease, hypertension, hyperphosphatemia, hyperlipidemia, chronic obstructive pulmonary disease, peripheral vascular disease, and degenerative arthritis. The patient will be readied for return to his penitentiary care at the [facility] where I have instructed his nurse and high risk case manager to establish outpatient physical therapy for his dialysis treatment here at the [facility] outpatient renal unit on Tuesdays, , and Saturdays. He will continue on Norvasc, thiamine, Flomax, Namenda, multivitamin, insulins, folic acid, Advair, Flonase, Pepcid, Vasotec, PhosLo, Lipitor, Ecotrin, Brovana, prednisone, and dual nebulizer p.r.n. He is cleared from a nephrologic standpoint to return to the penitentiary and hopefully he will be compliant with outpatient dialytic therapy, which had been an issue in the past. All of the above was reviewed with nursing, social services aide, and case management. All questions were answered. Dee Minor MD [facility] # [id number] [place]
== END 2018-07-21 17:17 | DRG 291 ==
LOC: ED 12:38 → ERH 13:56 → 2RSO 18:47 → 3RSO 07-18 13:19 → OBSVTOIN 07-18 21:53
PROVIDERS: ADMIT Internal Medicine; ATTEND Internal Medicine
PROC: 5A09357 Assistance with Respiratory Ventilation, Less than 24 Consecutive Hours, Continuous Positive Airway Pressure (ICD-10-PCS; 2018-07-17)
PROC: 5A1D70Z Performance of Urinary Filtration, Intermittent, Less than 6 Hours Per Day (ICD-10-PCS; 2018-07-17)
PROC: 5A1D70Z Performance of Urinary Filtration, Intermittent, Less than 6 Hours Per Day (ICD-10-PCS; 2018-07-18)
PROC: 5A1D70Z Performance of Urinary Filtration, Intermittent, Less than 6 Hours Per Day (ICD-10-PCS; principal; 2018-07-19)
PROC: 5A09357 Assistance with Respiratory Ventilation, Less than 24 Consecutive Hours, Continuous Positive Airway Pressure (ICD-10-PCS; 2018-07-20)
DX: I13.2 Hypertensive heart and chronic kidney disease with heart failure and with stage 5 chronic kidney disease, or end stage renal disease (principal); I50.23 Acute on chronic systolic (congestive) heart failure; N18.6 End stage renal disease; J96.90 Respiratory failure, unspecified, unspecified whether with hypoxia or hypercapnia; J44.1 Chronic obstructive pulmonary disease with (acute) exacerbation; I95.3 Hypotension of hemodialysis; E11.22 Type 2 diabetes mellitus with diabetic chronic kidney disease; G30.9 Alzheimer's disease, unspecified; F02.80 Dementia in other diseases classified elsewhere, unspecified severity, without behavioral disturbance, psychotic disturbance, mood disturbance, and anxiety; E11.43 Type 2 diabetes mellitus with diabetic autonomic (poly)neuropathy; K31.84 Gastroparesis; N40.0 Benign prostatic hyperplasia without lower urinary tract symptoms; E11.65 Type 2 diabetes mellitus with hyperglycemia; E11.51 Type 2 diabetes mellitus with diabetic peripheral angiopathy without gangrene; I25.10 Atherosclerotic heart disease of native coronary artery without angina pectoris; E87.5 Hyperkalemia; D63.8 Anemia in other chronic diseases classified elsewhere; E78.00 Pure hypercholesterolemia, unspecified; K21.9 Gastro-esophageal reflux disease without esophagitis; E78.5 Hyperlipidemia, unspecified; I42.9 Cardiomyopathy, unspecified; E83.39 Other disorders of phosphorus metabolism; G47.30 Sleep apnea, unspecified; M19.90 Unspecified osteoarthritis, unspecified site; Z99.2 Dependence on renal dialysis; Z91.15 Patient's noncompliance with renal dialysis; Z87.891 Personal history of nicotine dependence; Z79.4 Long term (current) use of insulin; Z89.612 Acquired absence of left leg above knee; Z87.11 Personal history of peptic ulcer disease

== ENCOUNTER 2018-10-11 18:55 | Emergency (ER) | payer MEDICARE, MEDICAID ==
[2018-10-11 18:55] VITALS: BMI 10.1
[2018-10-11 19:01] VITALS: RESP 18
[2018-10-11 20:02] LABS: BASO # 0.01 K/mm3 (0.0-2.0); BASO % 0.1 % (0.0-3.0); EOS # 0.2 (0.0-0.7); EOS % 2.2 % (1.5-5.0); GRAN # 5.87 (1.4-6.5); GRAN % 77.6 % (50.0-68.0); HEMOGLOBIN 13.7 g/dL (14.0-18.0); LYMPH # 0.9 (1.2-3.4); LYMPH % 12.2 % (22.0-35.0); MEAN CELL VOLUME 87.9 fl (80.0-105.0); MEAN CORPUSCULAR HEMOGLOBIN 29.5 pg (25.0-35.0); MEAN CORPUSCULAR HGB CONC 33.6 g/dl (31.0-37.0); MEAN PLATELET VOLUME 9.7 fl (7.0-11.0); MONO # 0.6 (0.1-0.6); MONO % 7.9 % (1.0-6.0); RBC 4.64 10^6/uL (3.5-6.1); RED CELL DISTRIBUTION WIDTH 14.8 % (11.5-14.5); WHITE BLOOD COUNT 7.6 10^3/uL (4.5-11.0)
[2018-10-11 20:13] LABS: CALCIUM 8.9 mg/dL (8.4-10.5)
[2018-10-11 20:24] LABS: TROPONIN I 0.03 ng/mL
[2018-10-11 20:37] LABS: INR 0.99; PARTIAL THROMBOPLASTIN TIME 31.4 Seconds (25.1-36.5); PROTHROMBIN TIME 11.3 SECONDS (9.4-12.5)
--- NOTE | 2018-10-11 21:06 | ED PDOC ---
Arrival/HPI - General Chief Complaint: Cough, Cold, Congestion Time Seen by Provider: 10/11/18 19:07 Historian: Patient - History of Present Illness Narrative History of Present Illness (Text): 10/11/18 19:20 Sukhdev Grey is an 88 year old male, whose past medical history includes CAD, hypertension, PVD, demenita, renal failure, diabetes, and left AKA, who presents to the Emergency department sent from custodial complaining of cough for the past 3 days. Patient was fully dialyzed today without issue. Patient denies any fever, chest pain, shortness of breath, nausea, neck pain, headache, dizziness, or any other complaints. Symptom Onset: Gradual Symptom Course: Unchanged Activities at Onset: Light Context: Home Past Medical History - Provider Review Nursing Documentation Reviewed: Yes - Past History Past History: No Previous - Infectious Disease Hx of Infectious Diseases: None - Tetanus Immunization Tetanus Immunization: Unknown - Cardiac Hx Congestive Heart Failure: Yes - Pulmonary Hx Chronic Obstructive Pulmonary Disease (COPD): Yes - Neurological Hx Dementia: Yes - HEENT Hx Cataracts: Yes - Renal Hx Renal Disorder: Yes Hx Dialysis: Yes ([facility] Tues,Thurs,Sat) Date of Last Dialysis Treatment: 10/11/18 - Endocrine/Metabolic Hx Diabetes Mellitus Type 2: Yes - Hematological/Oncological Hx Blood Disorders: No - Integumentary Hx Dermatological Disorder: Yes - Musculoskeletal/Rheumatological Hx Falls: Yes - Gastrointestinal Hx Gastrointestinal Disorders: No - Genitourinary/Gynecological Hx Incontinence: Yes Hx Prostate Problems: Yes (BPH) - Psychiatric Hx Psychophysiologic Disorder: No Hx Substance Use: No - Surgical History Hx Amputation: Yes (Left Below the Knee) - Anesthesia Hx Anesthesia: Yes Family/Social History - Physician Review Nursing Documentation Reviewed: Yes Family/Social History: Unknown Family HX Smoking Status: Former Smoker Hx Alcohol Use: No Hx Substance Use: No Hx Substance Use Treatment: No Allergies/Home Meds Allergies/Adverse Reactions: Allergies No Known Allergies Allergy (Verified 07/17/18 15:04) Home Medications: Home Meds Medication Instructions Recorded Confirmed RX: Enalapril Maleate [Vasotec] 20 mg PO BID 07/01/17 10/11/18 RX: Insulin Human NPH [Humulin N] 10 units SC ACD 07/01/17 10/11/18 RX: Insulin Human NPH [Humulin N] 20 units SC ACB 07/01/17 10/11/18 RX: Lamotrigine 25 mg PO BID 07/01/17 10/11/18 RX: Fluticasone/Salmeterol 500/50 1 puff IH BID 08/12/17 10/11/18 [Advair Diskus 500/50] RX: amLODIPine [Norvasc] 10 mg PO DAILY 11/25/17 10/11/18 RX: M-Vit,Tx,Iron,Mins/Calc/Folic 1 tab PO DAILY 03/04/18 10/11/18 [Thera-M Caplet] RX: Memantine [Namenda] 10 mg PO BID 10/11/18 10/11/18 Review of Systems - Physician Review All systems were reviewed & negative as marked: Yes - Review of Systems Constitutional: Normal. absent: Fevers Eyes: Normal ENT: Normal Respiratory: Cough. absent: SOB Cardiovascular: Normal. absent: Chest Pain Gastrointestinal: Normal. absent: Abdominal Pain, Diarrhea, Nausea, Vomiting Genitourinary Male: Normal. absent: Dysuria, Frequency, Hematuria, Urinary Output Changes Musculoskeletal: Normal. absent: Back Pain, Neck Pain Skin: Normal. absent: Rash Neurological: Normal. absent: Headache, Dizziness Endocrine: Normal Hemo/Lymphatic: Normal Psychiatric: Normal Physical Exam Vital Signs Reviewed: Yes Vital Signs Temp Pulse Resp BP Pulse Ox 10/11/18 20:19 98.7 F 90 18 142/93 H 97 10/11/18 18:56 98.7 F 83 18 189/81 H 96 Temperature: Afebrile Blood Pressure: Hypertensive Pulse: Regular Respiratory Rate: Normal Appearance: Positive for: Well-Appearing, Non-Toxic, Comfortable Pain Distress: None Mental Status: Positive for: other (Alert) - Systems Exam Head: Present: Atraumatic, Normocephalic Pupils: Present: PERRL Extroacular Muscles: Present: EOMI Conjunctiva: Present: Normal Mouth: Present: Moist Mucous Membranes Neck: Present: Normal Range of Motion Respiratory/Chest: Present: Clear to Auscultation, Good Air Exchange. No: Respiratory Distress, Accessory Muscle Use Cardiovascular: Present: Regular Rate and Rhythm, Normal S1, S2. No: Murmurs Abdomen: No: Tenderness, Distention, Peritoneal Signs Back: Present: Normal Inspection Upper Extremity: Present: Normal Inspection. No: Cyanosis, Edema Lower Extremity: Present: Normal Inspection (Left AKA). No: Edema Neurological: Present: GCS=15, CN II-XII Intact, Speech Normal Skin: Present: Warm, Dry, Normal Color. No: Rashes Psychiatric: Present: Alert, Normal Insight, Normal Concentration Medical Decision Making ED Course and Treatment: 10/11/18 19:20 Impression: 88 year old male sent from custodial for cough x3 days Plan: -- EKG -- Chest X-ray -- Labs, cardiac enzymes, blood cultures -- Rapid influenza -- Reassess and disposition Prior Visits: Notes and results from previous visits were reviewed. On 07/17/2018, pt was seen in the Emergency department for acute onset shortness of breath. Pt was admitted to the hospital for further evaluation. Progress Notes: Reviewed EKG, NSR at [address] bpm. LAD. Non-specific ST/T wave changes. 10/11/18 20:30 Chest X-ray reviewed, shows no acute processes. 10/11/18 20:45 Labs reviewed, negative flu, no acute change from baseline. 10/11/18 21:[address] Thomas, who is aware and agrees with plan to discharge pt back to custodial. - Lab Interpretations Lab Results: 10/11/18 19:55 10/11/18 19:55 Lab Results 10/11/18 20:23: Influenza Typ A,B (EIA) Negative for flu a/b 10/11/18 20:23: PT 11.3, INR 0.99, APTT 31.4 10/11/18 19:55: Sodium 136, Potassium 4.1, Chloride 100, Carbon Dioxide 27, Anion Gap 14, BUN 24 H, Creatinine 2.1 H, Est GFR ( Amer) 36, Est GFR (Non-Af Amer) 30, Random Glucose 76, Calcium 8.9, Magnesium 1.8, Lactate Dehydrogenase 550, Total Creatine Kinase 63, Troponin I 0.03 D 10/11/18 19:55: WBC 7.6, RBC 4.64, Hgb 13.7 L D, Hct 40.8 L, MCV 87.9, MCH 29.5, MCHC 33.6, RDW 14.8 H, Plt Count 141, MPV 9.7, Gran % 77.6 H, Lymph % (Auto) 12.2 L, Ponce % (Auto) 7.9 H, Eos % (Auto) 2.2, Baso % (Auto) 0.1, Gran # 5.87, Lymph # (Auto) 0.9 L, Ponce # (Auto) 0.6, Eos # (Auto) 0.2, Baso # (Auto) 0.01 I have reviewed the lab results: Yes - RAD Interpretation Radiology Orders: 10/11/18 19:26 CHEST PORTABLE [RAD] Stat Director Diabetes: ED Physician - EKG Interpretation Interpreted by ED Physician: Yes Type: 12 lead EKG - Scribe Statement The provider has reviewed the documentation as recorded by the Jhonatan Alamo Provider Scribe Attestation: All medical record entries made by the Scribe were at my direction and personally dictated by me. I have reviewed the chart and agree that the record accurately reflects my personal performance of the history, physical exam, medical decision making, and the department course for this patient. I have also personally directed, reviewed, and agree with the discharge instructions and disposition. Disposition/Present on Arrival - Present on Arrival Any Indicators Present on Arrival: No History of DVT/PE: No History of Uncontrolled Diabetes: Yes Urinary Catheter: No History of Decub. Ulcer: No History Surgical Site Infection Following: None - Disposition Have Diagnosis and Disposition been Completed?: Yes Diagnosis: Cough Disposition: TRANSF TO SNF Disposition Time: 22:55 Condition: GOOD Discharge Instructions (ExitCare): Cough in Adults Forms: [employer] (Icelandic)
[2018-10-11 21:58] VITALS: TEMP 98.6
[2018-10-11 23:03] VITALS: BP 161/83; PULSE 83; O2SAT 100
--- NOTE | 2018-10-12 10:38 | CARD ---
APPROVED REPORT Date of service: 10/11/2018 EKG Measurement Heart [id number] <Conclusion> Normal sinus rhythm Left axis deviation Pulmonary disease pattern Abnormal ECG
--- NOTE | 2018-10-12 11:05 | RAD ---
Date of service: 10/11/2018 HISTORY: Shortness of breath COMPARISON: 07/17/2018. FINDINGS: Of breath Right-sided dialysis catheter terminates in the right atrium. LUNGS: The lungs are well inflated and clear. PLEURA: No pleural effusions or pneumothorax. CARDIOVASCULAR: The heart is normal in size. Atherosclerotic aortic arch calcifications are present. OSSEOUS STRUCTURES: Within normal limits for the patient's age. VISUALIZED UPPER ABDOMEN: Normal. OTHER FINDINGS: None. IMPRESSION: No acute findings.
== END 2018-10-11 23:03 ==
LOC: ED 18:55
DX: R05 Cough (principal); I25.10 Atherosclerotic heart disease of native coronary artery without angina pectoris; I11.0 Hypertensive heart disease with heart failure; I50.9 Heart failure, unspecified; J44.9 Chronic obstructive pulmonary disease, unspecified; F03.90 Unspecified dementia, unspecified severity, without behavioral disturbance, psychotic disturbance, mood disturbance, and anxiety; Z87.891 Personal history of nicotine dependence

== ENCOUNTER 2018-10-16 13:53 | Observation (INO) | payer MEDICARE, MEDICAID ==
--- NOTE | 2018-10-16 14:13 | ED PDOC ---
Arrival/HPI - General Chief Complaint: Chest Pain Time Seen by Provider: 10/16/18 13:55 Historian: Patient - History of Present Illness Narrative History of Present Illness (Text): 10/16/18 14:08 88 year old male, with past medical history of ESRD (dialysis T-Th-), atherosclerotic disease, PVD, CHF, HTN, hyperlipidemia, asthma, & IDDM, presents to the ED from half-way complaining of chest pain since prior to arrival. Patient was evaluated by Dr. Thomas at the half-way and was referred to the ED for further medical evaluation. Patient informs his last dialysis was last week and was unable to make to dialysis today secondary to chest pain. Patient denies any other associated somatic complaints. Patient denies any fever, chills, nausea, vomiting, abdominal pain, SOB, cough, neck pain, back pain, headache, dizziness or any other complaints. PMD: Dr. Thomas Guitar Teacher: Dr. Minor 10/16/18 14:42 Time/Duration: Prior to Arrival Symptom Onset: Gradual Symptom Course: Unchanged Quality: Aching Activities at Onset: Light Context: Other (Half-Way) Past Medical History - Provider Review Nursing Documentation Reviewed: Yes - Past History Past History: No Previous - Infectious Disease Hx of Infectious Diseases: None - Tetanus Immunization Tetanus Immunization: Unknown - Cardiac Hx Congestive Heart Failure: Yes - Pulmonary Hx Chronic Obstructive Pulmonary Disease (COPD): Yes - Neurological Hx Dementia: Yes - HEENT Hx Cataracts: Yes - Renal Hx Renal Disorder: Yes Hx Dialysis: Yes ([facility] Tues,Thurs,Sat) Date of Last Dialysis Treatment: 10/11/18 - Endocrine/Metabolic Hx Diabetes Mellitus Type 2: Yes - Hematological/Oncological Hx Blood Disorders: No - Integumentary Hx Dermatological Disorder: Yes - Musculoskeletal/Rheumatological Hx Falls: Yes - Gastrointestinal Hx Gastrointestinal Disorders: No - Genitourinary/Gynecological Hx Incontinence: Yes Hx Prostate Problems: Yes (BPH) - Psychiatric Hx Psychophysiologic Disorder: No Hx Substance Use: No - Surgical History Hx Amputation: Yes (Left Below the Knee) - Anesthesia Hx Anesthesia: Yes Hx Anesthesia Reactions: No Hx Malignant Hyperthermia: No Family/Social History - Physician Review Nursing Documentation Reviewed: Yes Family/Social History: Unknown Family HX Smoking Status: Former Smoker Hx Alcohol Use: No Hx Substance Use: No Hx Substance Use Treatment: No Allergies/Home Meds Allergies/Adverse Reactions: Allergies No Known Allergies Allergy (Verified 07/17/18 15:04) Home Medications: Home Meds Medication Instructions Recorded Confirmed RX: Enalapril Maleate [Vasotec] 20 mg PO BID 07/01/17 10/16/18 RX: Insulin Human NPH [Humulin N] 10 units SC ACD 07/01/17 10/16/18 RX: Insulin Human NPH [Humulin N] 20 units SC ACB 07/01/17 10/16/18 RX: Lamotrigine 25 mg PO BID 07/01/17 10/16/18 RX: Fluticasone/Salmeterol 500/50 1 puff IH BID 08/12/17 10/16/18 [Advair Diskus 500/50] RX: amLODIPine [Norvasc] 10 mg PO DAILY 11/25/17 10/16/18 RX: M-Vit,Tx,Iron,Mins/Calc/Folic 1 tab PO DAILY 03/04/18 10/16/18 [Thera-M Caplet] RX: Memantine [Namenda] 10 mg PO BID 10/11/18 10/16/18 Acetaminophen [Tylenol] 650 mg PO PRN 10/16/18 10/16/18 Lactulose [Generlac] 10 gm PO PRN 10/16/18 10/16/18 Metoprolol [Lopressor] 25 mg PO DAILY 10/16/18 10/16/18 Pro Stat Sugar Free 30 ml PO 10/16/18 RX: Calcium Acetate [Phoslo] 667 mg PO DAILY 10/16/18 10/16/18 RX: Divalproex Sodium 125 mg PO BID 10/16/18 10/16/18 Vitamin B 1 100 mg PO BID 10/16/18 10/16/18 Review of Systems - Review of Systems Constitutional: absent: Fevers Respiratory: absent: SOB, Cough Cardiovascular: Chest Pain. absent: Palpitations, Edema, BONILLA Gastrointestinal: absent: Abdominal Pain, Constipation, Diarrhea, Nausea, Vomiting Genitourinary Male: absent: Dysuria, Urinary Output Changes Musculoskeletal: absent: Back Pain, Neck Pain Skin: absent: Rash Neurological: absent: Headache, Dizziness Endocrine: absent: Diaphoresis Psychiatric: absent: Anxiety Physical Exam Temperature: Afebrile Blood Pressure: Normal Pulse: Regular Respiratory Rate: Normal Appearance: Positive for: Non-Toxic, Comfortable, Other (Pale appearing) Pain Distress: None Mental Status: Positive for: Alert and Oriented X 3 - Systems Exam Head: Present: Atraumatic, Normocephalic Pupils: Present: PERRL Extroacular Muscles: Present: EOMI Conjunctiva: Present: Normal Mouth: Present: Moist Mucous Membranes Neck: Present: Normal Range of Motion Respiratory/Chest: Present: Clear to Auscultation, Good Air Exchange. No: Respiratory Distress, Accessory Muscle Use Cardiovascular: Present: Regular Rate and Rhythm, Normal S1, S2, Other (Dialysis catheter to R chest wall). No: Murmurs Abdomen: No: Tenderness, Distention, Peritoneal Signs Back: Present: Normal Inspection Upper Extremity: Present: Normal Inspection. No: Cyanosis, Edema Lower Extremity: Present: Other (Left AKA. Chronic venous stasis noted to right leg. ). No: Edema Neurological: Present: GCS=15, CN II-XII Intact, Speech Normal Skin: Present: Warm, Dry, Pale. No: Rashes Psychiatric: Present: Alert, Oriented x 3, Normal Insight, Normal Concentration Medical Decision Making ED Course and Treatment: 10/16/18 14:07 Impression: 88 year old male presents to the ED complaining of chest pain. Plan: -- Labs -- CXR -- Aspirin Progress Notes: 10/16/18 14:44 EKG shows NSR at 73bpm wtih LAD and non-specific st changes. Cxray negative 10/16/18 15:41 Dr. Minor consulted as patient is due for dialysis. Trop x [address] Thomas for observation for chest pain 10/16/18 16:[address] Thomas who accepted patient. Spoke to Dr. Minor who requested that our nurse call dialysis unit for dialysis today. If not possible today recommends lasix and nitropaste overnight - RAD Interpretation Narrative RAD Interpretations (Text): 10/16/18 15:45 CXR reviewed by radiologist, shows: FINDINGS: LUNGS: No active pulmonary disease. PLEURA: No significant pleural effusion identified, no pneumothorax apparent. CARDIOVASCULAR: Aortic calcification Mild cardiomegaly no pulmonary vascular congestion. OSSEOUS STRUCTURES: No significant abnormalities. VISUALIZED UPPER ABDOMEN: Normal. OTHER FINDINGS: Right IJ dialysis catheter in the right atrium IMPRESSION: No active disease. Radiology Orders: 10/16/18 14:07 CHEST PORTABLE [RAD] Stat Park Interpretive Ranger: Radiologist - Jhonatan Statement The provider has reviewed the documentation as recorded by the Pelonibjaret March. All medical record entries made by the Pelonibjaret were at my direction and personally dictated by me. I have reviewed the chart and agree that the record accurately reflects my personal performance of the history, physical exam, medical decision making, and the department course for this patient. I have also personally directed, reviewed, and agree with the discharge instructions and disposition. Disposition/Present on Arrival - Present on Arrival Any Indicators Present on Arrival: No History of DVT/PE: No History of Uncontrolled Diabetes: Yes Urinary Catheter: No History of Decub. Ulcer: No History Surgical Site Infection Following: None - Disposition Have Diagnosis and Disposition been Completed?: Yes Diagnosis: Chest pain, Elevated LFTs, ESRD (end stage renal disease) on dialysis Disposition: HOSPITALIZED Disposition Time: 15:00 Patient Plan: Observation Patient Problems: Current Active Problems Problem Status Onset Chest pain Acute ESRD (end stage renal disease) on dialysis Acute Elevated LFTs Acute Condition: FAIR
--- NOTE | 2018-10-16 14:39 | RAD ---
Date of service: 10/16/2018 HISTORY: chest pain COMPARISON: 10/11/2018 FINDINGS: LUNGS: No active pulmonary disease. PLEURA: No significant pleural effusion identified, no pneumothorax apparent. CARDIOVASCULAR: Aortic calcification Mild cardiomegaly no pulmonary vascular congestion. OSSEOUS STRUCTURES: No significant abnormalities. VISUALIZED UPPER ABDOMEN: Normal. OTHER FINDINGS: Right IJ dialysis catheter in the right atrium IMPRESSION: No active disease.
[2018-10-16 15:20] LABS: BASO # 0.01 K/mm3 (0.0-2.0); BASO % 0.1 % (0.0-3.0); EOS # 0.3 (0.0-0.7); EOS % 3.9 % (1.5-5.0); GRAN # 5.3 (1.4-6.5); GRAN % 62.1 % (50.0-68.0); HEMOGLOBIN 12.6 g/dL (14.0-18.0); LYMPH # 2.1 (1.2-3.4); LYMPH % 24.2 % (22.0-35.0); MEAN CELL VOLUME 89.4 fl (80.0-105.0); MEAN CORPUSCULAR HEMOGLOBIN 28.4 pg (25.0-35.0); MEAN CORPUSCULAR HGB CONC 31.8 g/dl (31.0-37.0); MEAN PLATELET VOLUME 10.6 fl (7.0-11.0); MONO # 0.8 (0.1-0.6); MONO % 9.7 % (1.0-6.0); RBC 4.43 10^6/uL (3.5-6.1); RED CELL DISTRIBUTION WIDTH 14.6 % (11.5-14.5); WHITE BLOOD COUNT 8.5 10^3/uL (4.5-11.0)
[2018-10-16 15:38] LABS: TROPONIN I 0.03 ng/mL
[2018-10-16 15:55] LABS: ALB/GLOB RATIO 1.2 (1.1-1.8); CALCIUM 9.2 mg/dL (8.4-10.5)
--- NOTE | 2018-10-16 19:24 | CARD ---
APPROVED REPORT Date of service: 10/16/2018 EKG Measurement Heart [id number] <Conclusion> Normal sinus rhythm Left axis deviation Nonspecific T wave abnormality Abnormal ECG
[2018-10-16] MEDS ORDERED: Prostat 15 g packet GT PRN (19:38)
[2018-10-16 21:20] LABS: TROPONIN I 0.02 ng/mL
[2018-10-16] MEDS ORDERED: Morphine 2 mg/ml ISec IVP ONE (21:48)
[2018-10-17 06:56] LABS: HEMOGLOBIN 11.7 g/dL (14.0-18.0); MEAN CELL VOLUME 89.1 fl (80.0-105.0); MEAN CORPUSCULAR HEMOGLOBIN 28.3 pg (25.0-35.0); MEAN CORPUSCULAR HGB CONC 31.7 g/dl (31.0-37.0); MEAN PLATELET VOLUME 9.6 fl (7.0-11.0); RBC 4.14 10^6/uL (3.5-6.1); RED CELL DISTRIBUTION WIDTH 14.7 % (11.5-14.5); WHITE BLOOD COUNT 7.3 10^3/uL (4.5-11.0)
[2018-10-17 07:29] LABS: HDL CHOLESTEROL 39 mg/dL (29-60)
[2018-10-17 07:40] LABS: LDL CHOLESTEROL 50 mg/dL (0-129)
[2018-10-17 07:42] LABS: B-TYPE NATRIURETIC PEPTIDE 2160 pg/mL (0-450); TROPONIN I 0.02 ng/mL
[2018-10-17 07:56] LABS: IRON 92 ug/dL (45-180)
[2018-10-17] MEDS ORDERED: Multivitamin With Minerals Tab PO SCH (08:00)
[2018-10-17] MEDS ORDERED: Arformoterol 15 mcg/2 ml Inh Sol IH SCH ×5 (08:00→08:20)
[2018-10-17] MEDS ORDERED: Budesonide 0.5 mg/2 ml Inhal Susp UD IH SCH ×2 (08:00→08:15)
[2018-10-17 08:08] LABS: % IRON SATURATION 36 % (20-55); TOTAL IRON BINDING CAPACITY 252 ug/dL (261-462)
[2018-10-17 08:52] VITALS: BMI 21.4
[2018-10-17] MEDS: Divalproex 125 mg EC Sprinkle Cap PO SCH ×3 (10:11→17:05)
[2018-10-17] MEDS: Fluticasone Nasal 50 mcg/Spray NS SCH ×2 (10:11→12:48)
[2018-10-17 12:21] LABS: FOLATE > 20.0 ng/mL
[2018-10-17 12:50] VITALS: BP 140/57; TEMP 98.3
[2018-10-17 14:19] VITALS: O2SAT 98
[2018-10-17 15:11] VITALS: PULSE 76
[2018-10-17 16:22] VITALS: RESP 14
[2018-10-17] MEDS ORDERED: Insulin Human NPH 1 UNITS/0.01 ML SC SCH (16:30)
--- NOTE | 2018-10-17 20:20 | CON ---
DATE: 10/17/2018 CONSULT SERVICE: Cardiology. REASON FOR CONSULTATION: Chest pain, cardiac evaluation. BRIEF CLINICAL HISTORY: This is an 88-year-old male possibly from the shelter, very poor historian, unable to give any history. Complains of history of coronary artery disease, complained history of a stent and natural history of end-stage renal disease on dialysis. The patient is not sure when he goes for dialysis and where, possibly he is a resident of the shelter, was seen yesterday by Dr. Thomas and transferred here for possible chest pain evaluation. The patient denies any chest pain now. Denies any shortness of breath. Denies any palpitation. Past history in the electronic medical record shows history of coronary artery disease, history of peripheral arterial disease, history of congestive heart failure, hypertension, hyperlipidemia, asthma, insulin-dependent diabetes, and end-stage renal disease on Saturday, , and Saturday dialysis. PAST MEDICAL HISTORY: History of coronary artery disease, congestive heart failure, and history of peripheral arterial disease. PAST SURGICAL HISTORY: Significant for left below-knee amputation, history of dialysis catheter on the right side of the chest. SOCIAL HISTORY: History of tobacco abuse in the past. Ex-heavy smoker. No history of substance abuse. ALLERGIES: NO KNOWN DRUG ALLERGIES. CURRENT MEDICATIONS: The patient is taking amlodipine, Flomax, metoprolol, Namenda, lactulose, insulin, folic acid, enalapril, atorvastatin, and aspirin. PREVIOUS CARDIAC WORKUP: The patient had echocardiography done on 11/26/2017 that shows a normal ejection fraction within normal limits, diastolic dysfunction, no mitral regurgitation, trace tricuspid regurgitation dated 11/26/2017. Previous EKG shows sinus tachycardia, left-axis deviation rate of 102. Today, EKG shows normal sinus, left-axis deviation. No acute ST-T changes noted. REVIEW OF SYSTEMS: As per HPI. VITAL SIGNS: Height of the patient 5 feet 6 inches, weight of the patient 132 pounds, body mass index 22 kg per meter2. LABORATORY DATA: EKG mentioned, normal sinus, left-axis deviation, rate of 80. Rest of the blood work are WBC 7.3, hemoglobin 11.7, hematocrit 36.9, and platelet count 139,000. Chemistry shows sodium 130, potassium 4.7, chloride 101, carbon oxide 25, anion gap of 17, BUN of 105, creatinine 5.2. Troponin in each is 0.2 and 0.2. IMPRESSION: An 88-year-old male with past medical history significant for end-stage renal disease, on dialysis, hypertension, hyperlipidemia, severe peripheral arterial disease, status post below-knee amputation, left; end-stage renal disease on dialysis, no evidence of chest pain, so far no evidence of acute myocardial infarction. Previous echo shows ejection fraction preserved in 11/2017, diabetes, hypertension, and hyperlipidemia. RECOMMENDATIONS: We will get echo to assess LV function, get troponin, if it remains negative, consider stress test. The patient is going to dialysis now possibly the patient being to consider a stress test on Saturday. We will get lipid profile, TSH, and hemoglobin A1c. Further recommendation depending on the hospital course. We will discuss with you. Thank you Dr. Thomas, for providing us an opportunity in taking care of your patient, Sukhdev Grey. Nathalie Menezes MD
--- NOTE | 2018-10-18 04:05 | CON ---
DATE: 10/17/2018 REFERRING PHYSICIAN: . REASON FOR CONSULTATION: Chronic obstructive lung disease, may have sleep apnea syndrome. HISTORY OF PRESENT ILLNESS: This is an 88-year-old gentleman known to me from previous admission. He is a retirement resident, has renal failure, dialysis dependent, history of peripheral vascular disease, has a left-sided amputation, atherosclerotic vascular disease, congestive heart failure, hypertension, hyperlipidemia, insulin-dependent diabetes; was evaluated by Dr. Thomas; had some shortness of breath and chest pain, was sent to emergency room, was admitted for further workup. Presently lying in the bed, no acute distress. Mild short of breath, no chest pain at present. No nausea, no vomiting, no diarrhea. No leg pain or leg swelling. PAST MEDICAL HISTORY: As per history present illness. FAMILY HISTORY: No significant cardiopulmonary disease reported. SOCIAL HISTORY: Ex-smoker. ALLERGIES: NONE KNOWN. MEDICATIONS: He is on aspirin 81 mg daily, Brovana inhaled twice a day, Depakote 125 mg twice a day, Flomax 0.4 mg daily, Flonase once to each nostril daily, folic acid 1 mg daily, insulin coverage, Lamictal 25 mg twice a day, Lipitor 10 mg daily, metoprolol tartrate 25 mg daily, Namenda 10 mg daily, Norvasc 10 mg daily, Pepcid 20 mg at bedtime, getting amino acid protein 30 g G-tube twice a day p.r.n. for constipation, also on budesonide inhaler twice a day, multivitamins daily, Tylenol p.r.n., vitamin B 100 mg twice a day, Zestril 20 mg daily. REVIEW OF SYSTEMS: No headache, no rhinitis. Mild cough, shortness of breath. At present, no chest pain. No abdominal pain. No dysuria. No leg swelling. PHYSICAL EXAMINATION: GENERAL: No acute distress. VITALS: Temperature is 98, heart rate 76, respiratory rate is 18, blood pressure 140/57, pulse ox 98% on nasal cannula. HEENT: Moist mucous membranes. Crowded airway. NECK: Supple. No JVD. LUNGS: Have a fair airflow with rhonchi. HEART: S1 and S2. ABDOMEN: Soft, nontender, no organomegaly. EXTREMITIES: There is no edema of the right leg. Left leg stump looks okay. NEUROLOGIC: Awake. Follows simple commands. LABORATORY DATA: Shows hemoglobin 11.7, hematocrit 36.9, WBC 7.3, platelet is 139. Sodium 138, potassium 4.7, chloride 101, bicarbonate 25, BUN 102, creatinine 5.3, glucose 124, hemoglobin A1c 5.9, calcium 9.2, phosphorus 4.3, magnesium 2.2. Iron is 92, AST 60, ALT 66, alk phos is 205. Troponin less than 0.02. ProBNP 2160. Cholesterol is 115, triglycerides 165. Folate is more than 20. B12 is 830. Chest x-ray is unremarkable. IMPRESSION AND PLAN: Chronic obstructive lung disease; diabetes; history of gastroparesis; renal failure, dialysis dependent; peripheral vascular disease, left BKA. Pulmonary point of view, doing okay. Continue bronchodilator, keep head at 45 degrees. We will add Dulcolax suppository p.r.n. for constipation. Gastric and deep venous thrombosis prophylaxis. Pump inhibitors, keep head at 45 degrees. Sleep apnea precaution. Careful with sedation. We will follow with you. Nathalie Gibson MD
[2018-10-18] MEDS ORDERED: Psyllium Packet PO SCH (10:00)
--- NOTE | 2018-10-18 10:49 | PN ---
DATE: 10/17/2018 DIALYSIS PROGRESS NOTE SUBJECTIVE: This 88-year-old male was dialyzing in the [facility] renal dialysis unit on the date of 10/17/2018. He is dialyzing on a F 160, 140 sodium, 3 K bicarb bath with blood flow rates of 400 mL per minute, blood pressure 164/71 with a pulse of 75. Heart is S1, S2. Lungs are clear. I am aiming for 1.5-2 kg of fluid removal today. Dee Minor MD MTDD
--- NOTE | 2018-10-18 11:53 | PN ---
DATE: 10/17/2018 DIALYSIS PROGRESS NOTE SUBJECTIVE: This 88-year-old male is in the renal dialysis unit on 10/17/2018. He is dialyzing on a F160, 140 sodium 3K bicarb bath. Blood pressure is 113/60 with a pulse of 77. I am aiming for approximately 1.5 kg fluid removal. Today's hemoglobin is 11.7, hematocrit is 36.9. The patient maybe returned to his [facility] [place] [facility] care post dialysis as discussed with Shahana Dorsey, renal dialysis registered nurse. Dee Minor MD MTDTahmina
--- NOTE | 2018-10-18 14:31 | CON ---
DATE: 10/17/2018 HISTORY OF PRESENT ILLNESS: This 88-year-old male was examined at his bedside on the cardiac unit. He was admitted last evening after failing to present for hemodialysis in the outpatient unit. He attends dialysis on Saturday, , and Saturdays. He was sent to ER complaining of chest pain and was not noted to have any EKG changes and on emergency room evaluation had a CPK of 38 and a troponin of 0.02. The patient was admitted for observation and is being treated with hemodialysis. PAST MEDICAL HISTORY: Significant for chronic renal failure, hemodialysis dependent; atherosclerotic heart disease, chronic AFib, congestive heart failure, systolic; chronic hypertension, insulin-dependent diabetes mellitus, anemia of chronic disease, hyperlipidemia, status post right itfuz-jrg-pvwy amputation, organic brain syndrome, advanced degenerative arthritis, spinal arthritis, and history of noncompliance and agitation syndrome. OUTPATIENT MEDICATIONS: Reviewed and included PhosLo, Lopressor, insulin, Norvasc, Lipitor, Ecotrin, Flomax, Namenda, folic acid, Advair Diskus, Pepcid, Vasotec. ALLERGIES: THE PATIENT HAS NO KNOWN ALLERGIES TO MEDICATION. SOCIAL HISTORY: Is a current nondrinker, nonsmoker, non IV drug misuser. FAMILY HISTORY: Noncontributory. PHYSICAL EXAMINATION: VITAL SIGNS: Temperature of 98.3, respirations 20, pulse 76, and blood pressure 140/57. HEENT: Head: Normocephalic, atraumatic. Eyes: No icterus. Ears: Clear. Throat: Noninjected. NECK: Supple. HEART: Irregular S1, S2. LUNGS: Clear. ABDOMEN: Soft. EXTREMITIES: No edema. SKIN: Without rash. NEUROLOGICAL: Unchanged. PSYCHOLOGICAL: Confused. VASCULAR: Legs warm to touch. DIAGNOSTIC DATA: Sodium 138, K 4.7, chloride 101, bicarb 25, BUN 102, creatinine 5.3, random blood sugar 146. AST 60, ALT 66, alk phos 205, glucose 124. CPK 58, troponin 0.03. Repeat CPK 38 with a repeat troponin 0.02. Iron percent saturation 36. Hemoglobin A1c 5.9. White count 7300, hemoglobin 11.7, hematocrit 36.9, and platelets are 139,000. Chest x-ray was reviewed. It shows no active pulmonary disease. No significant pleural effusions, no pneumothorax, no obvious congestive heart failure. EKG was reviewed. It showed normal sinus rhythm with nonspecific ST-T wave changes. IMPRESSION: An 88-year-old male with refusal to attend hemodialysis with probable atypical chest pain and comorbidities as outlined above, now in need of hemodialysis. The patient will be dialyzed and in my opinion can be returned to the [facility] for his skilled nursing care and he has been instructed to be more compliant with the pending hemodialysis on Saturday, , and Saturdays. He was reminded that his next hemodialysis treatment will be tomorrow afternoon. Hopefully he will be compliant with the above. Dee Minor MD MTDD
--- NOTE | 2018-10-19 02:30 | HP ---
DATE OF EXAM: 10/17/2018 The patient was seen and examined on 10/17/2018. CHIEF COMPLAINT: Chest pain. HISTORY OF PRESENT ILLNESS: Mr. Sukhdev Grey is an 88-year-old male resident of [facility] with past medical history of kidney failure on hemodialysis three times a week, atherosclerosis, peripheral vascular disease, congestive heart failure, hypertension, hypercholesterolemia, asthma, insulin-dependent diabetes mellitus, while in the half-way and that was his date to go for dialysis he refused, but when I saw the patient in his room, he was complaining about chest pain, shortness of breath, and dyspnea, then we transferred the patient to [facility] emergency room for medical evaluation. The patient found that his last dialysis was last week and was unable to make it today secondary to chest pain. The patient denies any fever, chills. No nausea, vomiting, diarrhea. No hematuria, hematochezia. No coughing. No back pain. No headache. No dizziness. We admitted the patient, called Cardiology consult with Dr. Menezes, Pulmonary Dr. Gibson. The patient is seen by Dr. Minor. Cardiology has cleared the patient, so we discharged the patient back to half-way with the advise that the patient will come for dialysis three times a week. Education was done. PAST MEDICAL HISTORY: COPD, dementia, cataract, on hemodialysis three times a week, diabetes mellitus type 2 very noncompliant, prostate cancer, BPH, left below the knee amputation. FAMILY HISTORY: Father, mother noncontributory. HABITS: Former smoker, now no smoking. No drug. No ethanol. ALLERGIES: THE PATIENT IS NOT ALLERGIC TO ANY MEDICATIONS. HOME MEDICATIONS: Vasotec, insulin, amlodipine, Namenda, Tylenol, lactulose. REVIEW OF SYSTEMS: The patient was seen and examined at bedside, looking comfortable. No nausea, vomiting, diarrhea. No hematuria. No hematochezia. No swelling of legs. No chest pain. No palpitations. No headache. No dizziness. PHYSICAL EXAMINATION VITAL SIGNS: Temperature is 98.6, pulse 77, blood pressure 140/57. HEENT: Head is normocephalic, atraumatic. Eyes PERRLA. Extraocular muscles are intact. Conjunctivae clear. Nose patent. NECK: Supple. No carotid bruits. No JVD, thyromegaly. CHEST: Bilateral symmetrical. HEART: S1, S2 positive. LUNGS: Clear to auscultation. ABDOMEN: Soft. Bowel sounds present. No organomegaly. EXTREMITIES: No edema. No cyanosis. NEUROLOGIC: The patient is awake, alert. Moving all 4 extremities. No focal deficits LABORATORY DATA: White blood cell is 7.3, hemoglobin 11.7, hematocrit 36.9, platelets 139,000. Glucose 236. Total binding capacity 252. Sodium 138, potassium 4.7, BUN 102, creatinine 5.3, phosphorous 4.8. ASSESSMENT AND PLAN: Mr. Sukhdev Grey is an 88-year-old male. His kidneys not doing very well. Diabetes mellitus, hyperphosphatemia, iron deficiency, abnormal liver function test, ProBNP positive. Hypertriglyceridemia, meds given for that. GI, DVT prophylaxis. Repeat labs. The patient was cleared by the psychology professor and chronometer adjuster. did dialysis, discharged home on 10/17/2018. We will followup treatment in [place]. Senia Thomas MD MTDD
--- NOTE | 2018-10-19 02:41 | DS ---
The patient is discharged to [facility] on 10/17/2018. The patient was seen only one time by me on 10/17/2018. A chest x-ray was done. Seen by Dr. Dee Minor, Dr. Gibson, and Dr. Menezes. Looking comfortable. We will continue same medications. Urged to get dialysis three times a week, be compliant. For more details, see my H and P. Senia Thomas MD (Delete this signature block when dictator is a preceptor.) cc: MD Holli (Delete if not dictated.)
== END 2018-10-17 18:25 ==
LOC: ED 13:53 → ERH 15:39 → 2RSO 17:02
PROVIDERS: ADMIT Internal Medicine; ATTEND Internal Medicine
DX: R07.89 Other chest pain (principal); I13.2 Hypertensive heart and chronic kidney disease with heart failure and with stage 5 chronic kidney disease, or end stage renal disease; N18.6 End stage renal disease; E11.43 Type 2 diabetes mellitus with diabetic autonomic (poly)neuropathy; I50.22 Chronic systolic (congestive) heart failure; K31.84 Gastroparesis; D63.8 Anemia in other chronic diseases classified elsewhere; E11.22 Type 2 diabetes mellitus with diabetic chronic kidney disease; E11.51 Type 2 diabetes mellitus with diabetic peripheral angiopathy without gangrene; E78.1 Pure hyperglyceridemia; E83.39 Other disorders of phosphorus metabolism; E61.1 Iron deficiency; F03.90 Unspecified dementia, unspecified severity, without behavioral disturbance, psychotic disturbance, mood disturbance, and anxiety; I25.10 Atherosclerotic heart disease of native coronary artery without angina pectoris; I48.2 Chronic atrial fibrillation; J44.9 Chronic obstructive pulmonary disease, unspecified; N40.0 Benign prostatic hyperplasia without lower urinary tract symptoms; I07.1 Rheumatic tricuspid insufficiency; M46.90 Unspecified inflammatory spondylopathy, site unspecified; Z99.2 Dependence on renal dialysis; Z95.5 Presence of coronary angioplasty implant and graft; Z91.19 Patient's noncompliance with other medical treatment and regimen; Z89.512 Acquired absence of left leg below knee; Z87.891 Personal history of nicotine dependence; Z85.46 Personal history of malignant neoplasm of prostate; Z79.4 Long term (current) use of insulin
CPT/HCPCS: 36415; 71045; 80053; 80061; 82550; 82607; 82746; 82948; 83036; 83540; 83550; 83615; 83735; 83880; 84100; 84443; 84484; 85025; 85027; 93005; 94640; 99285; G0378; J2270

== ENCOUNTER 2018-11-18 17:48 | Observation (INO) | payer MEDICARE, MEDICAID ==
[2018-11-18 17:48] VITALS: BMI 21.4
--- NOTE | 2018-11-18 18:31 | ED PDOC ---
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 Patient is oriented x1 - only to self, he reports feeling dizzy since this morning. Patient noted to have a cough. But reports no pain. On further questioning the patient is unable to provide additional information, he is a poor historian. PMD: Cayla Elevator Starter: Dr. Minor Past Medical History - Past History Past History: No Previous - Infectious Disease Hx of Infectious Diseases: None - Tetanus Immunization Tetanus Immunization: Unknown - Cardiac Hx Cardiac Disorders: Yes Hx Angina: Yes Hx Congestive Heart Failure: Yes Hx Hypertension: Yes Hx Peripheral Vascular Disease: Yes Other/Comment: arthrosclerosis - Pulmonary Hx Respiratory Disorders: Yes Hx Asthma: Yes Hx Chronic Obstructive Pulmonary Disease (COPD): Yes - Neurological Hx Neurological Disorder: Yes Hx Dementia: Yes Other/Comment: forgetfulness - HEENT Hx HEENT Disorder: Yes Hx Cataracts: Yes - Renal Hx Renal Disorder: Yes Hx Dialysis: Yes Date of Last Dialysis Treatment: 11/18/18 Hx Renal Failure: Yes Other/Comment: HD: //Saturday - Endocrine/Metabolic Hx Endocrine Disorders: Yes Hx Diabetes Mellitus Type 2: Yes - Hematological/Oncological Hx Blood Disorders: Yes - Integumentary Hx Dermatological Disorder: Yes - Musculoskeletal/Rheumatological Hx Musculoskeletal Disorders: Yes Hx Falls: Yes Hx Unsteady Gait: Yes Other/Comment: Left AKA - Gastrointestinal Hx Gastrointestinal Disorders: Yes Other/Comment: LIVER DISEASE - Genitourinary/Gynecological Hx Genitourinary Disorders: Yes Hx Prostate Problems: Yes (BPH) - Psychiatric Hx Psychophysiologic Disorder: Yes Hx Depression: Yes Hx Substance Use: No - Surgical History Hx Amputation: Yes (left AKA) Hx Orthopedic Surgery: Yes Hx Vascular Access Device: Yes - Anesthesia Hx Anesthesia: Yes Hx Anesthesia Reactions: No Hx Malignant Hyperthermia: No Family/Social History Family/Social History: Unknown Family HX Smoking Status: Former Smoker Hx Alcohol Use: No Hx Substance Use: No Hx Substance Use Treatment: No Allergies/Home Meds Allergies/Adverse Reactions: Allergies No Known Allergies Allergy (Verified 11/18/18 18:03) Home Medications: Home Meds Medication Instructions Recorded Confirmed Enalapril Maleate [Vasotec] 20 mg PO BID 07/01/17 10/16/18 Insulin Human NPH [Humulin N] 10 units SC ACD 07/01/17 10/16/18 Insulin Human NPH [Humulin N] 20 units SC ACB 07/01/17 10/16/18 Lamotrigine 25 mg PO BID 07/01/17 10/16/18 Fluticasone/Salmeterol 500/50 1 puff IH BID 08/12/17 10/16/18 [Advair Diskus 500/50] amLODIPine [Norvasc] 10 mg PO DAILY 11/25/17 10/16/18 M-Vit,Tx,Iron,Mins/Calc/Folic 1 tab PO DAILY 03/04/18 10/16/18 [Thera-M Caplet] Memantine [Namenda] 10 mg PO BID 10/11/18 10/16/18 Acetaminophen [Tylenol] 650 mg PO PRN 10/16/18 10/16/18 Calcium Acetate [Phoslo] 667 mg PO DAILY 10/16/18 10/16/18 Divalproex Sodium 125 mg PO BID 10/16/18 10/16/18 Lactulose [Generlac] 10 gm PO PRN 10/16/18 10/16/18 Metoprolol [Lopressor] 25 mg PO DAILY 10/16/18 10/16/18 Pro Stat Sugar Free 30 ml PO 10/16/18 Vitamin B 1 100 mg PO BID 10/16/18 10/16/18 Review of Systems - Review of Systems Systems not reviewed;Unavailable: Altered Mental Status (patient also has a h/o dementia) Physical Exam Vital Signs Pulse Resp BP Pulse Ox 11/18/18 18:05 93 H 17 134/54 L 93 L Blood Pressure: Normal Pulse: Regular Appearance: Positive for: Ill-Appearing Pain Distress: None Mental Status: Positive for: Confused, other (awake, alert and oriented to self only) - Systems Exam Head: Present: Atraumatic, Normocephalic Pupils: Present: PERRL Extroacular Muscles: Present: EOMI Conjunctiva: Present: Normal Mouth: Present: Dry Neck: Present: Normal Range of Motion Respiratory/Chest: Present: Clear to Auscultation, Good Air Exchange. No: Re spiratory Distress, Accessory Muscle Use Cardiovascular: Present: Regular Rate and Rhythm, Normal S1, S2. No: Murmurs Abdomen: No: Tenderness, Distention, Peritoneal Signs Upper Extremity: Present: Normal Inspection. No: Cyanosis, Edema Lower Extremity: Present: Other (+L AKA). No: Edema Neurological: Present: GCS=15, CN II-XII Intact, Speech Normal Skin: Present: Warm, Dry, Normal Color. No: Rashes Medical Decision Making ED Course and Treatment: 11/18/18 18:34 Plan: -- Labs -- IV -- school lunch monitor -- FS -- EKG -- CXR -- Reassess and disposition -- CT head EKG : NSR at 93 bpm, +LAD, as read by PA. CXR : IMPRESSION: Right IJ approach dialysis catheter with distal tip extending to the SVC/cavoatrial junction. Labs reviewed. On re-evaluation, patient is resting in bed comfortably in no acute distress, VSS. 11/18/18 23:22 CT Head: BRAIN Decreased attenuation of the periventricular and subcortical white matter reflecting chronic microvascular ischemic changes. VENTRICLES: No hydrocephalus. ORBITS: The orbits are unremarkable. SINUSES AND MASTOIDS: The paranasal sinuses and mastoid air cells are clear. BONES: No fracture. SOFT TISSUES: Unremarkable. MISCELLANEOUS: Age appropriate involutional changes. IMPRESSION: 1. Age appropriate involutional changes. 2. Decreased attenuation of the periventricular and subcortical white matter reflecting chronic microvascular ischemic changes. Electronically signed on Nov 18, 2018 10:36:18 PM EST by: Cezar Melendez M.D., Certified by [facility] On second re-evaluation, patient is more awake, alert, still oriented x1, but now is able to hold a conversation. His repeat neuro exam shows no focal findings. Patient made aware of plan for further observation, which he agrees to. Case d/w Dr. Kulkarni, agrees with plan, with consult to Dr. Minor. - RAD Interpretation Radiology Orders: 11/18/18 18:26 CHEST PORTABLE [RAD] Stat 11/18/18 18:27 HEAD W/O CONTRAST [CT] Stat Record Changer: Radiologist - PA / TUBE WRAPPER / Resident Statement MD/DO has reviewed & agrees with the documentation as recorded. Disposition/Present on Arrival - Present on Arrival Any Indicators Present on Arrival: Yes History of DVT/PE: No History of Uncontrolled Diabetes: Yes Urinary Catheter: No History of Decub. Ulcer: No History Surgical Site Infection Following: None - Disposition Have Diagnosis and Disposition been Completed?: Yes Diagnosis: ESRD (end stage renal disease) on dialysis, Altered mental status Disposition: HOSPITALIZED Disposition Time: 23:30 Patient Plan: Observation Condition: STABLE Forms: [employer] (Ugandan)
--- NOTE | 2018-11-18 18:37 | PCM.RRT ---
<JacquiMaynor - Last Filed: 11/18/18 18:33> QUANTITATIVE STRATEGY ANALYST Nurse Assessment - Situation Date: 11/18/18 Time QUANTITATIVE STRATEGY ANALYST was called: 17:39 QUANTITATIVE STRATEGY ANALYST Responder Arrival Time: 17:45 QUANTITATIVE STRATEGY ANALYST Location:: Renal Dialysis QUANTITATIVE STRATEGY ANALYST Reason for Call: Change in Mental Status QUANTITATIVE STRATEGY ANALYST Called By: RN - IV IV Inserted during QUANTITATIVE STRATEGY ANALYST?: No - Respiratory Oxygen Delivery Method: Room Air Received Nebulizer Treatments:: No Was the Patient Ventilated with Bag/Mask 100% O2?: No Secretions Suctioned?: No Was the Patient Intubated?: No Was the Patient Placed on a Ventilator?: No - Diagnostic Test Ordered EKG: No Chest X-Ray: No CT Scan: No I.Reason for QUANTITATIVE STRATEGY ANALYST - A) Acute Change in Patient: (Select all that apply): Acute change in mental status Subjective: Patient is an 88 yo M with ESRD was in dialysis unit. Prior to receiving dialysis, nurse noted that the patient had an acute change in mental status. Patient was awake, but not responding to questioning or commands. All vital signs were stable. Patient was sent to ED for further evaluation. - Neurological Status (Select all that apply): Disoriented, Confused - Respiratory Oxygen Delivery Method: Room Air - Constitutional Appears: No Acute Distress, Confused - Head Head Exam: NORMAL INSPECTION - Eyes Eye Exam: Normal appearance - Respiratory Exam Respiratory Exam: Clear to Ausculation Bilateral. absent: Rales, Rhonchi, Wheezes - Cardiovascular Exam Cardiovascular Exam: REGULAR RHYTHM, RRR - GI/Abdominal Exam GI & Abdominal Exam: Soft, Normal Bowel Sounds - Neurological Exam Neurological Exam: Awake, CN II-XII Intact - Extremities Exam Extremities Exam: Normal Inspection Plan - Assessment of Findings&Treatment Plan 88 yo M with acute change in mental status prior to hemodialysis concerning for possible CVA or seizure. Will transfer to ED for further evaluation. <Nathalie Orr - Last Filed: 11/19/18 14:47> Attending/Attestation - Attestation I have personally seen and examined this patient.: Yes I have fully participated in the care of the patient.: Yes I have reviewed all pertinent clinical information, including history, physical exam and plan: Yes Notes (Text): 11/19/18 14:47 Medical record note made by the resident after discussion with my direction and input after the patient was personally seen and examined by me. I have reviewed the chart and agree that the record accurately reflects by personal performance of the history, physical exam, data review, and medical decision-making, in the course for the patient. I have also personally directed the plan of care.
--- NOTE | 2018-11-18 18:52 | RAD ---
HISTORY: AMS COMPARISON: Chest x-ray performed 10/16/18 TECHNIQUE: Chest, one view. FINDINGS: Examination limited by habitus. Right IJ approach dialysis catheter with distal tip extending to the SVC/cavoatrial junction. LUNGS: No focal consolidation. Please note that chest x-ray has limited sensitivity for the detection of pulmonary masses. PLEURA: No significant pleural effusion identified. No definite pneumothorax . CARDIOVASCULAR: Heart size appears within normal limits. Ectatic aorta. Atherosclerotic calcifications. OSSEOUS STRUCTURES: No acute osseous abnormality identified. VISUALIZED UPPER ABDOMEN: Unremarkable. OTHER FINDINGS: None. IMPRESSION: Right IJ approach dialysis catheter with distal tip extending to the SVC/cavoatrial junction.
[2018-11-18 19:01] LABS: BASO # 0.02 K/mm3 (0.0-2.0); BASO % 0.2 % (0.0-3.0); EOS # 0.2 (0.0-0.7); EOS % 2.1 % (1.5-5.0); GRAN # 9.16 (1.4-6.5); GRAN % 85.1 % (50.0-68.0); HEMOGLOBIN 12.7 g/dL (14.0-18.0); LYMPH # 0.8 (1.2-3.4); LYMPH % 7.3 % (22.0-35.0); MEAN CELL VOLUME 85.8 fl (80.0-105.0); MEAN CORPUSCULAR HEMOGLOBIN 29.1 pg (25.0-35.0); MEAN CORPUSCULAR HGB CONC 33.9 g/dl (31.0-37.0); MEAN PLATELET VOLUME 10.1 fl (7.0-11.0); MONO # 0.6 (0.1-0.6); MONO % 5.3 % (1.0-6.0); RBC 4.37 10^6/uL (3.5-6.1); RED CELL DISTRIBUTION WIDTH 16.1 % (11.5-14.5); WHITE BLOOD COUNT 10.8 10^3/uL (4.5-11.0)
[2018-11-18 19:03] LABS: VENOUS BLOOD GAS BASE EXCESS 2.2 mmol/L (0.0-2.0); VENOUS BLOOD GAS PO2 50 mm/Hg (30-55); VENOUS BLOOD PH 7.39 (7.32-7.43)
[2018-11-18 19:13] LABS: INR 0.97; PARTIAL THROMBOPLASTIN TIME 34.3 Seconds (25.1-36.5)
[2018-11-18 20:01] LABS: ALB/GLOB RATIO 1.1 (1.1-1.8); ALBUMIN 4.4 g/dL (3.0-4.8); CALCIUM 9.4 mg/dL (8.4-10.5)
[2018-11-18 20:25] LABS: TROPONIN I 0.02 ng/mL
--- NOTE | 2018-11-19 08:17 | CARD ---
APPROVED REPORT Date of service: 11/18/2018 EKG Measurement Heart [id number] ID [id number] <Conclusion> Normal sinus rhythm Left axis deviation/LAHB PRWP STTW changes c/w ischemia Prolonged QTc
--- NOTE | 2018-11-19 08:43 | CT ---
Date of service: 11/18/2018 PROCEDURE: CT HEAD WITHOUT CONTRAST. HISTORY: AMS COMPARISON: None available. TECHNIQUE: Axial computed tomography images were obtained through the head/brain without intravenous contrast. Radiation dose: Total exam DLP = 960.21 mGy-cm. This CT exam was performed using one or more of the following dose reduction techniques: Automated exposure control, adjustment of the mA and/or kV according to patient size, and/or use of iterative reconstruction technique. FINDINGS: HEMORRHAGE: No intracranial hemorrhage. BRAIN: No mass effect or edema. Atrophy and severe chronic microvascular ischemic change. VENTRICLES: Unremarkable. No hydrocephalus. CALVARIUM: Unremarkable. PARANASAL SINUSES: Unremarkable as visualized. No significant inflammatory changes. MASTOID AIR CELLS: Unremarkable as visualized. No inflammatory changes. OTHER FINDINGS: None. IMPRESSION: No acute hemorrhage.
--- NOTE | 2018-11-19 13:30 | CON ---
DATE: 11/19/2018 NEPHROLOGY CONSULTATION HISTORY OF PRESENT ILLNESS: This 88-year-old male was at hemodialysis at the [facility] renal dialysis unit yesterday when on completing treatment he was noted to be confused and unresponsive. A Rapid Response was called and the patient was sent to the [facility] ER last evening for further evaluation of the above. There he was noted to be initially confused, was further evaluated, given nasal O2 and underwent diagnostic workup including CT of the head that was unremarkable for acute stroke or hemorrhage. The patient stated that he had felt dizzy earlier in the morning and was given nasal O2 with improvement in symptomatology. I am asked to evaluate the patient regarding his chronic renal failure and dialysis issues. Review of this patient's chart reveals that he is a gentleman who resides at a local [facility] for alf care and is status post a left [id number] amputation. He has chronic comorbidities including seizure syndrome; organic brain syndrome; chronic hypertension; end-stage renal disease, hemodialysis dependent; anemia of chronic disease; benign prostate hypertrophy; peripheral vascular disease; insulin-dependent diabetes mellitus; degenerative arthritis; sinusitis; peptic ulcer disease with GERD; hyperphosphatemia; hyperlipidemia; and chronic obstructive pulmonary disease. MEDICATIONS: Outpatient medications are too numerous to mention. ALLERGIES: HE REPORTEDLY HAS NO KNOWN ALLERGIES TO MEDICATIONS. SOCIAL HISTORY: He is a current nondrinker, nonsmoker, non IV drug misuser. FAMILY HISTORY: Noncontributory. REVIEW OF SYSTEMS CONSTITUTIONAL: There were no fever or chills. HEAD: No recent head trauma. No recent seizure. EYE: No change in visual acuity. EAR: No hearing loss. THROAT: No swallowing difficulty. NECK: No stiffness. CARDIAC: As per HPI. PULMONARY: No cough. No hemoptysis. GI: GERD. : End-stage renal disease, hemodialysis dependent. VASCULAR: Peripheral vascular disease with a left aisic-ujo-klz amputation. NEUROLOGICAL: No recent stroke. ENDOCRINOLOGICAL: Insulin-dependent diabetes mellitus. PSYCHOLOGICAL: History of organic brain syndrome, agitation and noncompliance with outpatient dialysis regime PHYSICAL EXAMINATION VITAL SIGNS: At present, temperature is 97.6, respirations 18, pulse 89 and blood pressure 129/55. Pulse ox 100% on 2 liters nasal O2. HEAD: Normocephalic, atraumatic. EYES: No icterus. EARS: Clear. THROAT: Noninjected. NECK: Supple. HEART: S1, S2. LUNGS: Without wheezing. ABDOMEN: Soft. EXTREMITIES: Status post left whyby-kxw-zbx amputation. No edema. VASCULAR: Legs warm to touch. NEUROLOGICAL: Chronically agitated. SKIN: Without rash. LABORATORY DATA: White count 10,800, hemoglobin 12.7, hematocrit 37.5, platelets 173,000. PT/INR 0.97, PTT 34.3. Sodium 137, K 4.1, chloride 97, bicarb 27, BUN 42, creatinine 3.9, random blood sugar 161, calcium 9.4, magnesium 2.1. Bilirubin 0.3, AST 27, ALT 22, alk phos 185. BNP 4280. Influenza A and B serology negative. Chest x-ray was reviewed. It showed no active infiltrate, no focal consolidations. There was no significant congestive heart failure noted. EKG was consistent with sinus rhythm with nonspecific ST-T wave changes, and his head CT was reviewed and showed no active stroke or intracranial hemorrhage. IMPRESSION: This is an 88-year-old male status post a rapid response post dialysis yesterday with altered mental status and comorbidities including end-stage renal disease, hemodialysis dependent; old stroke; seizure syndrome; hypertension; benign prostate hypertrophy; peripheral vascular disease; chronic hypertension; insulin-dependent diabetes mellitus; anemia of chronic disease; degenerative arthritis; peptic ulcer disease with gastroesophageal reflux disease; hyperphosphatemia; hyperlipidemia; and atherosclerotic heart disease. PLAN: At present is to monitor this patient on the medical shearer. Blood cultures have been received and are pending and he is scheduled to have a renal diabetic diet. Neurological evaluation regarding his altered mental status is pending with Dr. Michael Villalobos, neurologist, and the patient will be scheduled for hemodialysis in the a.m. Pending diagnostic workup, additional diagnostic workup and testing will be entertained. All of the above was reviewed in detail with his nurse. All questions were answered. Dee Minor MD MTDTahmina
--- NOTE | 2018-11-19 16:35 | CP.PCM.APN ---
Subjective - Date & Time of Evaluation Date of Evaluation: 11/19/18 Time of Evaluation: 09:15 - Subjective Subjective: 11/18/18 18:28 88 year old male, with past medical history of ESRD (dialysis T-), dementia, atherosclerotic disease, PVD, CHF, HTN, hyperlipidemia, asthma, & IDDM, presents to the ED after finishing HD today for confusion. Patient is oriented x1 - only to self, he reports feeling dizzy since this morning. Patient noted to have a cough. But reports no pain. On further questioning the patient is unable to provide additional information, he is a poor historian. Pt. seen and examined at bedside. Is noted to be oriented to person only, denied chest pain, shortness of breath, palpitations, dyspnea. Review of Systems - Constitutional Constitutional: As Per HPI - EENT Eyes: As Per HPI Ears: As Per HPI Nose/Mouth/Throat: As Per HPI - Cardiovascular Cardiovascular: As Per HPI - Respiratory Respiratory: As Per HPI - Gastrointestinal Gastrointestinal: As Per HPI - Genitourinary Genitourinary: As Per HPI - Reproductive: Male Reproductive:Male: As Per HPI - Musculoskeletal Musculoskeletal: As Per HPI - Integumentary Integumentary: As Per HPI - Neurological Neurological: As Per HPI - Psychiatric Psychiatric: As Per HPI - Endocrine Endocrine: As Per HPI - Hematologic/Lymphatic Hematologic: As Per HPI Objective - Vital Signs/Intake and Output Vital Signs (last 24 hours): Temp Pulse Resp BP Pulse Ox 99.3 F 81 20 144/72 99 11/19/18 13:26 11/19/18 13:26 11/19/18 13:26 11/19/18 16:05 11/19/18 13:26 - Medications Medications: Current Medications Acetaminophen (Tylenol 325mg Tab) 650 mg PO Q6H PRN PRN Reason: Pain, moderate (4-7) Amlodipine Besylate (Norvasc) 10 mg PO DAILY ON LICENSE OF [facility] Last Admin: 11/19/18 16:05 Dose: 10 mg Arformoterol Tartrate (Brovana) 15 mcg IH [id number] ON LICENSE OF [facility] Aspirin (Ecotrin) 81 mg PO DAILY ON LICENSE OF [facility] Last Admin: 11/19/18 16:04 Dose: 81 mg Atorvastatin Calcium (Lipitor) 10 mg PO DIN ON LICENSE OF [facility] Budesonide (Pulmicort Respules) 1 mg IH [id number] ON LICENSE OF [facility] Calcium Acetate (Phoslo) 667 mg PO WM FANNY Divalproex Sodium (Depakote Sprinkles) 125 mg PO BID ON LICENSE OF [facility]; Protocol Famotidine (Pepcid) 20 mg PO DAILY ON LICENSE OF [facility] Fluticasone Propionate (Flonase) 1 actuation NS DAILY ON LICENSE OF [facility] Folic Acid (Folic Acid) 1 mg PO DAILY ON LICENSE OF [facility] Last Admin: 11/19/18 16:05 Dose: 1 mg Lisinopril (Zestril) 20 mg PO DAILY ON LICENSE OF [facility] Last Admin: 11/19/18 16:04 Dose: 20 mg Memantine (Namenda) 10 mg PO DAILY ON LICENSE OF [facility] Last Admin: 11/19/18 16:04 Dose: 10 mg Metoprolol Tartrate (Lopressor) 25 mg PO BID ON LICENSE OF [facility] Multivitamins/Vitamin C (Multi-Delyn Liquid) 15 ml PO 0800 ON LICENSE OF [facility] Tamsulosin HCl (Flomax) 0.4 mg PO DAILY ON LICENSE OF [facility] Last Admin: 11/19/18 16:05 Dose: 0.4 mg - Labs Labs: 11/18/18 18:40 11/18/18 18:40 PT 11.0 SECONDS (9.4-12.5) 11/18/18 18:40 INR 0.97 11/18/18 18:40 APTT 34.3 Seconds (25.1-36.5) 11/18/18 18:40 - Constitutional Appears: Well - Head Exam Head Exam: NORMAL INSPECTION - Eye Exam Eye Exam: Normal appearance - ENT Exam ENT Exam: Mucous Membranes Moist - Neck Exam Neck Exam: Normal Inspection - Respiratory Exam Respiratory Exam: Clear to Ausculation Bilateral - Cardiovascular Exam Cardiovascular Exam: REGULAR RHYTHM, +S1, +S2 - GI/Abdominal Exam GI & Abdominal Exam: Soft, Normal Bowel Sounds - Rectal Exam Rectal Exam: Deferred - Extremities Exam Extremities Exam: Normal Inspection Assessment and Plan - Assessment and Plan (Free Text) Assessment: Radiology Results Chest X-Ray 11/18/18 18:26 IMPRESSION: Right IJ approach dialysis catheter with distal tip extending to the SVC/cavoatrial junction. Head CT 11/18/18 18:27 IMPRESSION: No acute hemorrhage. 1. AMS s/p SUGAR SAMPLER post dialysis treatment Awaiting neurology consult and recs 2. ESRD/ currently receiving HD Pt. to receive HD tommorow as per medical van driver. Will continue to monitor clinical status and follow closely. Patient is resident of [place], anticipate DC to [place] after cleared by neurologist.
[2018-11-19] MEDS: Divalproex 125 mg EC Sprinkle Cap PO SCH (19:19)
[2018-11-19] MEDS: Arformoterol 15 mcg/2 ml Inh Sol IH SCH (20:24)
[2018-11-19] MEDS: Budesonide 0.5 mg/2 ml Inhal Susp UD IH SCH (20:24)
--- NOTE | 2018-11-19 21:35 | CON ---
DATE: 11/19/2018 HISTORY OF PRESENT ILLNESS: This is an 88-year-old male with a past medical history of seizure; dementia; hypertension; end-stage renal disease, on hemodialysis; anemia of chronic disease; peripheral vascular disease; diabetes; arthritis; peptic ulcer; GERD; hyperlipidemia, came to hospital and had dialysis yesterday. When he was completing the treatment, the patient became confused and unresponsive, Rapid Response was called, and then the patient became confused. CAT scan of the head was done which was reported negative, no bleed or stroke. The patient follows simple commands. Also, the patient has status post left leg amputation and multiple medical problems. ALLERGIES: NO KNOWN DRUG ALLERGY. SOCIAL HISTORY: Does not smoke, does not drink. PHYSICAL EXAMINATION: HEENT: Normocephalic, atraumatic. NECK: Supple. NEUROLOGIC: Awake and oriented to self only. Cranial nerves II through XII were tested. Pupil reactive. Spontaneous movement of the extremity noted, upper and status post left leg amputation. Cerebellar gait deferred. IMPRESSION: An 88-year-old white male who recently had dialysis and had altered mental status, multiple medical problems like end-stage renal disease, hemodialysis dependent; hypertension, seizure; peripheral vascular disease; diabetes; anemia of chronic disease; and peptic ulcer disease. Workup in progress. CAT scan negative. Continue present management. We will follow up. Pj Villalobos MD
[2018-11-19] MEDS ORDERED: Fluticasone-Salmeterol 500-50mcg Diskus INH SCH (22:00)
[2018-11-19 22:16] VITALS: RESP 18
[2018-11-20 07:39] VITALS: BP 129/53; PULSE 61; TEMP 97.9; O2SAT 96
[2018-11-20] MEDS: Arformoterol 15 mcg/2 ml Inh Sol IH SCH (07:48)
[2018-11-20] MEDS: Budesonide 0.5 mg/2 ml Inhal Susp UD IH SCH (07:48)
[2018-11-20] MEDS ORDERED: Multi Vitamins 15 mL UD Oral Solution PO SCH (08:00)
[2018-11-20 09:22] LABS: BASO # 0.02 K/mm3 (0.0-2.0); BASO % 0.1 % (0.0-3.0); EOS # 0.2 (0.0-0.7); EOS % 1.7 % (1.5-5.0); GRAN # 10.03 (1.4-6.5); GRAN % 73.7 % (50.0-68.0); HEMOGLOBIN 11.2 g/dL (14.0-18.0); LYMPH # 2.4 (1.2-3.4); LYMPH % 17.4 % (22.0-35.0); MEAN CELL VOLUME 89.2 fl (80.0-105.0); MEAN CORPUSCULAR HEMOGLOBIN 28.9 pg (25.0-35.0); MEAN CORPUSCULAR HGB CONC 32.4 g/dl (31.0-37.0); MEAN PLATELET VOLUME 9.9 fl (7.0-11.0); MONO % 7.1 % (1.0-6.0); RBC 3.88 10^6/uL (3.5-6.1); RED CELL DISTRIBUTION WIDTH 16.8 % (11.5-14.5); WHITE BLOOD COUNT 13.6 10^3/uL (4.5-11.0)
--- NOTE | 2018-11-20 09:38 | HP ---
DATE OF EXAM: 11/19/2018 CHIEF COMPLAINT: Altered mental status. HISTORY OF PRESENT ILLNESS: Mr. Sukhdev Grey is an 88-year-old male with past medical history of end-stage renal disease, dialysis 3 times a week, dementia, peripheral vascular disease, congestive heart failure, hypertension, hypercholesterolemia, insulin-dependent diabetes mellitus, came for hemodialysis from [facility], he is a permanent resident there, has confusion. Patient is awake and alert, but confused. Reports he is dizzy. Sometimes, getting cough. No pain. The patient is not a good historian. I saw the patient. He is not on his baseline. Discussion done with nurse practitioner, Miya, and ER physician. His CT scan of the head with coronary artery consult. PAST MEDICAL HISTORY: History of angina; congestive heart failure; hypertension; peripheral vascular disease; COPD; renal failure, on hemodialysis 3 times a week, history of fall, unsteady gait, BPH, depression, and left AKA. FAMILY HISTORY: Father and mother noncontributory. HABITS: Former smoker. No drug. No ethanol. ALLERGIES: THE PATIENT IS NOT ALLERGIC WITH ANY MEDICATION. HOME MEDICATIONS: Insulin, Vasotec, Advair, amlodipine, Namenda, and metoprolol. REVIEW OF SYSTEMS: The patient was seen and examined at the bedside in his room. Confused; awake and alert, but he is not able to give me history. No fever. No chills. No hematuria. No hematochezia. No headache. No dizziness. No swelling of the legs. PHYSICAL EXAMINATION: VITAL SIGNS: Pulse 93, respiratory rate 17, blood pressure 134/54, and pulse oximetry 93. HEENT: Head normocephalic, atraumatic. Eyes PERRLA. Extraocular muscles intact. Conjunctivae clear. Nose patent. Mucous membrane moist. NECK: Supple. No carotid bruit. No JVD or thyromegaly. CHEST: Bilaterally symmetrical. HEART: S1 and S2 positive. LUNGS: Clear to auscultation. ABDOMEN: Soft. Bowel sounds positive. No organomegaly. EXTREMITIES: No edema. No cyanosis. NEUROLOGICAL: Awake and alert, but confused. LABORATORY DATA: White blood cells 10.8, hemoglobin 12.7, hematocrit 37.5, and platelets 176. Sodium 137, potassium 4.1, BUN 42, creatinine 3.9, and glucose 161. ASSESSMENT AND PLAN: Mr. Sukhdev Grey is an 88-year-old male with anemia, hypochloremia, renal insufficiency, hyperglycemia, influenza type A and B is positive. He came with altered mental status. History of dementia, atherosclerotic heart disease, peripheral vascular disease, congestive heart failure, hypertension, hypercholesterolemia, asthma, insulin-dependent diabetes mellitus, CT scan of the head done shows no acute changes. Neurology consult called. The patient is a resident of [facility]. Seen by Pj Villalobos and Dee Minor. History of seizures, peptic ulcer disease. According to neurologist, continue treatment. Seen by Dr. Wali Minor. Blood cultures done, but results are pending to rule out sepsis. dialysis tomorrow. Discussion done with nurse practitionerMiya. Repeat labs. We will follow up. Senia Thomas MD M[facility]
[2018-11-20 09:56] LABS: ALB/GLOB RATIO 1.1 (1.1-1.8); ALBUMIN 3.8 g/dL (3.0-4.8); CALCIUM 9.5 mg/dL (8.4-10.5)
[2018-11-20] MEDS ORDERED: Fluticasone Nasal 50 mcg/Spray NS SCH (10:00)
--- NOTE | 2018-11-20 11:17 | CP.PCM.PCO ---
Physician Communication Note - Physician Communication Note Physician Communication Note: Pt cleared from neurological standpoint for Discharge
[2018-11-20] MEDS: Divalproex 125 mg EC Sprinkle Cap PO SCH (13:31)
--- NOTE | 2018-11-21 15:29 | PN ---
DATE: 11/20/2018 SUBJECTIVE: This 88-year-old male was examined in the [facility] dialysis unit on the morning of , 11/20/2018 and his case was reviewed with dialysis nurse, Janene. The patient was dialyzing on a F160, 140 sodium, 3K bicarb bath. PHYSICAL EXAMINATION: VITAL SIGNS: Blood pressure of 92/50 and a pulse of 97. HEART: With S1, S2. LUNGS: Clear. ABDOMEN: Soft. LABORATORY DATA: White count 13,600, hemoglobin 11.2, hematocrit 34.6, platelets 178,000. Sodium 135, K 4.9, chloride 97, bicarb 23, BUN 87, creatinine 8.3. IMPRESSION: The patient will dialyze for 3 hours today and is awaiting neurological evaluation with Dr. Michael Villalobos. Dee Minor MD
--- NOTE | 2018-11-21 15:44 | PN ---
DATE: 11/20/2018 SUBJECTIVE: This 88-year-old male was examined in the renal dialysis unit in the presence of his dialysis nurse . PHYSICAL EXAMINATION: VITAL SIGNS: Blood pressure was 123/60 with a pulse of 91. HEART: S1, S2. LUNGS: Clear. IMPRESSION: I am aiming for 1.5 kg fluid removal. The patient's influenza A and B serologies are negative. Blood culture show no growth and the patient is ultimately being planned for discharge to his [facility] post-treatment. Dee Minor MD
== END 2018-11-20 18:13 ==
LOC: ED 17:48 → ERH 23:30 → 5RNO 11-19 05:30
PROVIDERS: ADMIT Internal Medicine; ATTEND Internal Medicine
DX: R41.82 Altered mental status, unspecified (principal); I13.2 Hypertensive heart and chronic kidney disease with heart failure and with stage 5 chronic kidney disease, or end stage renal disease; N18.6 End stage renal disease; I50.9 Heart failure, unspecified; J44.9 Chronic obstructive pulmonary disease, unspecified; Z79.4 Long term (current) use of insulin; K21.9 Gastro-esophageal reflux disease without esophagitis; N40.0 Benign prostatic hyperplasia without lower urinary tract symptoms; I25.10 Atherosclerotic heart disease of native coronary artery without angina pectoris; D63.8 Anemia in other chronic diseases classified elsewhere; R56.9 Unspecified convulsions; E11.22 Type 2 diabetes mellitus with diabetic chronic kidney disease; E11.65 Type 2 diabetes mellitus with hyperglycemia; E11.51 Type 2 diabetes mellitus with diabetic peripheral angiopathy without gangrene; E78.00 Pure hypercholesterolemia, unspecified; Z99.2 Dependence on renal dialysis; Z86.73 Personal history of transient ischemic attack (TIA), and cerebral infarction without residual deficits; Z89.612 Acquired absence of left leg above knee; Z87.891 Personal history of nicotine dependence; Z87.11 Personal history of peptic ulcer disease
CPT/HCPCS: 36415; 70450; 71045; 80053; 82550; 82803; 82948; 83615; 83735; 83880; 84484; 85025; 85610; 85730; 87040; 87804; 93005; 94640; 94760; 99285; G0378